=== PATIENT | female | born 1960 | race Caucasian/White ===

== ENCOUNTER 2016-08-22 18:41 | Inpatient (IN) | payer OTHER ==
[2016-08-22] MEDS ORDERED: METOCLOPRAMIDE 5 MG/ML 2 ML VIAL IVP STA (19:07)
[2016-08-22] MEDS ORDERED: SODIUM CHLORIDE 0.9% 1,000 ML IV STA ×2 (19:07)
--- NOTE | 2016-08-22 19:11 | ED ---
General Adult HPI - General Chief complaint: Dizziness Stated complaint: weakness Time Seen by Provider: 08/22/16 18:48 Source: patient, EMS, RN notes reviewed Mode of arrival: EMS Limitations: no limitations - History of Present Illness Initial comments: Patient is a pleasant 56-year-old female presenting to the emergency Department with complaints of dizziness and weakness. Patient is a poor historian . Patient has a history of dizziness. Patient states she is having several falls over the past few days. Patient admits to not drinking much and feeling dry. Patient requests fluids. No reported headaches. Patient believes she has been taking heparin shots for her dizziness however states she stopped doing it because it causes bruising. No isolated area of weakness however patient feels weak all over. Patient states she does not feel confused. Patient states she has discomfort of her tailbone from falling. - Related Data Home Medications Medication Instructions Recorded Confirmed Amitriptyline HCl [Elavil] 100 mg PO HS 08/22/16 08/22/16 Aspirin 81 mg PO DAILY 08/22/16 08/22/16 Butalb/APAP/Caff 50-325-40Mg 1 tab PO Q6H PRN 08/22/16 08/22/16 [Fioricet 50-325-40] Clopidogrel [Plavix] 75 mg PO DAILY 08/22/16 08/22/16 Glimepiride [Amaryl] 1 mg PO AC-BRKFST 08/22/16 08/22/16 Ipratropium-Albuterol Nebulize 3 ml INHALATION RT-QID PRN 08/22/16 08/22/16 [Duoneb 0.5 mg-3 mg/3 ml Soln] Megestrol [Megace] 800 mg PO DAILY 08/22/16 08/22/16 Metoprolol Tartrate [Lopressor] 25 mg PO BID 08/22/16 08/22/16 Polyethylene Glycol 3350 [Miralax] 17 gm PO DAILY 08/22/16 08/22/16 Sennosides-Docusate Sodium 1 tab PO DAILY 08/22/16 08/22/16 [Senokot-S] Sodium Bicarbonate Tab 650 mg PO BID 08/22/16 08/22/16 Allergies Allergy/AdvReac Type Severity Reaction Status Date / Time WARNER Inhibitors Allergy Unknown Verified 08/22/16 19:12 amoxicillin [From Amoxil] Allergy Unknown Verified 08/22/16 19:12 Childhood ciprofloxacin [From Cipro] Allergy Rash/Hives Verified 08/22/16 19:12 metformin Allergy Unknown Verified 08/22/16 19:12 Review of Systems ROS Statement: Those systems with pertinent positive or pertinent negative responses have been documented in the HPI. ROS Other: All systems not noted in ROS Statement are negative. Constitutional: Denies: fever Eyes: Denies: eye pain ENT: Denies: ear pain Respiratory: Denies: cough Cardiovascular: Denies: chest pain Endocrine: Reports: fatigue Gastrointestinal: Denies: vomiting Genitourinary: Denies: urgency Musculoskeletal: Reports: back pain (Tailbone from falling today) Skin: Denies: rash Neurological: Reports: weakness (Generalized). Denies: confusion Past Medical History Past Medical History: Asthma, Diabetes Mellitus, Fibromyalgia, GERD/Reflux, Hyperlipidemia, Myocardial Infarction ([place]), Rheumatoid Arthritis ([place]) Additional Past Medical History / Comment(s): Pt presented to [facility] ER with pain beneath bilateral breasts which was a squeezing type pain and also epigastric pain. Pt is admitted with chest pain, abdominal pain, UTI and hypotension. Other HX: NIDDM, current devika on bottom of R foot per pt not seen by physician yet, 04/2015 cholecystitis with sepsis (had cholecystectomy), morbid obesity, chronic migraines, SCOLIOSIS, CHRONIC BACK PAIN CARPAL TUNNEL bilaterally. Last Myocardial Infarction Date:: 05/24/15 History of Any Multi-Drug Resistant Organisms: None Reported Past Surgical History: Breast Surgery, Cholecystectomy, Heart Catheterization, Heart Catheterization With Stent, Tonsillectomy Additional Past Surgical History / Comment(s): 05/2015 PCI with stent at [facility]. Other surgeries: BIBI KNEE ARTHROSCOPIES, L BREAST- LUMPECTOMY(BENIGN) Past Anesthesia/Blood Transfusion Reactions: Motion Sickness Additional Past Anesthesia/Blood Transfusion Reaction / Comment(s): Pt states she has clausterphobia. Date of Last Stent Placement:: 05/24/15 per pt Past Psychological History: Anxiety, Depression Additional Psychological History / Comment(s): pt stated lives with 1 cat. She is independant. She uses no assistive device. She does not drive-she uses the bus. She helps care for her parents. Smoking Status: Former smoker Past Alcohol Use History: None Reported Additional Past Alcohol Use History / Comment(s): SMOKED X les than 1 YEAR,QUIT 1979 Past Drug Use History: None Reported - Past Family History Father Family Medical History: Dementia Mother History Unknown: Yes Family Medical History: Cancer, Chest Pain / Angina Additional Family Medical History / Comment(s): Breast cancer with recent surgery. General Exam Limitations: no limitations General appearance: alert, in no apparent distress Head exam: Present: atraumatic, normocephalic Eye exam: Present: normal appearance, PERRL, EOMI. Absent: nystagmus ENT exam: Present: mucous membranes dry Neck exam: Present: normal inspection Respiratory exam: Present: normal lung sounds bilaterally Cardiovascular Exam: Present: regular rate, normal rhythm GI/Abdominal exam: Present: soft. Absent: tenderness Extremities exam: Present: normal inspection, full ROM. Absent: tenderness Back exam: Present: other (Mild tenderness to the sacral region.) Neurological exam: Present: alert, altered, CN II-XII intact Expanded Patient oriented to: Present: person, place. Absent: time Motor strength exam: RUE: 5, LUE: 5, RLE: 4, LLE: 4 Eye Response: (4) open spontaneously Motor Response: (6) obeys commands Verbal Response: (4) confused conversation Psychiatric exam: Present: normal affect, normal mood Expanded Type of lesion: Present: rash (Bilateral arms and legs with multiple small lesions with central eschars and evidence of scratching consistent with scabies) Course Vital Signs 08/22/16 08/22/16 18:42 21:00 Temperature 99.1 F Pulse Rate 55 L 88 Respiratory 20 18 Rate Blood Pressure 221/116 112/58 O2 Sat by Pulse 98 97 Oximetry Medical Decision Making - Medical Decision Making Patient does not meet sepsis criteria. Cefepime started for urinary tract infection. Patient has failed outpatient antibiotics. also appears dehydrated. Dr. Montrell delgadillo for admission. Patient and family updated on results and plan. - Lab Data Result diagrams: 08/22/16 20:15 08/22/16 20:15 Lab Results 08/22/16 08/22/16 08/22/16 Range/Units 19:48 20:15 20:15 WBC 13.6 H (3.8-10.6) k/uL RBC 3.05 L (3.80-5.40) m/uL Hgb 8.9 L (11.4-16.0) gm/dL Hct 28.2 L (34.0-46.0) % MCV 92.5 (80.0-100.0) fL MCH 29.1 (25.0-35.0) pg MCHC 31.4 (31.0-37.0) g/dL RDW 15.5 (11.5-15.5) % Plt Count 423 (150-450) k/uL Neutrophils % 95 % Lymphocytes % 2 % Monocytes % 2 % Eosinophils % 0 % Basophils % 0 % Neutrophils # 12.9 H (1.3-7.7) k/uL Lymphocytes # 0.3 L (1.0-4.8) k/uL Monocytes # 0.3 (0-1.0) k/uL Eosinophils # 0.0 (0-0.7) k/uL Basophils # 0.0 (0-0.2) k/uL Hypochromasia Slight PT (9.0-12.0) sec INR (<1.1) APTT (22.0-30.0) sec Sodium (137-145) mmol/L Potassium (3.5-5.1) mmol/L Chloride (98-107) mmol/L Carbon Dioxide (22-30) mmol/L Anion Gap mmol/L BUN (7-17) mg/dL Creatinine (0.52-1.04) mg/dL Est GFR (MDRD) Af Amer (>60 ml/min/1.73 sqM) Est GFR (MDRD) Non-Af (>60 ml/min/1.73 sqM) Glucose (74-99) mg/dL Calcium (8.4-10.2) mg/dL Phosphorus (2.5-4.5) mg/dL Magnesium (1.6-2.3) mg/dL Total Bilirubin (0.2-1.3) mg/dL AST (14-36) U/L ALT (9-52) U/L Alkaline Phosphatase (38-126) U/L Total Creatine Kinase 226 H (30-135) U/L CK-MB (CK-2) 2.1 (0.0-2.4) ng/mL CK-MB (CK-2) Rel Index 0.9 Troponin I <0.012 <0.012 (0.000-0.034) ng/mL Total Protein (6.3-8.2) g/dL Albumin (3.5-5.0) g/dL TSH (0.465-4.680) mIU/L Urine Color Urine Appearance (Clear) Urine pH (5.0-8.0) Ur Specific Hagerman (1.001-1.035) Urine Protein (Negative) Urine Glucose (UA) (Negative) Urine Ketones (Negative) Urine Blood (Negative) Urine Nitrate (Negative) Urine Bilirubin (Negative) Urine Urobilinogen (<2.0) mg/dL Ur Leukocyte Esterase (Negative) Urine RBC (0-5) /hpf Urine WBC (0-5) /hpf Urine Bacteria (None) /hpf Hyaline Casts (0-2) /lpf Urine Mucus (None) /hpf 08/22/16 08/22/16 08/22/16 Range/Units 20:15 20:15 21:15 WBC (3.8-10.6) k/uL RBC (3.80-5.40) m/uL Hgb (11.4-16.0) gm/dL Hct (34.0-46.0) % MCV (80.0-100.0) fL MCH (25.0-35.0) pg MCHC (31.0-37.0) g/dL RDW (11.5-15.5) % Plt Count (150-450) k/uL Neutrophils % % Lymphocytes % % Monocytes % % Eosinophils % % Basophils % % Neutrophils # (1.3-7.7) k/uL Lymphocytes # (1.0-4.8) k/uL Monocytes # (0-1.0) k/uL Eosinophils # (0-0.7) k/uL Basophils # (0-0.2) k/uL Hypochromasia PT 11.0 (9.0-12.0) sec INR 1.1 (<1.1) APTT 29.1 (22.0-30.0) sec Sodium 138 (137-145) mmol/L Potassium 4.6 (3.5-5.1) mmol/L Chloride 99 (98-107) mmol/L Carbon Dioxide 18 L (22-30) mmol/L Anion Gap 21 mmol/L BUN 29 H (7-17) mg/dL Creatinine 1.56 H (0.52-1.04) mg/dL Est GFR (MDRD) Af Amer 41 (>60 ml/min/1.73 sqM) Est GFR (MDRD) Non-Af 34 (>60 ml/min/1.73 sqM) Glucose 258 H (74-99) mg/dL Calcium 8.5 (8.4-10.2) mg/dL Phosphorus 2.8 (2.5-4.5) mg/dL Magnesium 1.5 L (1.6-2.3) mg/dL Total Bilirubin 0.5 (0.2-1.3) mg/dL AST 29 (14-36) U/L ALT 42 (9-52) U/L Alkaline Phosphatase 102 (38-126) U/L Total Creatine Kinase (30-135) U/L CK-MB (CK-2) (0.0-2.4) ng/mL CK-MB (CK-2) Rel Index Troponin I (0.000-0.034) ng/mL Total Protein 5.9 L (6.3-8.2) g/dL Albumin 3.3 L (3.5-5.0) g/dL TSH 1.420 (0.465-4.680) mIU/L Urine Color Yellow Urine Appearance Cloudy H (Clear) Urine pH 8.5 H (5.0-8.0) Ur Specific Hagerman 1.010 (1.001-1.035) Urine Protein 1+ H (Negative) Urine Glucose (UA) 1+ H (Negative) Urine Ketones Negative (Negative) Urine Blood Negative (Negative) Urine Nitrate Positive H (Negative) Urine Bilirubin Negative (Negative) Urine Urobilinogen <2.0 (<2.0) mg/dL Ur Leukocyte Esterase Large H (Negative) Urine RBC 8 H (0-5) /hpf Urine WBC 102 H (0-5) /hpf Urine Bacteria Many H (None) /hpf Hyaline Casts 9 H (0-2) /lpf Urine Mucus Moderate H (None) /hpf Disposition Clinical Impression: Infestation by Sarcoptes scabiei, Dehydration, UTI (urinary tract infection) Disposition: ADMITTED IP TO THIS [facility] Referrals: Terrance Stock MD [Primary Care Provider] - 1-2 days
[2016-08-22 20:24] LABS: Basophils % (A) 0 %; CH 28.9; CHCM 31.3; Eosinophils % (A) 0 %; HCT 28.2 % (34.0-46.0); HDW 2.87; HGB 8.9 gm/dL (11.4-16.0); Hypochromasia Slight; Luc # (Auto) 0.05; Luc % (Auto) 0; Lymphocytes # (A) 0.3 k/uL (1.0-4.8); Lymphocytes % (A) 2 %; MCH 29.1 pg (25.0-35.0); MCHC 31.4 g/dL (31.0-37.0); MCV 92.5 fL (80.0-100.0); Mean Platelet Volume 6.9; Monocytes # (A) 0.3 k/uL (0-1.0); Monocytes % (A) 2 %; Neutrophils # (A) 12.9 k/uL (1.3-7.7); Neutrophils % (A) 95 %; RBC 3.05 m/uL (3.80-5.40); RDW 15.5 % (11.5-15.5); WBC 13.6 k/uL (3.8-10.6); WBC (Perox) 13.88
[2016-08-22 20:37] LABS: Calcium 8.5 mg/dL (8.4-10.2); Magnesium 1.5 mg/dL (1.6-2.3); Phosphorous 2.8 mg/dL (2.5-4.5); Potassium 4.6 mmol/L (3.5-5.1); Total Bilirubin 0.5 mg/dL (0.2-1.3); Total Protein 5.9 g/dL (6.3-8.2)
[2016-08-22 20:38] LABS: INR 1.1 (<1.1); Partial Thromboplastin Time 29.1 sec (22.0-30.0)
[2016-08-22 20:49] LABS: Creatine Kinase 226 U/L (30-135)
--- NOTE | 2016-08-22 20:56 | CT ---
EXAMINATION TYPE: CT brain wo con DATE OF EXAM: 08/22/2016 8:48 PM COMPARISON: 08/12/2016 HISTORY: Pt states of weakness and fall today. CT DLP: 1130. mGycm Automated exposure control for dose reduction was used. FINDINGS: There is mild cerebral cortical atrophy. There is no mass effect nor midline shift. There is no sign of intracranial hemorrhage. Calvarium is intact. IMPRESSION: Mild atrophy. No acute intracranial abnormality. No change.
[2016-08-22 21:03] LABS: Creatine Kinase MB 2.1 ng/mL (0.0-2.4); Troponin I <0.012 ng/mL (0.000-0.034)
--- NOTE | 2016-08-22 21:10 | XR ---
EXAMINATION TYPE: XR chest 2V DATE OF EXAM: 08/22/2016 9:01 PM COMPARISON: 07/19/2016 HISTORY: Weakness TECHNIQUE: Frontal and lateral views of the chest are obtained. FINDINGS: Heart and mediastinum are normal. Lungs are clear. Diaphragm is normal. Bony thorax is int act. IMPRESSION: Normal chest. No adverse change compared to old exam.
--- NOTE | 2016-08-22 21:11 | XR ---
EXAMINATION TYPE: XR sacrum coccyx DATE OF EXAM: 08/22/2016 9:01 PM COMPARISON: NONE HISTORY: Weakness and falls. Pain. TECHNIQUE: 3 views FINDINGS: Segments have normal alignment. Sacroiliac joints appear intact. I see no fracture. There i s soft tissue air posteriorly consistent with laceration. IMPRESSION: No fracture seen. Posterior soft tissue air consistent with lacerations.
[2016-08-22 21:42] LABS: Appearance,Urine Cloudy (Clear); Bacteria,Urine Many /hpf; Bilirubin,Urine Negative (Negative); Glucose,Urine (UA) 1+ (Negative); Ketones,Urine Negative (Negative); Leukocyte Esterase,Urine Large (Negative); Mucus,Urine Moderate /hpf; Nitrite,Urine Positive (Negative); PH, Urine 8.5 (5.0-8.0); Particle Count 69565; Protein,Urine 1+ (Negative); RBC,Urine 8 /hpf (0-5); UA Billing (MACRO vs. MICRO) MICRO; Urobilinogen,Urine <2.0 mg/dL (<2.0); WBC,Urine 102 /hpf (0-5)
[2016-08-22] MEDS ORDERED: PERMETHRIN 5% CREAM 60 GM TUBE TOPICAL ONE (22:22)
[2016-08-22] MEDS ORDERED: CEFEPIME 1 GM in SODIUM CHLORIDE 0.9% 50 ML IVPB STA (22:23)
[2016-08-22] MEDS ORDERED: NALOXONE 0.4 MG/ML 1 ML VIAL IV PRN (22:26)
[2016-08-23] MEDS: SODIUM CHLORIDE 0.9% 1,000 ML IV SCH ×5 (01:55→17:15)
[2016-08-23] MEDS: ACETAMINOPHEN TAB 325 MG TAB PO PRN (02:25)
[2016-08-23 07:19] LABS: Glucose,Whole Blood 135 mg/dL (75-99)
[2016-08-23] MEDS ORDERED: BUTALB/APAP/CAFF 50-325-40MG TAB PO PRN (08:34)
[2016-08-23] MEDS ORDERED: IPRATROPIUM-ALBUTEROL 3 ML NEB INHALATION PRN (08:34)
[2016-08-23 08:56] LABS: Basophils % (A) 0 %; CH 29.2; CHCM 31.7; Eosinophils % (A) 0 %; HCT 25.3 % (34.0-46.0); HDW 2.87; HGB 7.9 gm/dL (11.4-16.0); Hypochromasia Slight; Luc # (Auto) 0.05; Luc % (Auto) 1; Lymphocytes # (A) 0.6 k/uL (1.0-4.8); Lymphocytes % (A) 6 %; MCH 28.9 pg (25.0-35.0); MCHC 31.4 g/dL (31.0-37.0); MCV 92.3 fL (80.0-100.0); Mean Platelet Volume 7.3; Monocytes # (A) 0.3 k/uL (0-1.0); Monocytes % (A) 3 %; Neutrophils # (A) 9.6 k/uL (1.3-7.7); Neutrophils % (A) 91 %; RBC 2.74 m/uL (3.80-5.40); RDW 15.6 % (11.5-15.5); WBC 10.6 k/uL (3.8-10.6); WBC (Perox) 11.59
[2016-08-23] MEDS ORDERED: FAMOTIDINE 20 MG TAB PO SCH (09:00)
[2016-08-23 09:33] LABS: Potassium 3.8 mmol/L (3.5-5.1)
[2016-08-23] MEDS: MEGESTROL 400 MG/10 ML CUP PO SCH (09:59)
[2016-08-23] MEDS: SODIUM BICARBONATE TAB 650 MG TAB PO SCH ×2 (09:59→20:33)
[2016-08-23] MEDS: METOPROLOL TARTRATE 25 MG TAB PO SCH ×2 (09:59→20:32)
[2016-08-23] MEDS: POLYETHYLENE GLYCOL 3350 17 GM POWD.PACK PO SCH (09:59)
[2016-08-23] MEDS: ASPIRIN 81 MG CHEW PO SCH (10:00)
[2016-08-23] MEDS: HEPARIN SODIUM,PORCINE 5,000 UNIT/ML 1 ML VIAL SQ SCH ×2 (10:00→17:14)
[2016-08-23] MEDS: CLOPIDOGREL 75 MG TAB PO SCH (10:00)
[2016-08-23] MEDS: GLIMEPIRIDE 1 MG TAB PO SCH (10:00)
[2016-08-23] MEDS ORDERED: CEFEPIME 1 GM in SODIUM CHLORIDE 0.9% 50 ML IVPB SCH ×2 (11:30→12:00)
[2016-08-23 12:09] LABS: Glucose,Whole Blood 217 mg/dL (75-99)
[2016-08-23] MEDS: SENNOSIDES-DOCUSATE SODIUM 1 EACH TAB PO SCH (14:15)
[2016-08-23 17:01] LABS: Glucose,Whole Blood 139 mg/dL (75-99)
[2016-08-23] MEDS: AMITRIPTYLINE HCL 50 MG TAB PO SCH (20:33)
[2016-08-23 21:28] LABS: Glucose,Whole Blood 130 mg/dL (75-99)
[2016-08-24] MEDS: HEPARIN SODIUM,PORCINE 5,000 UNIT/ML 1 ML VIAL SQ SCH ×4 (00:23→23:10)
[2016-08-24] MEDS: SODIUM CHLORIDE 0.9% 1,000 ML IV SCH ×5 (03:37→23:11)
[2016-08-24 07:32] LABS: Glucose,Whole Blood 90 mg/dL (75-99)
[2016-08-24] MEDS: GLIMEPIRIDE 1 MG TAB PO SCH (08:33)
[2016-08-24] MEDS: ASPIRIN 81 MG CHEW PO SCH (08:33)
[2016-08-24] MEDS: CLOPIDOGREL 75 MG TAB PO SCH (08:34)
[2016-08-24] MEDS: MEGESTROL 400 MG/10 ML CUP PO SCH (08:34)
[2016-08-24] MEDS: METOPROLOL TARTRATE 25 MG TAB PO SCH ×2 (08:35→21:01)
[2016-08-24] MEDS: POLYETHYLENE GLYCOL 3350 17 GM POWD.PACK PO SCH (08:35)
[2016-08-24] MEDS: SENNOSIDES-DOCUSATE SODIUM 1 EACH TAB PO SCH (08:36)
[2016-08-24] MEDS: SODIUM BICARBONATE TAB 650 MG TAB PO SCH ×2 (08:36→21:01)
[2016-08-24] MEDS ORDERED: FAMOTIDINE 20 MG TAB PO SCH (09:00)
[2016-08-24 09:12] LABS: Basophils % (A) 0 %; CH 29.1; CHCM 30.7; Eosinophils % (A) 0 %; HGB 7.8 gm/dL (11.4-16.0); Hypochromasia Moderate; Luc # (Auto) 0.09; Luc % (Auto) 1; Lymphocytes % (A) 15 %; MCH 28.4 pg (25.0-35.0); MCHC 29.9 g/dL (31.0-37.0); MCV 94.9 fL (80.0-100.0); Mean Platelet Volume 7.3; Monocytes # (A) 0.3 k/uL (0-1.0); Monocytes % (A) 4 %; Neutrophils # (A) 5.2 k/uL (1.3-7.7); Neutrophils % (A) 80 %; RBC 2.73 m/uL (3.80-5.40); RDW 15.7 % (11.5-15.5); WBC 6.6 k/uL (3.8-10.6); WBC (Perox) 7.06
[2016-08-24 09:44] LABS: ALT 43 U/L (9-52); AST 20 U/L (14-36); Alkaline Phosphatase 78 U/L (38-126); Anion Gap 15 mmol/L; Blood Urea Nitrogen 24 mg/dL (7-17); Calcium 8.5 mg/dL (8.4-10.2); Carbon Dioxide 18 mmol/L (22-30); Chloride 112 mmol/L (98-107); Cholesterol 124 mg/dL (<200); Glucose 102 mg/dL (74-99); HDL Cholesterol 19 mg/dL (40-60); Non-African American GFR(MDRD) 50 (>60 ml/min/1.73 sqM); Potassium 3.5 mmol/L (3.5-5.1); Sodium 145 mmol/L (137-145); Total Bilirubin 0.3 mg/dL (0.2-1.3); Total Protein 5.3 g/dL (6.3-8.2); Triglycerides 243 mg/dL (<150)
--- NOTE | 2016-08-24 09:59 | CONS ---
DATE OF CONSULTATION: 08/23/2016 REASON FOR CONSULTATION: 1. Urinary tract infection. 2. Left gluteal wound. 3. Antibiotic recommendation. HISTORY OF PRESENT ILLNESS: The patient is a 56-year-old female who recently had a prolonged hospital stay at this facility where the patient presented with some mental status changes. The patient at that time did have an Escherichia coli bacteremia. The patient also went into renal failure requiring hemodialysis. Subsequently, the patient was stabilized and was [facility], however, apparently the patient had signed herself out from there and currently has at home. Patient was brought into the ER last night with chief complaints of generalized weakness and the patient has had multiple falls. The patient also spiked a fever of 102 degrees Fahrenheit. She did have an elevated white count of 13,000. UA has been positive. The patient started on cefepime. Because of her multiple antibiotic allergies, I was asked to see the patient for further recommendations regarding antibiotics. Patient also has a wound in her left gluteal area. However, the patient is not sure exactly when this started. She is complaining some dull pain in this area. Has some minimal drainage from it. She did have an x-ray of the coccygeal area, which did show some air. The patient denies having any headache. Denies having any chest pain or shortness of breath or cough. No abdominal pain or any diarrhea. REVIEW OF SYSTEMS: CONSTITUTIONAL: Positive for weakness along with a fever. EYES: No complaint. ENT: No complaint. RESPIRATORY: No complaint. CARDIOVASCULAR: No complaint. GENITOURINARY: As per HPI. GASTROINTESTINAL: No complaint. MUSCULOSKELETAL: No complaint. INTEGUMENTARY: As per HPI. PSYCHOLOGICAL: No complaint. ENDOCRINE: No complaint. NEUROLOGICAL: No complaint. PAST MEDICAL HISTORY: Diabetes mellitus, fibromyalgia, gastroesophageal reflux disease, hyperlipidemia, myocardial infarction, scoliosis, recurrent UTIs, Escherichia coli bacteremia, renal failure. PAST SURGICAL HISTORY: Cholecystectomy, heart catheterization and stent placement, tonsillectomy, left breast lumpectomy, bilateral knee arthroscopies, breast surgery, dialysis catheter placement and subsequent removal. SOCIAL HISTORY: The patient quit smoking back in . Denies drinking or drug use. FAMILY HISTORY: Father with history of dementia. ALLERGIES: WARNER INHIBITOR, AMOXICILLIN, CIPROFLOXACIN AND METFORMIN. Medications currently include the patient is on Tylenol, Fioricet, DuoNeb, Elavil, aspirin, cefepime 1 gram q.24, Plavix, Pepcid, Amaryl, Heparin, Megace, Lopressor, Narcan, MiraLAX, Senokot, sodium bicarbonate. On examination, blood pressure is 94/57, pulse of 90, temperature 97.4, T-max 102. She is 99% on room air. General description is a middle-age female lying in bed in no distress. HEENT examination shows slight pallor. There is no scleral icterus. Oral mucous membrane is dry. NECK: Trachea central. There is no thyromegaly. LUNGS: Unlabored breathing. Clear to auscultation anteriorly. HEART: S1, S2 with regular rate and rhythm. ABDOMEN: Soft, no tenderness. EXTREMITIES: No edema of the feet. Examination of the left gluteal area did show a stage III pressure ulcer which is significantly deep and did have some purulent drainage. No significant surrounding erythema. NEUROLOGICAL: The patient is awake, alert, oriented. Mood and affect normal. LABS: BUN of 27, creatinine 1.43. Electrolytes have been normal. Liver enzymes are normal. Urine has been significantly positive with large leukocyte esterases, WBC and many bacteria. Hemoglobin 7.9, white count 13.6. Cultures are currently pending. X-rays were negative for any pneumonia. DIAGNOSTIC IMPRESSION AND PLAN: 1. Patient admitted to hospital with sepsis and patient did have fever of 102 degrees Fahrenheit. Did have elevated white count meeting criteria for systemic inflammatory response syndrome. Source is more likely a urinary tract infection; however, an infected wound to the left gluteal area cannot be entirely excluded. 2. Patient has multiple antibiotic allergies limiting the number of antibiotics that can be safely used. PLAN: 1. Will switch over the cefepime to Rocephin 2 grams IV piggyback daily. 2. Santyl to the wound of the left gluteal area. I would recommend getting a surgical evaluation and surgical debridement of the same. Afterwards if it is clean, will see if we can apply a wound VAC to help with the healing process. 3. Will follow up on the clinical condition as well as culture to further adjust the medication if needed. Thank you for this consultation. Will follow this patient along with you. SAMRA
--- NOTE | 2016-08-24 11:05 | P.PN ---
Subjective 56-year-old female who was admitted on the august to the emergency room after patient reportedly had been having multiple falls at home. Patient reportedly had spiked a temp of 102 with an elevated white count. Patient was recently discharged from an ECF facility [facility] [place] on Saturday this week. Patient had been recuperating after a prolonged hospital stay at [facility]. Patient was discharged August 02 to the facility. At that time the patient was being treated for severe sepsis E. coli bacteremia. That admission the patient also had renal failure required hemodialysis. Patient renal function stabilized hemodialysis was able to be stopped. According to the patient after being discharged from the ECF facility this Saturday had been having episodes of falling. On admission the patient had a significant decubitus ulcer stage II involving the left buttocks. Vascular Dr. Stevens from infectious diseases participating in the plan of care. They are recommending a surgical eval for surgical debridement of the sacral decubitus bottom the left gluteal area may benefit from a wound VAC to help with the healing process. ic design manager is pursuing the discharge plan the patient does have a legal guardian patient may benefit from [facility] care versus rehab Objective - Vital Signs Vital signs: Vital Signs Temp 96.9 F L 08/24/16 07:00 Pulse 92 08/24/16 07:00 Resp 20 08/24/16 07:00 BP 113/54 08/24/16 07:00 Pulse Ox 98 08/24/16 07:00 Intake & Output 08/23/16 08/24/16 08/24/16 18:59 06:59 18:59 Intake Total 500 Output Total 600 Balance -600 500 Intake: Oral 500 Output: Urine 600 Other: Voiding Method Bedside Commode # Voids 2 2 - Exam Physical exam 56-year-old female looking older than stated age resting in bed appears in no acute distress Lungs essentially clear with adequate air movement on room air no cough noted Heart S1-S2 audible regular Abdomen soft nontender no reports of nausea vomiting no frequent stooling Extremities no edema noted to the lower extremities Skin a stage III pressure ulcer left gluteal area significantly a deep with. With follow older drainage noted with no significant surrounding erythema noted - Labs CBC & Chem 7: 08/24/16 08:50 08/24/16 08:50 Labs: Abnormal Lab Results - Last 24 Hours (Table) 08/23/16 08/23/16 08/23/16 Range/Units 12:07 16:59 21:07 RBC (3.80-5.40) m/uL Hgb (11.4-16.0) gm/dL Hct (34.0-46.0) % MCHC (31.0-37.0) g/dL RDW (11.5-15.5) % Chloride (98-107) mmol/L Carbon Dioxide (22-30) mmol/L BUN (7-17) mg/dL Creatinine (0.52-1.04) mg/dL Glucose (74-99) mg/dL POC Glucose (mg/dL) 217 H 139 H 130 H (75-99) mg/dL Total Protein (6.3-8.2) g/dL Albumin (3.5-5.0) g/dL Triglycerides (<150) mg/dL HDL Cholesterol (40-60) mg/dL 08/24/16 08/24/16 Range/Units 08:50 08:50 RBC 2.73 L (3.80-5.40) m/uL Hgb 7.8 L (11.4-16.0) gm/dL Hct 26.0 L (34.0-46.0) % MCHC 29.9 L (31.0-37.0) g/dL RDW 15.7 H (11.5-15.5) % Chloride 112 H (98-107) mmol/L Carbon Dioxide 18 L (22-30) mmol/L BUN 24 H (7-17) mg/dL Creatinine 1.12 H (0.52-1.04) mg/dL Glucose 102 H (74-99) mg/dL POC Glucose (mg/dL) (75-99) mg/dL Total Protein 5.3 L (6.3-8.2) g/dL Albumin 2.7 L (3.5-5.0) g/dL Triglycerides 243 H (<150) mg/dL HDL Cholesterol 19 L (40-60) mg/dL Microbiology - Last 24 Hours (Table) 08/23/16 16:27 Gram Stain - Preliminary Buttock Wound Culture - Preliminary 08/23/16 16:40 Anaerobic Culture - Preliminary Buttock Assessment and Plan Plan: Impression Present on admission sirs no evidence of sepsis fever elevated white count suspect due to UTI Present on admission stage III pressure ulcer left gluteal significant depth Chronic debility suspected chronic illness Present on admission bilateral rash arms and legs with multiple skin lesions suggestive of scabies Chronic constipation Mood disorder suspect bipolar Chronic back pain Recent admission August 02 for sepsis gram-negative bacilli with the UTI Present on admission acute kidney injury secondary to poor oral intake Type 2 diabetes non-insulin with hypoglycemic episodes Anemia of chronic illness Dyslipidemia Anemia of chronic illness with no evidence of occult blood loss Cognitive impairment chronic has a legal guardian Plan Consult surgical service patient may benefit from a debridement of the stage III left buttock pressure ulcer PT OT eval Follow-up on pending labs Fall precautions Continue with recommendations by infectious disease in regards to antibiotics Wound care as ordered DVT and GI prophylaxis Follow-up on wound culture and urine culture ic design manager to pursue the discharge plan The above dictated assessment and findings were discussed with dr favio Anne and the plan of care have been dictated as directed. Britt Crum nurse practitioner acting as a scribe for dr stahl
[2016-08-24 11:51] LABS: Glucose,Whole Blood 110 mg/dL (75-99)
[2016-08-24] MEDS: cefTRIAXone 2,000 MG in SODIUM CHLORIDE 0.9% 100 ML IVPB SCH (12:31)
[2016-08-24] MEDS: ACETAMINOPHEN TAB 325 MG TAB PO PRN (12:31)
--- NOTE | 2016-08-24 14:59 | P.GSCN ---
History of Present Illness Consult date: 08/24/16 History of present illness: Patient is a 56-year-old lady who presents with sepsis probably due to urosepsis. She's had a multiple medical problems and was recently admitted to [facility]. She did not have the Eliseo's ulcer on admission but on discharge had a foul-smelling draining stage III decubitus ulcer. She also has multiple rashes which is probably due to scabies infestation as well. Review of Systems - Constitutional Reports fever, Reports malaise, Reports weakness - Cardiovascular Denies chest pain, Denies shortness of breath - Respiratory Denies cough, Denies 7 - Gastrointestinal Reports as per HPI Past Medical History Past Medical History: Asthma, Diabetes Mellitus, Fibromyalgia, GERD/Reflux, Hyperlipidemia, Myocardial Infarction (DC), Rheumatoid Arthritis (RA) Additional Past Medical History / Comment(s): Pt presented to [facility] ER with pain beneath bilateral breasts which was a squeezing type pain and also epigastric pain. Pt is admitted with chest pain, abdominal pain, UTI and hypotension. Other HX: NIDDM, current devika on bottom of R foot per pt not seen by physician yet, 04/2015 cholecystitis with sepsis (had cholecystectomy), morbid obesity, chronic migraines, SCOLIOSIS, CHRONIC BACK PAIN CARPAL TUNNEL bilaterally. Last Myocardial Infarction Date:: 05/24/15 History of Any Multi-Drug Resistant Organisms: None Reported Past Surgical History: Breast Surgery, Cholecystectomy, Heart Catheterization, Heart Catheterization With Stent, Tonsillectomy Additional Past Surgical History / Comment(s): 05/2015 PCI with stent at [facility]. Other surgeries: BIBI KNEE ARTHROSCOPIES, L BREAST- LUMPECTOMY(BENIGN) Past Anesthesia/Blood Transfusion Reactions: Motion Sickness Additional Past Anesthesia/Blood Transfusion Reaction / Comm: Pt states she has clausterphobia. Date of Last Stent Placement:: 05/24/15 per pt Past Psychological History: Anxiety, Depression Additional Psychological History / Comment(s): pt stated lives with 1 cat. She is independant. She uses no assistive device. She does not drive-she uses the bus. She helps care for her parents. Smoking Status: Never smoker Past Alcohol Use History: None Reported Additional Past Alcohol Use History / Comment(s): SMOKED X les than 1 YEAR,QUIT 1979 Past Drug Use History: None Reported - Past Family History Father Family Medical History: Dementia Mother History Unknown: Yes Family Medical History: Cancer, Chest Pain / Angina Additional Family Medical History / Comment(s): Breast cancer with recent surgery. Medications and Allergies Home Medications Medication Instructions Recorded Confirmed Type Amitriptyline HCl [Elavil] 100 mg PO HS 08/22/16 08/22/16 History Aspirin 81 mg PO DAILY 08/22/16 08/22/16 History Butalb/APAP/Caff 50-325-40Mg 1 tab PO Q6H PRN 08/22/16 08/22/16 History [Fioricet 50-325-40] Clopidogrel [Plavix] 75 mg PO DAILY 08/22/16 08/22/16 History Glimepiride [Amaryl] 1 mg PO AC-BRKFST 08/22/16 08/22/16 History Ipratropium-Albuterol Nebulize 3 ml INHALATION RT-QID PRN 08/22/16 08/22/16 History [Duoneb 0.5 mg-3 mg/3 ml Soln] Megestrol [Megace] 800 mg PO DAILY 08/22/16 08/22/16 History Metoprolol Tartrate [Lopressor] 25 mg PO BID 08/22/16 08/22/16 History Polyethylene Glycol 3350 [Miralax] 17 gm PO DAILY 08/22/16 08/22/16 History Sennosides-Docusate Sodium 1 tab PO DAILY 08/22/16 08/22/16 History [Senokot-S] Sodium Bicarbonate Tab 650 mg PO BID 08/22/16 08/22/16 History Allergies Allergy/AdvReac Type Severity Reaction Status Date / Time WARNER Inhibitors Allergy Unknown Verified 08/22/16 19:12 amoxicillin [From Amoxil] Allergy Unknown Verified 08/22/16 19:12 Childhood ciprofloxacin [From Cipro] Allergy Rash/Hives Verified 08/22/16 19:12 metformin Allergy Unknown Verified 08/22/16 19:12 Surgical - Exam Vital Signs Temp Pulse Resp BP Pulse Ox 99.1 F 55 L 20 221/116 98 08/22/16 18:42 08/22/16 18:42 08/22/16 18:42 08/22/16 18:42 08/22/16 18:42 - General no distress, obese - Eyes PERRL, normal ocular movement - ENT normal pinna, normal nares - Neck no masses - Respiratory normal expansion, normal respiratory effort - Cardiovascular Rhythm: regular - Abdomen The patient's surgical revision was inspected there was a 4 x 4 cm stage III decubitus ulcer with significant amount of necrotic material in the base. Is good granulation tissue as well. This took amount of purulent discharge within it. Abdomen: soft Results - Labs 08/24/16 08:50 08/24/16 08:50 Abnormal Lab Results - Last 24 Hours (Table) 08/23/16 08/23/16 08/24/16 Range/Units 16:59 21:07 08:50 RBC (3.80-5.40) m/uL Hgb (11.4-16.0) gm/dL Hct (34.0-46.0) % MCHC (31.0-37.0) g/dL RDW (11.5-15.5) % Chloride 112 H (98-107) mmol/L Carbon Dioxide 18 L (22-30) mmol/L BUN 24 H (7-17) mg/dL Creatinine 1.12 H (0.52-1.04) mg/dL Glucose 102 H (74-99) mg/dL POC Glucose (mg/dL) 139 H 130 H (75-99) mg/dL Total Protein 5.3 L (6.3-8.2) g/dL Albumin 2.7 L (3.5-5.0) g/dL Triglycerides 243 H (<150) mg/dL HDL Cholesterol 19 L (40-60) mg/dL 08/24/16 08/24/16 Range/Units 08:50 11:49 RBC 2.73 L (3.80-5.40) m/uL Hgb 7.8 L (11.4-16.0) gm/dL Hct 26.0 L (34.0-46.0) % MCHC 29.9 L (31.0-37.0) g/dL RDW 15.7 H (11.5-15.5) % Chloride (98-107) mmol/L Carbon Dioxide (22-30) mmol/L BUN (7-17) mg/dL Creatinine (0.52-1.04) mg/dL Glucose (74-99) mg/dL POC Glucose (mg/dL) 110 H (75-99) mg/dL Total Protein (6.3-8.2) g/dL Albumin (3.5-5.0) g/dL Triglycerides (<150) mg/dL HDL Cholesterol (40-60) mg/dL Microbiology - Last 24 Hours (Table) 08/23/16 16:27 Gram Stain - Preliminary Buttock Wound Culture - Preliminary 08/23/16 16:40 Anaerobic Culture - Preliminary Buttock Diabetes panel 08/24/16 Range/Units 08:50 Sodium 145 (137-145) mmol/L Potassium 3.5 (3.5-5.1) mmol/L Chloride 112 H (98-107) mmol/L Carbon Dioxide 18 L (22-30) mmol/L BUN 24 H (7-17) mg/dL Creatinine 1.12 H (0.52-1.04) mg/dL Glucose 102 H (74-99) mg/dL Calcium 8.5 (8.4-10.2) mg/dL AST 20 (14-36) U/L ALT 43 (9-52) U/L Alkaline Phosphatase 78 (38-126) U/L Total Protein 5.3 L (6.3-8.2) g/dL Albumin 2.7 L (3.5-5.0) g/dL Triglycerides 243 H (<150) mg/dL HDL Cholesterol 19 L (40-60) mg/dL Calcium panel 08/24/16 Range/Units 08:50 Calcium 8.5 (8.4-10.2) mg/dL Albumin 2.7 L (3.5-5.0) g/dL Pituitary panel 08/24/16 Range/Units 08:50 Sodium 145 (137-145) mmol/L Potassium 3.5 (3.5-5.1) mmol/L Chloride 112 H (98-107) mmol/L Carbon Dioxide 18 L (22-30) mmol/L BUN 24 H (7-17) mg/dL Creatinine 1.12 H (0.52-1.04) mg/dL Glucose 102 H (74-99) mg/dL Calcium 8.5 (8.4-10.2) mg/dL Adrenal panel 08/24/16 Range/Units 08:50 Sodium 145 (137-145) mmol/L Potassium 3.5 (3.5-5.1) mmol/L Chloride 112 H (98-107) mmol/L Carbon Dioxide 18 L (22-30) mmol/L BUN 24 H (7-17) mg/dL Creatinine 1.12 H (0.52-1.04) mg/dL Glucose 102 H (74-99) mg/dL Calcium 8.5 (8.4-10.2) mg/dL Total Bilirubin 0.3 (0.2-1.3) mg/dL AST 20 (14-36) U/L ALT 43 (9-52) U/L Alkaline Phosphatase 78 (38-126) U/L Total Protein 5.3 L (6.3-8.2) g/dL Albumin 2.7 L (3.5-5.0) g/dL Assessment and Plan (1) Decubital ulcer Status: Acute (2) Dehydration Status: Acute (3) Infestation by Sarcoptes scabiei Status: Acute (4) UTI (urinary tract infection) Status: Acute (5) Fall Status: Acute (6) Gram-negative bacteremia Status: Acute (7) Sepsis Status: Acute Plan: Patient is a 76-year-old diabetic and morbidly obese patient who presents with draining stage III decubitus ulcer. She also has urosepsis. Centimeter with Rocephin. The wound itself was inspected and a sharp excisional debridement was performed at the bedside debriding some necrotic material. At this time and do believe that due to the excessive amount of drainage VAC dressing would not be an appropriate dressing. I recommended using a dilute Dakin solution and a kerlux dressing done twice a day. There is minimal periwound erythema at this time. There is good granulation tissue in the base as well. I will reevaluate the patient in 24-48 hours to see if she responds to this current dressing change. If not then we'll take the operating room for incision and debridement. Due to the extent of the drain is something he is not a good candidate at this time for VAC dressing will continue to follow the patient with you thank you for the consult.
[2016-08-24 17:26] LABS: Glucose,Whole Blood 76 mg/dL (75-99)
[2016-08-24] MEDS: AMITRIPTYLINE HCL 50 MG TAB PO SCH (21:00)
[2016-08-24] MEDS: FAMOTIDINE 20 MG TAB PO SCH (21:01)
[2016-08-24] MEDS: SODIUM HYPOCHLORITE 0.5% 480 ML BOT MISCELLANE SCH (21:10)
--- NOTE | 2016-08-24 21:11 | HP ---
DATE OF ADMISSION: 08/22/2016 CHIEF COMPLAINT: Dehydration, urinary tract infection, renal failure and decubitus. HISTORY OF PRESENT ILLNESS: This is another admission for this 56-year-old white female. 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 She then went into acute renal failure was on dialysis. Gradually her renal function improved to the point that she could be moved to a [facility]. There is difficulty in managing her discharge at that time and she was assigned a guardian. Somehow, she was taken out of the ch[facility]. She went home. Her care has apparently been suspect. She came back in dehydrated, with left ischial decubitus, and scabies and urinary tract infection. REVIEW OF SYSTEMS: Not reliably obtained. She is awake and alert, but probably not completely cognizant. Past medical history, family history, personal and social history are all otherwise essentially presumed unchanged. PHYSICAL EXAMINATION: VITAL SIGNS: Blood pressure is 88/50 with a pulse of 94, respirations of 35 and she is afebrile. In general she appeared to be extremely dehydrated and pale. She was lethargic. HEENT: Head, ears, eyes, nose, mouth, and throat were normal except for very dry mucous membranes. Neck veins not distended. CHEST: Clear. CARDIAC: Demonstrated tachycardia. ABDOMEN: Soft and nontender. EXTREMITIES: Normal. She did have scabies. She was admitted to the hospital with diagnoses: 1. Dehydration. 2. Urinary tract infection. 3. Encephalopathy secondary to hypoglycemic event. 4. Renal failure. 5. Sacral or left ischial decubitus. PLAN: 1. Bed rest. 2. IV fluids. 3. Treat scabies. 4. Rehydrate. 5. Manage the left sacral decubitus. 6. Work on appropriate discharge location.
--- NOTE | 2016-08-24 21:17 | PN ---
DATE OF SERVICE: 08/23/2016 CHIEF COMPLAINT: Dehydration, urinary tract infection, ischial sacral decubitus and scabies. HISTORY OF PRESENT ILLNESS: This lady is being rehydrated slowly and is being treated for scabies. She is complaining of discomfort in the right thigh but she has had no fever, chills, vomiting, etc. She also apparently cannot stand or walk due to weakness and poor balance. PHYSICAL EXAMINATION: She remains pale and very dehydrated. Head, ears, eyes, nose, mouth, and throat are normal. CHEST: Clear. CARDIAC: Normal except for tachycardia. ABDOMEN: Soft, nontender. IMPRESSION: 1. Dehydration. 2. Sacral decubitus. 3. Scabies. 4. Renal failure. 5. Encephalopathy. PLAN: Continue with rehydration and treat for scabies while working on a discharge plan once again with her guardian.
--- NOTE | 2016-08-24 21:40 | PN ---
DATE OF SERVICE: 08/24/2016 CHIEF COMPLAINT: Dehydration, renal failure, encephalopathy. HISTORY OF PRESENT ILLNESS: This is a little bit better, but her decubitus will require attention. This is quite deep. Hydration is improving. PHYSICAL EXAM: CHEST: Clear. CARDIAC: Normal. ABDOMEN: Soft, nontender. IMPRESSION: 1. Dehydration. 2. Encephalopathy. 3. Renal failure. 4. Scabies. 5. Sacral decubitus. PLAN: 1. Surgical consult for decubitus ulcer. 2. Continue with rehydration.
[2016-08-24 21:42] LABS: Glucose,Whole Blood 69 mg/dL (75-99)
[2016-08-24 21:48] LABS: Glucose,Whole Blood 69 mg/dL (75-99)
[2016-08-24 22:00] LABS: Glucose,Whole Blood 93 mg/dL (75-99)
[2016-08-25 07:13] LABS: Glucose,Whole Blood 82 mg/dL (75-99)
[2016-08-25] MEDS: GLIMEPIRIDE 1 MG TAB PO SCH (07:58)
[2016-08-25] MEDS: ASPIRIN 81 MG CHEW PO SCH (07:58)
[2016-08-25] MEDS: cefTRIAXone 2,000 MG in SODIUM CHLORIDE 0.9% 100 ML IVPB SCH (07:58)
[2016-08-25] MEDS: HEPARIN SODIUM,PORCINE 5,000 UNIT/ML 1 ML VIAL SQ SCH ×3 (07:58→23:04)
[2016-08-25] MEDS: CLOPIDOGREL 75 MG TAB PO SCH (07:58)
[2016-08-25] MEDS: FAMOTIDINE 20 MG TAB PO SCH ×2 (07:59→22:00)
[2016-08-25] MEDS: MEGESTROL 400 MG/10 ML CUP PO SCH (07:59)
[2016-08-25] MEDS: METOPROLOL TARTRATE 25 MG TAB PO SCH ×2 (07:59→22:00)
[2016-08-25] MEDS: SODIUM BICARBONATE TAB 650 MG TAB PO SCH ×2 (08:00→22:00)
[2016-08-25] MEDS: SODIUM HYPOCHLORITE 0.5% 480 ML BOT MISCELLANE SCH ×2 (08:00→23:03)
[2016-08-25] MEDS: POLYETHYLENE GLYCOL 3350 17 GM POWD.PACK PO SCH ×2 (08:00→10:30)
[2016-08-25] MEDS: SENNOSIDES-DOCUSATE SODIUM 1 EACH TAB PO SCH (08:02)
--- NOTE | 2016-08-25 08:18 | PN ---
DATE OF SERVICE: 08/24/2016 Reason for follow-up is: 1. Urinary tract infection. 2. Left gluteal wound. HISTORY OF PRESENT ILLNESS: The patient is afebrile. She is seems to be more awake and alert. The patient did have pain to the left gluteal wound, the patient denies having any chest pain or shortness of breath, cough. No abdominal pain. No diarrhea. On examination, blood pressure is 156/70 with a pulse of 55, temperature 98.3. She is 100% on room air. General description is a middle-age female lying in bed in no distress. RESPIRATORY SYSTEM: Unlabored breathing. Clear to auscultation anteriorly. HEART: S1, S2 regular rate and rhythm. Abdomen: Soft, no tenderness. Left gluteal wound some slough tissue, looks deep, but no surrounding erythema. LABS: Hemoglobin is 7.8, white count 6.6 with a BUN of 24, creatinine 1.12. Urine showing gram-negative bacilli. Wound cultures currently pending. DIAGNOSTIC IMPRESSION AND PLAN: Patient admitted to hospital with sepsis, source is likely combination of gram negative urinary tract infection, infected wound to the left gluteal area. The patient did have bedside debridement and recommending dakin's solution twice a day. We will continue the patient on Rocephin while awaiting for the cultures to finalize. Family present at beside. All their questions were answered. SAMRA
[2016-08-25 09:31] VITALS: BMI 33.9
[2016-08-25] MEDS: SODIUM CHLORIDE 0.9% 1,000 ML IV SCH ×3 (11:02→23:02)
[2016-08-25 11:03] LABS: ALT 40 U/L (9-52); AST 18 U/L (14-36); Alkaline Phosphatase 75 U/L (38-126); Anion Gap 12 mmol/L; Blood Urea Nitrogen 16 mg/dL (7-17); Calcium 8.8 mg/dL (8.4-10.2); Carbon Dioxide 20 mmol/L (22-30); Chloride 114 mmol/L (98-107); Glucose 134 mg/dL (74-99); Non-African American GFR(MDRD) >60 (>60 ml/min/1.73 sqM); Potassium 3.9 mmol/L (3.5-5.1); Sodium 146 mmol/L (137-145); Total Bilirubin 0.3 mg/dL (0.2-1.3); Total Protein 5.3 g/dL (6.3-8.2)
[2016-08-25 11:08] LABS: Basophils % (A) 0 %; CH 28.7; CHCM 30.8; Eosinophils % (A) 0 %; HCT 25.8 % (34.0-46.0); HDW 3.03; Hypochromasia Moderate; Luc # (Auto) 0.12; Luc % (Auto) 2; Lymphocytes # (A) 0.9 k/uL (1.0-4.8); Lymphocytes % (A) 15 %; MCH 28.8 pg (25.0-35.0); MCHC 30.8 g/dL (31.0-37.0); MCV 93.5 fL (80.0-100.0); Mean Platelet Volume 7.3; Monocytes # (A) 0.2 k/uL (0-1.0); Monocytes % (A) 4 %; Neutrophils # (A) 4.5 k/uL (1.3-7.7); Neutrophils % (A) 79 %; RBC 2.76 m/uL (3.80-5.40); RDW 15.6 % (11.5-15.5); WBC 5.7 k/uL (3.8-10.6); WBC (Perox) 5.63
[2016-08-25 12:30] LABS: Glucose,Whole Blood 111 mg/dL (75-99)
--- NOTE | 2016-08-25 14:33 | P.PN ---
Subjective Principal diagnosis: urosepis Stage 3 decubitus ulcer Patient 56-year-old female with urosepsis and stage 33 decubitus ulcer that is infected. She is improving with her her pain and drainage from the wound itself. Objective - Vital Signs Vital signs: Vital Signs Temp 97.2 F L 08/25/16 07:00 Pulse 90 08/25/16 07:00 Resp 16 08/25/16 07:00 BP 107/62 08/25/16 07:00 Pulse Ox 100 08/25/16 07:00 Intake & Output 08/24/16 08/25/16 08/25/16 18:59 06:59 18:59 Weight 95.254 kg Other: Voiding Method Bedside Commode Bedside Commode Bedside Commode # Voids 3 2 1 - Constitutional General appearance: Present: morbidly obese - Gastrointestinal Gastrointestinal Comment(s): The decubitus wound itself was inspected there were some Granulation tissue in the base there was necrotic tissue as well. A significant amount of drainage. The wound dressing was not properly placed as instructed. - Labs CBC & Chem 7: 08/25/16 10:18 08/25/16 10:18 Labs: Abnormal Lab Results - Last 24 Hours (Table) 08/24/16 08/24/16 08/25/16 Range/Units 21:30 21:47 10:18 RBC 2.76 L (3.80-5.40) m/uL Hgb 8.0 L (11.4-16.0) gm/dL Hct 25.8 L (34.0-46.0) % MCHC 30.8 L (31.0-37.0) g/dL RDW 15.6 H (11.5-15.5) % Lymphocytes # 0.9 L (1.0-4.8) k/uL Sodium (137-145) mmol/L Chloride (98-107) mmol/L Carbon Dioxide (22-30) mmol/L Glucose (74-99) mg/dL POC Glucose (mg/dL) 69 L 69 L (75-99) mg/dL Total Protein (6.3-8.2) g/dL Albumin (3.5-5.0) g/dL 08/25/16 08/25/16 Range/Units 10:18 12:29 RBC (3.80-5.40) m/uL Hgb (11.4-16.0) gm/dL Hct (34.0-46.0) % MCHC (31.0-37.0) g/dL RDW (11.5-15.5) % Lymphocytes # (1.0-4.8) k/uL Sodium 146 H (137-145) mmol/L Chloride 114 H (98-107) mmol/L Carbon Dioxide 20 L (22-30) mmol/L Glucose 134 H (74-99) mg/dL POC Glucose (mg/dL) 111 H (75-99) mg/dL Total Protein 5.3 L (6.3-8.2) g/dL Albumin 2.7 L (3.5-5.0) g/dL Microbiology - Last 24 Hours (Table) 08/23/16 16:27 Gram Stain - Preliminary Buttock Wound Culture - Preliminary Group D Enterococcus Gram Neg Bacilli Assessment and Plan (1) Decubital ulcer Narrative/Plan: At this time there is too much drainage for this to be converted to a VAC dressing. I recommended packing the wound with a Kerlix dressing so that the drainage is appropriately controlled. This has not been that of the lower ureter detailed discussion with the nurse as well so that it may be done properly. Status: Acute (2) Dehydration Status: Acute (3) Infestation by Sarcoptes scabiei Status: Acute (4) UTI (urinary tract infection) Status: Acute (5) Fall Status: Acute (6) Gram-negative bacteremia Status: Acute (7) Sepsis Status: Acute
--- NOTE | 2016-08-25 14:59 | PN ---
DATE OF SERVICE: 08/25/2016 CHIEF COMPLAINT: Dehydration, encephalopathy, scabies. HISTORY OF PRESENT ILLNESS: This lady is doing reasonably well. Hydration is improving. She is not having any chest pain, abdominal pain, etc. PHYSICAL EXAMINATION: She remains pale. Hydration is better. CHEST: Clear. CARDIAC: Normal. ABDOMEN: Soft, nontender. EXTREMITIES: Normal. IMPRESSION: 1. Dehydration. 2. Failure to thrive. 3. Encephalopathy. 4. Diabetes. 5. Left side sacral decubitus. PLAN: No change program. Continue on current management.
[2016-08-25 17:25] LABS: Glucose,Whole Blood 141 mg/dL (75-99)
[2016-08-25 18:36] LABS: Hemoglobin A1C 5.8 % (4.2-6.1)
[2016-08-25 21:02] LABS: Glucose,Whole Blood 99 mg/dL (75-99)
[2016-08-25] MEDS: AMITRIPTYLINE HCL 50 MG TAB PO SCH (22:00)
[2016-08-26] MEDS: SODIUM CHLORIDE 0.9% 1,000 ML IV SCH ×3 (04:53→15:39)
[2016-08-26] MEDS: ACETAMINOPHEN TAB 325 MG TAB PO PRN ×2 (05:25→15:38)
[2016-08-26 07:28] LABS: Glucose,Whole Blood 104 mg/dL (75-99)
[2016-08-26] MEDS: GLIMEPIRIDE 1 MG TAB PO SCH (08:30)
[2016-08-26] MEDS: FAMOTIDINE 20 MG TAB PO SCH ×2 (08:31→22:26)
[2016-08-26] MEDS: cefTRIAXone 2,000 MG in SODIUM CHLORIDE 0.9% 100 ML IVPB SCH (08:31)
[2016-08-26] MEDS: ASPIRIN 81 MG CHEW PO SCH (08:31)
[2016-08-26] MEDS: CLOPIDOGREL 75 MG TAB PO SCH (08:31)
[2016-08-26] MEDS: HEPARIN SODIUM,PORCINE 5,000 UNIT/ML 1 ML VIAL SQ SCH ×3 (08:31→22:56)
[2016-08-26] MEDS: POLYETHYLENE GLYCOL 3350 17 GM POWD.PACK PO SCH (08:32)
[2016-08-26] MEDS: METOPROLOL TARTRATE 25 MG TAB PO SCH ×2 (08:32→22:26)
[2016-08-26] MEDS: MEGESTROL 400 MG/10 ML CUP PO SCH (08:32)
[2016-08-26] MEDS: SENNOSIDES-DOCUSATE SODIUM 1 EACH TAB PO SCH (08:37)
[2016-08-26] MEDS: SODIUM BICARBONATE TAB 650 MG TAB PO SCH ×2 (08:37→22:26)
[2016-08-26] MEDS: SODIUM HYPOCHLORITE 0.5% 480 ML BOT MISCELLANE SCH ×2 (08:37→22:25)
[2016-08-26 09:25] LABS: Basophils % (A) 0 %; CH 29.2; CHCM 30.7; Eosinophils % (A) 0 %; HCT 25.8 % (34.0-46.0); HDW 2.91; HGB 7.7 gm/dL (11.4-16.0); Hypochromasia Moderate; Luc # (Auto) 0.06; Luc % (Auto) 1; Lymphocytes # (A) 0.9 k/uL (1.0-4.8); Lymphocytes % (A) 18 %; MCH 28.4 pg (25.0-35.0); MCHC 29.8 g/dL (31.0-37.0); MCV 95.4 fL (80.0-100.0); Mean Platelet Volume 7.3; Monocytes # (A) 0.2 k/uL (0-1.0); Monocytes % (A) 4 %; Neutrophils # (A) 3.8 k/uL (1.3-7.7); Neutrophils % (A) 76 %; RDW 15.9 % (11.5-15.5); WBC (Perox) 5.15
[2016-08-26 09:48] LABS: ALT 38 U/L (9-52); AST 14 U/L (14-36); Alkaline Phosphatase 75 U/L (38-126); Anion Gap 10 mmol/L; Blood Urea Nitrogen 13 mg/dL (7-17); Carbon Dioxide 19 mmol/L (22-30); Chloride 116 mmol/L (98-107); Glucose 102 mg/dL (74-99); Non-African American GFR(MDRD) >60 (>60 ml/min/1.73 sqM); Potassium 4.5 mmol/L (3.5-5.1); Sodium 145 mmol/L (137-145); Total Bilirubin 0.3 mg/dL (0.2-1.3); Total Protein 5.2 g/dL (6.3-8.2)
--- NOTE | 2016-08-26 10:49 | PN ---
DATE OF SERVICE: 08/25/2016 Reason for follow-up is gram-negative urinary tract infection and left gluteal wound infection. INTERVAL HISTORY: The patient is afebrile. She is more awake, alert, breathing comfortably. Denies any chest pain. No cough. No abdominal pain. No diarrhea. On examination, blood pressure 98/54 with a pulse of 92, temperature 96.6. She is 93% on room air. General description is middle aged female lying in bed in no distress. RESPIRATORY SYSTEM: Unlabored breathing. Clear to auscultation anteriorly. HEART: S1, S2. Regular rate and rhythm. ABDOMEN: Soft, no tenderness. The left gluteal wound appears to be deep with some sign of slough. LABS: Hemoglobin is 8 with white count of 5.7. BUN of 15, creatinine 0.83. Wound is now showing a group D enterococcus and Proteus. DIAGNOSTIC IMPRESSION AND PLAN: Patient admitted to hospital with sepsis, source is a combination of gram-negative urinary tract infection and is showing Proteus along with the wound infection with the wound now showing enterococcus and Proteus species. Vancomycin will be added to cover for the enterococcus and continue with Rocephin. The patient will likely need a PICC and IV antibiotic therapy as an outpatient for her infected gluteal pressure ulcer. RENNYD
--- NOTE | 2016-08-26 11:47 | P.PN ---
Subjective Principal diagnosis: urosepis Stage 3 decubitus ulcer Patient 56-year-old female with urosepsis and stage 3 decubitus ulcer that is infected. She continues to have pain. The drainage is still present. Objective - Vital Signs Vital signs: Vital Signs Temp 96.7 F L 08/26/16 07:00 Pulse 92 08/26/16 07:00 Resp 16 08/26/16 07:00 BP 111/67 08/26/16 08:30 Pulse Ox 100 08/26/16 08:41 Intake & Output 08/25/16 08/26/16 08/26/16 18:59 06:59 18:59 Intake Total 1000 Balance 1000 Weight 95.254 kg Intake: Oral 1000 Other: Voiding Method Bedside Commode Toilet Toilet Bedside Commode Bedside Commode # Voids 3 3 1 - Integumentary Integumentary Comment(s): Inspected the wound itself today still continues to have foul odor and there is significant amount of drainage. - Labs CBC & Chem 7: 08/26/16 08:53 08/26/16 08:53 Labs: Abnormal Lab Results - Last 24 Hours (Table) 08/25/16 08/25/16 08/26/16 Range/Units 12:29 17:16 07:15 RBC (3.80-5.40) m/uL Hgb (11.4-16.0) gm/dL Hct (34.0-46.0) % MCHC (31.0-37.0) g/dL RDW (11.5-15.5) % Lymphocytes # (1.0-4.8) k/uL Chloride (98-107) mmol/L Carbon Dioxide (22-30) mmol/L Glucose (74-99) mg/dL POC Glucose (mg/dL) 111 H 141 H 104 H (75-99) mg/dL Total Protein (6.3-8.2) g/dL Albumin (3.5-5.0) g/dL 08/26/16 08/26/16 Range/Units 08:53 08:53 RBC 2.70 L (3.80-5.40) m/uL Hgb 7.7 L (11.4-16.0) gm/dL Hct 25.8 L (34.0-46.0) % MCHC 29.8 L (31.0-37.0) g/dL RDW 15.9 H (11.5-15.5) % Lymphocytes # 0.9 L (1.0-4.8) k/uL Chloride 116 H (98-107) mmol/L Carbon Dioxide 19 L (22-30) mmol/L Glucose 102 H (74-99) mg/dL POC Glucose (mg/dL) (75-99) mg/dL Total Protein 5.2 L (6.3-8.2) g/dL Albumin 2.7 L (3.5-5.0) g/dL Microbiology - Last 24 Hours (Table) 08/23/16 16:27 Gram Stain - Preliminary Buttock Wound Culture - Preliminary Enterococcus faecalis Proteus spec Assessment and Plan (1) Decubital ulcer Status: Acute (2) Dehydration Status: Acute (3) Infestation by Sarcoptes scabiei Status: Acute (4) UTI (urinary tract infection) Status: Acute (5) Fall Status: Acute (6) Gram-negative bacteremia Status: Acute (7) Sepsis Status: Acute Plan: Patient given his have significant drainage from the wound. Although there is good granulation tissue there is some necrotic tissue. I recommended to the patient and patient debridement of the wound itself in the operating room. This is been recommended to be done on August 28. The patient understands and willing to proceed.
[2016-08-26 11:50] LABS: Glucose,Whole Blood 206 mg/dL (75-99)
[2016-08-26 16:58] LABS: Glucose,Whole Blood 165 mg/dL (75-99)
[2016-08-26] MEDS ORDERED: IV VANCOMYCIN PER PHARMACY 1 EACH MISC MISCELLANE PRN (17:03)
[2016-08-26] MEDS: VANCOMYCIN 1,500 MG in SODIUM CHLORIDE 0.9% 250 ML IVPB SCH (18:45)
[2016-08-26 21:14] LABS: Glucose,Whole Blood 155 mg/dL (75-99)
[2016-08-26] MEDS: AMITRIPTYLINE HCL 50 MG TAB PO SCH (22:26)
[2016-08-27] MEDS: SODIUM CHLORIDE 0.9% 1,000 ML IV SCH ×3 (05:06→05:07)
[2016-08-27] MEDS: VANCOMYCIN 1,500 MG in SODIUM CHLORIDE 0.9% 250 ML IVPB SCH ×2 (05:47→18:21)
[2016-08-27 07:36] LABS: Glucose,Whole Blood 118 mg/dL (75-99)
[2016-08-27] MEDS ORDERED: DEXAMETHASONE SOD PHOSPHATE 10 MG/ML 1 ML VIAL IV ONE (07:58)
[2016-08-27] MEDS ORDERED: ONDANSETRON 4 MG/2 ML VIAL IVP ONE (07:58)
[2016-08-27] MEDS ORDERED: MIDAZOLAM 2 MG/2 ML VIAL IV PRN (07:58)
[2016-08-27 09:07] LABS: Basophils % (A) 0 %; CH 28.8; CHCM 31.1; Eosinophils % (A) 0 %; HCT 27.5 % (34.0-46.0); HDW 3.01; HGB 8.5 gm/dL (11.4-16.0); Hypochromasia Moderate; Luc # (Auto) 0.12; Luc % (Auto) 2; Lymphocytes % (A) 19 %; MCH 28.6 pg (25.0-35.0); MCHC 30.8 g/dL (31.0-37.0); MCV 92.8 fL (80.0-100.0); Mean Platelet Volume 6.6; Monocytes # (A) 0.2 k/uL (0-1.0); Monocytes % (A) 4 %; Neutrophils # (A) 3.9 k/uL (1.3-7.7); Neutrophils % (A) 75 %; RBC 2.96 m/uL (3.80-5.40); RDW 15.9 % (11.5-15.5); WBC 5.2 k/uL (3.8-10.6); WBC (Perox) 5.37
[2016-08-27 09:27] LABS: ALT 39 U/L (9-52); AST 14 U/L (14-36); Alkaline Phosphatase 84 U/L (38-126); Anion Gap 13 mmol/L; Blood Urea Nitrogen 12 mg/dL (7-17); Calcium 9.1 mg/dL (8.4-10.2); Carbon Dioxide 20 mmol/L (22-30); Chloride 113 mmol/L (98-107); Glucose 128 mg/dL (74-99); Non-African American GFR(MDRD) >60 (>60 ml/min/1.73 sqM); Potassium 4.6 mmol/L (3.5-5.1); Sodium 146 mmol/L (137-145); Total Bilirubin 0.3 mg/dL (0.2-1.3); Total Protein 5.6 g/dL (6.3-8.2)
[2016-08-27] MEDS: MEGESTROL 400 MG/10 ML CUP PO SCH ×2 (09:58→10:09)
[2016-08-27] MEDS: cefTRIAXone 2,000 MG in SODIUM CHLORIDE 0.9% 100 ML IVPB SCH (09:58)
[2016-08-27] MEDS: HEPARIN SODIUM,PORCINE 5,000 UNIT/ML 1 ML VIAL SQ SCH ×2 (09:58→18:21)
[2016-08-27] MEDS: POLYETHYLENE GLYCOL 3350 17 GM POWD.PACK PO SCH ×2 (09:59→10:10)
[2016-08-27] MEDS: METOPROLOL TARTRATE 25 MG TAB PO SCH ×2 (09:59→21:31)
[2016-08-27] MEDS: GLIMEPIRIDE 1 MG TAB PO SCH (09:59)
[2016-08-27] MEDS: ASPIRIN 81 MG CHEW PO SCH (09:59)
[2016-08-27] MEDS: SODIUM BICARBONATE TAB 650 MG TAB PO SCH ×2 (09:59→21:31)
[2016-08-27] MEDS: FAMOTIDINE 20 MG TAB PO SCH ×2 (10:00→21:31)
[2016-08-27] MEDS: CLOPIDOGREL 75 MG TAB PO SCH (10:00)
[2016-08-27] MEDS: SODIUM HYPOCHLORITE 0.5% 480 ML BOT MISCELLANE SCH ×2 (10:00→21:33)
[2016-08-27] MEDS: SENNOSIDES-DOCUSATE SODIUM 1 EACH TAB PO SCH (10:06)
--- NOTE | 2016-08-27 10:12 | P.PN ---
Subjective 56-year-old female being seen on rounds this morning with the attending. Currently is sitting up in a chair. Patient is tentatively scheduled by surgical service for an incision and drainage in the OR tomorrow for stage III decubitus ulcer involving the left buttocks. Patient currently this morning is pleasant cooperative taking a diet this been no new events. The discharge plan is in progress. automotive services manager is pursuing. Patient does have a legal guardian patient would benefit from transferring to an ECF facility when medically stable. Will discuss with infectious disease Dr. Stevens in regards to IV antibiotic the PICC line will be needed Objective - Vital Signs Vital signs: Vital Signs Temp 97.2 F L 08/27/16 07:00 Pulse 104 H 08/27/16 07:00 Resp 19 08/27/16 07:00 BP 122/61 08/27/16 07:00 Pulse Ox 99 08/27/16 07:00 Intake & Output 08/26/16 08/27/16 08/27/16 18:59 06:59 18:59 Other: Voiding Method Toilet Bedside Commode # Voids 1 2 # Bowel Movements 1 - Exam Physical exam 56-year-old female sitting up in a chair this morning taking a diet appears in no acute distress talkative cooperative oriented 3 Lungs essentially clear on room air sats greater than 95% no cough noted heart S1-S2 audible regular Abdomen soft nontender reports no nausea vomiting reports no difficulty in urinating states had a bowel movement the day before Extremities a trace pedal edema bilaterally Skin dressing dry to the left gluteal - Labs CBC & Chem 7: 08/27/16 08:28 08/27/16 08:28 Labs: Abnormal Lab Results - Last 24 Hours (Table) 08/26/16 08/26/16 08/26/16 Range/Units 11:48 16:52 21:12 RBC (3.80-5.40) m/uL Hgb (11.4-16.0) gm/dL Hct (34.0-46.0) % MCHC (31.0-37.0) g/dL RDW (11.5-15.5) % Sodium (137-145) mmol/L Chloride (98-107) mmol/L Carbon Dioxide (22-30) mmol/L Glucose (74-99) mg/dL POC Glucose (mg/dL) 206 H 165 H 155 H (75-99) mg/dL Total Protein (6.3-8.2) g/dL Albumin (3.5-5.0) g/dL 08/27/16 08/27/16 08/27/16 Range/Units 07:07 08:28 08:28 RBC 2.96 L (3.80-5.40) m/uL Hgb 8.5 L (11.4-16.0) gm/dL Hct 27.5 L (34.0-46.0) % MCHC 30.8 L (31.0-37.0) g/dL RDW 15.9 H (11.5-15.5) % Sodium 146 H (137-145) mmol/L Chloride 113 H (98-107) mmol/L Carbon Dioxide 20 L (22-30) mmol/L Glucose 128 H (74-99) mg/dL POC Glucose (mg/dL) 118 H (75-99) mg/dL Total Protein 5.6 L (6.3-8.2) g/dL Albumin 3.0 L (3.5-5.0) g/dL Microbiology - Last 24 Hours (Table) 08/23/16 16:40 Anaerobic Culture - Final Buttock Anaerobic Gm Negative Bacilli 08/23/16 16:27 Gram Stain - Final Buttock Wound Culture - Final Enterococcus faecalis Proteus mirabilis Enterobacter aerogenes Assessment and Plan Plan: Impression Present on admission sepsis multifactorial fever elevated white count suspect due to UTI with an infected stage III wound left gluteal area with positive wound culture Present on admission stage III pressure ulcer left gluteal significant depth Chronic debility suspected chronic illness Present on admission bilateral rash arms and legs with multiple skin lesions suggestive of scabies Chronic constipation Mood disorder suspect bipolar Chronic back pain Recent admission August 02 for sepsis gram-negative bacilli with the UTI Present on admission acute kidney injury secondary to poor oral intake Type 2 diabetes non-insulin with hypoglycemic episodes with a hemoglobin A1c 5.8 Anemia of chronic illness Dyslipidemia Anemia of chronic illness with no evidence of occult blood loss Cognitive impairment chronic has a legal guardian Mild protein calorie malnutrition suspect due to chronic illness poor oral intake Plan debridement of the stage III left buttock pressure ulcer per surgical services scheduled for August 28 PT OT eval Will discuss with Dr. Stevens infectious disease the patient will need a PICC line pending discussion of antibiotic duration Fall precautions Continue with recommendations by infectious disease in regards to antibiotics Wound care as ordered DVT and GI prophylaxis Follow-up on wound culture and urine culture automotive services manager to pursue the discharge plan The above dictated assessment and findings were discussed with dr stahl Impression and the plan of care have been dictated as directed. Britt Crum nurse practitioner acting as a scribe for dr stahl
--- NOTE | 2016-08-27 10:59 | P.PN ---
Subjective 56-year-old female being seen with the surgical service this morning. Currently sitting up in a chair. Patient is aware of the plan of care. Patient is scheduled on August 28 to undergo an incision and drainage in the OR for a stage III infected pressure decubitus ulcer involving the left buttock. This been no new events. Patients being followed by infectious disease with IV antibiotic recommendations. Did discuss with the pillowcase sewer who will update a legal guardian will obtain consent to undergo the surgical procedure as ordered Objective - Vital Signs Vital signs: Vital Signs Temp 97.2 F L 08/27/16 07:00 Pulse 104 H 08/27/16 07:00 Resp 19 08/27/16 07:00 BP 122/61 08/27/16 07:00 Pulse Ox 99 08/27/16 07:00 Intake & Output 08/26/16 08/27/16 08/27/16 18:59 06:59 18:59 Other: Voiding Method Toilet Toilet Bedside Commode Bedside Commode # Voids 1 2 # Bowel Movements 1 - Exam Physical exam 56 year sitting up in a chair appears in no acute distress talkative cooperative oriented 3 Lungs essentially clear on room air Heart S1-S2 audible regular Abdomen soft nondistended no nausea vomiting no difficulty in urinating Extremities no edema noted Skin dressing to the left gluteal dry no drainage noted - Labs CBC & Chem 7: 08/27/16 08:28 08/27/16 08:28 Labs: Abnormal Lab Results - Last 24 Hours (Table) 08/26/16 08/26/16 08/26/16 Range/Units 11:48 16:52 21:12 RBC (3.80-5.40) m/uL Hgb (11.4-16.0) gm/dL Hct (34.0-46.0) % MCHC (31.0-37.0) g/dL RDW (11.5-15.5) % Sodium (137-145) mmol/L Chloride (98-107) mmol/L Carbon Dioxide (22-30) mmol/L Glucose (74-99) mg/dL POC Glucose (mg/dL) 206 H 165 H 155 H (75-99) mg/dL Total Protein (6.3-8.2) g/dL Albumin (3.5-5.0) g/dL 08/27/16 08/27/1617 Range/Units 07:07 08:28 08:28 RBC 2.96 L (3.80-5.40) m/uL Hgb 8.5 L (11.4-16.0) gm/dL Hct 27.5 L (34.0-46.0) % MCHC 30.8 L (31.0-37.0) g/dL RDW 15.9 H (11.5-15.5) % Sodium 146 H (137-145) mmol/L Chloride 113 H (98-107) mmol/L Carbon Dioxide 20 L (22-30) mmol/L Glucose 128 H (74-99) mg/dL POC Glucose (mg/dL) 118 H (75-99) mg/dL Total Protein 5.6 L (6.3-8.2) g/dL Albumin 3.0 L (3.5-5.0) g/dL Microbiology - Last 24 Hours (Table) 08/23/16 16:40 Anaerobic Culture - Final Buttock Anaerobic Gm Negative Bacilli 08/23/16 16:27 Gram Stain - Final Buttock Wound Culture - Final Enterococcus faecalis Proteus mirabilis Enterobacter aerogenes Assessment and Plan Plan: Impression Present on admission sepsis multifactorial fever elevated white count suspect due to UTI with an infected stage III wound left gluteal area with positive wound culture Present on admission stage III pressure ulcer left gluteal significant depth Chronic debility suspected chronic illness Present on admission bilateral rash arms and legs with multiple skin lesions suggestive of scabies Chronic constipation Mood disorder suspect bipolar Chronic back pain Recent admission August 02 for sepsis gram-negative bacilli with the UTI Present on admission acute kidney injury secondary to poor oral intake Type 2 diabetes non-insulin with hypoglycemic episodes with a hemoglobin A1c 5.8 Anemia of chronic illness Dyslipidemia Anemia of chronic illness with no evidence of occult blood loss Cognitive impairment chronic has a legal guardian Mild protein calorie malnutrition suspect due to chronic illness poor oral intake Plan debridement of the stage III left buttock pressure ulcer per surgical services scheduled for August 28 PT OT mindy Will discuss with Dr. Stevens infectious disease the patient will need a PICC line pending discussion of antibiotic duration Fall precautions Continue with recommendations by infectious disease in regards to antibiotics Wound care as ordered DVT and GI prophylaxis Follow-up on wound culture and urine culture junior account manager to pursue the discharge plan The above dictated assessment and findings were discussed with dr macho Impression and the plan of care have been dictated as directed. Britt Crum nurse practitioner acting as a scribe for dr pritchard
[2016-08-27 12:16] LABS: Glucose,Whole Blood 102 mg/dL (75-99)
--- NOTE | 2016-08-27 15:53 | PN ---
DATE OF SERVICE: 08/26/2016 REASON FOR FOLLOWUP: 1. Urinary tract infection. 2. Left gluteal infected wound. INTERVAL HISTORY: The patient is afebrile; has been breathing comfortably. Denies having any chest pain or shortness of breath or cough. No abdominal pain or diarrhea. On examination, blood pressure is 109/59 with a pulse of 74, temperature 97.2. She is 97% on room air. General description is a middle-aged female lying in bed in no distress. RESPIRATORY SYSTEM: Unlabored breathing. Clear to auscultation anteriorly. HEART: S1, S2. Regular rate and rhythm. ABDOMEN: Soft. No tenderness. Left gluteal wound still has some drainage and foul odor. LABS: Hemoglobin is 7.7, white count 5.0 with a BUN of 13, creatinine 0.86. Wound culture with enterococcus, enterobacter and proteus, though the enterobacter has intermediate sensitivity however, the patient is ALLERGIC TO CIPRO and ALLERGIC TO AMOXICILLIN; hence cannot use the piperacillin tazobactam. Patient will be maintained on Rocephin and vancomycin at this point. Await the surgical debridement. Continue supportive care. MTDD
[2016-08-27 17:39] LABS: Glucose,Whole Blood 60 mg/dL (75-99)
[2016-08-27 18:25] LABS: Glucose,Whole Blood 105 mg/dL (75-99)
[2016-08-27 21:05] LABS: Glucose,Whole Blood 116 mg/dL (75-99)
--- NOTE | 2016-08-27 21:21 | PN ---
DATE OF SERVICE: 08/27/2016 CHIEF COMPLAINT: Dehydration, renal failure, diabetes and sacral decubitus. HISTORY OF PRESENT ILLNESS: This lady is stable and doing fairly well. She is going tomorrow for debridement of the decubitus. PHYSICAL EXAMINATION: She remains somewhat pale. She is awake and alert. CHEST: Clear. CARDIAC: Normal. ABDOMEN: Protuberant and soft. IMPRESSION: 1. Dehydration. 2. Renal failure. 3. Diabetes. 4. Failure to thrive. 5. Sacral decubitus. PLAN: Debridement tomorrow and then we will start to try to locate her in a facility.
--- NOTE | 2016-08-27 21:27 | PN ---
DATE OF SERVICE: 08/26/2016 CHIEF COMPLAINT: Sacral decubitus, failure to thrive, obesity, diabetes, and renal failure, dehydration and encephalopathy. HISTORY OF PRESENT ILLNESS: This lady is stable and we are going to be working on discharging her to a shelter this week. She may be having the sacral decubitus debrided. PHYSICAL EXAMINATION: Chest is quite clear. CARDIAC: Unremarkable. ABDOMEN: Soft, nontender. IMPRESSION: 1. Sacral decubitus. 2. Obesity. 3. Dehydration. 4. Renal failure. 5. Diabetes. PLAN: Work on discharge planning.
[2016-08-27] MEDS: AMITRIPTYLINE HCL 50 MG TAB PO SCH (21:31)
[2016-08-28] MEDS: HEPARIN SODIUM,PORCINE 5,000 UNIT/ML 1 ML VIAL SQ SCH ×4 (00:56→23:43)
[2016-08-28] MEDS ORDERED: VANCOMYCIN TROUGH DUE 1 EACH MISC MISCELLANE ONE (05:00)
--- NOTE | 2016-08-28 05:30 | PN ---
DATE OF SERVICE: 08/27/2016 REASON FOR FOLLOWUP: 1. Proteus urinary tract infection. 2. Infected left gluteal wound. INTERVAL HISTORY: The patient is afebrile. She is scheduled for an I&D of the infected left gluteal wound tomorrow by Dr. Vance. The patient has worsening pain to the gluteal area. Denies having any chest pain or shortness of breath or cough. On examination, blood pressure is 100/68 with a pulse of 103, temperature 97.1. She is 98% on room air. General description is a middle-age female lying in bed in no distress. RESPIRATORY SYSTEM: Unlabored breathing. Clear to auscultation anteriorly. HEART: S1, S2. Regular rate and rhythm. ABDOMEN: Soft, no tenderness. Left gluteal wound is currently dressed up. LABS: Hemoglobin 8.5, white count 5.2 with a BUN of 12, creatinine 0.94. DIAGNOSTIC IMPRESSION AND PLAN: Patient with Proteus mirabilis urinary tract infection along with infected left gluteal wound awaiting the surgical I&D. Continue with the vancomycin and Rocephin. SAMRA
[2016-08-28 05:53] LABS: Basophils % (A) 0 %; CH 28.7; CHCM 30.9; Eosinophils % (A) 0 %; HCT 24.4 % (34.0-46.0); HDW 3.02; HGB 7.6 gm/dL (11.4-16.0); Hypochromasia Moderate; Luc # (Auto) 0.13; Luc % (Auto) 2; Lymphocytes % (A) 19 %; MCH 29.2 pg (25.0-35.0); MCHC 31.3 g/dL (31.0-37.0); MCV 93.3 fL (80.0-100.0); Mean Platelet Volume 6.3; Monocytes # (A) 0.3 k/uL (0-1.0); Monocytes % (A) 5 %; Neutrophils % (A) 73 %; RBC 2.62 m/uL (3.80-5.40); RDW 15.8 % (11.5-15.5); WBC 5.4 k/uL (3.8-10.6); WBC (Perox) 5.55
[2016-08-28 06:04] LABS: ALT 42 U/L (9-52); AST 15 U/L (14-36); Alkaline Phosphatase 77 U/L (38-126); Anion Gap 12 mmol/L; Blood Urea Nitrogen 12 mg/dL (7-17); Carbon Dioxide 19 mmol/L (22-30); Chloride 112 mmol/L (98-107); Glucose 97 mg/dL (74-99); Non-African American GFR(MDRD) 56 (>60 ml/min/1.73 sqM); Potassium 4.4 mmol/L (3.5-5.1); Sodium 143 mmol/L (137-145); Total Bilirubin 0.3 mg/dL (0.2-1.3); Total Protein 5.1 g/dL (6.3-8.2)
[2016-08-28 07:36] LABS: Glucose,Whole Blood 108 mg/dL (75-99)
[2016-08-28] MEDS: VANCOMYCIN 1,500 MG in SODIUM CHLORIDE 0.9% 250 ML IVPB SCH (08:47)
[2016-08-28] MEDS: METOPROLOL TARTRATE 25 MG TAB PO SCH ×2 (09:05→20:29)
[2016-08-28] MEDS: FAMOTIDINE 20 MG TAB PO SCH ×2 (09:05→20:29)
[2016-08-28] MEDS: SODIUM BICARBONATE TAB 650 MG TAB PO SCH ×2 (09:05→21:24)
[2016-08-28] MEDS: CLOPIDOGREL 75 MG TAB PO SCH ×2 (09:06→14:12)
[2016-08-28] MEDS ORDERED: IV FLUID CONTINUATION 1,000 ML IV ONE ×2 (10:30→11:44)
--- NOTE | 2016-08-28 10:56 | P.PN ---
<Britt Crum - Last Filed: 08/28/16 10:51> Subjective 56-year-old female scheduled this morning for a PICC line in anticipation of outpatient antibiotic therapy for infected pressure ulcer left gluteal per infectious diseases recommendations. Additionally is being scheduled this morning for OR incision and drainage of the infected pressure ulcer left gluteal area. Family at bedside updated on plan of care. There's been no new events. The discharge plan is in progress. manager speech pursuing placement ECF subacute Patients being followed by surgical service for surgical management of the infected stage III pressure ulcer left gluteal Objective - Vital Signs Vital signs: Vital Signs Temp 97.9 F 08/28/16 10:41 Pulse 84 08/28/16 10:41 Resp 16 08/28/16 10:41 BP 114/54 08/28/16 10:41 Pulse Ox 100 08/28/16 10:41 Intake & Output 08/27/16 08/28/16 08/28/16 18:59 06:59 18:59 Intake Total 400 100 Balance 400 100 Intake: IV 100 Oral 400 Other: Voiding Method Toilet Bedside Commode # Voids 2 1 - Exam Physical exam 56-year-old female being seen this morning on rounds sitting up in bed where the plan of care pleasant cooperative oriented 3 Lungs essentially clear on room air Heart S1-S2 audible regular Abdomen soft nontender no stool no reports of nausea vomiting using bedside commode to urinate Skin dressing to the left gluteal area dry no skin rash noted Extremities no edema to the upper or lower extremities - Labs CBC & Chem 7: 08/28/16 05:38 08/28/16 05:38 Labs: Abnormal Lab Results - Last 24 Hours (Table) 08/27/16 08/27/16 08/27/16 Range/Units 12:09 17:29 18:23 RBC (3.80-5.40) m/uL Hgb (11.4-16.0) gm/dL Hct (34.0-46.0) % RDW (11.5-15.5) % Chloride (98-107) mmol/L Carbon Dioxide (22-30) mmol/L POC Glucose (mg/dL) 102 H 60 L 105 H (75-99) mg/dL Total Protein (6.3-8.2) g/dL Albumin (3.5-5.0) g/dL 08/27/16 08/28/16 08/28/16 Range/Units 20:58 05:38 05:38 RBC 2.62 L (3.80-5.40) m/uL Hgb 7.6 L (11.4-16.0) gm/dL Hct 24.4 L (34.0-46.0) % RDW 15.8 H (11.5-15.5) % Chloride 112 H (98-107) mmol/L Carbon Dioxide 19 L (22-30) mmol/L POC Glucose (mg/dL) 116 H (75-99) mg/dL Total Protein 5.1 L (6.3-8.2) g/dL Albumin 2.7 L (3.5-5.0) g/dL 08/28/16 Range/Units 07:06 RBC (3.80-5.40) m/uL Hgb (11.4-16.0) gm/dL Hct (34.0-46.0) % RDW (11.5-15.5) % Chloride (98-107) mmol/L Carbon Dioxide (22-30) mmol/L POC Glucose (mg/dL) 108 H (75-99) mg/dL Total Protein (6.3-8.2) g/dL Albumin (3.5-5.0) g/dL Assessment and Plan Plan: Impression Present on admission sepsis multifactorial fever elevated white count suspect due to UTI with an infected stage III wound left gluteal area with positive wound culture Present on admission stage III pressure ulcer left gluteal significant depth Chronic debility suspected chronic illness Present on admission bilateral rash arms and legs with multiple skin lesions suggestive of scabies Chronic constipation Mood disorder suspect bipolar Chronic back pain Recent admission August 02 for sepsis gram-negative bacilli with the UTI Present on admission acute kidney injury secondary to poor oral intake Type 2 diabetes non-insulin with hypoglycemic episodes with a hemoglobin A1c 5.8 Anemia of chronic illness Dyslipidemia Anemia of chronic illness with no evidence of occult blood loss Cognitive impairment chronic has a legal guardian Mild protein calorie malnutrition suspect due to chronic illness poor oral intake Plan debridement of the stage III left buttock pressure ulcer per surgical services scheduled for August 28 PT OT mindy Stevens infectious disease recommends the patient will need a PICC line antibiotic duration Fall precautions Continue with recommendations by infectious disease in regards to antibiotics Wound care as ordered DVT and GI prophylaxis Follow-up on wound culture and urine culture manager speech to pursue the discharge plan The above dictated assessment and findings were discussed with dr pritchard Impression and the plan of care have been dictated as directed. Britt Crum nurse practitioner acting as a scribe for dr pritchard <Zohreh Pritchard W - Last Filed: 08/28/16 11:25> Objective - Vital Signs Vital signs: Vital Signs Temp 97.9 F 08/28/16 10:41 Pulse 84 08/28/16 10:41 Resp 16 08/28/16 10:41 BP 114/54 08/28/16 10:41 Pulse Ox 100 08/28/16 10:41 Intake & Output 08/27/16 08/28/16 08/28/16 18:59 06:59 18:59 Intake Total 400 100 Balance 400 100 Intake: IV 100 Oral 400 Other: Voiding Method Toilet Toilet Bedside Commode Bedside Commode # Voids 2 1 - Labs CBC & Chem 7: 08/28/16 05:38 08/28/16 05:38 Labs: Abnormal Lab Results - Last 24 Hours (Table) 08/27/16 08/27/16 08/27/16 Range/Units 12:09 17:29 18:23 RBC (3.80-5.40) m/uL Hgb (11.4-16.0) gm/dL Hct (34.0-46.0) % RDW (11.5-15.5) % Chloride (98-107) mmol/L Carbon Dioxide (22-30) mmol/L POC Glucose (mg/dL) 102 H 60 L 105 H (75-99) mg/dL Total Protein (6.3-8.2) g/dL Albumin (3.5-5.0) g/dL 08/27/16 08/28/16 08/28/16 Range/Units 20:58 05:38 05:38 RBC 2.62 L (3.80-5.40) m/uL Hgb 7.6 L (11.4-16.0) gm/dL Hct 24.4 L (34.0-46.0) % RDW 15.8 H (11.5-15.5) % Chloride 112 H (98-107) mmol/L Carbon Dioxide 19 L (22-30) mmol/L POC Glucose (mg/dL) 116 H (75-99) mg/dL Total Protein 5.1 L (6.3-8.2) g/dL Albumin 2.7 L (3.5-5.0) g/dL 08/28/16 Range/Units 07:06 RBC (3.80-5.40) m/uL Hgb (11.4-16.0) gm/dL Hct (34.0-46.0) % RDW (11.5-15.5) % Chloride (98-107) mmol/L Carbon Dioxide (22-30) mmol/L POC Glucose (mg/dL) 108 H (75-99) mg/dL Total Protein (6.3-8.2) g/dL Albumin (3.5-5.0) g/dL Assessment and Plan (1) Decubital ulcer Status: Acute (2) Dehydration Status: Acute (3) Infestation by Sarcoptes scabiei Status: Acute (4) UTI (urinary tract infection) Status: Acute (5) Fall Status: Acute (6) Gram-negative bacteremia Status: Acute (7) Sepsis Status: Acute Plan: The patients decubitus ulcer is not imprvoing with daily dressing changes. Due to lack of improvement and poor wound care, I have recommended a debridemet with placement of wound vac. Informed consent was obtained fro the Legal guardian. (TOBI)
[2016-08-28 10:57] LABS: Glucose,Whole Blood 96 mg/dL (75-99)
[2016-08-28] MEDS ORDERED: fentaNYL (PF) 50 MCG/ML 2 ML AMP ONE (11:45)
[2016-08-28] MEDS ORDERED: SUCCINYLCHOLINE CHLORIDE 100 MG/5 ML SYR IV ONE (11:45)
[2016-08-28] MEDS ORDERED: MIDAZOLAM 2 MG/2 ML VIAL ONE (11:45)
[2016-08-28] MEDS ORDERED: LIDOCAINE 1% INJ 10MG/ML (20 ML MDV) ONE (11:45)
[2016-08-28] MEDS ORDERED: PROPOFOL 10 MG/ML 20 ML VIAL IV ONE (11:45)
[2016-08-28] MEDS ORDERED: PHENYLEPHRINE-0.9% NACL SYG 1 MG/10 ML SYRINGE ONE (11:45)
[2016-08-28] MEDS ORDERED: ePHEDrine 50 MG/ML 1 ML AMP ONE (11:45)
[2016-08-28] MEDS ORDERED: BUPIVACAIN-EPI 0.25%-1:200,000 30 ML VIAL SQ ONE (12:03)
--- NOTE | 2016-08-28 12:26 | PN ---
CHIEF COMPLAINT: Decubitus, ( ) diabetes, dehydration, failure to thrive and encephalopathy. HISTORY OF PRESENT ILLNESS: This lady is going for a PICC line placement today and debridement of her decubitus. PHYSICAL EXAM: Chest is clear. Cardiac exam is normal. ABDOMEN: Soft, nontender. IMPRESSION: 1. Sacral decubitus. 2. Encephalopathy. 3. Renal failure. 4. Diabetes. PLAN: Follow postoperatively and then work on place for her to go after she leaves the hospital.
--- NOTE | 2016-08-28 12:52 | P.PN ---
Subjective 56-year-old female whose primary care providers Dr. Stock being seen on rounds. Patient is scheduled this morning for incision and drainage of the infected pressure ulcer left gluteal area. Additionally a PICC line is being placed in anticipation of outpatient antibiotic treatment for the infected pressure ulcer left gluteal. Objective - Vital Signs Vital signs: Vital Signs Temp 98.1 F 08/28/16 12:42 Pulse 98 08/28/16 12:42 Resp 16 08/28/16 12:42 BP 121/65 08/28/16 12:42 Pulse Ox 98 08/28/16 12:42 Intake & Output 08/27/16 08/28/16 08/28/16 18:59 06:59 18:59 Intake Total 400 400 Output Total 10 Balance 400 390 Intake: IV 400 Oral 400 Output: Estimated Blood Loss 10 Other: Voiding Method Toilet Toilet Bedside Commode Bedside Commode # Voids 2 1 - Exam Physical exam 56-year-old female being seen this morning on rounds sitting up in bed where the plan of care pleasant cooperative oriented 3 Lungs essentially clear on room air Heart S1-S2 audible regular Abdomen soft nontender no stool no reports of nausea vomiting using bedside commode to urinate Skin dressing to the left gluteal area dry no skin rash noted Extremities no edema to the upper or lower extremities - Labs CBC & Chem 7: 08/28/16 05:38 08/28/16 05:38 Labs: Abnormal Lab Results - Last 24 Hours (Table) 08/27/16 08/27/16 08/27/16 Range/Units 17:29 18:23 20:58 RBC (3.80-5.40) m/uL Hgb (11.4-16.0) gm/dL Hct (34.0-46.0) % RDW (11.5-15.5) % Chloride (98-107) mmol/L Carbon Dioxide (22-30) mmol/L POC Glucose (mg/dL) 60 L 105 H 116 H (75-99) mg/dL Total Protein (6.3-8.2) g/dL Albumin (3.5-5.0) g/dL 08/28/16 08/28/16 08/28/16 Range/Units 05:38 05:38 07:06 RBC 2.62 L (3.80-5.40) m/uL Hgb 7.6 L (11.4-16.0) gm/dL Hct 24.4 L (34.0-46.0) % RDW 15.8 H (11.5-15.5) % Chloride 112 H (98-107) mmol/L Carbon Dioxide 19 L (22-30) mmol/L POC Glucose (mg/dL) 108 H (75-99) mg/dL Total Protein 5.1 L (6.3-8.2) g/dL Albumin 2.7 L (3.5-5.0) g/dL Assessment and Plan Plan: Impression Present on admission sepsis multifactorial fever elevated white count suspect due to UTI with an infected stage III wound left gluteal area with positive wound culture Present on admission stage III pressure ulcer left gluteal significant depth Chronic debility suspected chronic illness Present on admission bilateral rash arms and legs with multiple skin lesions suggestive of scabies Chronic constipation Mood disorder suspect bipolar Chronic back pain Recent admission August 02 for sepsis gram-negative bacilli with the UTI Present on admission acute kidney injury secondary to poor oral intake Type 2 diabetes non-insulin with hypoglycemic episodes with a hemoglobin A1c 5.8 Anemia of chronic illness Dyslipidemia Anemia of chronic illness with no evidence of occult blood loss Cognitive impairment chronic has a legal guardian Mild protein calorie malnutrition suspect due to chronic illness poor oral intake Plan debridement of the stage III left buttock pressure ulcer per surgical services scheduled for August 28 PT OT mindy Stevens infectious disease recommends the patient will need a PICC line antibiotic duration Fall precautions Continue with recommendations by infectious disease in regards to antibiotics Wound care as ordered DVT and GI prophylaxis Follow-up on wound culture and urine culture culture manager to pursue the discharge plan The above dictated assessment and findings were discussed with dr Montrell Anne and the plan of care have been dictated as directed. Britt Crum nurse practitioner acting as a scribe for dr Stock
[2016-08-28] MEDS: HYDROmorphone 1 MG/ML 1 ML SYRINGE IVP PRN ×2 (13:01→13:07)
--- NOTE | 2016-08-28 13:25 | P.OP ---
Date of Procedure: 08/28/16 Preoperative Diagnosis: Stage 3 decubitus ulcer Postoperative Diagnosis: Stage 4 decubitus ulcer extending to the bone Procedure(s) Performed: Excisional debnridement of sacral decubitus with excisional biopsy of bone Anesthesia: JOSE M Surgeon: Zohreh Vance Pathology: other (Soft tissue cultures, bone biopsy and culture) Condition: stable Disposition: PACU Operative Findings: Consent necrosis of continues tissue extending to the bone Description of Procedure: Patient is a 56-year-old lady who presented with a stage III decubitus ulcer with sepsis. A significant amount of drainage. She is not competent for consent and consent was obtained from the legal guardian. Patient was identified in preoperative operating holding area to the operating room and after general anesthesia with endotracheal intubation placed in the appropriate position. Appropriate timeout was called. He was prepped and draped in the usual sterile surgical fashion. The wound was identified and examined and it extended superiorly and approximately [address] to the sacrum. ( STAGE 4) Incision was made in the 2:00 and 10:00 positions with the electrocautery . Incision was made to let us with the help of electrocautery opening up the whole wound. Significant amount of necrotic tissue were encountered which were debrided with the help of electrocautery . The the necrosis extended to the bone and due to the extensive necrosis and smell decision was made to also take an excisional biopsy sample of the bone with a Rongeur for culture purposes. The soft tissue that had already been excised were all sent for soft tissue culture. Once the bone had been biopsied the wound was thoroughly washed out. Hemostasis was secured with the electrocautery. After that a medium sized foam was placed within the cavity completely filling it. A bridge was formed from the posterior running on the left lateral side towards the hip anteriorly and the wound VAC was placed with a pressure of 125 mmHg mercury. Patient tolerated procedure well though no complications she was extubated and taken to recovery room in stable condition. At the end the wound measured 10 cm deep by 4.5 cm wide by 7 cm long.
[2016-08-28] MEDS: LACTATED RINGERS 1,000 ML IV SCH ×2 (14:01→14:10)
[2016-08-28] MEDS: GLIMEPIRIDE 1 MG TAB PO SCH (14:10)
[2016-08-28] MEDS: ASPIRIN 81 MG CHEW PO SCH (14:11)
[2016-08-28] MEDS: cefTRIAXone 2,000 MG in SODIUM CHLORIDE 0.9% 100 ML IVPB SCH (14:11)
[2016-08-28] MEDS: MEGESTROL 400 MG/10 ML CUP PO SCH (14:12)
[2016-08-28] MEDS: POLYETHYLENE GLYCOL 3350 17 GM POWD.PACK PO SCH (14:12)
[2016-08-28] MEDS: SENNOSIDES-DOCUSATE SODIUM 1 EACH TAB PO SCH (14:13)
[2016-08-28] MEDS: SODIUM HYPOCHLORITE 0.5% 480 ML BOT MISCELLANE SCH ×2 (14:13→20:30)
[2016-08-28] MEDS: metroNIDAZOLE 500 MG TAB PO SCH ×3 (14:14→21:24)
[2016-08-28 17:34] LABS: Glucose,Whole Blood 191 mg/dL (75-99)
[2016-08-28] MEDS: AMITRIPTYLINE HCL 50 MG TAB PO SCH (20:29)
[2016-08-28 21:18] LABS: Glucose,Whole Blood 163 mg/dL (75-99)
[2016-08-28] MEDS: VANCOMYCIN 1,250 MG in SODIUM CHLORIDE 0.9% 250 ML IVPB SCH (23:43)
[2016-08-29 07:16] LABS: Glucose,Whole Blood 82 mg/dL (75-99)
[2016-08-29 07:24] LABS: Glucose,Whole Blood 83 mg/dL (75-99)
[2016-08-29] MEDS: cefTRIAXone 2,000 MG in SODIUM CHLORIDE 0.9% 100 ML IVPB SCH (09:08)
[2016-08-29] MEDS: SENNOSIDES-DOCUSATE SODIUM 1 EACH TAB PO SCH (09:08)
[2016-08-29] MEDS: traMADol 50 MG TAB PO PRN (09:08)
[2016-08-29] MEDS: CLOPIDOGREL 75 MG TAB PO SCH (09:09)
[2016-08-29] MEDS: HEPARIN SODIUM,PORCINE 5,000 UNIT/ML 1 ML VIAL SQ SCH ×3 (09:09→23:45)
[2016-08-29] MEDS: FAMOTIDINE 20 MG TAB PO SCH ×2 (09:09→21:09)
[2016-08-29] MEDS: MEGESTROL 400 MG/10 ML CUP PO SCH (09:10)
[2016-08-29] MEDS: GLIMEPIRIDE 1 MG TAB PO SCH (09:10)
[2016-08-29] MEDS: metroNIDAZOLE 500 MG TAB PO SCH ×3 (09:10→21:09)
[2016-08-29] MEDS: ASPIRIN 81 MG CHEW PO SCH (09:10)
[2016-08-29] MEDS: METOPROLOL TARTRATE 25 MG TAB PO SCH ×2 (09:10→21:09)
[2016-08-29] MEDS: POLYETHYLENE GLYCOL 3350 17 GM POWD.PACK PO SCH (09:11)
[2016-08-29] MEDS: SODIUM HYPOCHLORITE 0.5% 480 ML BOT MISCELLANE SCH ×2 (09:11→21:09)
--- NOTE | 2016-08-29 10:07 | P.PN ---
Subjective 56-year-old female being seen on rounds with the attending. This is a follow- up visit from surgical service for management of a stage 4 pressure decubitus ulcer left gluteal. Patient is status post incision and drainage of the stage IV 10 cm deep pressure sacral decubitus ulcer with a wound VAC placed done on August 28. Currently wound VAC in place is been no postop events patient did undergo an extensive debridement of the sacral decubitus with excisional biopsy of the bone for a stage IV decubitus ulcer extending to the bone done on August 28 Objective - Vital Signs Vital signs: Vital Signs Temp 96.8 F L 08/29/16 07:00 Pulse 97 08/29/16 07:00 Resp 22 08/29/16 07:00 BP 114/59 08/29/16 07:00 Pulse Ox 100 08/29/16 07:00 Intake & Output 08/28/16 08/29/16 08/29/16 18:59 06:59 18:59 Intake Total 400 120 Output Total 10 Balance 390 120 Intake: IV 400 Oral 120 Output: Estimated Blood Loss 10 Other: Voiding Method Toilet Toilet Bedside Commode Bedside Commode # Voids 4 2 - Exam Physical exam 56-year-old female resting in bed there's been no new events pleasant oriented times 2 Lungs essentially clear adequate air movement on room air Heart S1-S2 audible regular Abdomen soft nontender patient is able to use the bedside commode no stool Extremities no edema - Labs CBC & Chem 7: 08/28/16 05:38 08/28/16 05:38 Labs: Abnormal Lab Results - Last 24 Hours (Table) 08/28/16 08/28/16 Range/Units 17:23 21:16 POC Glucose (mg/dL) 191 H 163 H (75-99) mg/dL Microbiology - Last 24 Hours (Table) 08/28/16 12:35 Gram Stain - Preliminary Buttock Tissue Culture - Preliminary 08/28/16 12:40 Gram Stain - Preliminary Bone - Coccyx Tissue Culture - Preliminary 08/28/16 12:35 Anaerobic Culture - Preliminary Buttock 08/28/16 12:40 Anaerobic Culture - Preliminary Bone - Coccyx Assessment and Plan Plan: Impression Present on admission sepsis multifactorial fever elevated white count suspect due to UTI with an infected stage 4 wound left gluteal area with positive wound culture Present on admission stage 4 pressure ulcer left gluteal significant depth Chronic debility suspected chronic illness Present on admission bilateral rash arms and legs with multiple skin lesions suggestive of scabies Chronic constipation Mood disorder suspect bipolar Chronic back pain Recent admission August 02 for sepsis gram-negative bacilli with the UTI Present on admission acute kidney injury secondary to poor oral intake Type 2 diabetes non-insulin with hypoglycemic episodes with a hemoglobin A1c 5.8 Anemia of chronic illness Dyslipidemia Anemia of chronic illness with no evidence of occult blood loss Cognitive impairment chronic has a legal guardian Mild protein calorie malnutrition suspect due to chronic illness poor oral intake Status post excisional debridement of the sacral decubitus with excisional biopsy of the bone for a stage IV decubitus ulcer extending to the bone done on August 28 Plan Patient will need outpatient wound care at the wound center at the [facility] weekly once patient is medically stable to be discharged PT OT eval Dr. Stevens infectious disease recommends the patient will need a PICC line antibiotic duration Fall precautions Continue with recommendations by infectious disease in regards to antibiotics Wound care as ordered DVT and GI prophylaxis material requirements planning manager to pursue the discharge plan The above dictated assessment and findings were discussed with dr Stock Impression and the plan of care have been dictated as directed. Britt Crum nurse practitioner acting as a scribe for dr Stock
[2016-08-29] MEDS: LACTATED RINGERS 1,000 ML IV SCH (11:37)
[2016-08-29] MEDS: ACETAMINOPHEN TAB 325 MG TAB PO PRN (11:39)
[2016-08-29] MEDS: SODIUM BICARBONATE TAB 650 MG TAB PO SCH ×2 (11:39→21:09)
[2016-08-29 11:45] LABS: Glucose,Whole Blood 89 mg/dL (75-99)
[2016-08-29] MEDS ORDERED: LIDOCAINE 2% INJ 20 MG/ML (20 ML MDV) ONE (13:13)
[2016-08-29] MEDS ORDERED: LIDOCAINE 2% INJ 20 MG/ML SQ ONE (13:18)
--- NOTE | 2016-08-29 14:29 | PN ---
CHIEF COMPLAINT: Failure to thrive, dehydration, diabetes, sacral decubitus, renal failure and encephalopathy. HISTORY OF PRESENT ILLNESS: This lady underwent her procedure yesterday and is doing fine. She may be able to go home soon. PHYSICAL EXAM: Her chest is clear and cardiac exam is normal. IMPRESSION: 1. Dehydration. 2. Large left sacral decubitus. 3. Encephalopathy. 4. Diabetes. 5. Renal failure. PLAN: Possibly home in the next day or 2.
--- NOTE | 2016-08-29 15:22 | IR ---
PICC LINE PLACEMENT: HISTORY: Infection requiring long-term antibiotic therapy PROCEDURE: Ultrasound and fluoroscopic guidance of PICC line placement. COMPLICATIONS: None ANESTHESIA: 1. 1% Lidocaine locally. FINDINGS/TECHNIQUE: The procedure was explained to the patient. The risks, complications, benefits and alternatives were discussed and any questions were answered. Informed consent was obtained. The patient was placed supine on the fluoroscopic table and prepped and draped in the usual sterile fash ion. Utilizing a 21 gauge needle and sonographic and fluoroscopic guidance, access in the basilic w as achieved and there is placement of a 0.018 guidewire. The vein is patent. A 4-F. sheath was plac ed over the guidewire. The guidewire and dilator were removed and a 4-F. PICC line was placed throug h the sheath with the tip at the level of the SVC. The sheath was removed, the catheter was flushed and sutured into position. The patient was stable throughout the procedure and remained stable upon discharge from the Department of Radiology. The vein puncture was patent under ultrasound. A deluna scale image was obtained to document patency of the vein punctured. All elements of the maximal barrier technique were utilized. FLUOROSCOPY TIME: 0.1 minute IMPRESSION: Successful PICC line placement under ultrasound and fluoroscopic guidance.
[2016-08-29] MEDS: VANCOMYCIN 1,250 MG in SODIUM CHLORIDE 0.9% 250 ML IVPB SCH (16:48)
[2016-08-29 17:14] LABS: Glucose,Whole Blood 102 mg/dL (75-99)
[2016-08-29] MEDS: AMITRIPTYLINE HCL 50 MG TAB PO SCH (21:09)
[2016-08-29 21:25] LABS: Glucose,Whole Blood 171 mg/dL (75-99)
--- NOTE | 2016-08-30 06:16 | PN ---
DATE OF SERVICE: 08/29/2016 REASON FOR FOLLOWUP: 1. Gram negative urinary tract infection. 2. Patient with left gluteal osteomyelitis with polymicrobial bacteria. INTERVAL HISTORY: The patient is afebrile. She has been complaining of pain in her left gluteal area after surgery. She was noticed to have a deep wound extending all the way down to the bone. Deep culture has been obtained. The patient denies having any chest pain, shortness of breath or cough. No abdominal pain or any diarrhea. On examination, blood pressure is 106/61 with a pulse of 87, temperature 96.3. She is 99% on room air. General description is a middle-age female lying in bed in no distress. RESPIRATORY SYSTEM: Unlabored breathing. Clear to auscultation anteriorly. HEART: S1, S2. Regular rate and rhythm. ABDOMEN: Soft, no tenderness. LABS: Hemoglobin is 7.6, white count 5.4. BUN of 12, creatinine 1.02. Wound culture has been positive for Enterococcus, Proteus and Enterobacter. DIAGNOSTIC IMPRESSION AND PLAN: Patient with polymicrobial left gluteal wound with underlying osteomyelitis. Culture has been positive for Enterococcus faecalis, Proteus and Enterobacter. Unfortunately, the patient is allergic to AMOXICILLIN and CIPROFLOXACIN, limiting the choice of antibiotic. She is currently on vancomycin pharmacy to dose and also has been on Flagyl that will be continued for total of 6 weeks with frequent monitoring of CBC, BMP and Sed rate. Continue supportive care. MTDD
[2016-08-30] MEDS ORDERED: VANCOMYCIN TROUGH DUE 1 EACH MISC MISCELLANE ONE (07:00)
[2016-08-30 07:45] LABS: Glucose,Whole Blood 85 mg/dL (75-99)
[2016-08-30] MEDS: VANCOMYCIN 1,250 MG in SODIUM CHLORIDE 0.9% 250 ML IVPB SCH ×2 (07:59→23:43)
[2016-08-30] MEDS: HEPARIN SODIUM,PORCINE 5,000 UNIT/ML 1 ML VIAL SQ SCH ×3 (07:59→23:44)
[2016-08-30] MEDS: METOPROLOL TARTRATE 25 MG TAB PO SCH ×2 (07:59→20:04)
[2016-08-30] MEDS: GLIMEPIRIDE 1 MG TAB PO SCH (07:59)
[2016-08-30] MEDS: FAMOTIDINE 20 MG TAB PO SCH ×2 (08:00→20:05)
[2016-08-30] MEDS: ASPIRIN 81 MG CHEW PO SCH (08:00)
[2016-08-30] MEDS: metroNIDAZOLE 500 MG TAB PO SCH ×3 (08:00→21:03)
[2016-08-30] MEDS: SODIUM BICARBONATE TAB 650 MG TAB PO SCH ×2 (08:00→20:05)
[2016-08-30] MEDS: SODIUM HYPOCHLORITE 0.5% 480 ML BOT MISCELLANE SCH ×2 (08:01→20:03)
[2016-08-30] MEDS: POLYETHYLENE GLYCOL 3350 17 GM POWD.PACK PO SCH (08:01)
[2016-08-30] MEDS: SENNOSIDES-DOCUSATE SODIUM 1 EACH TAB PO SCH (08:01)
[2016-08-30] MEDS: LACTATED RINGERS 1,000 ML IV SCH (08:02)
[2016-08-30] MEDS: MEGESTROL 400 MG/10 ML CUP PO SCH (08:07)
[2016-08-30] MEDS: CLOPIDOGREL 75 MG TAB PO SCH (08:07)
[2016-08-30 08:50] LABS: Anion Gap 12 mmol/L; Blood Urea Nitrogen 13 mg/dL (7-17); Calcium 9.2 mg/dL (8.4-10.2); Carbon Dioxide 20 mmol/L (22-30); Chloride 112 mmol/L (98-107); Glucose 103 mg/dL (74-99); Non-African American GFR(MDRD) >60 (>60 ml/min/1.73 sqM); Sodium 144 mmol/L (137-145)
[2016-08-30 08:54] LABS: Potassium 5.1 mmol/L (3.5-5.1)
[2016-08-30] MEDS: cefTRIAXone 2,000 MG in SODIUM CHLORIDE 0.9% 100 ML IVPB SCH (11:22)
--- NOTE | 2016-08-30 11:29 | P.DS ---
Providers Date of admission: 08/22/16 22:26 Expected date of discharge: 08/30/16 Attending physician: Terrance Stock Consults: 08/23/16 10:16 Consult Physician Urgent Consulting Provider: Nancy Stevens Consult Reason/Comments: abx recs wound buttock Do you want consulting provider notified?: Yes 08/24/16 11:07 Consult Physician Urgent Consulting Provider: Zohreh Vance Consult Reason/Comments: Possible wound debridement stage III pressure ulcer left buttock Do you want consulting provider notified?: Yes Primary care physician: Terrance Stock [facility] Course: 56-year-old female who was admitted on the august to the emergency room after patient reportedly had been having multiple falls at home. Patient reportedly had spiked a temp of 102 with an elevated white count. Patient was recently discharged from an ECF facility [facility] in [place] on Saturday this week. Patient had been recuperating after a prolonged hospital stay at [facility]. Patient was discharged August 02 to the facility. At that time the patient was being treated for severe sepsis E. coli bacteremia. That admission the patient also had renal failure required hemodialysis. Patient renal function stabilized hemodialysis was able to be stopped. According to the patient after being discharged from the ECF facility this Saturday had been having episodes of falling. On admission the patient had a significant decubitus ulcer stage II involving the left buttocks. Vascular Dr. Stevens from infectious diseases participating in the plan of care. They are recommending a surgical eval for surgical debridement of the large stage IV pressure sacral decubitus involving the left gluteal area may benefit from a wound VAC to help with the healing process. contracting manager is pursuing the discharge plan the patient does have a legal guardian patient may benefit from [facility] care versus rehab Patient was taken to the operating room on August 28 at that time the patient did undergo an excisional debridement of a stage IV decubitus ulcer which was extending into the bone with excisional biopsies of the bone obtained. A wound VAC was placed. Infectious disease was participating in the plan of care. Patient did have a PICC line in anticipation of the need for antibiotic therapy. Patient would be followed by the wound care center at the [facility] patient was treated for a polymicrobial left gluteal stage IV wound with underlying osteoarthritis. The wound culture was positive for and coccus under vacuum and Proteus. Patient does have an ALLERGY to amoxicillin and Cipro. The antibiotic choices were vancomycin pharmacy to dose with Flagyl to continue for a total of 6 weeks additionally the wound VAC would continue as ordered Impression discharge diagnosis Present on admission stage IV pressure decubitus ulcer left gluteal with underlying osteomyelitisPresent on admission sepsis multifactorial fever elevated white count suspect due to UTI with an infected stage 4 wound left gluteal area with positive wound culture Present on admission stage 4 pressure ulcer left gluteal significant depth Chronic debility suspected chronic illness Present on admission bilateral rash arms and legs with multiple skin lesions suggestive of scabies Chronic constipation Mood disorder suspect bipolar Chronic back pain Recent admission August 02 for sepsis gram-negative bacilli with the UTI Present on admission acute kidney injury secondary to poor oral intake Type 2 diabetes non-insulin with hypoglycemic episodes with a hemoglobin A1c 5.8 Anemia of chronic illness Dyslipidemia Anemia of chronic illness with no evidence of occult blood loss Cognitive impairment chronic has a legal guardian Mild protein calorie malnutrition suspect due to chronic illness poor oral intake Status post excisional debridement of the sacral decubitus with excisional biopsy of the bone for a stage IV decubitus ulcer extending to the bone done on August 28 The above dictated assessment and findings were discussed with dr favio Anne and the plan of care have been dictated as directed. Britt Crum nurse practitioner acting as a scribe for dr stock Plan - Discharge Summary New Discharge Prescriptions: Butalb/APAP/Caff 50-325-40Mg [Fioricet 50-325-40] 1 tab PO Q6H PRN #30 tab PRN Reason: Migraine Headache Vancomycin 1,250 mg IVPB Q24HR #42 bag cefTRIAXone [Rocephin] 2,000 mg IVPB Q24HR #42 vial metroNIDAZOLE [Flagyl] 500 mg PO TID #126 tab Discharge Medication List Amitriptyline HCl [Elavil] 100 mg PO HS 08/22/16 [History] Aspirin 81 mg PO DAILY 08/22/16 [History] Clopidogrel [Plavix] 75 mg PO DAILY 08/22/16 [History] Glimepiride [Amaryl] 1 mg PO AC-BRKFST 08/22/16 [History] Ipratropium-Albuterol Nebulize [Duoneb 0.5 mg-3 mg/3 ml Soln] 3 ml INHALATION RT -QID PRN 08/22/16 [History] Megestrol [Megace] 800 mg PO DAILY 08/22/16 [History] Metoprolol Tartrate [Lopressor] 25 mg PO BID 08/22/16 [History] Polyethylene Glycol 3350 [Miralax] 17 gm PO DAILY 08/22/16 [History] Sennosides-Docusate Sodium [Senokot-S] 1 tab PO DAILY 08/22/16 [History] Sodium Bicarbonate Tab 650 mg PO BID 08/22/16 [History] Vancomycin 1,250 mg IVPB Q24HR #42 bag 08/29/16 [Rx] cefTRIAXone [Rocephin] 2,000 mg IVPB Q24HR #42 vial 08/29/16 [Rx] metroNIDAZOLE [Flagyl] 500 mg PO TID #126 tab 08/29/16 [Rx] Acetaminophen Tab [Tylenol] 650 mg PO Q6HR PRN #0 tab 08/30/16 [Rx] Butalb/APAP/Caff 50-325-40Mg [Fioricet 50-325-40] 1 tab PO Q6H PRN #30 tab 08/30 [Rx] Follow up Appointment(s)/Referral(s): Terrance Stock MD [Primary Care Provider] - 1-2 days [facility] [NON-STAFF] - 1 Week Nancy Stevens MD [STAFF PHYSICIAN] - 1 Week Patient Instructions/Handouts: Type 2 Diabetes in Adults (DC)
[2016-08-30 11:47] LABS: Glucose,Whole Blood 124 mg/dL (75-99)
--- NOTE | 2016-08-30 12:21 | PN ---
DATE OF SERVICE: 08/30/2016 REASON FOR FOLLOWUP: 1. Proteus mirabilis urinary tract infection. 2. Left gluteal pressure ulcer, stage IV, with evidence of osteomyelitis. INTERVAL HISTORY: The patient is afebrile. She is currently breathing comfortably. Denies having any chest pain, shortness of breath or cough. No abdominal pain.still pain in left gluteal area. On examination, blood pressure 128/72 with a pulse 105, temperature is 96.6 She is 99% on room air. General description is a middle-age female lying in bed in no distress. RESPIRATORY SYSTEM: Unlabored breathing. Clear to auscultation anteriorly. HEART: S1, S2. Regular rate and rhythm. ABDOMEN: Soft, no tenderness. Left gluteal wound is currently dressed up. LABS: BUN 13, creatinine 0.87. Vanco of 17.4. DIAGNOSTIC IMPRESSION AND PLAN: 1. Patient with polymicrobial left buttock wound infection with evidence of osteomyelitis involving coccyx. Culture has been positive for enterococcus faecalis sensitive to penicillin. However, the patient is allergic to AMOXICILLIN as she is currently on vancomycin that needs to be monitored closely along with Rocephin to cover for the gram-negative and the Flagyl for the anaerobes. Follow up in the office in 1 to 2 weeks' time. Continue supportive care. 2. Patient has Proteus mirabilis urinary tract infection covered with antibiotics the patient is already on. MTDD
[2016-08-30] MEDS: traMADol 50 MG TAB PO PRN (14:36)
[2016-08-30 15:24] VITALS: TEMP 97.3
[2016-08-30 17:14] LABS: Glucose,Whole Blood 65 mg/dL (75-99)
[2016-08-30 17:44] LABS: Glucose,Whole Blood 77 mg/dL (75-99)
[2016-08-30 17:44] LABS: Glucose,Whole Blood 54 mg/dL (75-99)
--- NOTE | 2016-08-30 19:11 | PN ---
DATE OF SERVICE: 08/30/2016 CHIEF COMPLAINT: Dehydration, failure to thrive, encephalopathy due to hypoglycemia, diabetes and decubitus. HISTORY OF PRESENT ILLNESS: This lady is doing well and is in good spirits. She may be able to be released to the intermediate today. PHYSICAL EXAMINATION: She is awake and alert. Chest is clear. Cardiac exam is normal. The abdomen is soft and non-tender. IMPRESSION: 1. Sacral decubitus. 2. Failure to thrive. 3. Dehydration. 4. Encephalopathy. 5. Renal failure. 6. Diabetes. PLAN: Probably move to [facility] today; this will be arranged by the nurse practitioner.
[2016-08-30] MEDS: AMITRIPTYLINE HCL 50 MG TAB PO SCH (20:04)
[2016-08-30 20:53] LABS: Glucose,Whole Blood 110 mg/dL (75-99)
[2016-08-31 00:04] VITALS: PULSE 100
[2016-08-31 02:30] LABS: Glucose,Whole Blood 112 mg/dL (75-99)
[2016-08-31 06:40] LABS: Anion Gap 8 mmol/L; Blood Urea Nitrogen 12 mg/dL (7-17); Calcium 8.7 mg/dL (8.4-10.2); Carbon Dioxide 24 mmol/L (22-30); Chloride 110 mmol/L (98-107); Glucose 120 mg/dL (74-99); Non-African American GFR(MDRD) 58 (>60 ml/min/1.73 sqM); Potassium 4.1 mmol/L (3.5-5.1); Sodium 142 mmol/L (137-145)
[2016-08-31 07:21] LABS: Glucose,Whole Blood 123 mg/dL (75-99)
[2016-08-31 07:40] VITALS: BP 120/65; RESP 16
[2016-08-31] MEDS: FAMOTIDINE 20 MG TAB PO SCH (08:14)
[2016-08-31] MEDS: HEPARIN SODIUM,PORCINE 5,000 UNIT/ML 1 ML VIAL SQ SCH (08:14)
[2016-08-31] MEDS: cefTRIAXone 2,000 MG in SODIUM CHLORIDE 0.9% 100 ML IVPB SCH (08:14)
[2016-08-31] MEDS: MEGESTROL 400 MG/10 ML CUP PO SCH (08:14)
[2016-08-31] MEDS: GLIMEPIRIDE 1 MG TAB PO SCH (08:14)
[2016-08-31] MEDS: METOPROLOL TARTRATE 25 MG TAB PO SCH (08:14)
[2016-08-31] MEDS: POLYETHYLENE GLYCOL 3350 17 GM POWD.PACK PO SCH (08:14)
[2016-08-31] MEDS: metroNIDAZOLE 500 MG TAB PO SCH (08:14)
[2016-08-31] MEDS: LACTATED RINGERS 1,000 ML IV SCH (08:14)
[2016-08-31] MEDS: CLOPIDOGREL 75 MG TAB PO SCH (08:14)
[2016-08-31] MEDS: SODIUM BICARBONATE TAB 650 MG TAB PO SCH (08:14)
[2016-08-31] MEDS: ASPIRIN 81 MG CHEW PO SCH (08:14)
[2016-08-31] MEDS: SENNOSIDES-DOCUSATE SODIUM 1 EACH TAB PO SCH (08:15)
[2016-08-31] MEDS: SODIUM HYPOCHLORITE 0.5% 480 ML BOT MISCELLANE SCH (08:15)
--- NOTE | 2016-08-31 17:05 | PN ---
DATE OF SERVICE: 08/31/2016 CHIEF COMPLAINT: Failure to thrive, sacral decubitus, diabetes and encephalopathy. HISTORY OF PRESENT ILLNESS: This lady was supposed to go [facility] [place] last night, but she is still here. Apparently Member Services Coordinator is working on getting insurance approval. PHYSICAL EXAMINATION: CHEST: Clear. CARDIAC: Normal. ABDOMEN: Soft, nontender. IMPRESSION: 1. Encephalopathy. 2. Failure to thrive. 3. Diabetes. PLAN: Continue to work on discharge planning.
== END 2016-08-31 13:15 | DRG 853 ==
LOC: EC 18:41 → 4MS4W 22:26
PROVIDERS: ADMIT Family Medicine; ATTEND Family Medicine
PROC: 0QB10ZX Excision of Sacrum, Open Approach, Diagnostic (ICD-10-PCS; 2016-08-28)
PROC: 2W17X6Z Compression of Left Inguinal Region using Pressure Dressing (ICD-10-PCS; 2016-08-28)
PROC: 0JB70ZZ Excision of Back Subcutaneous Tissue and Fascia, Open Approach (ICD-10-PCS; principal; 2016-08-28 10:10)
PROC: 02HV33Z Insertion of Infusion Device into Superior Vena Cava, Percutaneous Approach (ICD-10-PCS; 2016-08-29 13:00)
DX: A41.50 Gram-negative sepsis, unspecified (principal); G93.40 Encephalopathy, unspecified; N17.9 Acute kidney failure, unspecified; L89.324 Pressure ulcer of left buttock, stage 4; E11.649 Type 2 diabetes mellitus with hypoglycemia without coma; E44.1 Mild protein-calorie malnutrition; M41.9 Scoliosis, unspecified; E11.69 Type 2 diabetes mellitus with other specified complication; N39.0 Urinary tract infection, site not specified; M86.8X8 Other osteomyelitis, other site; E66.01 Morbid (severe) obesity due to excess calories; D63.8 Anemia in other chronic diseases classified elsewhere; R65.20 Severe sepsis without septic shock; E78.5 Hyperlipidemia, unspecified; B86 Scabies; E86.0 Dehydration; B96.4 Proteus (mirabilis) (morganii) as the cause of diseases classified elsewhere; T45.516A Underdosing of anticoagulants, initial encounter; B95.2 Enterococcus as the cause of diseases classified elsewhere; B96.89 Other specified bacterial agents as the cause of diseases classified elsewhere; G31.84 Mild cognitive impairment of uncertain or unknown etiology; L08.9 Local infection of the skin and subcutaneous tissue, unspecified; K21.9 Gastro-esophageal reflux disease without esophagitis; I25.2 Old myocardial infarction; J45.909 Unspecified asthma, uncomplicated; R00.0 Tachycardia, unspecified; G43.709 Chronic migraine without aura, not intractable, without status migrainosus; M19.90 Unspecified osteoarthritis, unspecified site; K59.09 Other constipation; I25.10 Atherosclerotic heart disease of native coronary artery without angina pectoris; G56.03 Carpal tunnel syndrome, bilateral upper limbs; M06.9 Rheumatoid arthritis, unspecified; M79.7 Fibromyalgia; M54.9 Dorsalgia, unspecified; G89.29 Other chronic pain; R29.6 Repeated falls; F41.9 Anxiety disorder, unspecified; F31.9 Bipolar disorder, unspecified; F39 Unspecified mood [affective] disorder; R53.1 Weakness; R62.7 Adult failure to thrive; Z79.02 Long term (current) use of antithrombotics/antiplatelets; Z79.891 Long term (current) use of opiate analgesic; Z79.899 Other long term (current) drug therapy; Z88.0 Allergy status to penicillin; Z88.1 Allergy status to other antibiotic agents; Z82.49 Family history of ischemic heart disease and other diseases of the circulatory system; Z68.33 Body mass index [BMI] 33.0-33.9, adult; Z87.891 Personal history of nicotine dependence; Z87.440 Personal history of urinary (tract) infections; Z90.49 Acquired absence of other specified parts of digestive tract; Z95.5 Presence of coronary angioplasty implant and graft; Z90.12 Acquired absence of left breast and nipple; Z63.6 Dependent relative needing care at home; Z79.82 Long term (current) use of aspirin; Z80.3 Family history of malignant neoplasm of breast; Z88.8 Allergy status to other drugs, medicaments and biological substances; Z91.81 History of falling; Z81.8 Family history of other mental and behavioral disorders
CPT/HCPCS: 36415; 36569; 70450; 71020; 72220; 76937; 77001; 80048; 80053; 80061; 80202; 81001; 81025; 82550; 82553; 83036; 83735; 84100; 84443; 84484; 85025; 85610; 85730; 87070; 87075; 87077; 87086; 87186; 87205; 94760; 96361; 96365; 96375; 99285

== ENCOUNTER → 2017-01-25 | Outpatient (CLI) | payer OTHER ==
[2017-01-25 11:11] LABS: Blood Urea Nitrogen 26 mg/dL (7-17); Non-African American GFR(MDRD) 54 (>60 ml/min/1.73 sqM)
== END | disposition home or self-care (01) ==
LOC: LABWHC1 10:10
PROVIDERS: ATTEND Family Medicine
DX: Z01.812 Encounter for preprocedural laboratory examination (principal)
CPT/HCPCS: 36415; 82565; 84520

== ENCOUNTER → 2017-02-09 | Outpatient (CLI) | payer OTHER ==
--- NOTE | 2017-02-10 06:52 | MR ---
EXAMINATION TYPE: MR pelvis wo/w con DATE OF EXAM: 02/09/2017 COMPARISON: NONE HISTORY: [place]. CONTRAST: Standard multiplanar, multisequence MRI departmental protocol utilizing 20 mL intravenous MultiHance gadolinium contrast. FINDINGS: There is a marked amount of artifact due to the patient's size and the fact that the patien t is touching the edges of the magnet. The uterus is unremarkable. The right ovary is normal. The left ovary is not visualized with certaint y. The bladder is not distended. Visualized bowel loops appear unremarkable. There is atrophy of the gluteus muscles, specifically the gluteus jose de jesus. There is a soft tissue defect in the left gluteal region extending to the fascia of the gluteus muscl es. There is no associated osseous abnormality. The sacrum and coccyx appear normal. There is no yesica ical erasure sign. IMPRESSION: 1. No evidence of osteomyelitis at this time. 2. Soft tissue inflammation overlying the left buttock.
== END | disposition home or self-care (01) ==
LOC: RADMRIMAIN 13:36
PROVIDERS: ATTEND Family Medicine
DX: L08.9 Local infection of the skin and subcutaneous tissue, unspecified (principal)
CPT/HCPCS: 72197; A9577

== ENCOUNTER 2017-03-17 11:49 | Observation (INO) | payer OTHER ==
[2017-03-17] MEDS ORDERED: MORPHINE SULFATE 4 MG/ML SYRINGE IVP STA (12:11)
[2017-03-17] MEDS ORDERED: ASPIRIN 81 MG CHEW PO STA (12:11)
--- NOTE | 2017-03-17 12:14 | ED ---
Chest Pain HPI - General Chief Complaint: Chest Pain Stated Complaint: chest pain Time Seen by Provider: 03/17/17 11:57 Source: patient Mode of arrival: wheelchair Limitations: no limitations - History of Present Illness Initial Comments: This is a 57-year-old female to history of CAD with stent placement 2 years ago who presents emergency department for chest pain. She states that she woke up around 8 AM and did not have chest pain however shortly afterwards developed dull achy substernal chest pain. She states that nothing seems to make it worse or better. She did try taking 2 nitroglycerin tabs however this did not improve her symptoms. She denies any pleuritic nature to the pain. No shortness of breath. No lightheadedness. No diaphoresis. No nausea or vomiting. She does state that this feels similar to her previous AR. She denies any other complaints. - Related Data Home Medications Medication Instructions Recorded Confirmed Amitriptyline HCl [Elavil] 100 mg PO HS 08/22/16 02/14/17 Aspirin 81 mg PO DAILY 08/22/16 02/14/17 Clopidogrel [Plavix] 75 mg PO DAILY 08/22/16 02/14/17 Ipratropium-Albuterol Nebulize 3 ml INHALATION RT-QID PRN 08/22/16 02/14/17 [Duoneb 0.5 mg-3 mg/3 ml Soln] Metoprolol Tartrate [Lopressor] 25 mg PO BID 08/22/16 02/14/17 Sennosides-Docusate Sodium 1 tab PO DAILY 08/22/16 02/14/17 [Senokot-S] Sodium Bicarbonate Tab 650 mg PO BID 08/22/16 02/14/17 Butalb/APAP/Caff 50-325-40Mg 1 tab PO Q6HR PRN 09/13/16 02/14/17 [Fioricet 50-325-40] Hydrocodone/Acetaminophen [Vicodin 1 tab PO Q4HR PRN 09/13/16 02/14/17 5-300 mg Tablet] traMADol HCL [Ultram] 100 mg PO Q6HR PRN 09/13/16 02/14/17 glipiZIDE [Glucotrol] 2.5 mg PO AC-BID 11/15/16 02/14/17 DULoxetine HCL [Cymbalta] 75 mg PO BID 02/07/17 02/14/17 Gabapentin [Neurontin] 100 mg PO TID 02/07/17 02/14/17 traZODone HCL 50 mg PO HS PRN 02/07/17 02/14/17 Previous Rx's Medication Instructions Recorded Acetaminophen Tab [Tylenol] 650 mg PO Q6HR PRN #0 tab 08/30/16 Allergies Allergy/AdvReac Type Severity Reaction Status Date / Time WARNER Inhibitors Allergy Unknown Verified 03/17/17 11:53 amoxicillin [From Amoxil] Allergy Unknown Verified 03/17/17 11:53 Childhood ciprofloxacin [From Cipro] Allergy Rash/Hives Verified 03/17/17 11:53 metformin Allergy Diarrhea Verified 03/17/17 11:53 Penicillins Allergy Rash/Hives Verified 03/17/17 11:53 Review of Systems ROS Statement: Those systems with pertinent positive or pertinent negative responses have been documented in the HPI. ROS Other: All systems not noted in ROS Statement are negative. EKG Findings - EKG Comments: EKG Findings:: EKG showing normal sinus rhythm with a rate of 99. No abnormal ST segment changes or T-wave inversions. QTC is 441. Other intervals are normal. No ectopy. Past Medical History Past Medical History: Asthma, Diabetes Mellitus, Fibromyalgia, GERD/Reflux, Hyperlipidemia, Myocardial Infarction (AR), Rheumatoid Arthritis (RA) Additional Past Medical History / Comment(s): morbid obesity, chronic migraines , SCOLIOSIS, CHRONIC BACK PAIN CARPAL TUNNEL bilaterally. Last Myocardial Infarction Date:: 05/24/15 History of Any Multi-Drug Resistant Organisms: None Reported Past Surgical History: Breast Surgery, Cholecystectomy, Heart Catheterization, Heart Catheterization With Stent, Tonsillectomy Additional Past Surgical History / Comment(s): 05/2015 PCI with stent at [facility]. Other surgeries: BIBI KNEE ARTHROSCOPIES, L BREAST- LUMPECTOMY(BENIGN) Past Anesthesia/Blood Transfusion Reactions: Motion Sickness Additional Past Anesthesia/Blood Transfusion Reaction / Comment(s): Pt states she has clausterphobia. Date of Last Stent Placement:: 05/24/15 per pt Past Psychological History: Anxiety, Depression Smoking Status: Former smoker Past Alcohol Use History: None Reported Past Drug Use History: None Reported - Past Family History Father Family Medical History: Dementia Mother History Unknown: Yes Family Medical History: Cancer, Chest Pain / Angina Additional Family Medical History / Comment(s): Breast cancer with recent surgery. General Exam - General Exam Comments Initial Comments: Constitutional: Awake alert Appears comfortable Head: Normocephalic atraumatic Eyes: no conjunctival injection No scleral icterus EOMI Neck: No JVD Supple Heart: Regular rate rhythm normal S1-S2 no murmurs Lungs: Clear to auscultation bilaterally No wheezing No rales] Abdomen: [Soft] [nondistended] [nontender] Extremities: [Non edematous] [DP pulses intact] [Radial pulses intact] Neuro: [A&Ox3] [No focal neurologic deficits] Psych: [Appropriate mood and affect] Limitations: no limitations Course Vital Signs 03/17/17 03/17/17 11:50 12:29 Temperature 98.1 F Pulse Rate 107 H 93 Respiratory 20 16 Rate Blood Pressure 111/69 140/59 O2 Sat by Pulse 98 97 Oximetry Chest Pain MDM - MDM This is a 49-year-old female with a history of CAD who presents emergency department for chest pain. EKG was unremarkable except for old inferior AR. Troponin was negative. Patient was given morphine and had improvement in her chest pain. Due to her risk factors I do not feel that she is safe to go home. She does follow with Dr. Howell as an outpatient however is high risk and needs to have this evaluated sooner rather than later. I spoke with Dr. Stock who accepts the admission. Heart ALLERGY will be placed on consultation. Patient was updated on this plan and agrees. All questions were answered. Disposition Clinical Impression: Unstable angina Disposition: ADMITTED IP TO THIS HOSP Condition: Stable Referrals: Terrance Stock MD [Primary Care Provider] - 1-2 days
[2017-03-17 12:24] LABS: Anisocytosis Slight; Basophils % (A) 1 %; Eosinophils # (A) 0.2 k/uL (0-0.7); Eosinophils % (A) 4 %; HDW 2.87; HGB 13.4 gm/dL (11.4-16.0); Luc # (Auto) 0.12; Luc % (Auto) 2; Lymphocytes # (A) 1.1 k/uL (1.0-4.8); Lymphocytes % (A) 17 %; MCH 27.6 pg (25.0-35.0); MCHC 33.4 g/dL (31.0-37.0); MCV 82.7 fL (80.0-100.0); Mean Platelet Volume 7.2; Monocytes # (A) 0.4 k/uL (0-1.0); Monocytes % (A) 6 %; Neutrophils # (A) 4.6 k/uL (1.3-7.7); Neutrophils % (A) 71 %; RBC 4.83 m/uL (3.80-5.40); RDW 16.5 % (11.5-15.5); WBC 6.4 k/uL (3.8-10.6); WBC (Perox) 6.33
--- NOTE | 2017-03-17 12:29 | XR ---
EXAMINATION TYPE: XR chest 2V DATE OF EXAM: 03/17/2017 COMPARISON: 08/22/2016 HISTORY: 57-year-old female chest pain and shortness of breath TECHNIQUE: AP and lateral views FINDINGS: Heart is upper limits of normal in size. Aorta and pulmonary vasculature within normal limits. No con solidation or pleural effusion. Mild interstitial prominence has a chronic appearance, unchanged from prior. IMPRESSION: Borderline heart size. There are chronic appearing changes without acute process seen.
[2017-03-17 12:33] LABS: ALT 48 U/L (9-52); AST 32 U/L (14-36); Alkaline Phosphatase 139 U/L (38-126); Anion Gap 14 mmol/L; Blood Urea Nitrogen 18 mg/dL (7-17); Calcium 9.5 mg/dL (8.4-10.2); Carbon Dioxide 23 mmol/L (22-30); Chloride 104 mmol/L (98-107); Glucose 160 mg/dL (74-99); Magnesium 1.7 mg/dL (1.6-2.3); Non-African American GFR(MDRD) 54 (>60 ml/min/1.73 sqM); Potassium 3.7 mmol/L (3.5-5.1); Sodium 141 mmol/L (137-145); Total Bilirubin 0.4 mg/dL (0.2-1.3); Total Protein 6.5 g/dL (6.3-8.2)
[2017-03-17 12:50] LABS: Prothrombin Time 9.9 sec (9.0-12.0)
[2017-03-17 13:00] LABS: Creatine Kinase MB 0.9 ng/mL (0.0-2.4); Troponin I <0.012 ng/mL (0.000-0.034)
[2017-03-17] MEDS ORDERED: MORPHINE SULFATE 4 MG/ML SYRINGE IV PRN (13:25)
[2017-03-17] MEDS ORDERED: HEPARIN SODIUM,PORCINE 5,000 UNIT/ML 1 ML VIAL IV ONE (13:25)
[2017-03-17] MEDS ORDERED: NITROGLYCERIN SL TABS 0.4 MG TAB SUBLINGUAL PRN ×2 (13:25→15:35)
[2017-03-17] MEDS ORDERED: HEPARIN SODIUM,PORCINE/D5W PMX 25,000 UNIT in DEXTROSE/WATER 1 500ML.BAG IV SCH (13:30)
[2017-03-17] MEDS ORDERED: HEPARIN SODIUM,PORCINE 5,000 UNIT/ML 1 ML VIAL IV PRN (14:08)
[2017-03-17 14:50] VITALS: BMI 35.0
[2017-03-17] MEDS ORDERED: METHOCARBAMOL 750 MG TAB PO PRN (15:35)
[2017-03-17] MEDS ORDERED: BUTALB/APAP/CAFF 50-325-40MG TAB PO PRN (15:35)
[2017-03-17] MEDS ORDERED: traZODone HCL 50 MG TAB PO PRN (15:35)
[2017-03-17 17:04] LABS: Glucose,Whole Blood 131 mg/dL (75-99)
[2017-03-17 19:27] LABS: Creatine Kinase 42 U/L (30-135)
[2017-03-17 19:41] LABS: Creatine Kinase MB 0.8 ng/mL (0.0-2.4); Troponin I <0.012 ng/mL (0.000-0.034)
[2017-03-17] MEDS ORDERED: AMITRIPTYLINE HCL 50 MG TAB PO SCH (21:00)
[2017-03-17] MEDS ORDERED: LORazepam 0.5 MG TAB PO SCH (21:00)
[2017-03-17] MEDS ORDERED: GABAPENTIN 300 MG CAP PO SCH (21:00)
[2017-03-17 21:20] LABS: Glucose,Whole Blood 113 mg/dL (75-99)
[2017-03-17] MEDS: GABAPENTIN 300 MG CAP PO SCH (21:22)
[2017-03-17] MEDS: FAMOTIDINE 20 MG TAB PO SCH (21:23)
[2017-03-18 01:31] LABS: Creatine Kinase 43 U/L (30-135)
[2017-03-18 01:44] LABS: Creatine Kinase MB 0.7 ng/mL (0.0-2.4); Troponin I <0.012 ng/mL (0.000-0.034)
[2017-03-18 06:53] LABS: Glucose,Whole Blood 84 mg/dL (75-99)
[2017-03-18 07:25] LABS: Cholesterol 151 mg/dL (<200); HDL Cholesterol 44 mg/dL (40-60)
[2017-03-18] MEDS ORDERED: GLIMEPIRIDE 4 MG TAB PO SCH (07:30)
[2017-03-18] MEDS ORDERED: CHLORTHALIDONE 25 MG TAB PO SCH (09:00)
[2017-03-18] MEDS ORDERED: buPROPion SR 150 MG TABLET.ER PO SCH (09:00)
[2017-03-18] MEDS ORDERED: ASPIRIN 81 MG CHEW PO SCH (09:00)
[2017-03-18] MEDS ORDERED: ASPIRIN 325 MG TAB PO SCH (09:00)
[2017-03-18] MEDS ORDERED: CLOPIDOGREL 75 MG TAB PO SCH (09:00)
[2017-03-18] MEDS ORDERED: LORATADINE 10 MG TAB PO SCH (09:00)
[2017-03-18] MEDS ORDERED: DULoxetine HCL 60 MG CAPSULE.DR PO SCH (09:00)
[2017-03-18] MEDS ORDERED: METOPROLOL SUCCINATE (ER) 25 MG TAB.ER.24H PO SCH (09:00)
[2017-03-18] MEDS ORDERED: ATORVASTATIN 80 MG TAB PO SCH (09:15)
--- NOTE | 2017-03-18 11:42 | ECHOF ---
Referral Reason:chest pain MEASUREMENTS -------- HEIGHT: 167.6 cm WEIGHT: 101.6 kg BP: 116/71 RVIDd: 3.0 cm (< 3.3) IVSd: 1.4 cm (0.6 - 1.1) LVIDd: 4.6 cm (3.9 - 5.3) LVPWd: 1.2 cm (0.6 - 1.1) IVSs: 1.6 cm LVIDs: 3.9 cm LVPWs: 1.7 cm LA Diam: 3.1 cm (2.7 - 3.8) LAESV Index (A-L): 16.42 ml/m Ao Diam: 3.5 cm (2.0 - 3.7) AV Cusp: 2.0 cm (1.5 - 2.6) MV EXCURSION: 12.842 mm (> 18.000) MV EF SLOPE: 60 mm/s (70 - 150) EPSS: 1.1 cm MV E Easton: 0.69 m/s MV DecT: 197 ms MV A [place]: 0.87 m/s MV E/A Ratio: 0.80 FINDINGS -------- This was a technically difficult study with suboptimal views. The left ventricular size is normal. There is moderate concentric left ventricular hypertrophy. Overall left ventricular systolic function is moderately impaired with, an EF between 35 - 40 %. Basal inferior LV wall motion is akinetic. Basal inferoseptal LV wall motion is hypokinetic. Mid inferior LV wall motion is hypokinetic. Apical inferior LV wall motion is hypokinetic. The right ventricle is normal in size. Normal LA size by volume 22+/-6 ml/m2. The right atrium is normal in size. 1.5mg of Definity was utilized for enhancement of images The aortic valve is trileaflet and appears structurally normal. Mild mitral annular calcification present. There is trace to mild mitral regurgitation. The tricuspid valve appears structurally normal. The pulmonic valve was not well visualized. The aortic root size is normal. IVC Not well visulized. There is no pericardial effusion. CONCLUSIONS -------- 1. This was a technically difficult study with suboptimal views. 2. Normal LA size by volume 22+/-6 ml/m2. 3. The right atrium is normal in size. 4. 1.5mg of Definity was utilized for enhancement of images 5. The aortic valve is trileaflet and appears structurally normal. 6. Mild mitral annular calcification present. 7. There is trace to mild mitral regurgitation. 8. The tricuspid valve appears structurally normal. 9. The pulmonic valve was not well visualized. 10. The aortic root size is normal. 11. IVC Not well visulized. 12. The left ventricular size is normal. 13. There is no pericardial effusion. 14. There is moderate concentric left ventricular hypertrophy. 15. Overall left ventricular systolic function is moderately impaired with, an EF between 35 - 40 %. 16. Basal inferior LV wall motion is akinetic. 17. Basal inferoseptal LV wall motion is hypokinetic. 18. Mid inferior LV wall motion is hypokinetic. 19. Apical inferior LV wall motion is hypokinetic. 20. The right ventricle is normal in size. RODENT EXTERMINATOR: Jesenia Hernández RDCS
[2017-03-18 12:00] LABS: Glucose,Whole Blood 84 mg/dL (75-99)
[2017-03-18 12:22] VITALS: BP 115/68; PULSE 88; RESP 18; TEMP 97.4
--- NOTE | 2017-03-18 13:01 | P.CRDCN ---
History of Present Illness Consult date: 03/18/17 Consult reason: chest pain History of present illness: This is a 49 year year-old female who presented to the ED with complaints of chest pain. She states she woke up with the pain around 8 AM yesterday morning, the pain was described as dull, achy, substernal, reproducible and worse with deep inspiration. She took 2 sublingual nitroglycerin with no relief. She denies any alleviating factors. The pain went away when she was given IV morphine. Significant history includes CAD with stent placement at [facility] 2 years ago, diabetes mellitus, hyperlipidemia , systolic heart failure with decreased ejection fraction. She follows with Dr. FAITH Howell as an outpatient, was last seen December 2015. She states she has not followed up change in insurance. Review of Systems REVIEW OF SYSTEMS: Patient denies any shortness of breath. No diaphoresis. She denies headache, dizziness, blurred vision, double vision. No dyspnea on exertion. Patient denies any stomach discomfort. No nausea, vomiting. No hematochezia. No hematemesis. Denies any black stools or blood in his stools. No syncope. No palpitations. No cough. No recent fever or chills. Denies dysuria or hematuria. No muscle weakness or numbness. Past Medical History Past Medical History: Asthma, Coronary Artery Disease (CAD), Chest Pain / Angina , Heart Failure, Diabetes Mellitus, Fibromyalgia, GERD/Reflux, Hyperlipidemia, Myocardial Infarction ([place]), Rheumatoid Arthritis ([place]) Additional Past Medical History / Comment(s): morbid obesity, chronic migraines , SCOLIOSIS, CHRONIC BACK PAIN CARPAL TUNNEL bilaterally. Last Myocardial Infarction Date:: 05/24/15 History of Any Multi-Drug Resistant Organisms: None Reported Past Surgical History: Breast Surgery, Cholecystectomy, Heart Catheterization, Heart Catheterization With Stent, Tonsillectomy Additional Past Surgical History / Comment(s): 05/2015 PCI with stent at [facility]. Other surgeries: BIBI KNEE ARTHROSCOPIES, L BREAST- LUMPECTOMY(BENIGN) Past Anesthesia/Blood Transfusion Reactions: Motion Sickness Additional Past Anesthesia/Blood Transfusion Reaction / Comment(s): Pt states she has clausterphobia. Date of Last Stent Placement:: 05/24/15 per pt Past Psychological History: Anxiety, Depression Additional Psychological History / Comment(s): Pt reports hx of bedsore to coccyx, states shes had surgeries and pt states it is healed now. Smoking Status: Former smoker Past Alcohol Use History: None Reported Additional Past Alcohol Use History / Comment(s): SMOKED X les than 1 YEAR,QUIT 1979 Past Drug Use History: None Reported - Past Family History Father Family Medical History: Dementia Mother History Unknown: Yes Family Medical History: Cancer, Chest Pain / Angina Additional Family Medical History / Comment(s): Breast cancer with recent surgery. Medications and Allergies Home Medications and Allergies Comment(s): Relevant cardiac medications include sublingual nitroglycerin, Toprol-XL 25 mg by mouth daily, Plavix 75 mg by mouth daily, aspirin 81 mg daily & chlorthalidone 25 mg daily. Home Medications Medication Instructions Recorded Confirmed Type Amitriptyline HCl [Elavil] 100 mg PO HS 03/17/17 03/17/17 History Aspirin EC [Ecotrin Low Dose] 81 mg PO DAILY 03/17/17 03/17/17 History Butalb/APAP/Caff 50-325-40Mg 1 tab PO Q6H PRN 03/17/17 03/17/17 History [Fioricet 50-325-40] Chlorthalidone 25 mg PO DAILY 03/17/17 03/17/17 History Clopidogrel Bisulfate [Plavix] 75 mg PO DAILY 03/17/17 03/17/17 History DULoxetine HCL [Cymbalta] 120 mg PO DAILY 03/17/17 03/17/17 History Ergocalciferol [Vitamin D2] 50,000 unit PO WE 03/17/17 03/17/17 History Gabapentin 600 mg PO HS 03/17/17 03/17/17 History Gabapentin [Neurontin] 300 mg PO QAM 03/17/17 03/17/17 History Glimepiride [Amaryl] 4 mg PO AC-BRKFST 03/17/17 03/17/17 History LORazepam [Ativan] 0.5 mg PO HS 03/17/17 03/17/17 History Loratadine [Claritin] 10 mg PO DAILY 03/17/17 03/17/17 History Methocarbamol [Robaxin-750] 750 mg PO TID PRN 03/17/17 03/17/17 History Metoprolol Succinate (ER) [Toprol 25 mg PO DAILY 03/17/17 03/17/17 History Xl] Nitroglycerin Sl Tabs [Nitrostat] 0.4 mg SUBLINGUAL Q5M PRN 03/17/17 03/17/17 History Ranitidine HCl [Zantac] 150 mg PO BID 03/17/17 03/17/17 History buPROPion SR [Wellbutrin Sr] 150 mg PO DAILY 03/17/17 03/17/17 History traZODone HCL 50 mg PO HS PRN 03/17/17 03/17/17 History Allergies Allergy/AdvReac Type Severity Reaction Status Date / Time WARNER Inhibitors Allergy Unknown Verified 03/17/17 11:53 amoxicillin [From Amoxil] Allergy Unknown Verified 03/17/17 11:53 Childhood ciprofloxacin [From Cipro] Allergy Rash/Hives Verified 03/17/17 11:53 metformin Allergy Diarrhea Verified 03/17/17 11:53 Penicillins Allergy Rash/Hives Verified 03/17/17 11:53 Physical Exam Vitals: Vital Signs Temp Pulse Pulse Resp BP BP Pulse Ox 03/18/17 12:00 97.4 F L 88 18 115/68 98 03/18/17 08:00 97.5 F L 84 16 117/58 94 L 03/18/17 07:34 93 L 03/18/17 04:12 97.8 F 91 16 116/67 94 L 03/18/17 04:00 95 15 03/18/17 00:00 95 15 03/17/17 23:53 97.8 F 89 15 108/70 93 L 03/17/17 20:00 98.3 F 91 16 94/52 97 03/17/17 16:00 101 H 18 03/17/17 15:22 97 03/17/17 14:30 97.8 F 104 H 18 132/78 97 03/17/17 13:54 98.2 F 90 16 126/77 94 L 03/17/17 13:15 90 16 126/73 92 L 03/17/17 12:29 93 16 140/59 97 Intake and Output 03/17/17 03/18/17 03/18/17 22:59 06:59 14:59 Other: # Voids 1 0 GENERAL: This is a 57-year-old female in no apparent distress at the time of my examination. Obese with a BMI 36.2. HEENT: Head is atraumatic, normocephalic. Pupils are equal, round. Sclerae anicteric. Conjunctivae are clear. Mucous membranes of the mouth are moist. Neck is supple. There is no jugular venous distention. No carotid bruit is heard. LUNGS: Clear to auscultation and precussion. Mild chest wall tenderness is noted on palpation or with deep breathing. HEART: Regular rate and rhythm without murmurs, rubs or gallops. S1 and S2 heard. ABDOMEN: Soft, nontender. Bowel sounds are heard. No organomegaly noted. EXTREMITIES: 2+ peripheral pulses with no evidence of peripheral edema and no calf tenderness noted. NEUROLOGIC: Patient is awake, alert and oriented x3. Results 03/17/17 12:05 03/17/17 12:05 Cardiac Enzymes 03/17/17 03/17/17 03/17/17 Range/Units 12:05 12:05 18:20 AST 32 (14-36) U/L CK-MB (CK-2) 0.9 0.8 (0.0-2.4) ng/mL Troponin I <0.012 <0.012 (0.000-0.034) ng/mL 03/18/17 Range/Units 00:37 AST (14-36) U/L CK-MB (CK-2) 0.7 (0.0-2.4) ng/mL Troponin I <0.012 (0.000-0.034) ng/mL Coagulation 03/17/17 03/17/17 03/17/17 Range/Units 12:05 12:05 18:20 PT 9.9 (9.0-12.0) sec APTT 23.8 46.2 H (22.0-30.0) sec 03/18/17 Range/Units 06:44 PT (9.0-12.0) sec APTT 37.6 H (22.0-30.0) sec Lipids 03/18/17 Range/Units 06:44 Triglycerides 154 H (<150) mg/dL Cholesterol 151 (<200) mg/dL HDL Cholesterol 44 (40-60) mg/dL CBC 03/17/17 Range/Units 12:05 WBC 6.4 (3.8-10.6) k/uL RBC 4.83 (3.80-5.40) m/uL Hgb 13.4 (11.4-16.0) gm/dL Hct 40.0 (34.0-46.0) % Plt Count 224 (150-450) k/uL Comprehensive Metabolic Panel 03/17/17 Range/Units 12:05 Sodium 141 (137-145) mmol/L Potassium 3.7 (3.5-5.1) mmol/L Chloride 104 (98-107) mmol/L Carbon Dioxide 23 (22-30) mmol/L BUN 18 H (7-17) mg/dL Creatinine 1.05 H (0.52-1.04) mg/dL Glucose 160 H (74-99) mg/dL Calcium 9.5 (8.4-10.2) mg/dL AST 32 (14-36) U/L ALT 48 (9-52) U/L Alkaline Phosphatase 139 H (38-126) U/L Total Protein 6.5 (6.3-8.2) g/dL Albumin 4.0 (3.5-5.0) g/dL Current Medications Generic Name Dose Route Start Last Admin Trade Name Freq PRN Reason Stop Dose Admin Acetaminophen/Butalbital/Caffeine 1 each 03/17/17 15:35 Fioricet 50-325-40 PO Q6H PRN Headache Amitriptyline HCl 100 mg 03/17/17 21:00 03/17/17 21:22 Elavil PO 100 mg HS SUNNY Administration Aspirin 81 mg 03/18/17 09:00 Aspirin PO DAILY [facility] Atorvastatin Calcium 80 mg 03/18/17 09:15 Lipitor PO DAILY [facility] Bupropion HCl 150 mg 03/18/17 09:00 Wellbutrin Sr PO DAILY [facility] Chlorthalidone 25 mg 03/18/17 09:00 [place] PO DAILY [facility] Clopidogrel Bisulfate 75 mg 03/18/17 09:00 Plavix PO DAILY [facility] Duloxetine HCl 120 mg 03/18/17 09:00 Cymbalta PO DAILY [facility] Ergocalciferol 50,000 unit 03/20/17 12:00 Vitamin D2 PO We@1200 [facility] Famotidine 20 mg 03/17/17 21:00 03/17/17 21:23 Pepcid PO 20 mg BID SUNNY Administration Gabapentin 300 mg 03/18/17 09:00 Neurontin PO QAM [facility] Gabapentin 600 mg 03/17/17 21:00 03/17/17 21:24 Neurontin PO 600 mg HS SUNNY Administration Glimepiride 4 mg 03/18/17 07:30 Amaryl PO AC-BRKFST SUNNY Heparin Sodium (Porcine) 0 unit 03/17/17 14:08 Heparin IV PER PROTOCOL PRN Low PTT Protocol Heparin Sodium/Dextrose 25,000 500 mls @ 20 mls/hr 03/17/17 13:30 03/17/17 13 :48 unit/ IV Solution IV 9.976 units/kg/hr .Q24H SUNNY 20 mls/hr Protocol Administration 9.976 UNITS/KG/HR Loratadine 10 mg 03/18/17 09:00 Claritin PO DAILY SUNNY Lorazepam 0.5 mg 03/17/17 21:00 03/17/17 21:22 Ativan PO 0.5 mg HS SUNNY Administration Methocarbamol 750 mg 03/17/17 15:35 Robaxin PO TID PRN Pain MUSCLE Metoprolol Succinate 25 mg 03/18/17 09:00 Toprol Xl PO DAILY SUNNY Morphine Sulfate 4 mg 03/17/17 13:25 Morphine Sulfate (Inj) IV Q5M PRN Chest Pain Nitroglycerin 0.4 mg 03/17/17 15:35 Nitrostat SUBLINGUAL Q5M PRN Chest Pain Trazodone HCl 50 mg 03/17/17 15:35 Desyrel PO HS PRN Insomnia Intake and Output 03/17/17 03/18/17 03/18/17 22:59 06:59 14:59 Other: # Voids 1 0 03/17/17 12:05 03/17/17 12:05 - Imaging and Cardiology Stress echo: report reviewed Echo: report reviewed (Left ventricular function moderately impaired ejection fraction 35-40%, moderate left ventricular hypertrophy with inferior left ventricular hypokinetic wall motion basal, mid and apical.) - EKG Interpretation EKG: sinus rhythm, no acute changes (Old inferior infarct) Assessment and Plan Plan: ASSESSMENT 1. Atypical chest pain, history of CAD with stenting. 2. Systolic heart failure, chronic. 3. Diabetes mellitus. 4. Hyperlipidemia. 5. Obesity. PLAN Exercise stress echo was completed. Patient exercised for 2 minutes and achieved 83% of the predicted maximal heart rate. There was no ST to T-wave changes. Echocardiogram obtained at peak stress which demonstrated no new regional wall motion abnormalities. Baseline abnormalities persist Evaluation of the patient's daily medication regimen indicates she is not on a statin. We will add Lipitor 80 mg by mouth daily. From a cardiac standpoint the patient is stable for discharge home. She is highly recommended to follow-up on an outpatient basis with Dr. FAITH Howell in 1-2 weeks.
[2017-03-18] MEDS: FAMOTIDINE 20 MG TAB PO SCH (13:03)
[2017-03-18] MEDS: GABAPENTIN 300 MG CAP PO SCH (13:03)
--- NOTE | 2017-03-18 14:55 | EST ---
Referral Reason:chest pain MEASUREMENTS -------- HEIGHT: 167.6 cm WEIGHT: 101.6 kg BP: 108/67 FINDINGS -------- Utilizing the standard Sen protocol the patient was exercised for 2 minutes, 0 seconds, achieving a maximum heart rate of 134 , which is 83 % of predicted maximal heart rate. There was physiologic heart rate and blood pressure response to exercise. Max Heart Rate: 134 % of Max Predicted Heart Rate: 83 Rest Heart Rate: 115 Rest BP: 100/67 Max BP: 119/66 Mets Achieved: 3.4 The test was stopped because of shortness of breath. Sinus rhythm. In response to stress, the ECG showed no diagnostic ST-T wave changes (see exercise report for details). Basal inferior LV wall motion is hypokinetic. Mid inferior LV wall motion is hypokinetic. Mid inferoseptal LV wall motion is hypokinetic. Echo images were acquired at peak stress which demonstrated no new regional wall motion abnormalities. Baseline abnormalities persist. CONCLUSIONS -------- 1. Sinus rhythm. 2. In response to stress, the ECG showed no diagnostic ST-T wave changes (see exercise report for details). 3. Basal inferior LV wall motion is hypokinetic. 4. Mid inferior LV wall motion is hypokinetic. 5. Mid inferoseptal LV wall motion is hypokinetic. 6. Echo images were acquired at peak stress which demonstrated no new regional wall motion abnormalities. Baseline abnormalities persist. 7. 2D echocardiographic evidence of prior myocardial infarction without inducible ischemia to achieved workload. CONFERENCE CENTER MANAGER: Murali Sparks RDCS MTDJoy
--- NOTE | 2017-03-19 10:21 | HP ---
CHIEF COMPLAINT: Chest pain. HISTORY OF PRESENT ILLNESS: This is another admission for this 56-year-old obese white female. She started to have some substernal chest discomfort, which she describes as being dull. She had no shortness of breath or diaphoresis. She came to the emergency room and her cardiac studies were negative and she was admitted for observation. REVIEW OF SYSTEMS: She has had no syncope, change in vision or hearing, palpitations, orthopnea, PND, abdominal pain, nausea, vomiting, melena, hematochezia, jaundice, hematuria, frequency, urgency, renal failure, diaphoresis, radiation of the pain, etc. Past medical history revealed she that she cannot take METFORMIN, PENICILLIN, CIPRO or WARNER INHIBITORS. She is on: 1. Gabapentin 300 mg 3 times a day. 2. Atorvastatin 80 once a night. 3. Fiorinal p.r.n. 4. Amitriptyline 100 mg once a day. 5. Chlorthalidone 25 mg once a day. 6. Metoprolol 25 mg once a day. 7. Methocarbamol 750 mg t.i.d. p.r.n. 8. Ranitidine 150 mg twice a day. 9. Trazodone 50 mg one at bedtime p.r.n. 10. Lorazepam 1 mg at bedtime p.r.n. 11. Vitamin D 50,000 units a month. 12. Duloxetine 60 mg 2 a day. 13. Clopidogrel 75 once a day. 14. Aspirin 81 mg once a day. 15. Nitrostat. The remainder of her history is unremarkable. She use to smoke, but does not any longer. She has had a cholecystectomy and a T&A. She has coronary artery disease and has had stent placement in the past. She also was in a correction for an extended period of time due to encephalopathy caused by hypoglycemia. PHYSICAL EXAM: Blood pressure is 126/60 with a pulse of 50, respirations 16. She is afebrile. GENERAL: She appeared to be obese in no acute distress. Skin color is normal and skin is warm and dry. Lymph nodes are not enlargement. Head, ears, eyes, nose, mouth and throat were normal. Neck veins cannot be assessed. Chest is clear. Cardiac exam demonstrated sinus rhythm with no murmurs or extra sounds. Abdomen is protuberant and soft and nontender without visceromegaly. EXTREMITIES: Normal. Neurologically, she is intact. IMPRESSION: 1. Chest pain. 2. Rule out myocardial infarction. 3. Coronary artery disease. 4. Diabetes mellitus. PLAN: 1. Bed rest. 2. IV fluids. 3. Serial EKGs and enzymes. MTDD
--- NOTE | 2017-03-19 10:25 | DS ---
CHIEF COMPLAINT: Chest pain. HISTORY OF PRESENT ILLNESS AND PHYSICAL EXAM: Details of this lady's history and physical can be found in the initial workup. COURSE IN THE HOSPITAL: After admission she was placed in bed rest and started on intravenous fluids and had serial EKGs and enzymes and they were all normal. She is doing well and it was felt that she could be discharged and she will follow up in a day or two in the office. FINAL DIAGNOSES: 1. Chest pain. 2. Coronary artery disease. 3. Obesity. 4. Diabetes. OPERATIONS: None. CONSULTATIONS: Cardiology. She is improved. SAMRA
[2017-03-20] MEDS ORDERED: ERGOCALCIFEROL 50,000 UNIT CAP PO SCH (12:00)
== END 2017-03-18 13:39 | disposition home or self-care (01) ==
LOC: EC 11:49 → 3OBS 13:36
PROVIDERS: ADMIT Family Medicine; ATTEND Family Medicine
DX: R07.89 Other chest pain (principal); R07.2 Precordial pain; I25.10 Atherosclerotic heart disease of native coronary artery without angina pectoris; E66.01 Morbid (severe) obesity due to excess calories; E11.9 Type 2 diabetes mellitus without complications; Z95.5 Presence of coronary angioplasty implant and graft; M06.9 Rheumatoid arthritis, unspecified; M79.7 Fibromyalgia; F41.9 Anxiety disorder, unspecified; F32.9 Major depressive disorder, single episode, unspecified; Z68.36 Body mass index [BMI] 36.0-36.9, adult; I50.22 Chronic systolic (congestive) heart failure; E78.5 Hyperlipidemia, unspecified; G43.909 Migraine, unspecified, not intractable, without status migrainosus; J45.909 Unspecified asthma, uncomplicated; K21.9 Gastro-esophageal reflux disease without esophagitis; M54.9 Dorsalgia, unspecified; G89.29 Other chronic pain; M41.9 Scoliosis, unspecified; I25.2 Old myocardial infarction; Z79.82 Long term (current) use of aspirin; Z79.899 Other long term (current) drug therapy; Z79.02 Long term (current) use of antithrombotics/antiplatelets; Z79.84 Long term (current) use of oral hypoglycemic drugs; Z88.0 Allergy status to penicillin; Z88.8 Allergy status to other drugs, medicaments and biological substances; Z87.891 Personal history of nicotine dependence; Z80.3 Family history of malignant neoplasm of breast; Z82.49 Family history of ischemic heart disease and other diseases of the circulatory system
CPT/HCPCS: 99285 ×2; 96375 ×2; 96376 ×2; 96365; 96366 ×2; 36415; 94760; 93005; 93017; 80061; 80053; 82550 ×2; 82553 ×2; 83735; 84484 ×2; 85025; 85610; 85730 ×2; 71020; G0378 ×2; C8928; C8929; J2270; J1644 ×2; S0106; Q9957; 93306; 93350

== ENCOUNTER → 2017-04-02 | Outpatient (CLI) | payer OTHER ==
--- NOTE | 2017-04-04 08:57 | MM ---
Reason for exam: screening (asymptomatic). Last mammogram was performed 1 year and 3 months ago. History: Patient is postmenopausal and is nulliparous. Family history of breast cancer in uncle, breast cancer in mother at age 81, breast cancer in 2 maternal aunts, and breast cancer in 2 paternal aunts. Benign stereotactic core biopsy of the left breast. Physical Findings: A clinical breast exam by your physician is recommended on an annual basis and results should be correlated with mammographic findings. MG Screening Mammo w CAD Bilateral CC and MLO view(s) were taken. Prior study comparison: January 12, 2016, bilateral MG 3d diag mammo w/cad BIBI. December 30, 2014, left breast MG work up mamm w CAD LT. December 24, 2014, bilateral MG screening mammo w CAD. There are scattered fibroglandular densities. Previous mammotome biopsy in the right and left breast. No significant changes when compared with prior studies. ASSESSMENT: Negative, BI-RAD 1 RECOMMENDATION: Routine screening mammogram of both breasts in 1 year.
== END | disposition home or self-care (01) ==
LOC: RADMAMWWP 12:46
PROVIDERS: ATTEND Family Medicine
DX: Z12.31 Encounter for screening mammogram for malignant neoplasm of breast (principal)

== ENCOUNTER 2017-06-07 15:57 | Emergency (ER) | payer OTHER ==
[2017-06-07 16:09] VITALS: BP 122/57; PULSE 61; RESP 16; TEMP 97.1
--- NOTE | 2017-06-07 16:15 | ED ---
Lower Extremity Injury HPI - General Chief Complaint: Extremity Injury, Lower Stated Complaint: Knee Pain Time Seen by Provider: 06/07/17 16:05 Source: patient, RN notes reviewed Mode of arrival: wheelchair Limitations: no limitations - History of Present Illness Initial Comments: This is a pleasant 57-year-old female presents emergency department after falling while getting off the bus earlier today. She struck her left knee. Patient denies any other injuries. She is complaining of sharp pain to the anterior aspect of left knee which is exacerbated by movement and palpation. Patient states she went home and take a shower and noticed she had quite a bit of swelling to the anterior aspect of the knee just below the knee. She denies any head or neck injury. She denies any distal paresthesias. No ankle or hip pain. - Related Data Home Medications Medication Instructions Recorded Confirmed Amitriptyline HCl [Elavil] 100 mg PO HS 03/17/17 03/17/17 Aspirin EC [Ecotrin Low Dose] 81 mg PO DAILY 03/17/17 03/17/17 Butalb/APAP/Caff 50-325-40Mg 1 tab PO Q6H PRN 03/17/17 03/17/17 [Fioricet 50-325-40] Chlorthalidone 25 mg PO DAILY 03/17/17 03/17/17 Clopidogrel Bisulfate [Plavix] 75 mg PO DAILY 03/17/17 03/17/17 DULoxetine HCL [Cymbalta] 120 mg PO DAILY 03/17/17 03/17/17 Ergocalciferol [Vitamin D2] 50,000 unit PO WE 03/17/17 03/17/17 Gabapentin 600 mg PO HS 03/17/17 03/17/17 Gabapentin [Neurontin] 300 mg PO QAM 03/17/17 03/17/17 Glimepiride [Amaryl] 4 mg PO AC-BRKFST 03/17/17 03/17/17 LORazepam [Ativan] 0.5 mg PO HS 03/17/17 03/17/17 Loratadine [Claritin] 10 mg PO DAILY 03/17/17 03/17/17 Methocarbamol [Robaxin-750] 750 mg PO TID PRN 03/17/17 03/17/17 Metoprolol Succinate (ER) [Toprol 25 mg PO DAILY 03/17/17 03/17/17 Xl] Nitroglycerin Sl Tabs [Nitrostat] 0.4 mg SUBLINGUAL Q5M PRN 03/17/17 03/17/17 Ranitidine HCl [Zantac] 150 mg PO BID 03/17/17 03/17/17 buPROPion SR [Wellbutrin Sr] 150 mg PO DAILY 03/17/17 03/17/17 traZODone HCL 50 mg PO HS PRN 03/17/17 03/17/17 Atorvastatin Calcium [Lipitor] 80 mg PO DAILY 03/18/17 03/18/17 Previous Rx's Medication Instructions Recorded Atorvastatin [Lipitor] 80 mg PO DAILY #30 tab 03/18/17 Allergies Allergy/AdvReac Type Severity Reaction Status Date / Time WARNER Inhibitors Allergy Unknown Verified 06/07/17 16:08 amoxicillin [From Amoxil] Allergy Unknown Verified 06/07/17 16:08 Childhood ciprofloxacin [From Cipro] Allergy Rash/Hives Verified 06/07/17 16:08 metformin Allergy Diarrhea Verified 06/07/17 16:08 Penicillins Allergy Rash/Hives Verified 06/07/17 16:08 Review of Systems ROS Statement: Those systems with pertinent positive or pertinent negative responses have been documented in the HPI. ROS Other: All systems not noted in ROS Statement are negative. Past Medical History Past Medical History: Asthma, Coronary Artery Disease (CAD), Chest Pain / Angina , Heart Failure, Diabetes Mellitus, Fibromyalgia, GERD/Reflux, Hyperlipidemia, Myocardial Infarction ([place]), Rheumatoid Arthritis ([place]) Additional Past Medical History / Comment(s): morbid obesity, chronic migraines , SCOLIOSIS, CHRONIC BACK PAIN CARPAL TUNNEL bilaterally. Last Myocardial Infarction Date:: 05/24/15 History of Any Multi-Drug Resistant Organisms: None Reported Past Surgical History: Breast Surgery, Cholecystectomy, Heart Catheterization, Heart Catheterization With Stent, Tonsillectomy Additional Past Surgical History / Comment(s): 05/2015 PCI with stent at [facility]. Other surgeries: BIBI KNEE ARTHROSCOPIES, L BREAST- LUMPECTOMY(BENIGN) Past Anesthesia/Blood Transfusion Reactions: Motion Sickness Additional Past Anesthesia/Blood Transfusion Reaction / Comment(s): Pt states she has clausterphobia. Date of Last Stent Placement:: 05/24/15 per pt Past Psychological History: Anxiety, Depression Smoking Status: Former smoker Past Alcohol Use History: None Reported Past Drug Use History: None Reported - Past Family History Father Family Medical History: Dementia Mother History Unknown: Yes Family Medical History: Cancer, Chest Pain / Angina Additional Family Medical History / Comment(s): Breast cancer with recent surgery. General Exam - General Exam Comments Initial Comments: Well-developed, well-nourished 57-year-old female in minimal distress secondary to pain Limitations: no limitations General appearance: alert, in distress Head exam: Present: atraumatic, normocephalic, normal inspection Eye exam: Present: normal appearance, EOMI. Absent: scleral icterus, conjunctival injection ENT exam: Present: normal exam, mucous membranes moist Neck exam: Present: normal inspection, full ROM. Absent: tenderness, meningismus, lymphadenopathy Respiratory exam: Present: normal lung sounds bilaterally. Absent: respiratory distress, wheezes, rales, rhonchi, stridor Cardiovascular Exam: Present: regular rate, normal rhythm, normal heart sounds. Absent: systolic murmur, diastolic murmur, rubs, gallop, clicks GI/Abdominal exam: Present: soft. Absent: distended, tenderness Left Upper Leg exam: Present: normal inspection. Absent: tenderness, swelling Knee exam: Present: full ROM, tenderness, swelling, full knee extension. Absent : normal inspection, abrasion, laceration, ecchymosis, deformity, crepitus, dislocation, erythema, effusion, posterior draw sign, pain/laxity with valgus, pain/laxity with varus Lower Leg exam: Present: tenderness, swelling. Absent: abrasion, laceration Ankle exam: Present: normal inspection, full ROM. Absent: tenderness, swelling Foot/Toe exam: Present: normal inspection, full ROM. Absent: tenderness, swelling Neurovascular tendon exam: Present: no vascular compromise. Absent: pulse deficit, abnormal cap refill, pallor Gait: observed and limited by pain, antalgic Back exam: Present: normal inspection Neurological exam: Present: alert, oriented X3, CN II-XII intact, normal gait. Absent: motor sensory deficit Psychiatric exam: Present: normal affect, normal mood Skin exam: Present: warm, dry, intact, normal color. Absent: rash Course Vital Signs 06/07/17 16:05 Temperature 97.1 F L Pulse Rate 61 Respiratory 16 Rate Blood Pressure 122/57 O2 Sat by Pulse 95 Oximetry Medical Decision Making - Medical Decision Making Return to the ER at once if the symptoms worsen or problems or difficulties arise. Advised to follow-up with her primary care physician within the next 4- 5 days. Return and follow-up parameters discussed. - Radiology Data Radiology results: pending, image reviewed X-ray pending. I see no evidence of acute x-ray dislocation. Patient does have soft tissue swelling. Disposition Clinical Impression: Contusion of left knee, initial encounter Disposition: HOME SELF-CARE Condition: Good Instructions: Knee Pain (ED), Contusion in Adults (ED) Additional Instructions: Return to the ER at once if the symptoms worsen or problems or difficulties arise. You can use [id number] Advil for pain and inflammation. You can also add [id number] Tylenol with the Advil if needed. Referrals: Terrance Stock MD [Primary Care Provider] - 06/12/17 Time of Disposition: 16:41
--- NOTE | 2017-06-07 16:51 | XR ---
EXAMINATION TYPE: XR knee complete LT DATE OF EXAM: 06/07/2017 COMPARISON: NONE HISTORY: Left knee pain following fall TECHNIQUE: Three-view left knee FINDINGS: There appears to be a small medial tibial plateau fracture at the medial aspect. Significan t joint effusion is not identified at this time. This could be confirmed with CT. IMPRESSION: 1. Medial tibial plateau corner fracture. This could be confirmed with CT.
== END 2017-06-07 16:50 | disposition home or self-care (01) ==
LOC: EC 15:57 → EEVIPCON 15:57 → EC 16:50
DX: S80.02XA Contusion of left knee, initial encounter (principal); E78.5 Hyperlipidemia, unspecified; I25.10 Atherosclerotic heart disease of native coronary artery without angina pectoris; I50.9 Heart failure, unspecified; E11.9 Type 2 diabetes mellitus without complications; K21.9 Gastro-esophageal reflux disease without esophagitis; G89.29 Other chronic pain; M06.9 Rheumatoid arthritis, unspecified; F32.9 Major depressive disorder, single episode, unspecified; F41.9 Anxiety disorder, unspecified; E66.01 Morbid (severe) obesity due to excess calories; I25.2 Old myocardial infarction; Z87.891 Personal history of nicotine dependence; Z79.02 Long term (current) use of antithrombotics/antiplatelets; Z79.82 Long term (current) use of aspirin; Z79.84 Long term (current) use of oral hypoglycemic drugs; Z79.899 Other long term (current) drug therapy; Z88.0 Allergy status to penicillin; Z88.1 Allergy status to other antibiotic agents; Z88.8 Allergy status to other drugs, medicaments and biological substances; Z86.79 Personal history of other diseases of the circulatory system; Z68.38 Body mass index [BMI] 38.0-38.9, adult; W18.09XA Striking against other object with subsequent fall, initial encounter; Y93.89 Activity, other specified
CPT/HCPCS: 99283

== ENCOUNTER → 2017-12-19 | Outpatient (CLI) | payer OTHER ==
--- NOTE | 2017-12-19 15:54 | MR ---
EXAMINATION TYPE: MR shoulder LT wo con DATE OF EXAM: 12/19/2017 COMPARISON: NONE HISTORY: Left shoulder pain TECHNIQUE: Multiplanar, multisequence imaging of the left shoulder is performed without contrast. FINDINGS: Rotator Cuff: There is a partial thickness tear on the bursal surface of the supraspinatus measuring approximately 1.0 x 0.8 cm. There is also bursal surface fraying and a small amount of subacromial/spaulding bdeltoid bursal fluid. Intrinsic high PD signal is seen of the insertional fibers of the supraspinatu s representing moderate tendinopathy. There is also mild bursal surface and articular surface fraying of the infraspinatus with mild intrin sic increased signal in the insertional fibers without discrete tear. Teres minor and subscapularis t endons are unremarkable. Muscular volume is also within normal limits in these muscles. Acromioclavicular Joint: There is moderate acromioclavicular arthropathy with capsular hypertrophy, s mall subchondral cyst and small marginal osteophytes. There is no impingement on the supraspinatus or rotator cuff. There is no downsloping of the acromion. However there is a small marginal osteophyte of the distal acromion does place mass effect on the supraspinatus on PD fat-sat coronal image 10. No os acromiale. Glenohumeral Joint: Mild arthropathy with joint space narrowing and is small subchondral cysts of the humeral head. Labrum: The labrum appears grossly intact given limitation of non-arthrogram study. There is global l abral degeneration. Biceps Tendon: The long head of biceps is in normal location within bicipital groove. There is a susp ected split tear of the intra-articular portion of the biceps tendon with associated tendinopathy dem onstrated as increased signal in attenuation of the intra-articular portion near the insertion on the biceps anchor. Bone marrow signal: No focal abnormal marrow signal is appreciated. Other: Small amount of subacromial joint fluid is identified. IMPRESSION: 1. Small partial-thickness tear of the bursal surface supraspinatus with bursal surface fiber fraying and moderate supraspinatus tendinosis. 2. Moderate acromioclavicular arthropathy with a small marginal osteophyte projecting inferiorly from the distal acromion placing mass effect upon the infraspinatus. 3. Suspected short segment split tear of the intra-articular portion of the biceps tendon with associ ated moderate biceps tendinopathy. 4. Mild infraspinatus tendinopathy and bursal surface fraying. 5. Small amount of fluid within the subdeltoid/subacromial bursa and subcoracoid bursa that could cli nically correlate with bursitis. 6. Mild glenohumeral arthropathy. 7. Global labral degeneration.
== END | disposition home or self-care (01) ==
LOC: RADMRIMAIN 11:40
PROVIDERS: ATTEND Orthopaedic Surgery
DX: S46.212A Strain of muscle, fascia and tendon of other parts of biceps, left arm, initial encounter (principal); S43.402A Unspecified sprain of left shoulder joint, initial encounter; M75.112 Incomplete rotator cuff tear or rupture of left shoulder, not specified as traumatic; M19.012 Primary osteoarthritis, left shoulder; M75.82 Other shoulder lesions, left shoulder

== ENCOUNTER 2018-02-21 09:28 | Emergency (ER) | payer OTHER ==
[2018-02-21 09:39] VITALS: RESP 18; TEMP 97.5
[2018-02-21] MEDS ORDERED: SODIUM CHLORIDE 0.9% 500 ML IV STA (09:56)
[2018-02-21] MEDS ORDERED: SODIUM CHLORIDE 0.9% 1,000 ML IV ONE (10:08)
--- NOTE | 2018-02-21 10:09 | ED ---
General Adult HPI - General Chief complaint: Fall Stated complaint: RT KNEE INJURY Time Seen by Provider: 02/21/18 09:30 Source: patient, RN notes reviewed Mode of arrival: wheelchair Limitations: no limitations - History of Present Illness Initial comments: This is a 57-year-old female presents emergency Department complaining of right knee pain. Patient states she got lightheaded yesterday and felt the ground and hurt her right knee. Patient states she never passed out she just got lightheaded and fell. Patient states this happened multiple times in the past. Patient denies any chest pain difficulty breathing shortness breath. Patient denies any headache patient denies any numbness weakness. Patient denies any other injury besides the knee pain. Patient states that she did not eat breakfast that day and think she was a little lightheaded from being hypoglycemic but she did not check her sugar. - Related Data Home Medications Medication Instructions Recorded Confirmed Amitriptyline HCl [Elavil] 100 mg PO HS PRN 03/17/17 02/21/18 Aspirin EC [Ecotrin Low Dose] 81 mg PO DAILY 03/17/17 02/21/18 Butalb/APAP/Caff 50-325-40Mg 1 tab PO Q6H PRN 03/17/17 02/21/18 [Fioricet 50-325-40] Chlorthalidone 25 mg PO HS 03/17/17 02/21/18 Clopidogrel Bisulfate [Plavix] 75 mg PO DAILY 03/17/17 02/21/18 DULoxetine HCL [Cymbalta] 60 mg PO BID 03/17/17 02/21/18 Gabapentin [Neurontin] 300 mg PO TID 03/17/17 02/21/18 Glimepiride [Amaryl] 4 mg PO AC-BRKFST 03/17/17 02/21/18 LORazepam [Ativan] 0.5 mg PO HS PRN 03/17/17 02/21/18 Loratadine [Claritin] 10 mg PO DAILY 03/17/17 02/21/18 Metoprolol Succinate (ER) [Toprol 25 mg PO DAILY 03/17/17 02/21/18 Xl] Ranitidine HCl [Zantac] 150 mg PO BID 03/17/17 02/21/18 traZODone HCL 50 mg PO HS PRN 03/17/17 02/21/18 Atorvastatin [Lipitor] 80 mg PO HS 06/21/17 02/21/18 Cholecalciferol [Vitamin D3] 1,000 unit PO DAILY 02/21/18 02/21/18 Losartan Potassium 100 mg PO HS 02/21/18 02/21/18 rOPINIRole HCL [Requip] 0.25 mg PO HS 02/21/18 02/21/18 Allergies Allergy/AdvReac Type Severity Reaction Status Date / Time WARNER Inhibitors Allergy Unknown Verified 02/21/18 10:09 amoxicillin [From Amoxil] Allergy Unknown Verified 02/21/18 10:09 Childhood ciprofloxacin [From Cipro] Allergy Rash/Hives Verified 02/21/18 10:09 metformin Allergy Diarrhea Verified 02/21/18 10:09 Penicillins Allergy Rash/Hives Verified 02/21/18 10:09 Review of Systems ROS Statement: Those systems with pertinent positive or pertinent negative responses have been documented in the HPI. ROS Other: All systems not noted in ROS Statement are negative. Past Medical History Past Medical History: Asthma, Coronary Artery Disease (CAD), Chest Pain / Angina , Heart Failure, Diabetes Mellitus, Fibromyalgia, GERD/Reflux, Hyperlipidemia, Hypertension, Myocardial Infarction ([place]), Rheumatoid Arthritis ([place]) Additional Past Medical History / Comment(s): morbid obesity, chronic migraines , SCOLIOSIS, CHRONIC BACK PAIN CARPAL TUNNEL bilaterally. Last Myocardial Infarction Date:: 05/24/15 History of Any Multi-Drug Resistant Organisms: None Reported Past Surgical History: Breast Surgery, Cholecystectomy, Heart Catheterization, Heart Catheterization With Stent, Tonsillectomy Additional Past Surgical History / Comment(s): 05/2015 PCI with stent at [facility]. Other surgeries: BIBI KNEE ARTHROSCOPIES, L BREAST- LUMPECTOMY(BENIGN) Past Anesthesia/Blood Transfusion Reactions: Motion Sickness Additional Past Anesthesia/Blood Transfusion Reaction / Comment(s): Pt states she has clausterphobia. Date of Last Stent Placement:: 05/24/15 per pt Past Psychological History: Anxiety, Depression Smoking Status: Former smoker Past Alcohol Use History: None Reported Past Drug Use History: None Reported - Past Family History Father Family Medical History: Dementia Mother History Unknown: Yes Family Medical History: Cancer, Chest Pain / Angina Additional Family Medical History / Comment(s): Breast cancer with recent surgery. General Exam - General Exam Comments Initial Comments: GENERAL: Patient is well-developed and well-nourished. Patient is nontoxic and well- hydrated and is in no acute distress. ENT: Neck is soft and supple. No significant lymphadenopathy is noted. Oropharynx is clear. Moist mucous membranes. Neck has full range of motion without eliciting any pain. EYES: The sclera were anicteric and conjunctiva were pink and moist. Extraocular movements were intact and pupils were equal round and reactive to light. Eyelids were unremarkable. PULMONARY: Unlabored respirations. Good breath sounds bilaterally. No audible rales rhonchi or wheezing was noted. CARDIOVASCULAR: There is a regular rate and rhythm without any murmurs gallops or rubs. Femoral pulses are equal bilaterally ABDOMEN: Soft and nontender with normal bowel sounds. No palpable organomegaly was noted. There is no palpable pulsatile mass. SKIN: Skin is clear with no lesions or rashes and otherwise unremarkable. NEUROLOGIC: Patient is alert and oriented x3. Cranial nerves II through XII are grossly intact. Motor and sensory are also intact. Normal speech, volume and content. Symmetrical smile. Cerebellar exam grossly intact. MUSCULOSKELETAL: Patient has some slight swelling inferior to the knee and some tenderness inferior medial aspect of the knee LYMPHATICS: No significant lymphadenopathy is noted PSYCHIATRIC Normal psychiatric evaluation. Limitations: no limitations Course Vital Signs 02/21/18 02/21/18 02/21/18 09:34 09:38 09:50 Temperature 97.5 F L Pulse Rate 96 94 Pulse Rate [ Sitting] Pulse Rate [ Standing] Pulse Rate [ Supine] Respiratory 18 18 Rate Blood Pressure 85/59 81/57 99/58 Blood Pressure [Sitting] Blood Pressure [Standing] Blood Pressure [Supine] O2 Sat by Pulse 99 98 Oximetry 02/21/18 02/21/18 10:05 11:17 Temperature Pulse Rate 81 Pulse Rate [ 95 Sitting] Pulse Rate [ 107 H Standing] Pulse Rate [ 91 Supine] Respiratory 18 Rate Blood Pressure 112/58 Blood Pressure 92/54 [Sitting] Blood Pressure 90/48 [Standing] Blood Pressure 104/58 [Supine] O2 Sat by Pulse 97 Oximetry Medical Decision Making - Medical Decision Making EKG shows normal sinus rhythm at 90 bpm DE interval is 144 QRS is 12 QT interval 364 QTC is 445. Patient's EKG shows no ST segment elevation or depression or T wave abnormalities are noted. Knee shows no dislocation no fracture. Knee x-ray shows no effusion. - Lab Data Result diagrams: 02/21/18 09:58 02/21/18 09:58 Lab Results 02/21/18 02/21/18 02/21/18 Range/Units 09:58 09:58 09:58 WBC 7.4 (3.8-10.6) k/uL RBC 4.57 (3.80-5.40) m/uL Hgb 13.1 (11.4-16.0) gm/dL Hct 39.7 (34.0-46.0) % MCV 87.0 (80.0-100.0) fL MCH 28.8 (25.0-35.0) pg MCHC 33.1 (31.0-37.0) g/dL RDW 14.3 (11.5-15.5) % Plt Count 256 (150-450) k/uL Neutrophils % 79 % Lymphocytes % 12 % Monocytes % 5 % Eosinophils % 3 % Basophils % 1 % Neutrophils # 5.8 (1.3-7.7) k/uL Lymphocytes # 0.9 L (1.0-4.8) k/uL Monocytes # 0.4 (0-1.0) k/uL Eosinophils # 0.2 (0-0.7) k/uL Basophils # 0.0 (0-0.2) k/uL Sodium 141 (137-145) mmol/L Potassium 3.7 (3.5-5.1) mmol/L Chloride 101 (98-107) mmol/L Carbon Dioxide 25 (22-30) mmol/L Anion Gap 15 mmol/L BUN 35 H (7-17) mg/dL Creatinine 1.54 H (0.52-1.04) mg/dL Est GFR (CKD-EPI)AfAm 43 (>60 ml/min/1.73 sqM) Est GFR (CKD-EPI)NonAf 37 (>60 ml/min/1.73 sqM) Glucose 167 H (74-99) mg/dL Calcium 9.2 (8.4-10.2) mg/dL Magnesium 2.0 (1.6-2.3) mg/dL Total Bilirubin 0.4 (0.2-1.3) mg/dL AST 21 (14-36) U/L ALT 34 (9-52) U/L Alkaline Phosphatase 130 H (38-126) U/L Total Creatine Kinase 74 (30-135) U/L CK-MB (CK-2) 0.5 (0.0-2.4) ng/mL CK-MB (CK-2) Rel Index 0.7 Troponin I <0.012 (0.000-0.034) ng/mL Total Protein 6.4 (6.3-8.2) g/dL Albumin 4.2 (3.5-5.0) g/dL Disposition Clinical Impression: Lightheaded, Knee sprain Disposition: HOME SELF-CARE Instructions: Fall Prevention for Older Adults (ED), Knee Immobilizer (ED), Knee Sprain (ED) Is patient prescribed a controlled substance at d/c from ED?: No Referrals: Terrance Stock MD [Primary Care Provider] - 1-2 days Time of Disposition: 12:11
[2018-02-21 10:19] LABS: Basophils % (A) 1 %; Eosinophils # (A) 0.2 k/uL (0-0.7); Eosinophils % (A) 3 %; HCT 39.7 % (34.0-46.0); HGB 13.1 gm/dL (11.4-16.0); Lymphocytes # (A) 0.9 k/uL (1.0-4.8); Lymphocytes % (A) 12 %; MCH 28.8 pg (25.0-35.0); MCHC 33.1 g/dL (31.0-37.0); Mean Platelet Volume 6.8; Monocytes # (A) 0.4 k/uL (0-1.0); Monocytes % (A) 5 %; Neutrophils # (A) 5.8 k/uL (1.3-7.7); Neutrophils % (A) 79 %; Platelet Count 256 k/uL (150-450); RBC 4.57 m/uL (3.80-5.40); RDW 14.3 % (11.5-15.5); WBC 7.4 k/uL (3.8-10.6)
[2018-02-21 10:28] LABS: Albumin 4.2 g/dL (3.5-5.0); Calcium 9.2 mg/dL (8.4-10.2); Potassium 3.7 mmol/L (3.5-5.1); Total Bilirubin 0.4 mg/dL (0.2-1.3); Total Protein 6.4 g/dL (6.3-8.2)
--- NOTE | 2018-02-21 10:46 | XR ---
Right knee HISTORY: Trauma and pain 3 views of the right knee, correlation to prior exam 06/11/2016 Marginal spurring is present in the medial compartment with loss of joint space. Alignment and bone m ineralization are maintained. There is soft tissue swelling present. Small suprapatellar joint effusi on is noted. IMPRESSION: Osteoarthritis. No fracture or dislocation.
[2018-02-21 10:57] LABS: Creatine Kinase 74 U/L (30-135)
[2018-02-21 11:10] LABS: Creatine Kinase MB 0.5 ng/mL (0.0-2.4); Troponin I <0.012 ng/mL (0.000-0.034)
[2018-02-21 12:10] VITALS: BP 106/60; PULSE 80
== END 2018-02-21 12:27 | disposition home or self-care (01) ==
LOC: EC 09:28
DX: S83.91XA Sprain of unspecified site of right knee, initial encounter (principal); R42 Dizziness and giddiness; E11.9 Type 2 diabetes mellitus without complications; I25.10 Atherosclerotic heart disease of native coronary artery without angina pectoris; I11.0 Hypertensive heart disease with heart failure; I50.9 Heart failure, unspecified; M79.7 Fibromyalgia; K21.9 Gastro-esophageal reflux disease without esophagitis; E78.5 Hyperlipidemia, unspecified; I25.2 Old myocardial infarction; M06.9 Rheumatoid arthritis, unspecified; F41.9 Anxiety disorder, unspecified; F32.9 Major depressive disorder, single episode, unspecified; E66.01 Morbid (severe) obesity due to excess calories; Z68.36 Body mass index [BMI] 36.0-36.9, adult; Z95.5 Presence of coronary angioplasty implant and graft; Z95.818 Presence of other cardiac implants and grafts; Z87.891 Personal history of nicotine dependence; Z79.82 Long term (current) use of aspirin; Z79.02 Long term (current) use of antithrombotics/antiplatelets; Z79.84 Long term (current) use of oral hypoglycemic drugs; Z88.8 Allergy status to other drugs, medicaments and biological substances; Z88.0 Allergy status to penicillin; Z88.1 Allergy status to other antibiotic agents; W19.XXXA Unspecified fall, initial encounter; Y92.009 Unspecified place in unspecified non-institutional (private) residence as the place of occurrence of the external cause
CPT/HCPCS: 99284; 96360; 36415; 93005; 80053; 82550; 82553; 83735; 84484; 85025; 73562; L1830 ×2

== ENCOUNTER 2018-06-03 10:54 | Emergency (ER) | payer OTHER ==
[2018-06-03 11:08] VITALS: RESP 18
[2018-06-03] MEDS ORDERED: ACET/COD 300 MG/30 MG STARTER PACK 6 TAB BTL PO STA (12:22)
[2018-06-03] MEDS ORDERED: HYDROcodone/APAP 5-325MG 1 EACH TAB PO STA (12:22)
[2018-06-03] MEDS ORDERED: IBUPROFEN 800 MG TAB PO STA (12:22)
--- NOTE | 2018-06-03 12:49 | XR ---
EXAMINATION TYPE: XR Hip LT and AP Pelvis DATE OF EXAM: 06/03/2018 COMPARISON: MR pelvis dated 02/09/2017. HISTORY: Pelvic and left hip pain after a fall TECHNIQUE: A single AP view of the pelvis is obtained. Two views of the left hip are obtained. FINDINGS: There is no acute fracture/dislocation evident in the pelvis. The hip and sacroiliac join ts appear symmetric and unremarkable. The overlying soft tissue appears unremarkable. Two views of left hip show no acute fracture or dislocation. Lucent regions within the proximal femur s medially likely artifact given symmetry and no bone abnormal bone marrow signal on the prior recent MR pelvis dated 02/09/2017. The overlying soft tissue is unremarkable. IMPRESSION: There is no acute fracture or dislocation in the pelvis or left hip.
--- NOTE | 2018-06-03 12:54 | ED ---
Fall HPI - General Chief Complaint: Fall Stated Complaint: Fall Time Seen by Provider: 06/03/18 11:47 Source: patient Mode of arrival: ambulatory Limitations: no limitations - History of Present Illness Initial Comments: This is a 58-year-old female to the ER status post fall. Patient AND last night prior to bed. Fell and her left hip on her chair back and she went down the ground. Patient does take tramadol at home for pain. She states she is currently out of pain medication. Patient denies any other injuries or falls trauma. No headache. No chest pain or shortness of breath. No abdominal pain. Patient is amateur unable to walk without difficulty. - Related Data Home Medications Medication Instructions Recorded Confirmed Amitriptyline HCl [Elavil] 100 mg PO HS PRN 03/17/17 06/03/18 Butalb/APAP/Caff 50-325-40Mg 1 tab PO Q6H PRN 03/17/17 06/03/18 [Fioricet 50-325-40] Chlorthalidone 25 mg PO DAILY 03/17/17 06/03/18 Clopidogrel Bisulfate [Plavix] 75 mg PO DAILY 03/17/17 06/03/18 DULoxetine HCL [Cymbalta] 120 mg PO DAILY 03/17/17 06/03/18 Gabapentin [Neurontin] 300 mg PO TID 03/17/17 06/03/18 Glimepiride [Amaryl] 4 mg PO AC-BRKFST 03/17/17 06/03/18 Loratadine [Claritin] 10 mg PO DAILY 03/17/17 06/03/18 Metoprolol Succinate (ER) [Toprol 25 mg PO DAILY 03/17/17 06/03/18 Xl] Ranitidine HCl [Zantac] 150 mg PO BID 03/17/17 06/03/18 Atorvastatin [Lipitor] 80 mg PO HS 06/21/17 06/03/18 rOPINIRole HCL [Requip] 0.25 mg PO HS 02/21/18 06/03/18 traMADol HCL [Ultram] 50 mg PO Q6HR PRN 06/03/18 06/03/18 Allergies Allergy/AdvReac Type Severity Reaction Status Date / Time WARNER Inhibitors Allergy Unknown Verified 06/03/18 12:23 amoxicillin [From Amoxil] Allergy Unknown Verified 06/03/18 12:23 Childhood ciprofloxacin [From Cipro] Allergy Rash/Hives Verified 06/03/18 12:23 metformin Allergy Diarrhea Verified 06/03/18 12:23 Penicillins Allergy Rash/Hives Verified 06/03/18 12:23 Review of Systems ROS Statement: Those systems with pertinent positive or pertinent negative responses have been documented in the HPI. ROS Other: All systems not noted in ROS Statement are negative. Past Medical History Past Medical History: Asthma, Coronary Artery Disease (CAD), Chest Pain / Angina , Heart Failure, Diabetes Mellitus, Fibromyalgia, GERD/Reflux, Hyperlipidemia, Hypertension, Myocardial Infarction ([place]), Rheumatoid Arthritis ([place]) Additional Past Medical History / Comment(s): morbid obesity, chronic migraines , SCOLIOSIS, CHRONIC BACK PAIN CARPAL TUNNEL bilaterally. Last Myocardial Infarction Date:: 05/24/15 History of Any Multi-Drug Resistant Organisms: None Reported Past Surgical History: Breast Surgery, Cholecystectomy, Heart Catheterization, Heart Catheterization With Stent, Tonsillectomy Additional Past Surgical History / Comment(s): 05/2015 PCI with stent at [facility]. Other surgeries: BIBI KNEE ARTHROSCOPIES, L BREAST- LUMPECTOMY(BENIGN) Past Anesthesia/Blood Transfusion Reactions: Motion Sickness Additional Past Anesthesia/Blood Transfusion Reaction / Comment(s): Pt states she has clausterphobia. Date of Last Stent Placement:: 05/24/15 per pt Past Psychological History: Anxiety, Depression Smoking Status: Former smoker Past Alcohol Use History: None Reported Past Drug Use History: None Reported - Past Family History Father Family Medical History: Dementia Mother History Unknown: Yes Family Medical History: Cancer, Chest Pain / Angina Additional Family Medical History / Comment(s): Breast cancer with recent surgery. General Exam Limitations: no limitations General appearance: alert, in no apparent distress Head exam: Present: atraumatic, normocephalic, normal inspection Eye exam: Present: normal appearance, PERRL, EOMI. Absent: scleral icterus, conjunctival injection, periorbital swelling ENT exam: Present: normal exam, mucous membranes moist Neck exam: Present: normal inspection. Absent: tenderness, meningismus, lymphadenopathy Respiratory exam: Present: normal lung sounds bilaterally. Absent: respiratory distress, wheezes, rales, rhonchi, stridor Cardiovascular Exam: Present: regular rate, normal rhythm, normal heart sounds. Absent: systolic murmur, diastolic murmur, rubs, gallop, clicks GI/Abdominal exam: Present: soft, normal bowel sounds. Absent: distended, tenderness, guarding, rebound, rigid Extremities exam: Present: normal inspection, full ROM, normal capillary refill. Absent: tenderness, pedal edema, joint swelling, calf tenderness Back exam: Present: normal inspection, other (Abrasion left back, no bleeding, no laceration) Neurological exam: Present: alert, oriented X3, CN II-XII intact Psychiatric exam: Present: normal affect, normal mood Skin exam: Present: warm, dry, intact, normal color. Absent: rash Course Vital Signs 06/03/18 11:03 Temperature 98 F Pulse Rate 95 Respiratory 18 Rate Blood Pressure 107/70 O2 Sat by Pulse 95 Oximetry - Reevaluation(s) Reevaluation #1: 06/03/18 12:53 Medical records thoroughly reviewed Reevaluation #2: 06/03/18 12:53 Patient is able to ambulate without difficulty, pain is controlled Medical Decision Making - Medical Decision Making 58 female the ER status post fall from standing. Mild mild abrasion to left lower back area. No fracture noted. Patient given one day of pain control can be discharged home - Radiology Data Radiology results: report reviewed (X-ray pelvis left hip negative for traumatic injury), image reviewed Disposition Clinical Impression: Fall, Abrasion of hip or leg, left Disposition: HOME SELF-CARE Condition: Good Instructions: Fall Prevention for Older Adults (ED), Abrasion (ED) Is patient prescribed a controlled substance at d/c from ED?: No Referrals: Terrance Stock MD [Primary Care Provider] - 1-2 days
[2018-06-03 13:23] VITALS: BP 124/73; PULSE 65; TEMP 97.9
== END 2018-06-03 13:22 | disposition home or self-care (01) ==
LOC: EC 10:54
DX: S70.212A Abrasion, left hip, initial encounter (principal); S80.812A Abrasion, left lower leg, initial encounter; I25.119 Atherosclerotic heart disease of native coronary artery with unspecified angina pectoris; I11.0 Hypertensive heart disease with heart failure; I50.9 Heart failure, unspecified; I25.2 Old myocardial infarction; E11.9 Type 2 diabetes mellitus without complications; E78.5 Hyperlipidemia, unspecified; F41.9 Anxiety disorder, unspecified; F32.9 Major depressive disorder, single episode, unspecified; Z79.84 Long term (current) use of oral hypoglycemic drugs; Z79.899 Other long term (current) drug therapy; Z79.02 Long term (current) use of antithrombotics/antiplatelets; Z88.0 Allergy status to penicillin; Z88.1 Allergy status to other antibiotic agents; Z88.8 Allergy status to other drugs, medicaments and biological substances; Z87.891 Personal history of nicotine dependence; Z95.5 Presence of coronary angioplasty implant and graft; W01.198A Fall on same level from slipping, tripping and stumbling with subsequent striking against other object, initial encounter
CPT/HCPCS: 73502; 99283

== ENCOUNTER 2018-08-24 10:02 | Observation (INO) | payer OTHER ==
[2018-08-24] MEDS ORDERED: MORPHINE SULFATE 4 MG/ML SYRINGE IV STA (10:34)
[2018-08-24] MEDS ORDERED: ASPIRIN 81 MG PO STA (10:34)
[2018-08-24] MEDS ORDERED: NITROGLYCERIN OINT 1 INCH/GM PACKET TOPICAL STA (10:34)
--- NOTE | 2018-08-24 10:37 | ED ---
General Adult HPI - General Chief complaint: Chest Pain Stated complaint: chest pain Time Seen by Provider: 08/24/18 10:08 Source: patient, RN notes reviewed Mode of arrival: ambulatory Limitations: no limitations - History of Present Illness Initial comments: Patient is a pleasant 58-year-old female presenting to the emergency department with chest discomfort. Onset was yesterday. Discomfort is currently 4/10. Discomfort feels a pressure. Patient does have a history of similar symptoms previously associated with heart attack. Patient has no associated dyspnea, nausea, or diaphoresis. Patient does have headache however this is chronic and similar to her previous migraines. - Related Data Home Medications Medication Instructions Recorded Confirmed Chlorthalidone 25 mg PO DAILY 03/17/17 08/24/18 Clopidogrel Bisulfate [Plavix] 75 mg PO DAILY 03/17/17 08/24/18 DULoxetine HCL [Cymbalta] 60 mg PO BID 03/17/17 08/24/18 Gabapentin [Neurontin] 300 mg PO TID 03/17/17 08/24/18 Glimepiride [Amaryl] 4 mg PO BID 03/17/17 08/24/18 Loratadine [Claritin] 10 mg PO DAILY 03/17/17 08/24/18 Metoprolol Succinate (ER) [Toprol 25 mg PO DAILY 03/17/17 08/24/18 Xl] Ranitidine HCl [Zantac] 150 mg PO BID 03/17/17 08/24/18 Atorvastatin [Lipitor] 80 mg PO HS 06/21/17 08/24/18 Aspirin [[place] Aspirin EC] 81 mg PO DAILY 08/24/18 08/24/18 Ibuprofen [Advil] 400 mg PO Q8HR PRN 08/24/18 08/24/18 LORazepam [Ativan] 1 mg PO HS 08/24/18 08/24/18 Losartan [Cozaar] 25 mg PO DAILY 08/24/18 08/24/18 Mirtazapine [Remeron] 15 mg PO HS 08/24/18 08/24/18 Allergies Allergy/AdvReac Type Severity Reaction Status Date / Time WARNER Inhibitors Allergy Unknown Verified 08/24/18 10:36 amoxicillin [From Amoxil] Allergy Unknown Verified 08/24/18 10:36 Childhood ciprofloxacin [From Cipro] Allergy Rash/Hives Verified 08/24/18 10:36 metformin Allergy Diarrhea Verified 08/24/18 10:36 Penicillins Allergy Rash/Hives Verified 08/24/18 10:36 Review of Systems ROS Statement: Those systems with pertinent positive or pertinent negative responses have been documented in the HPI. ROS Other: All systems not noted in ROS Statement are negative. Constitutional: Denies: fever Eyes: Denies: eye pain ENT: Denies: ear pain Respiratory: Denies: cough, dyspnea Cardiovascular: Reports: chest pain Endocrine: Denies: fatigue Gastrointestinal: Denies: abdominal pain Genitourinary: Denies: dysuria Musculoskeletal: Denies: back pain Skin: Denies: rash Neurological: Denies: weakness Past Medical History Past Medical History: Asthma, Coronary Artery Disease (CAD), Chest Pain / Angina , Heart Failure, Diabetes Mellitus, Fibromyalgia, GERD/Reflux, Hyperlipidemia, Hypertension, Myocardial Infarction (MO), Rheumatoid Arthritis (RA) Additional Past Medical History / Comment(s): morbid obesity, chronic migraines , SCOLIOSIS, CHRONIC BACK PAIN CARPAL TUNNEL bilaterally. Last Myocardial Infarction Date:: 05/24/15 History of Any Multi-Drug Resistant Organisms: None Reported Past Surgical History: Breast Surgery, Cholecystectomy, Heart Catheterization, Heart Catheterization With Stent, Tonsillectomy Additional Past Surgical History / Comment(s): 05/2015 PCI with stent at [facility]. Other surgeries: BIBI KNEE ARTHROSCOPIES, L BREAST- LUMPECTOMY(BENIGN) Past Anesthesia/Blood Transfusion Reactions: Motion Sickness Additional Past Anesthesia/Blood Transfusion Reaction / Comment(s): Pt states she has clausterphobia. Date of Last Stent Placement:: 05/24/15 per pt Past Psychological History: Anxiety, Depression Smoking Status: Former smoker Past Alcohol Use History: None Reported Past Drug Use History: None Reported - Past Family History Father Family Medical History: Dementia Mother History Unknown: Yes Family Medical History: Cancer, Chest Pain / Angina Additional Family Medical History / Comment(s): Breast cancer with recent surgery. General Exam Limitations: no limitations General appearance: alert, in no apparent distress Head exam: Present: atraumatic Eye exam: Present: normal appearance, PERRL ENT exam: Present: normal oropharynx Neck exam: Present: normal inspection Respiratory exam: Present: normal lung sounds bilaterally Cardiovascular Exam: Present: regular rate, normal rhythm Expanded Peripheral pulses: 2+: Radial (R), Radial (L), Posterior Tibialis (R), Posterior Tibialis (L) GI/Abdominal exam: Present: soft. Absent: tenderness Extremities exam: Present: normal inspection. Absent: pedal edema, calf tenderness Neurological exam: Present: alert Psychiatric exam: Present: normal affect, normal mood Skin exam: Present: normal color Course Vital Signs 08/24/18 08/24/18 08/24/18 10:07 10:10 10:30 Temperature 98 F Pulse Rate 90 83 Respiratory 18 13 Rate Blood Pressure 109/65 109/65 O2 Sat by Pulse 91 L 94 L 95 Oximetry 08/24/18 08/24/18 08/24/18 11:00 12:20 12:30 Temperature Pulse Rate 72 77 68 Respiratory 13 16 17 Rate Blood Pressure 92/64 110/72 110/72 O2 Sat by Pulse 95 98 Oximetry EKG Findings - EKG Comments: EKG Findings:: Normal sinus rhythm 87. PA 134. QRS 92. QT 372. QTC 447. Normal axis. Inferior Q waves. No acute ST change. Medical Decision Making - Medical Decision Making Patient reevaluated and improved. Chest discomfort resolved at this point. Patient updated on results and plan. Case was discussed in detail with Dr. Love, who will admit for Dr. Schmidt/Ivan. - Lab Data Result diagrams: 08/24/18 11:49 08/24/18 11:49 Lab Results 08/24/18 08/24/18 08/24/18 Range/Units 11:49 11:49 11:49 WBC 6.8 (3.8-10.6) k/uL RBC 4.68 (3.80-5.40) m/uL Hgb 12.7 (11.4-16.0) gm/dL Hct 40.5 (34.0-46.0) % MCV 86.7 (80.0-100.0) fL MCH 27.2 (25.0-35.0) pg MCHC 31.4 (31.0-37.0) g/dL RDW 15.1 (11.5-15.5) % Plt Count 240 (150-450) k/uL Neutrophils % 78 % Lymphocytes % 14 % Monocytes % 3 % Eosinophils % 3 % Basophils % 1 % Neutrophils # 5.3 (1.3-7.7) k/uL Lymphocytes # 0.9 L (1.0-4.8) k/uL Monocytes # 0.2 (0-1.0) k/uL Eosinophils # 0.2 (0-0.7) k/uL Basophils # 0.0 (0-0.2) k/uL PT (9.0-12.0) sec INR (<1.2) APTT (22.0-30.0) sec Sodium 140 (137-145) mmol/L Potassium 4.1 (3.5-5.1) mmol/L Chloride 106 (98-107) mmol/L Carbon Dioxide 27 (22-30) mmol/L Anion Gap 7 mmol/L BUN 22 H (7-17) mg/dL Creatinine 0.95 (0.52-1.04) mg/dL Est GFR (CKD-EPI)AfAm 76 (>60 ml/min/1.73 sqM) Est GFR (CKD-EPI)NonAf 66 (>60 ml/min/1.73 sqM) Glucose 154 H (74-99) mg/dL Calcium 9.5 (8.4-10.2) mg/dL Magnesium 2.0 (1.6-2.3) mg/dL Total Bilirubin 0.6 (0.2-1.3) mg/dL AST 20 (14-36) U/L ALT 26 (9-52) U/L Alkaline Phosphatase 113 (38-126) U/L Total Creatine Kinase 44 (30-135) U/L CK-MB (CK-2) 0.4 (0.0-2.4) ng/mL CK-MB (CK-2) Rel Index 0.9 Troponin I <0.012 (0.000-0.034) ng/mL Total Protein 6.3 (6.3-8.2) g/dL Albumin 3.9 (3.5-5.0) g/dL 08/24/18 Range/Units 11:49 WBC (3.8-10.6) k/uL RBC (3.80-5.40) m/uL Hgb (11.4-16.0) gm/dL Hct (34.0-46.0) % MCV (80.0-100.0) fL MCH (25.0-35.0) pg MCHC (31.0-37.0) g/dL RDW (11.5-15.5) % Plt Count (150-450) k/uL Neutrophils % % Lymphocytes % % Monocytes % % Eosinophils % % Basophils % % Neutrophils # (1.3-7.7) k/uL Lymphocytes # (1.0-4.8) k/uL Monocytes # (0-1.0) k/uL Eosinophils # (0-0.7) k/uL Basophils # (0-0.2) k/uL PT 9.5 (9.0-12.0) sec INR 0.9 (<1.2) APTT 23.2 (22.0-30.0) sec Sodium (137-145) mmol/L Potassium (3.5-5.1) mmol/L Chloride (98-107) mmol/L Carbon Dioxide (22-30) mmol/L Anion Gap mmol/L BUN (7-17) mg/dL Creatinine (0.52-1.04) mg/dL Est GFR (CKD-EPI)AfAm (>60 ml/min/1.73 sqM) Est GFR (CKD-EPI)NonAf (>60 ml/min/1.73 sqM) Glucose (74-99) mg/dL Calcium (8.4-10.2) mg/dL Magnesium (1.6-2.3) mg/dL Total Bilirubin (0.2-1.3) mg/dL AST (14-36) U/L ALT (9-52) U/L Alkaline Phosphatase (38-126) U/L Total Creatine Kinase (30-135) U/L CK-MB (CK-2) (0.0-2.4) ng/mL CK-MB (CK-2) Rel Index Troponin I (0.000-0.034) ng/mL Total Protein (6.3-8.2) g/dL Albumin (3.5-5.0) g/dL - Radiology Data Radiology results: image reviewed (Chest x-ray shows no acute process) Disposition Clinical Impression: Chest pain Disposition: ADMITTED IP TO THIS [facility] Is patient prescribed a controlled substance at d/c from ED?: No Referrals: Sofya Lott MD [Primary Care Provider] - 1-2 days Decision Time: 12:57
[2018-08-24 12:03] LABS: Basophils % (A) 1 %; Eosinophils # (A) 0.2 k/uL (0-0.7); Eosinophils % (A) 3 %; HCT 40.5 % (34.0-46.0); HGB 12.7 gm/dL (11.4-16.0); Lymphocytes # (A) 0.9 k/uL (1.0-4.8); Lymphocytes % (A) 14 %; MCH 27.2 pg (25.0-35.0); MCHC 31.4 g/dL (31.0-37.0); MCV 86.7 fL (80.0-100.0); Mean Platelet Volume 6.8; Monocytes # (A) 0.2 k/uL (0-1.0); Monocytes % (A) 3 %; Neutrophils # (A) 5.3 k/uL (1.3-7.7); Neutrophils % (A) 78 %; Platelet Count 240 k/uL (150-450); RBC 4.68 m/uL (3.80-5.40); RDW 15.1 % (11.5-15.5); WBC 6.8 k/uL (3.8-10.6)
[2018-08-24 12:12] LABS: INR 0.9 (<1.2); Partial Thromboplastin Time 23.2 sec (22.0-30.0); Prothrombin Time 9.5 sec (9.0-12.0)
[2018-08-24 12:16] LABS: Albumin 3.9 g/dL (3.5-5.0); Calcium 9.5 mg/dL (8.4-10.2); Potassium 4.1 mmol/L (3.5-5.1); Total Bilirubin 0.6 mg/dL (0.2-1.3); Total Protein 6.3 g/dL (6.3-8.2)
[2018-08-24 12:23] LABS: Creatine Kinase 44 U/L (30-135)
[2018-08-24 12:35] LABS: Creatine Kinase MB 0.4 ng/mL (0.0-2.4); Troponin I <0.012 ng/mL (0.000-0.034)
--- NOTE | 2018-08-24 12:42 | XR ---
EXAMINATION TYPE: XR chest 2V DATE OF EXAM: 08/24/2018 HISTORY: Chest Pain. REFERENCE: Previous study dated 03/17/2017. FINDINGS: The lungs are clear. Pleural space are clear. The heart is not enlarged. IMPRESSION: NORMAL CHEST.
[2018-08-24] MEDS ORDERED: METOCLOPRAMIDE 5 MG/ML 2 ML VIAL IVP STA (12:56)
[2018-08-24] MEDS ORDERED: ACETAMINOPHEN TAB 500 MG TAB PO STA (12:56)
[2018-08-24] MEDS ORDERED: NITROGLYCERIN SL TABS 0.4 MG TAB SUBLINGUAL PRN (12:57)
[2018-08-24 16:35] LABS: Glucose,Whole Blood 105 mg/dL (75-99)
[2018-08-24] MEDS ORDERED: IBUPROFEN 400 MG TAB PO PRN (17:16)
[2018-08-24] MEDS ORDERED: HYDROcodone/APAP 5-325MG 1 EACH TAB PO PRN (17:17)
[2018-08-24] MEDS ORDERED: ALPRAZolam 0.25 MG TAB PO PRN (17:17)
[2018-08-24] MEDS ORDERED: TEMAZEPAM 15 MG CAP PO PRN (17:17)
[2018-08-24] MEDS ORDERED: ACETAMINOPHEN TAB 500 MG TAB PO PRN (17:17)
[2018-08-24 18:20] LABS: Creatine Kinase 41 U/L (30-135)
[2018-08-24 18:33] LABS: Creatine Kinase MB 0.4 ng/mL (0.0-2.4); Troponin I <0.012 ng/mL (0.000-0.034)
[2018-08-24] MEDS: NITROGLYCERIN OINT 1 INCH/GM PACKET TOPICAL SCH ×2 (18:57→23:22)
[2018-08-24 20:11] LABS: Glucose,Whole Blood 141 mg/dL (75-99)
[2018-08-24] MEDS ORDERED: LORazepam 1 MG TAB PO SCH (21:00)
[2018-08-24] MEDS ORDERED: MIRTAZAPINE 15 MG TAB PO SCH (21:00)
[2018-08-24] MEDS: DULoxetine HCL 60 MG CAPSULE.DR PO SCH (21:42)
[2018-08-24] MEDS: GABAPENTIN 300 MG CAP PO SCH (21:42)
[2018-08-24] MEDS: FAMOTIDINE 20 MG TAB PO SCH (21:42)
[2018-08-24] MEDS: ATORVASTATIN 80 MG TAB PO SCH (21:42)
--- NOTE | 2018-08-24 23:19 | HP ---
HISTORY AND PHYSICAL DATE OF SERVICE: 08/24/2018. CHIEF COMPLAINT: Chest pain. HISTORY OF PRESENT ILLNESS: This is a 58-year-old woman with a past medical history of multiple medical problems including history of asthma, CAD, history of diabetes, fibromyalgia, GERD, hypertension, history of rheumatoid arthritis and morbid obesity, being followed by Dr. Sofya Lott in the outpatient setting, was complaining of chest pain. The patient had some numbness for the past several days, numbness involving both upper and lower limbs. Patient's blood pressure also elevated. Now the patient is complaining of chest pain which is mostly including the left side of the chest, which is more sharp, and sometimes the patient also has some discomfort without radiation or associated symptoms relieving. With the symptoms the patient came to [facility] and was admitted for further evaluation and treatment. There is no history of fevers or rigors. No history of headache, loss of consciousness or seizures. Blood pressure was found to be 119/60 on admission. There is no history of fevers or rigors at this time. PAST MEDICAL HISTORY: History of asthma, CAD, chest pain, diabetes mellitus, fibromyalgia, GERD, hypertension, rheumatoid arthritis. MEDICATIONS: Prior to admission include home medications of: 1. Remeron 50 mg p.o. at bedtime. 2. Ativan 1 mg at bedtime. 3. Lipitor 80 mg at bedtime. 4. Zantac 150 mg p.o. b.i.d. 5. Toprol-XL 25 mg daily. 6. Cozaar 25 mg. 7. Advil 400 mg every 8 hours p.r.n. 8. Claritin 10 mg. 9. Remeron 4 mg p.o. b.i.d. 10.Neurontin 300 mg p.o. t.i.d. 11.Cymbalta 60 mg b.i.d. 12.Plavix 10 mg p.o. daily. 13.Chlorthalidone 25 mg p.o. daily. 14.Aspirin 81 mg p.o. daily. ALLERGIES: WARNER INHIBITORS, AMOXICILLIN, CIPRO, METFORMIN, PENICILLIN. FAMILY HISTORY: History of dementia, history of breast cancer. SOCIAL HISTORY: No history of smoking. No history of alcohol intake. REVIEW OF SYSTEMS: ENT: No diminished vision. CARDIOVASCULAR: As mentioned. GI: No nausea. : No dysuria or hematuria. NERVOUS SYSTEM: No numbness or weakness. ALLERGY/IMMUNOLOGY: Negative. MUSCULOSKELETAL: As mentioned. HEMATOLOGY/ONCOLOGY: No history of anemia. ENDOCRINE: Diabetes. CONSTITUTIONAL: As mentioned. PSYCHIATRY: As mentioned. PHYSICAL EXAMINATION: Pulse 68, blood pressure 100/60, respirations 16, temp 97.8, pulse ox 98% on room air. HEENT: Conjunctivae normal. NECK: No JVD. CARDIOVASCULAR: S1 and S2. . LUNGS: Breath sounds diminished at the bases. Scattered rhonchi and crackles. ABDOMEN: Soft, nontender. No mass palpable. LEGS: No edema. No swelling. NERVOUS SYSTEM: Higher functions as mentioned. Cranial nerves grossly intact. Moves all 4 limbs. No signs of cerebellar signs. No sensory motor dysfunction. SKIN: No rashes or joint deformity. LAB STUDIES: CBC within normal. Glucose 150 and 105. ASSESSMENT: 1. Chest pain for evaluation, rule out coronary artery disease. 2. Numbness, for evaluation. 3. Asthma. 4. History of coronary artery disease. 5. Chest pain. 6. Diabetes type 2. 7. Fibromyalgia. 8. Gastroesophageal reflux disease. 9. Hypertension. 10.History of myocardial infarction. 11.History of rheumatoid arthritis. 12.History of scoliosis. 13.History of breast surgery. 14.History of coronary artery disease with stent. 15.Dementia. 16.Anxiety/depression. RECOMMENDATION: Recommend to continue current medications, continue symptomatic treatment. Rule out myocardial infarction. Cardiology consultation. Possible stress test. Otherwise, prognosis guarded because of multiple complex medical issues. Repeat labs have been ordered. Home medication will be continued. Further recommendations to follow. MMODL / IJN: [id number] /
[2018-08-25 00:03] LABS: Creatine Kinase 40 U/L (30-135)
[2018-08-25 00:17] LABS: Creatine Kinase MB 0.4 ng/mL (0.0-2.4); Troponin I <0.012 ng/mL (0.000-0.034)
[2018-08-25 07:12] LABS: Glucose,Whole Blood 119 mg/dL (75-99)
[2018-08-25] MEDS ORDERED: SODIUM CHLORIDE 0.9% 1,000 ML in EMPTY BAG 1 BAG IV ONE (07:26)
[2018-08-25] MEDS ORDERED: ATORVASTATIN 80 MG TAB PO STA (07:26)
[2018-08-25] MEDS ORDERED: ALPRAZolam 0.25 MG TAB PO PRN (07:26)
[2018-08-25] MEDS ORDERED: NITROGLYCERIN SL TABS 0.4 MG TAB SUBLINGUAL PRN (07:26)
[2018-08-25] MEDS ORDERED: ALPRAZolam 0.5 MG TAB PO PRN (07:26)
[2018-08-25] MEDS: ATORVASTATIN 80 MG TAB PO SCH (07:36)
[2018-08-25 07:42] LABS: Basophils % (A) 0 %; Eosinophils # (A) 0.2 k/uL (0-0.7); Eosinophils % (A) 3 %; HCT 40.6 % (34.0-46.0); HGB 12.6 gm/dL (11.4-16.0); Lymphocytes % (A) 14 %; MCH 26.8 pg (25.0-35.0); MCHC 30.9 g/dL (31.0-37.0); MCV 86.6 fL (80.0-100.0); Mean Platelet Volume 6.9; Monocytes # (A) 0.2 k/uL (0-1.0); Monocytes % (A) 4 %; Neutrophils # (A) 5.2 k/uL (1.3-7.7); Neutrophils % (A) 77 %; Platelet Count 235 k/uL (150-450); RBC 4.69 m/uL (3.80-5.40); RDW 14.9 % (11.5-15.5); WBC 6.8 k/uL (3.8-10.6)
[2018-08-25 07:55] LABS: Calcium 9.3 mg/dL (8.4-10.2)
[2018-08-25] MEDS ORDERED: HEPARIN SODIUM,PORCINE 5,000 UNIT/ML 1 ML VIAL SQ SCH (08:00)
[2018-08-25 08:09] VITALS: RESP 18
[2018-08-25] MEDS ORDERED: ASPIRIN 325 MG TAB PO SCH (09:00)
[2018-08-25] MEDS ORDERED: CLOPIDOGREL 75 MG TAB PO SCH (09:00)
[2018-08-25] MEDS ORDERED: ASPIRIN 81 MG PO SCH (09:00)
[2018-08-25] MEDS ORDERED: METOPROLOL SUCCINATE (ER) 25 MG TAB.ER.24H PO SCH (09:00)
[2018-08-25] MEDS ORDERED: LORATADINE 10 MG TAB PO SCH (09:00)
[2018-08-25] MEDS ORDERED: CHLORTHALIDONE 25 MG TAB PO SCH (09:00)
[2018-08-25] MEDS: DULoxetine HCL 60 MG CAPSULE.DR PO SCH (09:18)
[2018-08-25] MEDS: GABAPENTIN 300 MG CAP PO SCH ×2 (09:18→17:36)
[2018-08-25] MEDS: LOSARTAN 25 MG TAB PO SCH ×2 (09:19→11:30)
[2018-08-25] MEDS: FAMOTIDINE 20 MG TAB PO SCH (09:19)
[2018-08-25] MEDS: NITROGLYCERIN OINT 1 INCH/GM PACKET TOPICAL SCH ×2 (11:43→17:33)
[2018-08-25] MEDS ORDERED: IV FLUID CONTINUATION 750 ML IV ONE (12:16)
[2018-08-25] MEDS ORDERED: MIDAZOLAM 2 MG/2 ML VIAL IV ONE ×2 (12:17)
[2018-08-25] MEDS ORDERED: NITROGLYCERIN 1000MCG/10ML SYRINGE INTRACORON ONE (12:24)
[2018-08-25] MEDS ORDERED: IOPAMIDOL-370 100ML BTL INJ ONE (12:32)
[2018-08-25 13:03] LABS: Glucose,Whole Blood 79 mg/dL (75-99)
[2018-08-25] MEDS: GLIMEPIRIDE 4 MG TAB PO SCH ×2 (13:03→17:36)
[2018-08-25] MEDS ORDERED: SODIUM CHLORIDE 0.9% 1,000 ML IV SCH (13:15)
[2018-08-25 13:16] VITALS: TEMP 98.3
--- NOTE | 2018-08-25 14:16 | CONS ---
CONSULTATION This is a 58-year-old lady who is obese, has hypertension, hyperlipidemia, type 2 diabetes, and family history of CAD. She also has history of gastroesophageal reflux disease. In May of 2015, she presented with an acute inferior NV and underwent stenting of the RCA that was performed at [facility]. After that I had seen her in the office until 2016 and because of some insurance issues. She is now seeing a physician in the [place] area. She presented to the hospital with heaviness and pressure in the chest. This occurred at rest yesterday. She felt it was a feeling of pressure and heaviness without any clear-cut radiation. She had also prior to that 2 episodes that occurred when she was walking with a pressure-like feeling in the chest. Because of increasing symptoms of this nature she called 911 after talking to her mother who also has CAD and came into the hospital. After arrival she has been comfortable, but had a feeling of heaviness in the chest on and off for the last few days and the worst appeared to be the one about 36 hours ago. Her troponins are normal. She is resting comfortably. She is at this time in no distress. PAST MEDICAL HISTORY: 1. History of a acute inferior NV and PTCA of RCA performed in 2014. 2. Hypertension. 3. Obesity. 4. Type 2 diabetes mellitus. 5. History of fibromyalgia. MEDICATIONS: At home include Lipitor 80 mg daily, Toprol-XL 25 mg daily, Cozaar 25 mg daily, Plavix 75 mg daily, aspirin 81 mg daily. She also takes some Remeron an Ativan. She has a history of some anxiety as well. On examination her blood pressure is 130/70, pulse rate is 70 per minute, regular. HEENT unremarkable. Fundus was not examined by me. Neck is supple. There is no JVD. I do not hear a carotid bruit. Heart exam reveals S1, S2 heard normally. No significant murmurs are audible. Lungs are clear. Abdomen is soft, nontender. Lower extremities reveal diminished pulses. Central nervous system is normal. EKG revealed sinus mechanism with evidence of old inferior NV, no acute changes. LAB DATA: Revealed that the troponins are normal. IMPRESSION: 1. Symptoms suggestive of unstable angina in a patient with significant risk factors and previous inferior myocardial infarction. She had at least 2 episodes of discomfort in the chest a week or so prior and then had a prolonged episode of chest discomfort, but she is pain free at this time. Her troponins are normal. Given her presentation, I am recommending coronary angiography. I will also review the previous catheterization report from [facility] in 2015. 2. Hypertension. 3. Hyperlipidemia. 4. History of anxiety and depression. RECOMMENDATIONS: I am advising coronary angiography. Rationale, risks, benefits and options explained. Patient understands all details and wishes to proceed with the procedure which will be performed today. I will switch her to subcu heparin. MMODL / IJN: [id number] /
[2018-08-25 16:21] VITALS: BP 118/70; PULSE 72
--- NOTE | 2018-08-25 16:22 | CC ---
CARDIAC CATHETERIZATION REPORT DATE OF SERVICE: 08/25/2018. PROCEDURE PERFORMED: Left heart catheterization and coronary angiography. PERFORMED BY: Dr. Noam Howell. SEDATION: Moderate conscious sedation time was 22 minutes. Patient was administered Versed. Oxygen saturation, hemodynamics and EKG were monitored closely. CLINICAL INFORMATION: Mrs. Luciana Morrison is an obese 58-year-old lady with type 2 diabetes, hypertension, hyperlipidemia, who underwent stenting of RCA in the setting of acute inferior SD that was performed at [facility] in May 2015. She had a negative stress echo about a year and a half ago, came into the hospital with chest pain strongly suggestive of angina with a negative troponins. She was advised coronary angiography after due discussion. Risks, benefits, options were explained to the patient. There was no other family member available. PROCEDURE NOTE: Under local anesthesia and strict aseptic precautions, a 6-Bengali introducer was placed in the right femoral artery. Using standard Talha catheters I performed coronary angiography. I used intracoronary nitroglycerin injection into the RCA to better delineate the area of the RCA beyond the stented segment. Subsequently, after coronary angiography, I checked LV pressures with a pigtail catheter but did not perform LV gram. The sheath was taken out and Angio-Seal device used to secure hemostasis. The patient was sent to the room in stable condition. CARDIAC CATHETERIZATION FINDINGS: The left ventricular end-diastolic pressure was about 10 mmHg with no gradient across aortic valve. CORONARY ANGIOGRAPHY FINDINGS: This patient had stenting of RCA performed. CORONARY ANGIOGRAPHY FINDINGS: RIGHT CORONARY ARTERY: This is a technically dominant vessel which was stented in May 2015. The vessel after nitroglycerin is widely patent. At the stented segment, it is patent with no significant narrowing. Beyond the stented segment, there is about a 40% narrowing after which caliber improves, but the vessel has diffuse disease before and after the stented segment and beyond the proximal 1/3 the caliber improves and distally bifurcates into PDA and PLV, both of which supply a fair amount of myocardium. The RCA therefore has a 40% to 45% lesion located just after the stented segment with brisk flow but the vessel improved a lot after I gave a intracoronary nitroglycerin. LEFT MAIN CORONARY ARTERY: Short patent vessel free of significant disease that bifurcates into LAD and circumflex. Left main no has no significant disease. LEFT ANTERIOR DESCENDING CORONARY ARTERY: Good caliber vessel extends along the anterior wall. Gives off a large diagonal branch proximally, free of significant disease. The mid LAD has about a 30% to 35% narrowing, but no critical stenosis is noted in the entire LAD, which runs all the way to the apex supplying a sizable amount of myocardium. LAD therefore has minor diffuse irregularities in the mid segment. No significant disease, gives off several septal branches and diagonal branches and the large diagonal branch is noted, free of significant disease. LEFT POSTERIOR CIRCUMFLEX CORONARY ARTERY: Technically a nondominant vessel that runs in the AV groove, comes out and gives off 3 branches, has obtuse marginal branches, has minor irregularities. No significant disease. Circumflex is a nondominant, disease- free vessel. LEFT VENTRICULOGRAM: Was not performed. FINAL IMPRESSION: This patient has normal filling pressures. No gradient across aortic valve. The right dominant system and previously stented RCA is widely patent. Beyond the stent there is about a 40% to 45% narrowing. Other than that, no other significant lesion is noted. LAD has a mid lesion of 30-35 percent, smooth area of narrowing with a large diagonal branch that is free of significant disease and circumflex is nondominant, disease-free vessel. MMODL / IJN: [id number] /
[2018-08-25 17:06] LABS: Glucose,Whole Blood 86 mg/dL (75-99)
[2018-08-25] MEDS ORDERED: LOSARTAN 25 MG TAB PO SCH (21:00)
--- NOTE | 2018-08-26 04:50 | DS ---
DISCHARGE SUMMARY DATE OF SERVICE: 08/25/2018 FINAL DIAGNOSES: 1. Chest pain, status post cardiac catheterization showing [id number] coronary artery disease, possible unstable angina. 2. Numbness improved. 3. Asthma. 4. History of coronary artery disease. 5. Chest pain. 6. Diabetes mellitus type 2. 7. Fibromyalgia. 8. Gastroesophageal reflux disease. 9. Hypertension. 10.History of myocardial infarction. 11.History of rheumatoid arthritis. 12.History of scoliosis. 13.History of breast surgery. 14.History of coronary artery disease stent. 15.Dementia. 16.Anxiety/depression. DISCHARGE DISPOSITION: The patient is being discharged in stable condition with guarded prognosis. HISTORY OF PRESENT ILLNESS: This 58-year-old woman with a past medical history of multiple medical problems admitted to the hospital with chest pain. Patient cardiology performed a cardiac cath showed [id number] coronary artery disease. The patient improved significantly. On exam, vital signs stable. Cardiovascular: S1, S2. Abdomen soft. Nervous system: No focal deficits. DISCHARGE ADVICE AND MEDICATIONS: 1. Diet is cardiac diet. 2. Activity limited until followup. 3. Follow up with Dr. Vani Howell. 4. Follow up with Dr. Sofya Lott in 2-3 days. MEDICATIONS: 1. Ecotrin 81 mg daily. 2. Lipitor 80 mg q.h.s. 3. Chlorthalidone 25 mg. 4. Plavix 75 mg. 5. Cymbalta 60 mg p.o. b.i.d. 6. Neurontin 300 mg p.o. t.i.d. 7. Amaryl 4 mg p.o. b.i.d. 8. Advil 400 mg q.8h p.r.n. 9. Claritin 10 mg p.o. daily. 10.Ativan 1 mg q.h.s. 11.Cozaar 25 mg p.o. daily. 12.Toprol-XL 25 mg p.o. 13.Remeron 50 mg q.h.s. 14.Zantac 150 mg p.o. b.i.d. Once again, the patient is being discharged in stable condition with guarded prognosis. MMODL / IJN: [id number] / MTDD
--- NOTE | 2018-08-26 07:37 | ECHOF ---
Referral Reason:chest pain MEASUREMENTS -------- HEIGHT: 170.2 cm WEIGHT: 103.9 kg BP: IVSd: 1.4 cm (0.6 - 1.1) LVIDd: 4.4 cm (3.9 - 5.3) LVPWd: 1.0 cm (0.6 - 1.1) IVSs: 1.4 cm LVIDs: 4.0 cm LVPWs: 1.0 cm Ao Diam: 3.2 cm (2.0 - 3.7) AV Cusp: 1.3 cm (1.5 - 2.6) LA Diam: 3.1 cm (2.7 - 3.8) MV EXCURSION: 22.560 mm (> 18.000) MV EF SLOPE: 117 mm/s (70 - 150) EPSS: 0.8 cm MV E Easton: 0.64 m/s MV DecT: 262 ms MV A [place]on: 0.85 m/s MV E/A Ratio: 0.75 RAP: 5.00 mmHg RVSP: 11.06 mmHg FINDINGS -------- Sinus rhythm. This was a techncally difficult study with suboptimal views, , Lumason utilized for enhancement of im ages. The left ventricular size is normal. There is mild concentric left ventricular hypertrophy. Overa ll left ventricular systolic function is mildly impaired with, an EF between 45 - 50 %. Inferior Hy pokinesis The right ventricle is normal in size. The left atrial size is normal. The right atrial size is normal. 5.0mg OF Lumason UTLIZED: 2 OR MORE WALL SEGMENTS NOT VISUALIZED. The aortic valve is trileaflet, and appears structurally normal. No aortic stenosis or regurgitation. Mild mitral annular calcification present. Mild mitral regurgitation is present. Mild tricuspid regurgitation present. There is no evidence of pulmonary hypertension. The right v entricular systolic pressure, as measured by Doppler, is 11.06mmHg. The pulmonic valve was not well visualized. The aortic root size is normal. There is no pericardial effusion. CONCLUSIONS -------- 1. This was a techncally difficult study with suboptimal views, , Lumason utilized for enhancement of images. 2. The left ventricular size is normal. 3. There is mild concentric left ventricular hypertrophy. 4. Overall left ventricular systolic function is mildly impaired with, an EF between 45 - 50 %. 5. Inferior Hypokinesis 6. The right ventricle is normal in size. 7. The left atrial size is normal. 8. The right atrial size is normal. 9. 5.0mg OF Lumason UTLIZED: 2 OR MORE WALL SEGMENTS NOT VISUALIZED. 10. The aortic valve is trileaflet, and appears structurally normal. No aortic stenosis or regurgitat ion. 11. Mild mitral annular calcification present. 12. Mild mitral regurgitation is present. 13. Mild tricuspid regurgitation present. 14. There is no evidence of pulmonary hypertension. 15. The right ventricular systolic pressure, as measured by Doppler, is 11.06mmHg. 16. The pulmonic valve was not well visualized. 17. The aortic root size is normal. 18. There is no pericardial effusion. TRAVELING BUYER: Megan Linares RDCS
== END 2018-08-25 20:10 | disposition home or self-care (01) ==
LOC: EC 10:02 → 1SOBS 12:58
PROVIDERS: ADMIT Hospitalist; ATTEND Hospitalist
DX: R07.89 Other chest pain (principal); R20.0 Anesthesia of skin; I25.10 Atherosclerotic heart disease of native coronary artery without angina pectoris; I11.0 Hypertensive heart disease with heart failure; I50.9 Heart failure, unspecified; M79.7 Fibromyalgia; M06.9 Rheumatoid arthritis, unspecified; K21.9 Gastro-esophageal reflux disease without esophagitis; J45.909 Unspecified asthma, uncomplicated; E78.5 Hyperlipidemia, unspecified; E11.9 Type 2 diabetes mellitus without complications; G43.909 Migraine, unspecified, not intractable, without status migrainosus; M41.9 Scoliosis, unspecified; M54.9 Dorsalgia, unspecified; G89.29 Other chronic pain; F40.240 Claustrophobia; F41.9 Anxiety disorder, unspecified; F32.9 Major depressive disorder, single episode, unspecified; E66.01 Morbid (severe) obesity due to excess calories; Z68.35 Body mass index [BMI] 35.0-35.9, adult; F03.90 Unspecified dementia, unspecified severity, without behavioral disturbance, psychotic disturbance, mood disturbance, and anxiety; Z79.02 Long term (current) use of antithrombotics/antiplatelets; Z79.82 Long term (current) use of aspirin; Z79.84 Long term (current) use of oral hypoglycemic drugs; Z79.899 Other long term (current) drug therapy; Z88.0 Allergy status to penicillin; Z88.1 Allergy status to other antibiotic agents; Z88.8 Allergy status to other drugs, medicaments and biological substances; I25.2 Old myocardial infarction; Z90.49 Acquired absence of other specified parts of digestive tract; Z95.5 Presence of coronary angioplasty implant and graft; Z87.891 Personal history of nicotine dependence; Z80.3 Family history of malignant neoplasm of breast; Z81.8 Family history of other mental and behavioral disorders
CPT/HCPCS: 96372; 96374; 96375; 99285; 36415; 93005; 93458; 85379; 80061; 80053; 80048; 82550; 82553; 83735; 84484; 85025 ×2; 85610; 85730; 71046; G0378 ×2; C8929; C1760; C1894; C1769 ×2; J2250; J2270; J1644; J2765; Q9950; Q9967; 93306

== ENCOUNTER 2018-09-19 10:53 | Emergency (ER) | payer OTHER ==
[2018-09-19 11:01] VITALS: RESP 18; TEMP 98.6
--- NOTE | 2018-09-19 11:17 | ED ---
General Adult HPI - General Chief complaint: Fall Stated complaint: rt knee injury Time Seen by Provider: 09/19/18 11:02 Source: patient Mode of arrival: wheelchair Limitations: no limitations - Related Data Home Medications Medication Instructions Recorded Confirmed Chlorthalidone 25 mg PO DAILY 03/17/17 09/19/18 Clopidogrel Bisulfate [Plavix] 75 mg PO DAILY 03/17/17 09/19/18 DULoxetine HCL [Cymbalta] 60 mg PO BID 03/17/17 09/19/18 Gabapentin [Neurontin] 300 mg PO TID 03/17/17 09/19/18 Glimepiride [Amaryl] 4 mg PO BID 03/17/17 09/19/18 Loratadine [Claritin] 10 mg PO DAILY 03/17/17 09/19/18 Metoprolol Succinate (ER) [Toprol 25 mg PO DAILY 03/17/17 09/19/18 Xl] Ranitidine HCl [Zantac] 150 mg PO BID 03/17/17 09/19/18 Atorvastatin [Lipitor] 80 mg PO HS 06/21/17 09/19/18 Aspirin [[place] Aspirin EC] 81 mg PO DAILY 08/24/18 09/19/18 Ibuprofen [Advil] 400 mg PO Q8HR PRN 08/24/18 09/19/18 LORazepam [Ativan] 1 mg PO HS 08/24/18 09/19/18 Losartan [Cozaar] 25 mg PO DAILY 08/24/18 09/19/18 Mirtazapine [Remeron] 15 mg PO HS 08/24/18 09/19/18 Allergies Allergy/AdvReac Type Severity Reaction Status Date / Time WARNER Inhibitors Allergy Unknown Verified 09/19/18 11:20 amoxicillin [From Amoxil] Allergy Unknown Verified 09/19/18 11:20 Childhood ciprofloxacin [From Cipro] Allergy Rash/Hives Verified 09/19/18 11:20 metformin Allergy Diarrhea Verified 09/19/18 11:20 Penicillins Allergy Rash/Hives Verified 09/19/18 11:20 Review of Systems ROS Statement: Those systems with pertinent positive or pertinent negative responses have been documented in the HPI. ROS Other: All systems not noted in ROS Statement are negative. Past Medical History Past Medical History: Asthma, Coronary Artery Disease (CAD), Chest Pain / Angina , Diabetes Mellitus, Fibromyalgia, GERD/Reflux, Hyperlipidemia, Hypertension, Myocardial Infarction ([place]), Rheumatoid Arthritis ([place]) Additional Past Medical History / Comment(s): morbid obesity, chronic migraines , SCOLIOSIS, CHRONIC BACK PAIN, CARPAL TUNNEL bilaterally. bed sore to coccyx. Last Myocardial Infarction Date:: 05/24/15 History of Any Multi-Drug Resistant Organisms: None Reported Past Surgical History: Breast Surgery, Cholecystectomy, Heart Catheterization, Heart Catheterization With Stent, Tonsillectomy Additional Past Surgical History / Comment(s): 05/2015 PCI with stent at [facility]. Other surgeries: BIBI KNEE ARTHROSCOPIES, L BREAST- LUMPECTOMY(BENIGN) Past Anesthesia/Blood Transfusion Reactions: Motion Sickness Additional Past Anesthesia/Blood Transfusion Reaction / Comment(s): Pt states she has clausterphobia. Date of Last Stent Placement:: 05/24/15 per pt Past Psychological History: Anxiety, Depression Smoking Status: Former smoker Past Alcohol Use History: None Reported Past Drug Use History: None Reported - Past Family History Father Family Medical History: Dementia Mother History Unknown: Yes Family Medical History: Cancer, Chest Pain / Angina Additional Family Medical History / Comment(s): Breast cancer with recent surgery. General Exam Limitations: no limitations Course Vital Signs 09/19/18 10:57 Temperature 98.6 F Pulse Rate 92 Respiratory 18 Rate Blood Pressure 126/83 O2 Sat by Pulse 987 H Oximetry Medical Decision Making - Medical Decision Making Dictation was produced using [employer] dictation software. please excuse any grammatical, word or spelling errors. Chief Complaint: 58-year-old female multiple comorbidities presents with right knee pain after trip and fall. History of Present Illness: Patient 58-year-old female complains of right knee pain. She was at the gas station when she tripped over the curb because she did step high enough. States she landed on her right knee causing an abrasion. Since it is swollen. Patient denies any weakness. Patient was able to after the incident. She denies any complications walking. The ROS documented in this emergency department record has been reviewed and confirmed by me. Those systems with pertinent positive or negative responses have been documented in the HPI. All other systems are other negative and/or noncontributory. PHYSICAL EXAM: General Impression: Alert and oriented x3, not in acute distress HEENT: Normocephalic atraumatic, extra-ocular movements intact, pupils equal and reactive to light bilaterally, mucous membranes moist. Cardiovascular: Heart regular rate and rhythm, S1&S2 audible, no murmurs, rubs or gallops Chest: Lungs clear to auscultation bilaterally, no rhonchi, no wheeze, no rales Abdomen: Bowel sounds present, abdomen soft, non-tender, non-distended, no organomegaly Musculoskeletal: Pulses present and equal in all extremities, no peripheral edema Motor: Power 5/5 bilaterally, no focal deficits noted Neurological: CN II-XII grossly intact, no focal motor or sensory deficits noted Skin: Superficial abrasion to the right knee Psych: Normal affect and mood ED course: 8-year-old female reports right knee pain after trip and fall. She will schedule exam is within normal limits. Patient has full function of the right lower extremity. Patient has superficial abrasion to the right anterior knee over the tibial tubercle vital signs upon arrival are within acceptable limits. Patient reports her tetanus is up-to-date. Knee x-ray Unremarkable. Patient and motor without complications. Patient clear for discharge. Disposition Clinical Impression: Knee contusion Disposition: HOME SELF-CARE Condition: Good Instructions (If sedation given, give patient instructions): Fall Prevention for Older Adults (ED) Is patient prescribed a controlled substance at d/c from ED?: No Referrals: Sofya Lott MD [Primary Care Provider] - 1-2 days Time of Disposition: 12:42
--- NOTE | 2018-09-19 12:40 | XR ---
EXAMINATION TYPE: XR knee complete RT DATE OF EXAM: 09/19/2018 COMPARISON: 02/21/2018 HISTORY: 58-year-old female pain after fall TECHNIQUE: 3 views FINDINGS: Moderate degenerative spurring involving the medial compartment and mild within the patellofemoral co mpartment. No significant knee joint effusion. Extensor mechanism is intact. No acute fracture, sublu xation, or dislocation seen. IMPRESSION: Degenerative spurring in the medial greater than the patellofemoral compartments. No acute osseous ab normality seen.
[2018-09-19 13:32] VITALS: BP 130/74; PULSE 80
== END 2018-09-19 13:30 | disposition home or self-care (01) ==
LOC: EC 10:53
DX: S80.01XA Contusion of right knee, initial encounter (principal); I25.119 Atherosclerotic heart disease of native coronary artery with unspecified angina pectoris; E11.9 Type 2 diabetes mellitus without complications; K21.9 Gastro-esophageal reflux disease without esophagitis; E78.5 Hyperlipidemia, unspecified; I10 Essential (primary) hypertension; I25.2 Old myocardial infarction; F41.9 Anxiety disorder, unspecified; F32.9 Major depressive disorder, single episode, unspecified; M79.7 Fibromyalgia; E66.01 Morbid (severe) obesity due to excess calories; Z68.36 Body mass index [BMI] 36.0-36.9, adult; Z79.02 Long term (current) use of antithrombotics/antiplatelets; Z79.84 Long term (current) use of oral hypoglycemic drugs; Z79.82 Long term (current) use of aspirin; Z79.899 Other long term (current) drug therapy; Z88.0 Allergy status to penicillin; Z88.1 Allergy status to other antibiotic agents; Z88.8 Allergy status to other drugs, medicaments and biological substances; Z87.891 Personal history of nicotine dependence; Z95.5 Presence of coronary angioplasty implant and graft; W01.0XXA Fall on same level from slipping, tripping and stumbling without subsequent striking against object, initial encounter
CPT/HCPCS: 99283

== ENCOUNTER → 2018-10-23 | Outpatient (CLI) | payer OTHER ==
--- NOTE | 2018-10-24 09:53 | MM ---
Reason for exam: screening (asymptomatic). Last mammogram was performed 1 year and 7 months ago. History: Patient is postmenopausal and is nulliparous. Family history of breast cancer in uncle, breast cancer in mother at age 81, breast cancer in 2 maternal aunts, and breast cancer in 2 paternal aunts. Benign stereotactic core biopsy of the left breast. Physical Findings: A clinical breast exam by your physician is recommended on an annual basis and results should be correlated with mammographic findings. MG 3D Screening Mammo W/Cad Bilateral CC and MLO view(s) were taken. Prior study comparison: April 02, 2017, bilateral MG screening mammo w CAD. January 12, 2016, bilateral MG 3d diag mammo w/cad BIBI. There are scattered fibroglandular densities. Benign appearing bilateral calcifications. Bilateral biopsy marker noted. ASSESSMENT: Benign, BI-RAD 2 RECOMMENDATION: Routine screening mammogram of both breasts in 1 year.
== END | disposition home or self-care (01) ==
LOC: RADMAMWWP 10:12
PROVIDERS: ATTEND Family Medicine
DX: Z12.31 Encounter for screening mammogram for malignant neoplasm of breast (principal)
CPT/HCPCS: 77063; 77067

== ENCOUNTER → 2018-11-03 | Outpatient (CLI) | payer OTHER ==
--- NOTE | 2018-11-03 12:57 | CT ---
EXAMINATION TYPE: CT brain wo/w con DATE OF EXAM: 11/03/2018 COMPARISON: 08/22/2016 HISTORY: Dizziness, frequent falls CT DLP: 2600 mGycm Automated Exposure Control for Dose Reduction was Utilized. TECHNIQUE: CT scan of the head is performed with IV contrast.,CT scan of the head is performed withou t and with without and with IV Contrast, patient injected with 100 mL of Isovue 300. FINDINGS: Noncontrast images show no acute intracranial hemorrhage or midline shift. The ventricles and sulci are within minimally prominent but symmetric compatible with mild age-related atrophy. Gra y-white matter interface is maintained. No suspicious extra-axial fluid collection. Postcontrast imag es show no suspicious enhancing intraparenchymal mass. The globes are intact and the visualized sinus es are clear. IMPRESSION: No evidence of acute intracranial hemorrhage or abnormal intracranial enhancement. There is mild cerebral atrophy, concordant with the patient's age.
== END | disposition home or self-care (01) ==
LOC: RADCTMAIN 11:10
PROVIDERS: ATTEND Nurse Practitioner Family
DX: G31.9 Degenerative disease of nervous system, unspecified (principal); R42 Dizziness and giddiness; Z91.81 History of falling
CPT/HCPCS: 82565; 84520; 70470; 36415; Q9967

== ENCOUNTER 2018-11-19 12:32 | Emergency (ER) | payer OTHER ==
[2018-11-19 13:02] LABS: Glucose,Whole Blood 68 mg/dL (75-99)
[2018-11-19] MEDS ORDERED: SODIUM CHLORIDE 0.9% 1,000 ML IV STA ×2 (13:09)
--- NOTE | 2018-11-19 13:25 | ED ---
Dizziness HPI - General Chief Complaint: Syncope Stated Complaint: Dizziness Time Seen by Provider: 11/19/18 12:47 Source: patient, EMS, RN notes reviewed, old records reviewed Mode of arrival: EMS Limitations: no limitations - History of Present Illness Initial Comments: Patient is a 58-year-old female who presents emergency department today after dizziness and subsequent syncopal episode. Patient reports that she was walking through her kitchen when she started to have a dizzy spell. She reports that she woke up and realized she was on the ground. She states that she hit her chin. She complains of swelling and bruising to the chin and lower lip. Patient reports that she's been having these intermittent dizzy spells for the past few months. She is being worked up for TIAs by Dr. Sterling. She also reports that she's been having worsening shortness of breath on exertion stating that she has to stop frequently to walk to and from places in her house and to the store down the street. Patient denies any associated chest pain at this ti me. She denies any extremity injuries related to the fall. - Related Data Home Medications Medication Instructions Recorded Confirmed Chlorthalidone 25 mg PO DAILY 03/17/17 11/19/18 Clopidogrel Bisulfate [Plavix] 75 mg PO DAILY 03/17/17 11/19/18 DULoxetine HCL [Cymbalta] 60 mg PO BID 03/17/17 11/19/18 Gabapentin [Neurontin] 300 mg PO TID 03/17/17 11/19/18 Glimepiride [Amaryl] 4 mg PO BID 03/17/17 11/19/18 Loratadine [Claritin] 10 mg PO DAILY 03/17/17 11/19/18 Metoprolol Succinate (ER) [Toprol 25 mg PO DAILY 03/17/17 11/19/18 Xl] Ranitidine HCl [Zantac] 150 mg PO BID 03/17/17 11/19/18 Atorvastatin [Lipitor] 80 mg PO HS 06/21/17 11/19/18 Aspirin [[place] Aspirin EC] 81 mg PO DAILY 08/24/18 11/19/18 Ibuprofen [Advil] 400 mg PO Q8HR PRN 08/24/18 11/19/18 LORazepam [Ativan] 1 mg PO HS 08/24/18 11/19/18 Mirtazapine [Remeron] 15 mg PO HS 08/24/18 11/19/18 Allergies Allergy/AdvReac Type Severity Reaction Status Date / Time WARNER Inhibitors Allergy Unknown Verified 11/19/18 12:55 amoxicillin [From Amoxil] Allergy Unknown Verified 11/19/18 12:55 Childhood ciprofloxacin [From Cipro] Allergy Rash/Hives Verified 11/19/18 12:55 metformin Allergy Diarrhea Verified 11/19/18 12:55 Penicillins Allergy Rash/Hives Verified 11/19/18 12:55 Review of Systems ROS Statement: Those systems with pertinent positive or pertinent negative responses have been documented in the HPI. ROS Other: All systems not noted in ROS Statement are negative. Past Medical History Past Medical History: Asthma, Coronary Artery Disease (CAD), Chest Pain / Angina, Diabetes Mellitus, Fibromyalgia, GERD/Reflux, Hyperlipidemia, Hypertension, Myocardial Infarction ([place]), Rheumatoid Arthritis (RA) Additional Past Medical History / Comment(s): morbid obesity, chronic migraines, SCOLIOSIS, CHRONIC BACK PAIN, CARPAL TUNNEL bilaterally. bed sore to coccyx. Last Myocardial Infarction Date:: 05/24/15 History of Any Multi-Drug Resistant Organisms: None Reported Past Surgical History: Breast Surgery, Cholecystectomy, Heart Catheterization, Heart Catheterization With Stent, Tonsillectomy Additional Past Surgical History / Comment(s): 05/2015 PCI with stent at [facility]. Other surgeries: BIBI KNEE ARTHROSCOPIES, L BREAST- LUMPECTOMY(BENIGN) Past Anesthesia/Blood Transfusion Reactions: Motion Sickness Additional Past Anesthesia/Blood Transfusion Reaction / Comment(s): Pt states she has clausterphobia. Date of Last Stent Placement:: 05/24/15 per pt Past Psychological History: Anxiety, Depression Smoking Status: Former smoker Past Alcohol Use History: None Reported Past Drug Use History: None Reported - Past Family History Father Family Medical History: Dementia Mother History Unknown: Yes Family Medical History: Cancer, Chest Pain / Angina Additional Family Medical History / Comment(s): Breast cancer with recent surgery. General Exam - General Exam Comments Initial Comments: 58-year-old female. Alert and oriented 3. No distress. Limitations: no limitations General appearance: alert, in no apparent distress Head exam: Present: atraumatic, normocephalic, normal inspection Eye exam: Present: normal appearance, PERRL, EOMI. Absent: scleral icterus, conjunctival injection, periorbital swelling ENT exam: Present: normal exam, mucous membranes moist, other (Patient has a contusion over her chin and lower lip. Small abrasion within the lower lip. No sutures needed at this time.) Neck exam: Present: normal inspection. Absent: tenderness, meningismus, lymphadenopathy Respiratory exam: Present: normal lung sounds bilaterally. Absent: respiratory distress, wheezes, rales, rhonchi, stridor Cardiovascular Exam: Present: regular rate, normal rhythm, normal heart sounds. Absent: systolic murmur, diastolic murmur, rubs, gallop, clicks GI/Abdominal exam: Present: soft, normal bowel sounds. Absent: distended, tenderness, guarding, rebound, rigid Extremities exam: Present: normal inspection, full ROM, normal capillary refill. Absent: tenderness, pedal edema, joint swelling, calf tenderness Back exam: Present: normal inspection Neurological exam: Present: alert Psychiatric exam: Present: normal affect, normal mood Skin exam: Present: warm, dry, intact, normal color. Absent: rash Course Vital Signs 11/19/18 11/19/18 11/19/18 12:42 12:46 12:50 Temperature 98.1 F Pulse Rate 89 91 Respiratory 20 24 Rate Blood Pressure 136/82 136/82 136/82 O2 Sat by Pulse 99 Oximetry 11/19/18 11/19/18 11/19/18 13:00 13:10 13:20 Temperature Pulse Rate 83 82 82 Respiratory 29 H 14 11 L Rate Blood Pressure 136/82 102/56 102/56 O2 Sat by Pulse Oximetry 11/19/18 11/19/18 11/19/18 13:30 13:40 13:50 Temperature Pulse Rate 103 H 80 82 Respiratory 14 17 17 Rate Blood Pressure 102/56 102/80 102/80 O2 Sat by Pulse 97 98 Oximetry 11/19/18 11/19/18 11/19/18 14:00 14:10 14:20 Temperature Pulse Rate 85 87 85 Respiratory 22 12 12 Rate Blood Pressure 102/80 118/81 118/81 O2 Sat by Pulse 100 98 95 Oximetry 11/19/18 11/19/18 11/19/18 14:30 14:40 14:50 Temperature Pulse Rate Respiratory Rate Blood Pressure 118/81 118/81 118/81 O2 Sat by Pulse Oximetry 11/19/18 11/19/18 11/19/18 15:00 15:10 15:20 Temperature Pulse Rate Respiratory Rate Blood Pressure 118/81 118/81 118/81 O2 Sat by Pulse Oximetry 11/19/18 11/19/18 11/19/18 15:30 15:40 15:50 Temperature Pulse Rate Respiratory Rate Blood Pressure 118/81 118/81 118/81 O2 Sat by Pulse Oximetry 11/19/18 16:00 Temperature Pulse Rate Respiratory Rate Blood Pressure 118/81 O2 Sat by Pulse Oximetry Medical Decision Making - Medical Decision Making 58-year-old female presents emergency department today with syncopal episode. EMS arrived edge Patient woke up onto the ground. She states she had her head and jaw. She has small contusion there. Blood sugar was low on EMS arrival. The intraoral glucose. Patient blood sugar here was 68. Patient is given food to continue to be low at 49. Eventually stabilizes 143. She has a small contusion of her chin. She complained of no chest pain shortness of breath. No palpitations. Patient's labwork was reviewed and otherwise unremarkable besides low blood sugar. Patient will be discharged at this time with follow-up with primary care doctor. Discussed discontinuing her sulfonylurea. She states it reveals anyways increase to twice a day instead of once a day. Discussed a CT until she follows up with her PCP. All questions answered and return parameters were discussed. - Lab Data Result diagrams: 11/19/18 13:50 11/19/18 13:50 Lab Results 11/19/18 11/19/18 11/19/18 Range/Units 13:00 13:50 13:50 WBC 8.8 (3.8-10.6) k/uL RBC 4.44 (3.80-5.40) m/uL Hgb 12.5 (11.4-16.0) gm/dL Hct 37.5 (34.0-46.0) % MCV 84.4 (80.0-100.0) fL MCH 28.1 (25.0-35.0) pg MCHC 33.3 (31.0-37.0) g/dL RDW 15.6 H (11.5-15.5) % Plt Count 273 (150-450) k/uL Neutrophils % 77 % Lymphocytes % 15 % Monocytes % 5 % Eosinophils % 2 % Basophils % 0 % Neutrophils # 6.8 (1.3-7.7) k/uL Lymphocytes # 1.3 (1.0-4.8) k/uL Monocytes # 0.4 (0-1.0) k/uL Eosinophils # 0.2 (0-0.7) k/uL Basophils # 0.0 (0-0.2) k/uL PT (9.0-12.0) sec INR (<1.2) APTT (22.0-30.0) sec Sodium 139 (137-145) mmol/L Potassium 4.4 (3.5-5.1) mmol/L Chloride 106 (98-107) mmol/L Carbon Dioxide 28 (22-30) mmol/L Anion Gap 5 mmol/L BUN 25 H (7-17) mg/dL Creatinine 1.14 H (0.52-1.04) mg/dL Est GFR (CKD-EPI)AfAm 61 (>60 ml/min/1.73 sqM) Est GFR (CKD-EPI)NonAf 53 (>60 ml/min/1.73 sqM) Glucose 59 L (74-99) mg/dL POC Glucose (mg/dL) 68 L (75-99) mg/dL POC Glu Product Safety Test Engineer ID Calcium 9.4 (8.4-10.2) mg/dL Magnesium 1.9 (1.6-2.3) mg/dL Total Bilirubin 0.5 (0.2-1.3) mg/dL AST 22 (14-36) U/L ALT 35 (9-52) U/L Alkaline Phosphatase 111 (38-126) U/L Troponin I (0.000-0.034) ng/mL Total Protein 6.3 (6.3-8.2) g/dL Albumin 3.9 (3.5-5.0) g/dL 11/19/18 11/19/18 11/19/18 Range/Units 13:50 13:50 15:12 WBC (3.8-10.6) k/uL RBC (3.80-5.40) m/uL Hgb (11.4-16.0) gm/dL Hct (34.0-46.0) % MCV (80.0-100.0) fL MCH (25.0-35.0) pg MCHC (31.0-37.0) g/dL RDW (11.5-15.5) % Plt Count (150-450) k/uL Neutrophils % % Lymphocytes % % Monocytes % % Eosinophils % % Basophils % % Neutrophils # (1.3-7.7) k/uL Lymphocytes # (1.0-4.8) k/uL Monocytes # (0-1.0) k/uL Eosinophils # (0-0.7) k/uL Basophils # (0-0.2) k/uL PT 9.6 (9.0-12.0) sec INR 0.9 (<1.2) APTT 23.0 (22.0-30.0) sec Sodium (137-145) mmol/L Potassium (3.5-5.1) mmol/L Chloride (98-107) mmol/L Carbon Dioxide (22-30) mmol/L Anion Gap mmol/L BUN (7-17) mg/dL Creatinine (0.52-1.04) mg/dL Est GFR (CKD-EPI)AfAm (>60 ml/min/1.73 sqM) Est GFR (CKD-EPI)NonAf (>60 ml/min/1.73 sqM) Glucose (74-99) mg/dL POC Glucose (mg/dL) 49 L (75-99) mg/dL POC Glu Product Safety Test Engineer ID Shreya Storm A Calcium (8.4-10.2) mg/dL Magnesium (1.6-2.3) mg/dL Total Bilirubin (0.2-1.3) mg/dL AST (14-36) U/L ALT (9-52) U/L Alkaline Phosphatase (38-126) U/L Troponin I <0.012 (0.000-0.034) ng/mL Total Protein (6.3-8.2) g/dL Albumin (3.5-5.0) g/dL 11/19/18 Range/Units 15:55 WBC (3.8-10.6) k/uL RBC (3.80-5.40) m/uL Hgb (11.4-16.0) gm/dL Hct (34.0-46.0) % MCV (80.0-100.0) fL MCH (25.0-35.0) pg MCHC (31.0-37.0) g/dL RDW (11.5-15.5) % Plt Count (150-450) k/uL Neutrophils % % Lymphocytes % % Monocytes % % Eosinophils % % Basophils % % Neutrophils # (1.3-7.7) k/uL Lymphocytes # (1.0-4.8) k/uL Monocytes # (0-1.0) k/uL Eosinophils # (0-0.7) k/uL Basophils # (0-0.2) k/uL PT (9.0-12.0) sec INR (<1.2) APTT (22.0-30.0) sec Sodium (137-145) mmol/L Potassium (3.5-5.1) mmol/L Chloride (98-107) mmol/L Carbon Dioxide (22-30) mmol/L Anion Gap mmol/L BUN (7-17) mg/dL Creatinine (0.52-1.04) mg/dL Est GFR (CKD-EPI)AfAm (>60 ml/min/1.73 sqM) Est GFR (CKD-EPI)NonAf (>60 ml/min/1.73 sqM) Glucose (74-99) mg/dL POC Glucose (mg/dL) 143 H (75-99) mg/dL POC Glu Product Safety Test Engineer ID Shreya Storm A Calcium (8.4-10.2) mg/dL Magnesium (1.6-2.3) mg/dL Total Bilirubin (0.2-1.3) mg/dL AST (14-36) U/L ALT (9-52) U/L Alkaline Phosphatase (38-126) U/L Troponin I (0.000-0.034) ng/mL Total Protein (6.3-8.2) g/dL Albumin (3.5-5.0) g/dL 11/19/18 13:24 EKG performed at 1307 shows normal sinus rhythm with low-voltage QRS. Inferior infarct age undetermined. Ventricular rate of 81 bpm.. KS interval is 144 ms. QRS duration 106 ms. QT QTc is 392/455 ms. 11/19/18 13:24 - Radiology Data Radiology results: report reviewed Left leg is negative for DVT. CT of the C-spine is negative for any osseous abnormality in the cervical spine. Mild right foraminal narrowing at C3-C4. CT of facial bones is no acute osseous abnormality. Minimal soft tissue swelling at the apex of the chin.Chest x-rays negative for any acute process. Normal CT brain. Disposition Clinical Impression: Hypoglycemia associated with diabetes, Syncope, Chin contusion Disposition: HOME SELF-CARE Condition: Good Instructions (If sedation given, give patient instructions): Hypoglycemia in a Person with Diabetes (ED) Additional Instructions: Patient advised to discontinue sulfonylurea medication. Follow-up with her primary care doctor. Rest, remain hydrated. Return to the emergency department if any alarming signs or symptoms occur. Is patient prescribed a controlled substance at d/c from ED?: No Referrals: Kristina Hunt FNPBC [Primary Care Provider] - 1-2 days Time of Disposition: 16:27
[2018-11-19 14:07] LABS: Basophils % (A) 0 %; Eosinophils # (A) 0.2 k/uL (0-0.7); Eosinophils % (A) 2 %; HCT 37.5 % (34.0-46.0); HGB 12.5 gm/dL (11.4-16.0); Lymphocytes # (A) 1.3 k/uL (1.0-4.8); Lymphocytes % (A) 15 %; MCH 28.1 pg (25.0-35.0); MCHC 33.3 g/dL (31.0-37.0); MCV 84.4 fL (80.0-100.0); Mean Platelet Volume 7.4; Monocytes # (A) 0.4 k/uL (0-1.0); Monocytes % (A) 5 %; Neutrophils # (A) 6.8 k/uL (1.3-7.7); Neutrophils % (A) 77 %; Platelet Count 273 k/uL (150-450); RBC 4.44 m/uL (3.80-5.40); RDW 15.6 % (11.5-15.5); WBC 8.8 k/uL (3.8-10.6)
[2018-11-19 14:17] LABS: Albumin 3.9 g/dL (3.5-5.0); Calcium 9.4 mg/dL (8.4-10.2); Magnesium 1.9 mg/dL (1.6-2.3); Potassium 4.4 mmol/L (3.5-5.1); Total Bilirubin 0.5 mg/dL (0.2-1.3); Total Protein 6.3 g/dL (6.3-8.2)
[2018-11-19 14:33] LABS: INR 0.9 (<1.2); Prothrombin Time 9.6 sec (9.0-12.0)
--- NOTE | 2018-11-19 14:55 | CT ---
EXAMINATION TYPE: CT facial bones wo con DATE OF EXAM: 11/19/2018 COMPARISON: None HISTORY: syncopal episode with chin injury. CT DLP: 849.8 mGycm CONTRAST: 0 mL of Isovue 300 The paranasal sinuses are examined in the axial plane at 2 mm thick sections. Reconstructed images i n the coronal plane were obtained. The maxillary sinuses are clear. The ethmoid air cells are clear. The sphenoid sinuses are clear. The frontal sinuses are clear. The septum is evaluated. There is septal deviation to the . The ostiomeatal units are patent. Small amount soft tissue injury may be at the apex of the chin. Significant swelling is not otherwise identified. No radiopaque foreign bodies are evident. No acute fractures are evident. IMPRESSIONS: 1. No acute osseous abnormality. Minimal soft tissue swelling is at the apex of the chin.
--- NOTE | 2018-11-19 14:58 | CT ---
EXAMINATION TYPE: CT cervical spine wo con DATE OF EXAM: 11/19/2018 COMPARISON: None HISTORY: syncopal episode with chin injury. CT DLP: 587.4 mGycm CONTRAST: None CT of the cervical spine is performed in the axial plane at 2 mm thick sections. Reconstructed image s in the coronal, and sagittal plane are reviewed on the computer. No acute fractures are evident. Vertebral body alignment is straightened. Disc heights are preserved. Vertebral body heights are preserved. No spinal canal stenosis is evident The right C3-4 foramen is narrowed from uncovertebral joint hypertrophy. IMPRESSIONS: 1. No acute osseous abnormality cervical spine. 2. Mild right foraminal narrowing C3-4 from uncovertebral joint hypertrophy.
--- NOTE | 2018-11-19 15:07 | XR ---
EXAMINATION TYPE: XR chest 2V DATE OF EXAM: 11/19/2018 COMPARISON: 08/24/2018 TECHNIQUE: PA and lateral views submitted. HISTORY: Syncope FINDINGS: The lungs are clear and there is no pneumothorax, pleural effusion, or focal pneumonia. Hypertrophi c change of the spine. Mild prominence in the upper mediastinum may be positional. No overt failure. IMPRESSION: 1. No acute process.
[2018-11-19 15:14] LABS: Glucose,Whole Blood 49 mg/dL (75-99)
--- NOTE | 2018-11-19 15:52 | CT ---
EXAMINATION TYPE: CT brain wo con DATE OF EXAM: 11/19/2018 COMPARISON: 11/03/2018 INDICATION: Dizziness DLP: 1147.4 mGycm, Automated exposure control for dose reduction was used. CONTRAST: None CT of the brain is performed utilizing 3 mm thick sections through the posterior fossa and 3 mm thick sections through the remaining calvarium. Study is performed within 24 hours of arrival to the hosp ital. No abnormal hyperdensity is present to suggest an acute intracranial hemorrhage. No mass lesion is evident. No acute infarcts are evident. Ventricles and sulci are appropriate for the patient age. Paranasal sinuses and mastoid air cells within the [id number] are clear. IMPRESSIONS: 1. Normal CT Brain
[2018-11-19 15:57] LABS: Glucose,Whole Blood 143 mg/dL (75-99)
[2018-11-19 16:33] LABS: Appearance,Urine Cloudy (Clear); Bacteria,Urine Many /hpf; Bilirubin,Urine Negative (Negative); Blood,Urine Negative (Negative); Color,Urine Yellow; Glucose,Urine (UA) Negative (Negative); Ketones,Urine Negative (Negative); Leukocyte Esterase,Urine Moderate (Negative); Mucus,Urine Rare /hpf; Nitrite,Urine Positive (Negative); Protein,Urine Negative (Negative); RBC,Urine 2 /hpf (0-5); Squamous Epithelial Cell,Urine 3 /hpf (0-4); Urobilinogen,Urine <2.0 mg/dL (<2.0); WBC,Urine 34 /hpf (0-5)
[2018-11-19 16:37] VITALS: BP 134/67; PULSE 90; RESP 18; TEMP 98
== END 2018-11-19 16:35 | disposition home or self-care (01) ==
LOC: EC 12:32
DX: S00.83XA Contusion of other part of head, initial encounter (principal); S00.511A Abrasion of lip, initial encounter; R55 Syncope and collapse; R42 Dizziness and giddiness; E11.649 Type 2 diabetes mellitus with hypoglycemia without coma; I25.119 Atherosclerotic heart disease of native coronary artery with unspecified angina pectoris; K21.9 Gastro-esophageal reflux disease without esophagitis; E78.5 Hyperlipidemia, unspecified; I10 Essential (primary) hypertension; I25.2 Old myocardial infarction; M06.9 Rheumatoid arthritis, unspecified; E66.01 Morbid (severe) obesity due to excess calories; Z68.34 Body mass index [BMI] 34.0-34.9, adult; F32.9 Major depressive disorder, single episode, unspecified; F41.9 Anxiety disorder, unspecified; Z87.891 Personal history of nicotine dependence; Z79.82 Long term (current) use of aspirin; Z79.01 Long term (current) use of anticoagulants; Z79.899 Other long term (current) drug therapy; Z79.84 Long term (current) use of oral hypoglycemic drugs; Z88.0 Allergy status to penicillin; Z88.1 Allergy status to other antibiotic agents; Z88.8 Allergy status to other drugs, medicaments and biological substances; Z95.5 Presence of coronary angioplasty implant and graft; W19.XXXA Unspecified fall, initial encounter; Y93.01 Activity, walking, marching and hiking; Y92.000 Kitchen of unspecified non-institutional (private) residence as the place of occurrence of the external cause
CPT/HCPCS: 36415; 70450; 70486; 71046; 72125; 80053; 81001; 83735; 84484; 85025; 85610; 85730; 93005; 96360; 96361; 99285

== ENCOUNTER 2019-01-02 21:38 | Emergency (ER) | payer OTHER ==
[2019-01-02 21:54] VITALS: TEMP 96.9
[2019-01-02] MEDS ORDERED: ONDANSETRON 4 MG/2 ML VIAL IVP STA (22:05)
[2019-01-02] MEDS ORDERED: SODIUM CHLORIDE 0.9% 1,000 ML IV STA (22:05)
[2019-01-02 22:32] LABS: Basophils % (A) 0 %; Eosinophils # (A) 0.1 k/uL (0-0.7); Eosinophils % (A) 1 %; HCT 39.6 % (34.0-46.0); HGB 12.2 gm/dL (11.4-16.0); Lymphocytes % (A) 10 %; MCH 26.6 pg (25.0-35.0); MCHC 30.8 g/dL (31.0-37.0); MCV 86.3 fL (80.0-100.0); Mean Platelet Volume 6.9; Monocytes # (A) 0.5 k/uL (0-1.0); Monocytes % (A) 5 %; Neutrophils # (A) 8.4 k/uL (1.3-7.7); Neutrophils % (A) 83 %; Platelet Count 264 k/uL (150-450); RBC 4.59 m/uL (3.80-5.40); RDW 15.8 % (11.5-15.5); WBC 10.2 k/uL (3.8-10.6)
[2019-01-02 22:41] LABS: Albumin 3.9 g/dL (3.5-5.0); Calcium 9.3 mg/dL (8.4-10.2); Potassium 4.3 mmol/L (3.5-5.1); Total Bilirubin 0.5 mg/dL (0.2-1.3); Total Protein 6.1 g/dL (6.3-8.2)
[2019-01-02 22:48] LABS: Appearance,Urine Cloudy (Clear); Bacteria,Urine Moderate /hpf; Bilirubin,Urine Negative (Negative); Blood,Urine Negative (Negative); Color,Urine Yellow; Glucose,Urine (UA) Negative (Negative); Ketones,Urine 2+ (Negative); Leukocyte Esterase,Urine Moderate (Negative); Mucus,Urine Few /hpf; Nitrite,Urine Positive (Negative); PH, Urine 5.5 (5.0-8.0); Protein,Urine Trace (Negative); RBC,Urine 2 /hpf (0-5); Specific Gravity,Urine 1.023 (1.001-1.035); Squamous Epithelial Cell,Urine 7 /hpf (0-4); Urobilinogen,Urine <2.0 mg/dL (<2.0); WBC,Urine 53 /hpf (0-5)
[2019-01-02 22:57] LABS: Glucose,Whole Blood 82 mg/dL (75-99)
[2019-01-02] MEDS ORDERED: SULFAMETHOX-TMP 800-160MG 1 EACH TAB PO STA (23:02)
--- NOTE | 2019-01-02 23:03 | ED ---
Recheck HPI - General Chief Complaint: Recheck/Abnormal Lab/Rx Stated Complaint: Low Blood Sugar Time Seen by Provider: 01/02/19 21:40 Source: patient, EMS Mode of arrival: EMS Limitations: no limitations - History of Present Illness Initial Comments: Patient is a 58-year-old woman brought by ambulance to be evaluated after she had developed hypoglycemia. The patient states that she hasn't been eating well for the past couple of days in the aftermath of having had some which she believes was poorly cooked chicken. She did continue to take her hypoglycemic medications. The patient then reportedly had a ground-level fall today and was disoriented. EMS was called, found her sugar low. She was given oral sugar and brought to the emergency department. The patient states here that she is feeling somewhat better. She states that in the fall she had landed on her left shoulder, but denies significant pain there. Patient denies any other trauma. No head or neck pain. No chest, back, or abdominal pain. MD Complaint: other (I will do seem he) -: minutes(s) Symptoms Since Prior Visit: no new symptoms Associated Symptoms: none - Related Data Home Medications Medication Instructions Recorded Confirmed Clopidogrel Bisulfate [Plavix] 75 mg PO DAILY 03/17/17 01/02/19 DULoxetine HCL [Cymbalta] 60 mg PO BID 03/17/17 01/02/19 Gabapentin [Neurontin] 300 mg PO TID 03/17/17 01/02/19 Glimepiride [Amaryl] 4 mg PO BID 03/17/17 01/02/19 Metoprolol Succinate (ER) [Toprol 25 mg PO DAILY 03/17/17 01/02/19 Xl] Ranitidine HCl [Zantac] 150 mg PO BID 03/17/17 01/02/19 Atorvastatin [Lipitor] 80 mg PO HS 06/21/17 01/02/19 Aspirin [[place] Aspirin EC] 81 mg PO DAILY 08/24/18 01/02/19 Ibuprofen [Advil] 400 mg PO Q8HR PRN 08/24/18 01/02/19 LORazepam [Ativan] 1 mg PO HS 08/24/18 01/02/19 Mirtazapine [Remeron] 15 mg PO HS 08/24/18 01/02/19 Amitriptyline HCl [Elavil] 100 - 200 mg PO HS 01/02/19 01/02/19 Previous Rx's Medication Instructions Recorded Sulfamethox-Tmp 800-160Mg [Bactrim 1 each PO Q12HR #6 tab 01/02/19 Ds] Allergies Allergy/AdvReac Type Severity Reaction Status Date / Time WARNER Inhibitors Allergy Unknown Verified 01/02/19 22:14 amoxicillin [From Amoxil] Allergy Unknown Verified 01/02/19 22:14 Childhood ciprofloxacin [From Cipro] Allergy Rash/Hives Verified 01/02/19 22:14 metformin Allergy Diarrhea Verified 01/02/19 22:14 Penicillins Allergy Rash/Hives Verified 01/02/19 22:14 Review of Systems ROS Statement: Those systems with pertinent positive or pertinent negative responses have been documented in the HPI. ROS Other: All systems not noted in ROS Statement are negative. Constitutional: Denies: fever, chills, weakness Respiratory: Denies: cough, dyspnea Cardiovascular: Denies: chest pain, palpitations Gastrointestinal: Denies: abdominal pain, vomiting, diarrhea Genitourinary: Reports: dysuria. Denies: frequency, hematuria Musculoskeletal: Denies: back pain Skin: Denies: rash Neurological: Reports: confusion. Denies: headache, weakness, numbness Past Medical History Past Medical History: Asthma, Coronary Artery Disease (CAD), Chest Pain / Angina, Diabetes Mellitus, Fibromyalgia, GERD/Reflux, Hyperlipidemia, Hypertension, Myocardial Infarction ([place]), Rheumatoid Arthritis (RA) Additional Past Medical History / Comment(s): morbid obesity, chronic migraines, SCOLIOSIS, CHRONIC BACK PAIN, CARPAL TUNNEL bilaterally. bed sore to coccyx. Last Myocardial Infarction Date:: 05/24/15 History of Any Multi-Drug Resistant Organisms: None Reported Past Surgical History: Breast Surgery, Cholecystectomy, Heart Catheterization, Heart Catheterization With Stent, Tonsillectomy Additional Past Surgical History / Comment(s): 05/2015 PCI with stent at [facility]. Other surgeries: BIBI KNEE ARTHROSCOPIES, L BREAST-LUMPECTOMY (BENIGN) Past Anesthesia/Blood Transfusion Reactions: Motion Sickness Additional Past Anesthesia/Blood Transfusion Reaction / Comment(s): Pt states sh e has clausterphobia. Date of Last Stent Placement:: 05/24/15 per pt Past Psychological History: Anxiety, Depression Smoking Status: Former smoker Past Alcohol Use History: None Reported Past Drug Use History: None Reported - Past Family History Father Family Medical History: Dementia Mother History Unknown: Yes Family Medical History: Cancer, Chest Pain / Angina Additional Family Medical History / Comment(s): Breast cancer with recent surgery. General Exam Limitations: no limitations General appearance: alert, in no apparent distress Head exam: Present: atraumatic, normocephalic Eye exam: Present: normal appearance. Absent: scleral icterus, conjunctival injection Neck exam: Present: normal inspection, full ROM. Absent: tenderness, meningismus Respiratory exam: Present: normal lung sounds bilaterally. Absent: respiratory distress, wheezes, rales, rhonchi, stridor Cardiovascular Exam: Present: regular rate, normal rhythm, normal heart sounds. Absent: systolic murmur, diastolic murmur, rubs, gallop GI/Abdominal exam: Present: soft. Absent: distended, tenderness, guarding, rebound, rigid, mass Extremities exam: Present: normal inspection, normal capillary refill. Absent: pedal edema, calf tenderness Back exam: Present: normal inspection. Absent: CVA tenderness (R), CVA tenderness (L), vertebral tenderness Neurological exam: Present: alert, oriented X3, CN II-XII intact, normal gait. Absent: motor sensory deficit Skin exam: Present: warm, dry, intact, normal color. Absent: rash Course Vital Signs 01/02/19 21:49 Temperature 96.9 F L Pulse Rate 96 Respiratory 16 Rate Blood Pressure 130/75 O2 Sat by Pulse 96 Oximetry Medical Decision Making - Medical Decision Making Patient's 58-year-old woman brought for evaluation after she had developed hypoglycemia and had a low energy fall. The patient states that she feels back at her baseline. She is observed to ensure that her Accu-Cheks are stable. She did have adequate oral intake here, and would like to go home. Routine lab testing does reveal patient has mild urinary tract infection and will be treated for this as well. Discussed appropriate further care and follow-up. - Lab Data Result diagrams: 01/02/19 22:00 01/02/19 22:00 Lab Results 01/02/19 01/02/19 01/02/19 Range/Units 22:00 22:00 22:31 WBC 10.2 (3.8-10.6) k/uL RBC 4.59 (3.80-5.40) m/uL Hgb 12.2 (11.4-16.0) gm/dL Hct 39.6 (34.0-46.0) % MCV 86.3 (80.0-100.0) fL MCH 26.6 (25.0-35.0) pg MCHC 30.8 L (31.0-37.0) g/dL RDW 15.8 H (11.5-15.5) % Plt Count 264 (150-450) k/uL Neutrophils % 83 % Lymphocytes % 10 % Monocytes % 5 % Eosinophils % 1 % Basophils % 0 % Neutrophils # 8.4 H (1.3-7.7) k/uL Lymphocytes # 1.0 (1.0-4.8) k/uL Monocytes # 0.5 (0-1.0) k/uL Eosinophils # 0.1 (0-0.7) k/uL Basophils # 0.0 (0-0.2) k/uL Sodium 142 (137-145) mmol/L Potassium 4.3 (3.5-5.1) mmol/L Chloride 110 H (98-107) mmol/L Carbon Dioxide 23 (22-30) mmol/L Anion Gap 9 mmol/L BUN 16 (7-17) mg/dL Creatinine 0.87 (0.52-1.04) mg/dL Est GFR (CKD-EPI)AfAm 85 (>60 ml/min/1.73 sqM) Est GFR (CKD-EPI)NonAf 73 (>60 ml/min/1.73 sqM) Glucose 49 L* (74-99) mg/dL POC Glucose (mg/dL) (75-99) mg/dL POC Glu Process Consultant ID Plasma Lactic Acid Ramiro (0.7-2.0) mmol/L Calcium 9.3 (8.4-10.2) mg/dL Total Bilirubin 0.5 (0.2-1.3) mg/dL AST 40 H (14-36) U/L ALT 57 H (9-52) U/L Alkaline Phosphatase 87 (38-126) U/L Total Protein 6.1 L (6.3-8.2) g/dL Albumin 3.9 (3.5-5.0) g/dL Amylase 44 (30-110) U/L Lipase 56 (23-300) U/L Urine Color Yellow Urine Appearance Cloudy H (Clear) Urine pH 5.5 (5.0-8.0) Ur Specific [place] 1.023 (1.001-1.035) Urine Protein Trace H (Negative) Urine Glucose (UA) Negative (Negative) Urine Ketones 2+ H (Negative) Urine Blood Negative (Negative) Urine Nitrite Positive H (Negative) Urine Bilirubin Negative (Negative) Urine Urobilinogen <2.0 (<2.0) mg/dL Ur Leukocyte Esterase Moderate H (Negative) Urine RBC 2 (0-5) /hpf Urine WBC 53 H (0-5) /hpf Ur Squamous Epith Cells 7 H (0-4) /hpf Urine Bacteria Moderate H (None) /hpf Urine Mucus Few H (None) /hpf 01/02/19 01/02/19 Range/Units 22:37 22:55 WBC (3.8-10.6) k/uL RBC (3.80-5.40) m/uL Hgb (11.4-16.0) gm/dL Hct (34.0-46.0) % MCV (80.0-100.0) fL MCH (25.0-35.0) pg MCHC (31.0-37.0) g/dL RDW (11.5-15.5) % Plt Count (150-450) k/uL Neutrophils % % Lymphocytes % % Monocytes % % Eosinophils % % Basophils % % Neutrophils # (1.3-7.7) k/uL Lymphocytes # (1.0-4.8) k/uL Monocytes # (0-1.0) k/uL Eosinophils # (0-0.7) k/uL Basophils # (0-0.2) k/uL Sodium (137-145) mmol/L Potassium (3.5-5.1) mmol/L Chloride (98-107) mmol/L Carbon Dioxide (22-30) mmol/L Anion Gap mmol/L BUN (7-17) mg/dL Creatinine (0.52-1.04) mg/dL Est GFR (CKD-EPI)AfAm (>60 ml/min/1.73 sqM) Est GFR (CKD-EPI)NonAf (>60 ml/min/1.73 sqM) Glucose (74-99) mg/dL POC Glucose (mg/dL) 82 (75-99) mg/dL POC Glu Process Consultant ID Alex Cameron A Plasma Lactic Acid Ramiro 1.8 (0.7-2.0) mmol/L Calcium (8.4-10.2) mg/dL Total Bilirubin (0.2-1.3) mg/dL AST (14-36) U/L ALT (9-52) U/L Alkaline Phosphatase (38-126) U/L Total Protein (6.3-8.2) g/dL Albumin (3.5-5.0) g/dL Amylase (30-110) U/L Lipase (23-300) U/L Urine Color Urine Appearance (Clear) Urine pH (5.0-8.0) Ur Specific [place] (1.001-1.035) Urine Protein (Negative) Urine Glucose (UA) (Negative) Urine Ketones (Negative) Urine Blood (Negative) Urine Nitrite (Negative) Urine Bilirubin (Negative) Urine Urobilinogen (<2.0) mg/dL Ur Leukocyte Esterase (Negative) Urine RBC (0-5) /hpf Urine WBC (0-5) /hpf Ur Squamous Epith Cells (0-4) /hpf Urine Bacteria (None) /hpf Urine Mucus (None) /hpf Disposition Clinical Impression: UTI (urinary tract infection), Hypoglycemia Disposition: HOME SELF-CARE Condition: Good Prescriptions: Sulfamethox-Tmp 800-160Mg [Bactrim Ds] 1 each PO Q12HR #6 tab Is patient prescribed a controlled substance at d/c from ED?: No Referrals: Sofya Lott MD [Primary Care Provider] - 1-2 days
[2019-01-02 23:59] LABS: Glucose,Whole Blood 62 mg/dL (75-99)
[2019-01-03 01:21] LABS: Glucose,Whole Blood 119 mg/dL (75-99)
[2019-01-03 01:57] VITALS: RESP 18
[2019-01-03 01:58] VITALS: BP 112/81; PULSE 88
== END 2019-01-03 01:57 | disposition home or self-care (01) ==
LOC: EC 21:38
DX: E11.649 Type 2 diabetes mellitus with hypoglycemia without coma (principal); N39.0 Urinary tract infection, site not specified; I25.119 Atherosclerotic heart disease of native coronary artery with unspecified angina pectoris; M79.7 Fibromyalgia; K21.9 Gastro-esophageal reflux disease without esophagitis; E78.5 Hyperlipidemia, unspecified; I10 Essential (primary) hypertension; I25.2 Old myocardial infarction; M06.9 Rheumatoid arthritis, unspecified; E66.01 Morbid (severe) obesity due to excess calories; Z68.35 Body mass index [BMI] 35.0-35.9, adult; F32.9 Major depressive disorder, single episode, unspecified; F41.9 Anxiety disorder, unspecified; Z87.891 Personal history of nicotine dependence; Z79.01 Long term (current) use of anticoagulants; Z79.82 Long term (current) use of aspirin; Z79.84 Long term (current) use of oral hypoglycemic drugs; Z79.899 Other long term (current) drug therapy; Z88.0 Allergy status to penicillin; Z88.1 Allergy status to other antibiotic agents; Z88.8 Allergy status to other drugs, medicaments and biological substances; Z95.5 Presence of coronary angioplasty implant and graft
CPT/HCPCS: 36415 ×2; 80053; 82150; 83605; 83690; 85025; 81001; 87086; 87077; 87186; 99285; 96374; 96361; J2405

== ENCOUNTER 2019-03-31 18:44 | Observation (INO) | payer OTHER ==
[2019-03-31] MEDS ORDERED: SODIUM CHLORIDE 0.9% 500 ML 500 ML IV STA (19:03)
[2019-03-31] MEDS ORDERED: NITROGLYCERIN OINT 1 INCH/GM PACKET TOPICAL STA (19:03)
--- NOTE | 2019-03-31 19:12 | ED ---
General Adult HPI - General Chief complaint: Chest Pain Stated complaint: Chest Pain Time Seen by Provider: 03/31/19 19:00 Source: patient, RN notes reviewed Mode of arrival: EMS Limitations: no limitations - History of Present Illness Initial comments: This is a 59-year-old female who presents emergency Department complaining of chest pain. Patient states she has a past medical history significant for a heart attack with one stent placement. Patient states she is also diabetic and has high cholesterol. Patient states pain started 2:00 took a nitroglycerin and it took the pain away. Patient states he returned she took aspirin and 4 nitroglycerin as well as eating some [place] sausage. Patient states she continues to have chest pain now. Patient denies any fever chills or cough. Patient denies any swelling like patient denies calf tenderness. - Related Data Home Medications Medication Instructions Recorded Confirmed Clopidogrel Bisulfate [Plavix] 75 mg PO DAILY 03/17/17 03/31/19 Glimepiride [Amaryl] 4 mg PO BID 03/17/17 03/31/19 Ranitidine HCl [Zantac] 150 mg PO BID 03/17/17 03/31/19 Atorvastatin [Lipitor] 80 mg PO HS 06/21/17 03/31/19 Celecoxib [CeleBREX] 200 mg PO DAILY 03/31/19 03/31/19 Loratadine [Claritin] 10 mg PO DAILY 03/31/19 03/31/19 Losartan Potassium [Cozaar] 25 mg PO DAILY 03/31/19 03/31/19 Nitroglycerin Sl Tabs [Nitrostat] 0.4 mg SUBLINGUAL Q5M PRN 03/31/19 03/31/19 rOPINIRole HCL [Requip] 0.5 mg PO HS 03/31/19 03/31/19 Allergies Allergy/AdvReac Type Severity Reaction Status Date / Time WARNER Inhibitors Allergy Unknown Verified 03/31/19 19:36 amoxicillin [From Amoxil] Allergy Unknown Verified 03/31/19 19:36 Childhood ciprofloxacin [From Cipro] Allergy Rash/Hives Verified 03/31/19 19:36 metformin Allergy Diarrhea Verified 03/31/19 19:36 Penicillins Allergy Rash/Hives Verified 03/31/19 19:36 Review of Systems ROS Statement: Those systems with pertinent positive or pertinent negative responses have been documented in the HPI. ROS Other: All systems not noted in ROS Statement are negative. Past Medical History Past Medical History: Asthma, Coronary Artery Disease (CAD), Chest Pain / Angina, Diabetes Mellitus, Fibromyalgia, GERD/Reflux, Hyperlipidemia, Hypertension, Myocardial Infarction ([place]), Rheumatoid Arthritis (RA) Additional Past Medical History / Comment(s): morbid obesity, chronic migraines, SCOLIOSIS, CHRONIC BACK PAIN, CARPAL TUNNEL bilaterally. bed sore to coccyx. Last Myocardial Infarction Date:: 05/24/15 History of Any Multi-Drug Resistant Organisms: None Reported Past Surgical History: Breast Surgery, Cholecystectomy, Heart Catheterization, Heart Catheterization With Stent, Tonsillectomy Additional Past Surgical History / Comment(s): 05/2015 PCI with stent at [facility]. Other surgeries: BIBI KNEE ARTHROSCOPIES, L BREAST-LUMPE CTOMY(BENIGN) Past Anesthesia/Blood Transfusion Reactions: Motion Sickness Additional Past Anesthesia/Blood Transfusion Reaction / Comment(s): Pt states she has clausterphobia. Date of Last Stent Placement:: 05/24/15 per pt Past Psychological History: Anxiety, Depression Smoking Status: Former smoker Past Alcohol Use History: None Reported Past Drug Use History: None Reported - Past Family History Father Family Medical History: Dementia Mother History Unknown: Yes Family Medical History: Cancer, Chest Pain / Angina Additional Family Medical History / Comment(s): Breast cancer with recent surgery. General Exam - General Exam Comments Initial Comments: GENERAL: Patient is well-developed and well-nourished. Patient is nontoxic and well- hydrated and is in no acute distress. ENT: Neck is soft and supple. No significant lymphadenopathy is noted. Oropharynx is clear. Moist mucous membranes. Neck has full range of motion without eliciting any pain. EYES: The sclera were anicteric and conjunctiva were pink and moist. Extraocular movements were intact and pupils PULMONARY: Unlabored respirations. Good breath sounds bilaterally. No audible rales rhonchi or wheezing was noted. CARDIOVASCULAR: There is a regular rate and rhythm without any murmurs gallops or rubs. ABDOMEN: Soft and nontender with normal bowel sounds. No palpable organomegaly was noted. There is no palpable pulsatile mass. SKIN: Skin is clear with no lesions or rashes and otherwise unremarkable. NEUROLOGIC: Patient is alert and oriented x3. Cranial nerves II through XII are grossly intact. Motor and sensory are also intact. Normal speech, volume and content. Symmetrical smile. MUSCULOSKELETAL: Normal extremities with adequate strength and full range of motion. No lower extremity swelling or edema. No calf tenderness. LYMPHATICS: No significant lymphadenopathy is noted PSYCHIATRIC: Normal psychiatric evaluation. Limitations: no limitations Course Vital Signs 03/31/19 03/31/19 18:53 19:34 Temperature 98.3 F 98.2 F Pulse Rate 91 87 Respiratory 13 18 Rate Blood Pressure 103/60 114/63 O2 Sat by Pulse 95 94 L Oximetry Medical Decision Making - Medical Decision Making EKG shows normal sinus rhythm at 83 bpm VA interval 144 QRS is 90 QT interval 380 QTC is 446 per patient's EKG shows no ST segment elevation or depression or T wave abnormalities are noted Chest x-ray shows no acute abnormality. Patient had an unstable angina pectoris I did heparinize the patient. I spoke with Dr. Hart he agreed to admit the patient admitted the patient I consult ca rdiology continued aspirin and Nitropaste and heparin on the floor. - Lab Data Result diagrams: 03/31/19 19:02 03/31/19 19:02 Lab Results 03/31/19 03/31/19 03/31/19 Range/Units 19:02 19:02 19:02 WBC 6.8 (3.8-10.6) k/uL RBC 4.70 (3.80-5.40) m/uL Hgb 13.1 (11.4-16.0) gm/dL Hct 39.3 (34.0-46.0) % MCV 83.7 (80.0-100.0) fL MCH 27.8 (25.0-35.0) pg MCHC 33.2 (31.0-37.0) g/dL RDW 15.6 H (11.5-15.5) % Plt Count 233 (150-450) k/uL Neutrophils % 71 % Lymphocytes % 19 % Monocytes % 5 % Eosinophils % 3 % Basophils % 1 % Neutrophils # 4.8 (1.3-7.7) k/uL Lymphocytes # 1.3 (1.0-4.8) k/uL Monocytes # 0.4 (0-1.0) k/uL Eosinophils # 0.2 (0-0.7) k/uL Basophils # 0.0 (0-0.2) k/uL PT 10.0 (9.0-12.0) sec INR 0.9 (<1.2) APTT 24.3 (22.0-30.0) sec Sodium 140 (137-145) mmol/L Potassium 4.3 (3.5-5.1) mmol/L Chloride 107 (98-107) mmol/L Carbon Dioxide 22 (22-30) mmol/L Anion Gap 11 mmol/L BUN 26 H (7-17) mg/dL Creatinine 1.01 (0.52-1.04) mg/dL Est GFR (CKD-EPI)AfAm 70 (>60 ml/min/1.73 sqM) Est GFR (CKD-EPI)NonAf 61 (>60 ml/min/1.73 sqM) Glucose 132 H (74-99) mg/dL Calcium 9.6 (8.4-10.2) mg/dL Magnesium 1.9 (1.6-2.3) mg/dL Total Bilirubin 0.6 (0.2-1.3) mg/dL AST 35 (14-36) U/L ALT 33 (9-52) U/L Alkaline Phosphatase 115 (38-126) U/L Troponin I (0.000-0.034) ng/mL Total Protein 6.6 (6.3-8.2) g/dL Albumin 4.1 (3.5-5.0) g/dL 03/31/19 Range/Units 19:02 WBC (3.8-10.6) k/uL RBC (3.80-5.40) m/uL Hgb (11.4-16.0) gm/dL Hct (34.0-46.0) % MCV (80.0-100.0) fL MCH (25.0-35.0) pg MCHC (31.0-37.0) g/dL RDW (11.5-15.5) % Plt Count (150-450) k/uL Neutrophils % % Lymphocytes % % Monocytes % % Eosinophils % % Basophils % % Neutrophils # (1.3-7.7) k/uL Lymphocytes # (1.0-4.8) k/uL Monocytes # (0-1.0) k/uL Eosinophils # (0-0.7) k/uL Basophils # (0-0.2) k/uL PT (9.0-12.0) sec INR (<1.2) APTT (22.0-30.0) sec Sodium (137-145) mmol/L Potassium (3.5-5.1) mmol/L Chloride (98-107) mmol/L Carbon Dioxide (22-30) mmol/L Anion Gap mmol/L BUN (7-17) mg/dL Creatinine (0.52-1.04) mg/dL Est GFR (CKD-EPI)AfAm (>60 ml/min/1.73 sqM) Est GFR (CKD-EPI)NonAf (>60 ml/min/1.73 sqM) Glucose (74-99) mg/dL Calcium (8.4-10.2) mg/dL Magnesium (1.6-2.3) mg/dL Total Bilirubin (0.2-1.3) mg/dL AST (14-36) U/L ALT (9-52) U/L Alkaline Phosphatase (38-126) U/L Troponin I <0.012 (0.000-0.034) ng/mL Total Protein (6.3-8.2) g/dL Albumin (3.5-5.0) g/dL Critical Care Time Critical Care Time: Yes Total Critical Care Time: 35 Disposition Clinical Impression: Unstable angina Disposition: ADMITTED IP TO THIS HOSP Referrals: Sofya Lott MD [Primary Care Provider] - 1-2 days Time of Disposition: 20:41
[2019-03-31 19:23] LABS: Basophils % (A) 1 %; Eosinophils # (A) 0.2 k/uL (0-0.7); Eosinophils % (A) 3 %; HCT 39.3 % (34.0-46.0); HGB 13.1 gm/dL (11.4-16.0); Lymphocytes # (A) 1.3 k/uL (1.0-4.8); Lymphocytes % (A) 19 %; MCH 27.8 pg (25.0-35.0); MCHC 33.2 g/dL (31.0-37.0); MCV 83.7 fL (80.0-100.0); Mean Platelet Volume 7.4; Monocytes # (A) 0.4 k/uL (0-1.0); Monocytes % (A) 5 %; Neutrophils # (A) 4.8 k/uL (1.3-7.7); Neutrophils % (A) 71 %; Platelet Count 233 k/uL (150-450); RDW 15.6 % (11.5-15.5); WBC 6.8 k/uL (3.8-10.6)
[2019-03-31 19:32] LABS: Albumin 4.1 g/dL (3.5-5.0); Calcium 9.6 mg/dL (8.4-10.2); INR 0.9 (<1.2); Magnesium 1.9 mg/dL (1.6-2.3); Partial Thromboplastin Time 24.3 sec (22.0-30.0); Potassium 4.3 mmol/L (3.5-5.1); Total Bilirubin 0.6 mg/dL (0.2-1.3); Total Protein 6.6 g/dL (6.3-8.2)
[2019-03-31 19:35] VITALS: RESP 18
[2019-03-31] MEDS ORDERED: HEPARIN SODIUM,PORCINE 5,000 UNIT/ML 1 ML VIAL IV ONE (20:36)
[2019-03-31] MEDS ORDERED: NITROGLYCERIN SL TABS 0.4 MG TAB SUBLINGUAL PRN (20:37)
[2019-03-31] MEDS ORDERED: HEPARIN SOD,PORK IN 0.45% NACL 25,000 UNIT in 0.45% NACL 1 250ML.BAG IV SCH (20:45)
--- NOTE | 2019-03-31 21:21 | XR ---
EXAMINATION: XR chest 2V DATE AND TIME: 03/31/2019 8:04 PM CLINICAL INDICATION: PHH; Chest Pain TECHNIQUE: Departmental protocol COMPARISON: 11/19/2018 FINDINGS: The overlying soft tissues are prominent. Lungs appear to be clear. The pleural spaces are negative. The cardiac silhouette is not enlarged. The remainder of the mediastinal silhouette is unremarkable. The skeletal structures and soft tissues are negative for acute findings. IMPRESSION: NO ACUTE PROCESS.
[2019-03-31] MEDS: NITROGLYCERIN OINT 1 INCH/GM PACKET TOPICAL SCH (23:41)
[2019-04-01] MEDS: NITROGLYCERIN OINT 1 INCH/GM PACKET TOPICAL SCH (05:59)
[2019-04-01] MEDS ORDERED: PANTOPRAZOLE 40 MG TABLET PO SCH (08:15)
[2019-04-01 08:16] LABS: Cholesterol 131 mg/dL (<200); HDL Cholesterol 33 mg/dL (40-60); LDL Cholesterol,Calculated 76 mg/dL (0-99); Triglycerides 109 mg/dL (<150)
[2019-04-01] MEDS ORDERED: DOBUTamine DRIP for NUC MED 500 MG in DEXTROSE/WATER 1 250ML.BAG IV ONE (08:46)
[2019-04-01] MEDS ORDERED: LOSARTAN 25 MG TAB PO SCH (09:00)
[2019-04-01] MEDS ORDERED: ASPIRIN 325 MG TAB PO SCH (09:00)
[2019-04-01] MEDS ORDERED: DIPYRIDAMOLE IV ONE (09:13)
[2019-04-01] MEDS ORDERED: SODIUM CHLORIDE 0.9% IV ONE (09:13)
[2019-04-01] MEDS ORDERED: AMINOPHYLLINE 500 MG/20 ML VIAL IV PRN (09:13)
[2019-04-01] MEDS ORDERED: CAFFEINE CITRATE 60 MG/3 ML VIAL IV PRN (09:13)
--- NOTE | 2019-04-01 10:52 | P.CRDCN ---
History of Present Illness History of present illness: This is a pleasant 59-year-old female past medical history significant for coronary artery disease in the setting of an acute myocardial infarction 2014, hypertension, dyslipidemia, gastroesophageal reflux disease, diabetes mellitus, fibromyalgia and former nicotine dependence. Recent cardiac catheterization performed August 2018 reveals RCA patent and this stented segment with no significant narrowing, beyond the stented segment there is a 40% narrowing, left main free of significant disease, LAD with a narrowing in the midportion 30-35%, circumflex with no significant disease. We have been asked to see her in consultation secondary to chest discomfort. She states yesterday while she was at [facility] taking a class she felt a sharp pain in the midsternal region like some he was kicking her in the chest. This was very brief but intense, she took one sublingual nitroglycerin and the pain subsided. She went home ate 2 hot dogs and within 15 minutes the pain returned in the chest. She again took a sublingual nitroglycerin and aspirin and called EMS. Upon arrival to the emergency room and she was continuing to have intermittent episodes of sharp midsternal chest discomfort. She was initiated on a heparin infusion, Nitropaste and her symptoms subsided. She seen and examined resting comfortably in bed in no acute distress. She has not had further symptoms of chest discomfort however on palpation in the midsternal region she does feel achy. She denies associated shortness of breath, dizziness, nausea, vomiting, palpitations or diaphoresis. She states she has not followed up with cardiology since her heart catheterization secondary to cost. EKG reveals sinus mechanism heart rate of 83, inferior Q waves and poor R-wave progression. No changes from previous EKG. Chest x-ray is negative for an acute cardiopulmonary process. Laboratory data reviewed, WBC 6.8, hemoglobin 13.1, platelets 233, sodium 140, potassium 4.3, creatinine 1.01, magnesium 1.9, cardiac enzymes negative 3, LDL 76. Current cardiac medications include atorvastatin 80 mg daily, Plavix 75 mg daily, losartan 25 mg daily. Most recent echocardiogram obtained in August 2018 reveals mildly impaired LV systolic function with ejection fraction 45-50%, inferior hypokinesia, mild mitral regurgitation and mild tricuspid regurgitation. At the time of my exam: CONSTITUTIONAL: Denies fever. Denies chills. EYES: Denies blurred vision. Denies vision changes. Denies eye pain. EARS, NOSE, MOUTH & THROAT: Denies headache. Denies sore throat. Denies ear pain. CARDIOVASCULAR: Denies chest pain. Denies shortness of breath. Denies orthopnea. Denies PND. Denies palpitations. RESPIRATORY: Denies cough. GASTROINTESTINAL: Denies abdominal pain. Denies diarrhea. Denies constipation. Denies nausea. Denies vomiting. MUSCULOSKELETAL: Denies myalgias. INTEGUMENTARY: Denies pruitis. Denies rash. NEUROLOGIC: Denies numbness. Denies tingling. Denies weakness. PSYCHIATRIC: Denies anxiety. Denies depression. ENDOCRINE: Denies fatigue. Denies weight change. Denies polydipsia. Denies polyurina. GENITOURINARY: Denies burning, hematuria or urgency with micturation. HEMATOLOGIC: Denies history of anemia. Denies bleeding. Blood pressure 106/69 heart rate 76 afebrile maintaining oxygen saturation on room air GENERAL: This is a 59-year-old female in no apparent distress at the time of my examination. HEENT: Head is atraumatic, normocephalic. Pupils are equal, round. Sclerae anicteric. Conjunctivae are clear. Mucous membranes of the mouth are moist. Neck is supple. There is no jugular venous distention. No carotid bruit is heard. LUNGS: Clear to auscultation no wheezes, rales or rhonchi. No chest wall tenderness is noted on palpation or with deep breathing. HEART: Regular rate and rhythm without murmurs, rubs or gallops. S1 and S2 heard. ABDOMEN: Soft, nontender. Bowel sounds are heard. No organomegaly noted. EXTREMITIES: No evidence of peripheral edema and no calf tenderness noted. VASCULAR: Radial and dorsalis pedis pulses palpated, no evidence of clubbing. NEUROLOGIC: Patient is awake, alert and oriented x3. ASSESSMENT Chest pain, atypical for angina. Some pleuritic features. An acute coronary event has been ruled out. History of coronary artery disease s/p stent placement with residual disease noted on recent cath Myocardial infarction 2014 Hypertension Dyslipidemia Diabetes mellitus PLAN An acute coronary event has been ruled out. Obtain 2D echocardiogram and doppler study to assess cardiac structure and function. Perform persantine stress test to assess for reversible cardiac ischemia. Initiate on protonix 40 mg BID. If stress test is normal she is stable from a cardiac perspective. Thank you kindly for this consultation. Nurse Practitioner note has been reviewed, I agree with a documented findings and plan of care. Patient was seen and examined. Past Medical History Past Medical History: Asthma, Coronary Artery Disease (CAD), Chest Pain / Angina, Diabetes Mellitus, Fibromyalgia, GERD/Reflux, Hyperlipidemia, Hypertension, Myocardial Infarction (VT), Rheumatoid Arthritis (RA) Additional Past Medical History / Comment(s): morbid obesity, chronic migraines, SCOLIOSIS, CHRONIC BACK PAIN, CARPAL TUNNEL bilaterally. bed sore to coccyx. Last Myocardial Infarction Date:: 05/24/15 History of Any Multi-Drug Resistant Organisms: None Reported Past Surgical History: Breast Surgery, Cholecystectomy, Heart Catheterization, Heart Catheterization With Stent, Tonsillectomy Additional Past Surgical History / Comment(s): 05/2015 PCI with stent at [facility]. Other surgeries: BIBI KNEE ARTHROSCOPIES, L BREAST- LUMPECTOMY(BENIGN) Past Anesthesia/Blood Transfusion Reactions: Motion Sickness Additional Past Anesthesia/Blood Transfusion Reaction / Comment(s): Pt states she has clausterphobia. Date of Last Stent Placement:: 05/24/15 per pt Past Psychological History: Anxiety, Depression Additional Psychological History / Comment(s): Pt reports hx of bedsore to coccyx, states shes had surgeries and pt states it is healed now. Smoking Status: Former smoker Past Alcohol Use History: None Reported Additional Past Alcohol Use History / Comment(s): SMOKED X les than 1 YEAR,QUIT 1979 Past Drug Use History: None Reported - Past Family History Father Family Medical History: Dementia Mother History Unknown: Yes Family Medical History: Cancer, Chest Pain / Angina Additional Family Medical History / Comment(s): Breast cancer with recent surgery. Medications and Allergies Home Medications Medication Instructions Recorded Confirmed Type Clopidogrel Bisulfate [Plavix] 75 mg PO DAILY 03/17/17 03/31/19 History Glimepiride [Amaryl] 4 mg PO BID 03/17/17 03/31/19 History Ranitidine HCl [Zantac] 150 mg PO BID 03/17/17 03/31/19 History Atorvastatin [Lipitor] 80 mg PO HS 06/21/17 03/31/19 History Celecoxib [CeleBREX] 200 mg PO DAILY 03/31/19 03/31/19 History Loratadine [Claritin] 10 mg PO DAILY 03/31/19 03/31/19 History Losartan Potassium [Cozaar] 25 mg PO DAILY 03/31/19 03/31/19 History Nitroglycerin Sl Tabs [Nitrostat] 0.4 mg SUBLINGUAL Q5M PRN 03/31/19 03/31/19 History rOPINIRole HCL [Requip] 0.5 mg PO HS 03/31/19 03/31/19 History Allergies Allergy/AdvReac Type Severity Reaction Status Date / Time WARNER Inhibitors Allergy Unknown Verified 03/31/19 19:36 amoxicillin [From Amoxil] Allergy Unknown Verified 03/31/19 19:36 Childhood ciprofloxacin [From Cipro] Allergy Rash/Hives Verified 03/31/19 19:36 metformin Allergy Diarrhea Verified 03/31/19 19:36 Penicillins Allergy Rash/Hives Verified 03/31/19 19:36 Physical Exam Vitals: Vital Signs Temp Pulse Pulse Resp BP BP BP 04/01/19 04:00 84 18 04/01/19 03:35 97.5 F L 75 18 111/67 04/01/19 00:00 97.7 F 84 18 107/66 03/31/19 21:45 84 18 03/31/19 21:40 98.3 F 81 18 114/77 03/31/19 21:26 98 F 84 18 123/67 03/31/19 19:34 98.2 F 87 18 114/63 03/31/19 18:53 98.3 F 91 13 103/60 Pulse Ox 04/01/19 04:00 04/01/19 03:35 92 L 04/01/19 00:00 94 L 03/31/19 21:45 03/31/19 21:40 96 03/31/19 21:26 96 03/31/19 19:34 94 L 03/31/19 18:53 95 Intake and Output 03/31/19 04/01/19 04/01/19 22:59 06:59 14:59 Intake Total 222 Balance 222 Intake: Oral 222 Other: # Voids 1 Weight 103.873 kg Results 03/31/19 19:02 03/31/19 19:02 Cardiac Enzymes 03/31/19 03/31/19 04/01/19 Range/Units 19:02 19:02 00:50 AST 35 (14-36) U/L Troponin I <0.012 <0.012 (0.000-0.034) ng/mL Coagulation 03/31/19 04/01/19 Range/Units 19:02 03:15 PT 10.0 (9.0-12.0) sec APTT 24.3 50.0 H (22.0-30.0) sec CBC 03/31/19 Range/Units 19:02 WBC 6.8 (3.8-10.6) k/uL RBC 4.70 (3.80-5.40) m/uL Hgb 13.1 (11.4-16.0) gm/dL Hct 39.3 (34.0-46.0) % Plt Count 233 (150-450) k/uL Comprehensive Metabolic Panel 03/31/19 Range/Units 19:02 Sodium 140 (137-145) mmol/L Potassium 4.3 (3.5-5.1) mmol/L Chloride 107 (98-107) mmol/L Carbon Dioxide 22 (22-30) mmol/L BUN 26 H (7-17) mg/dL Creatinine 1.01 (0.52-1.04) mg/dL Glucose 132 H (74-99) mg/dL Calcium 9.6 (8.4-10.2) mg/dL AST 35 (14-36) U/L ALT 33 (9-52) U/L Alkaline Phosphatase 115 (38-126) U/L Total Protein 6.6 (6.3-8.2) g/dL Albumin 4.1 (3.5-5.0) g/dL Current Medications Generic Name Dose Route Start Last Admin Trade Name Donq PRN Reason Stop Dose Admin Aspirin 325 mg 04/01/19 09:00 Aspirin PO DAILY [facility] Heparin Sodium/Sodium Chloride 250 mls @ 9.349 mls/hr 03/31/19 20:45 03/31/19 20:44 25,000 unit/ Sodium Chloride IV 9 units/kg/hr .Q24H SUNNY 9.349 mls/hr Administration Protocol 9 UNITS/KG/HR Nitroglycerin 1 inch 04/01/19 00:00 04/01/19 05:59 Nitro-Bid Oint TOPICAL 1 inch Q6HR SUNNY Administration Nitroglycerin 0.4 mg 03/31/19 20:37 Nitrostat SUBLINGUAL Q5M PRN Chest Pain Intake and Output 03/31/19 04/01/19 04/01/19 22:59 06:59 14:59 Intake Total 222 Balance 222 Intake: Oral 222 Other: # Voids 1 Weight 103.873 kg 03/31/19 19:02 03/31/19 19:02
--- NOTE | 2019-04-01 11:27 | ECHOF ---
Referral Reason:cp MEASUREMENTS -------- HEIGHT: 170.2 cm WEIGHT: 103.9 kg BP: RVIDd: 2.5 cm (< 3.3) IVSd: 1.5 cm (0.6 - 1.1) LVIDd: 4.3 cm (3.9 - 5.3) LVPWd: 1.4 cm (0.6 - 1.1) IVSs: 1.6 cm LVIDs: 3.0 cm LVPWs: 1.9 cm LAESV Index (A-L): 27.80 ml/m Ao Diam: 3.2 cm (2.0 - 3.7) AV Cusp: 1.5 cm (1.5 - 2.6) LA Diam: 3.8 cm (2.7 - 3.8) EPSS: 1.3 cm MV E Easton: 0.65 m/s MV DecT: 202 ms MV A Easton: 1.01 m/s MV E/A Ratio: 0.64 RAP: 5.00 mmHg RVSP: 19.79 mmHg MV EF SLOPE: 63.24 mm/s (70 - 150) MV EXCURSION: 1.23 cm (> 18.000) FINDINGS -------- Sinus rhythm. This was a technically difficult study with suboptimal apical views. The left ventricular size is normal. There is moderate concentric left ventricular hypertrophy. O verall left ventricular systolic function is low-normal with, an EF between 50 - 55 %. The diastoli c filling pattern is normal for the age of the patient. The right ventricle is normal in size. Left atrium is normal size by volume. The right atrium was not well visualized. Lumason used Interatrial and interventricular septum intact. The aortic valve is trileaflet and appears structurally normal. Trace amount of aortic regurgitatio n. There is no evidence of aortic stenosis. Mild mitral regurgitation is present. Mild tricuspid regurgitation present. There is no evidence of pulmonary hypertension. The right v entricular systolic pressure, as measured by Doppler, is 19.79mmHg. There is no pulmonic regurgitation present. The aortic root size is normal. IVC not well visualized There is no pericardial effusion. CONCLUSIONS -------- 1. Sinus rhythm. 2. This was a technically difficult study with suboptimal apical views. 3. The left ventricular size is normal. 4. There is moderate concentric left ventricular hypertrophy. 5. Overall left ventricular systolic function is low-normal with, an EF between 50 - 55 %. 6. The diastolic filling pattern is normal for the age of the patient. 7. The right ventricle is normal in size. 8. Left atrium is normal size by volume. 9. The right atrium was not well visualized. 10. Lumason used 11. Interatrial and interventricular septum intact. 12. The aortic valve is trileaflet and appears structurally normal. 13. Trace amount of aortic regurgitation. 14. There is no evidence of aortic stenosis. 15. Mild mitral regurgitation is present. 16. Mild tricuspid regurgitation present. 17. There is no evidence of pulmonary hypertension. 18. The right ventricular systolic pressure, as measured by Doppler, is 19.79mmHg. 19. There is no pulmonic regurgitation present. 20. The aortic root size is normal. 21. IVC not well visualized 22. There is no pericardial effusion. PATTERN KEEPER: Kimberly Roldan RDCS
[2019-04-01 12:17] VITALS: BP 141/75; PULSE 94; TEMP 97.6
--- NOTE | 2019-04-01 12:48 | NM ---
EXAMINATION TYPE: NM stress persantine cardiolit DATE OF EXAM: 04/01/2019 COMPARISON: NONE HISTORY: Chest pain TECHNIQUE: After the intravenous administration of 10.4 mCi Tc 99m Sestamibi - Cardiolite resting SP ECT images acquired 45 minutes post injection. The patient received 38.2 mg Persantine, 27.9 mCi Tc 99m Sestamibi - Stress images obtained 30 minute s post injection FINDINGS: Review of stress and rest SPECT images demonstrates fixed defects in the cardiac apex and inferior la teral wall. No reversible defect is seen. Gated analysis shows abnormal wall motion with dyskinesis a nd an estimated left ventricular ejection fraction of 47 %. TID is upper limits of normal measured at 1.22. IMPRESSION: 1. No scintigraphic evidence for reversible ischemia. 2. Old infarct in the inferior septal wall on both portions of this large defect may relate to adjace nt diaphragmatic/GI attenuation. Abnormal wall motion confirms the presence of prior infarct. 3. Apical defect may relate to physiologic apical thinning as it is greater on rest than stress imagi ng. 4. TID is upper limits of normal measuring 1.22. This can be seen in balanced 3 vessel ischemia or ca rdiomyopathy. 5. Estimated left ventricular ejection fraction of 47%, abnormal.
--- NOTE | 2019-04-01 12:57 | EST ---
EXERCISE STRESS DATE OF SERVICE: 04/01/2019 AGE: 59 SEX: Female HT: 5'7" WT: 229 PROTOCOL: Persantine Cardiolite STAGE: DURATION OF EXERCISE: HEART RATE REST: 88 BLOOD PRESSURE REST: 133/74 MAXIMUM HEART RATE ACHIEVED: 103 MAXIMUM BLOOD PRESSURE: 146/66 85% MPHR: 136 100% MPHR: 160 METS: INDICATIONS: Chest pain. CLINICAL INFORMATION: He is a 59-year-old female who presents with chest discomfort and has a history of coronary artery disease. Baseline heart rate 88 beats per minute. Baseline blood pressure 133/74 mmHg. Baseline 12-lead ECG shows sinus rhythm with nonspecific ST-T abnormalities. Patient underwent Persantine infusion per protocol. There was no significant change in heart rate or blood pressure. She did complain of chest pain during the procedure. PVCs were noted on a regular basis. No nonsustained ventricular tachycardia. Nuclear portion of the stress test will be reported separately. There was no definite ECG evidence for ischemia. MMODL / IJN: [id number] /
--- NOTE | 2019-04-01 13:55 | P.HPIM ---
History of Present Illness 59-year-old the pleasant female with known history of coronary disease with a cardiac catheterization and stenting to RCA in August 2018 came in with complaints of a chest pressure without any diaphoresis patient had some chronic component although all the symptoms resolved because of which I'm not regarding a d-dimer. Patient liver the symptoms lasted for few minutes.agents symptoms are not associated with food. Patient denied any diaphoresis or shortness of breath associated with that she believes anxiety may be contributing to this. Acute coronary syndromes with ruled out with troponins and EKGs and patient underwent stress test which did not show any new inducible ischemia. Patient will be discharged today. Review of Systems REVIEW OF SYSTEMS: CONSTITUTIONAL: No fever, no malaise, no fatigue. HEENT: No recent visual problems or hearing problems. Denied any sore throat. CARDIOVASCULAR: No orthopnea, PND, no palpitations, no syncope. PULMONARY: No shortness of breath, no cough, no hemoptysis. GASTROINTESTINAL: No diarrhea, no nausea, no vomiting, no abdominal pain. NEUROLOGICAL: No headaches, no weakness, no numbness. HEMATOLOGICAL: Denies any bleeding or petechiae. GENITOURINARY: Denies any burning micturition, frequency, or urgency. MUSCULOSKELETAL/RHEUMATOLOGICAL: Denies any joint pain, swelling, or any muscle pain. ENDOCRINE: Denies any polyuria or polydipsia. The rest of the 14-point review of systems is negative. Past Medical History Past Medical History: Asthma, Coronary Artery Disease (CAD), Chest Pain / Angin a, Diabetes Mellitus, Fibromyalgia, GERD/Reflux, Hyperlipidemia, Hypertension, Myocardial Infarction (MD), Rheumatoid Arthritis (RA) Additional Past Medical History / Comment(s): morbid obesity, chronic migraines, SCOLIOSIS, CHRONIC BACK PAIN, CARPAL TUNNEL bilaterally. bed sore to coccyx. Last Myocardial Infarction Date:: 05/24/15 History of Any Multi-Drug Resistant Organisms: None Reported Past Surgical History: Breast Surgery, Cholecystectomy, Heart Catheterization, Heart Catheterization With Stent, Tonsillectomy Additional Past Surgical History / Comment(s): 05/2015 PCI with stent at [facility]. Other surgeries: BIBI KNEE ARTHROSCOPIES, L BREAST-LUM PECTOMY(BENIGN) Past Anesthesia/Blood Transfusion Reactions: Motion Sickness Additional Past Anesthesia/Blood Transfusion Reaction / Comment(s): Pt states she has clausterphobia. Date of Last Stent Placement:: 05/24/15 per pt Past Psychological History: Anxiety, Depression Additional Psychological History / Comment(s): Pt reports hx of bedsore to coccyx, states shes had surgeries and pt states it is healed now. Smoking Status: Former smoker Past Alcohol Use History: None Reported Additional Past Alcohol Use History / Comment(s): SMOKED X les than 1 YEAR,QUIT 1979 Past Drug Use History: None Reported - Past Family History Father Family Medical History: Dementia Mother History Unknown: Yes Family Medical History: Cancer, Chest Pain / Angina Additional Family Medical History / Comment(s): Breast cancer with recent surgery. Medications and Allergies Home Medications Medication Instructions Recorded Confirmed Type Clopidogrel Bisulfate [Plavix] 75 mg PO DAILY 03/17/17 03/31/19 History Glimepiride [Amaryl] 4 mg PO BID 03/17/17 03/31/19 History Ranitidine HCl [Zantac] 150 mg PO BID 03/17/17 03/31/19 History Atorvastatin [Lipitor] 80 mg PO HS 06/21/17 03/31/19 History Celecoxib [CeleBREX] 200 mg PO DAILY 03/31/19 03/31/19 History Loratadine [Claritin] 10 mg PO DAILY 03/31/19 03/31/19 History Losartan Potassium [Cozaar] 25 mg PO DAILY 03/31/19 03/31/19 History Nitroglycerin Sl Tabs [Nitrostat] 0.4 mg SUBLINGUAL Q5M PRN 03/31/19 03/31/19 History rOPINIRole HCL [Requip] 0.5 mg PO HS 03/31/19 03/31/19 History Allergies Allergy/AdvReac Type Severity Reaction Status Date / Time WARNER Inhibitors Allergy Unknown Verified 03/31/19 19:36 amoxicillin [From Amoxil] Allergy Unknown Verified 03/31/19 19:36 Childhood ciprofloxacin [From Cipro] Allergy Rash/Hives Verified 03/31/19 19:36 metformin Allergy Diarrhea Verified 03/31/19 19:36 Penicillins Allergy Rash/Hives Verified 03/31/19 19:36 Physical Exam Vitals: Vital Signs Temp Pulse Pulse Resp BP BP BP 04/01/19 12:00 97.6 F 94 18 141/75 04/01/19 08:00 99.1 F 76 18 106/69 04/01/19 04:00 84 18 04/01/19 03:35 97.5 F L 75 18 111/67 04/01/19 00:00 97.7 F 84 18 107/66 03/31/19 21:45 84 18 03/31/19 21:40 98.3 F 81 18 114/77 03/31/19 21:26 98 F 84 18 123/67 03/31/19 19:34 98.2 F 87 18 114/63 03/31/19 18:53 98.3 F 91 13 103/60 Pulse Ox 04/01/19 12:00 95 04/01/19 08:00 93 L 04/01/19 04:00 04/01/19 03:35 92 L 04/01/19 00:00 94 L 03/31/19 21:45 03/31/19 21:40 96 03/31/19 21:26 96 03/31/19 19:34 94 L 03/31/19 18:53 95 Intake and Output 03/31/19 04/01/19 04/01/19 22:59 06:59 14:59 Intake Total 222 Balance 222 Intake: Oral 222 Other: Voiding Method Toilet # Voids 1 Weight 103.873 kg PHYSICAL EXAMINATION: GENERAL: The patient is alert and oriented x3, not in any acute distress. Well developed, well nourished. HEENT: Pupils are round and equally reacting to light. EOMI. No scleral icterus. No conjunctival pallor. Normocephalic, atraumatic. No pharyngeal erythema. No thyromegaly. CARDIOVASCULAR: S1 and S2 present. No murmurs, rubs, or gallops. PULMONARY: Chest is clear to auscultation, no wheezing or crackles. ABDOMEN: Soft, nontender, nondistended, normoactive bowel sounds. No palpable organomegaly. MUSCULOSKELETAL: No joint swelling or deformity. EXTREMITIES: No cyanosis, clubbing, or pedal edema. NEUROLOGICAL: Gross neurological examination did not reveal any focal deficits. SKIN: No rashes. Results CBC & Chem 7: 03/31/19 19:02 03/31/19 19:02 Labs: Abnormal Lab Results - Last 24 Hours (Table) 03/31/19 03/31/19 04/01/19 Range/Units 19:02 19:02 03:15 RDW 15.6 H (11.5-15.5) % APTT 50.0 H (22.0-30.0) sec BUN 26 H (7-17) mg/dL Glucose 132 H (74-99) mg/dL HDL Cholesterol (40-60) mg/dL 04/01/19 Range/Units 07:24 RDW (11.5-15.5) % APTT (22.0-30.0) sec BUN (7-17) mg/dL Glucose (74-99) mg/dL HDL Cholesterol 33 L (40-60) mg/dL Thrombosis Risk Factor Assmnt - Choose All That Apply Any of the Below Risk Factors Present?: Yes Each Factor Represents 1 point: Acute MD, Age 41-60 years, Obesity (BMI >25) Other Risk Factors: No Other congenital or acquired thrombophilia - If yes, enter type in comment: No Thrombosis Risk Factor Assessment Total Risk Factor Score: 3 Thrombosis Risk Factor Assessment Level: Moderate Risk Assessment and Plan Plan: chest pain: Management as mentioned above and the patient has atypical chest pain probably related to anxiety patient will be discharged today. -coronary artery disease with recent microinfarction and the stenting in month of August this year -Asthma without any acute exacerbation -gastroesophageal reflux disease -Hyperlipidemia -Hypertension -Type 2 diabetes mellitus patient will be resumed on her home medications for above mentioned medical problems patient will be discharged later today
--- NOTE | 2019-04-01 13:55 | P.DS ---
Providers Date of admission: 03/31/19 20:37 Attending physician: German Hart MD Consults: 03/31/19 20:37 Consult Physician Urgent Consulting Provider: [facility] Consult Reason/Comments: Unstable angina Do you want consulting provider notified?: Yes Primary care physician: Sofya Lott [facility] Course: as mentioned in HPI Plan - Discharge Summary Discharge Rx Participant: No New Discharge Prescriptions: Continue Clopidogrel Bisulfate [Plavix] 75 mg PO DAILY Glimepiride [Amaryl] 4 mg PO BID Ranitidine HCl [Zantac] 150 mg PO BID Atorvastatin [Lipitor] 80 mg PO HS Nitroglycerin Sl Tabs [Nitrostat] 0.4 mg SUBLINGUAL Q5M PRN PRN Reason: Chest Pain Losartan Potassium [Cozaar] 25 mg PO DAILY Loratadine [Claritin] 10 mg PO DAILY Celecoxib [CeleBREX] 200 mg PO DAILY rOPINIRole HCL [Requip] 0.5 mg PO HS Discharge Medication List Clopidogrel Bisulfate [Plavix] 75 mg PO DAILY 03/17/17 [History] Glimepiride [Amaryl] 4 mg PO BID 03/17/17 [History] Ranitidine HCl [Zantac] 150 mg PO BID 03/17/17 [History] Atorvastatin [Lipitor] 80 mg PO HS 06/21/17 [History] Celecoxib [CeleBREX] 200 mg PO DAILY 03/31/19 [History] Loratadine [Claritin] 10 mg PO DAILY 03/31/19 [History] Losartan Potassium [Cozaar] 25 mg PO DAILY 03/31/19 [History] Nitroglycerin Sl Tabs [Nitrostat] 0.4 mg SUBLINGUAL Q5M PRN 03/31/19 [History] rOPINIRole HCL [Requip] 0.5 mg PO HS 03/31/19 [History] Follow up Appointment(s)/Referral(s): Sofya Lott MD [Primary Care Provider] - 3 Days Discharge Disposition: HOME SELF-CARE
[2019-04-01] MEDS ORDERED: ATORVASTATIN 80 MG TAB PO SCH (21:00)
== END 2019-04-01 14:21 | disposition home or self-care (01) ==
LOC: EC 18:44 → 1SOBS 20:37
PROVIDERS: ADMIT Internal Medicine; ATTEND Internal Medicine
DX: R07.89 Other chest pain (principal); E11.9 Type 2 diabetes mellitus without complications; K21.9 Gastro-esophageal reflux disease without esophagitis; E78.5 Hyperlipidemia, unspecified; E78.00 Pure hypercholesterolemia, unspecified; I10 Essential (primary) hypertension; M06.9 Rheumatoid arthritis, unspecified; E66.01 Morbid (severe) obesity due to excess calories; Z68.35 Body mass index [BMI] 35.0-35.9, adult; J45.909 Unspecified asthma, uncomplicated; M79.7 Fibromyalgia; I25.10 Atherosclerotic heart disease of native coronary artery without angina pectoris; G89.29 Other chronic pain; M54.9 Dorsalgia, unspecified; I25.2 Old myocardial infarction; Z95.5 Presence of coronary angioplasty implant and graft; Z90.49 Acquired absence of other specified parts of digestive tract; Z87.891 Personal history of nicotine dependence; Z79.02 Long term (current) use of antithrombotics/antiplatelets; Z79.84 Long term (current) use of oral hypoglycemic drugs; Z79.899 Other long term (current) drug therapy; Z79.1 Long term (current) use of non-steroidal anti-inflammatories (NSAID); Z88.0 Allergy status to penicillin; Z88.8 Allergy status to other drugs, medicaments and biological substances; Z88.1 Allergy status to other antibiotic agents; Z91.19 Patient's noncompliance with other medical treatment and regimen; Z81.8 Family history of other mental and behavioral disorders; Z80.3 Family history of malignant neoplasm of breast; Z82.49 Family history of ischemic heart disease and other diseases of the circulatory system
CPT/HCPCS: 96366 ×2; 96376; 96361; 96365; 99291; 36415; 93005; 93017; 80061; 80053; 83735; 84484 ×2; 85025; 85610; 85730 ×2; 71046; 78452; G0378 ×2; C8929; A9500; J1644 ×2; J1245; Q9950; 93306

== ENCOUNTER 2020-08-15 13:43 | Emergency (ER) | payer OTHER ==
[2020-08-15 13:55] VITALS: BP 123/80; PULSE 90; RESP 20; TEMP 98.8
[2020-08-15] MEDS ORDERED: ACET/COD 300 MG/30 MG STARTER PACK 6 TAB BTL PO STA (14:10)
--- NOTE | 2020-08-15 14:36 | ED ---
Lower Extremity Injury HPI - General Chief Complaint: Extremity Injury, Lower Stated Complaint: knee pain Time Seen by Provider: 08/15/20 14:02 Source: patient, EMS Mode of arrival: EMS Limitations: no limitations - History of Present Illness Initial Comments: 60-year-old female patient presents to the emergency department today for evaluation of right knee pain. Patient states she had a follow-up week ago. States she started to have discomfort to the right knee yesterday and today is unable to walk due to increased pain. Denies any numbness or tingling to the lower leg. Denies history of DVT. States she did take Tylenol for pain without relief. Denies previous injury to the knee. Patient denies any recent rash, fever, chills, cough, shortness of breath, chest pain, abdominal pain, nausea, vomiting, diarrhea, constipation, back pain, numbness, tingling, dizziness, weakness, hematuria, dysuria, urinary urgency, urinary frequency, headache, visual changes, or any other complaints. - Related Data Home Medications Medication Instructions Recorded Confirmed RX: Clopidogrel Bisulfate [Plavix] 75 mg PO DAILY 03/17/17 03/31/19 RX: Glimepiride [Amaryl] 4 mg PO BID 03/17/17 03/31/19 RX: Ranitidine HCl [Zantac] 150 mg PO BID 03/17/17 03/31/19 RX: Atorvastatin [Lipitor] 80 mg PO HS 06/21/17 03/31/19 RX: Celecoxib [CeleBREX] 200 mg PO DAILY 03/31/19 03/31/19 RX: Loratadine [Claritin] 10 mg PO DAILY 03/31/19 03/31/19 RX: Losartan Potassium [Cozaar] 25 mg PO DAILY 03/31/19 03/31/19 RX: Nitroglycerin Sl Tabs 0.4 mg SUBLINGUAL Q5M PRN 03/31/19 03/31/19 [Nitrostat] RX: rOPINIRole HCL [Requip] 0.5 mg PO HS 03/31/19 03/31/19 Allergies Allergy/AdvReac Type Severity Reaction Status Date / Time COLLIN Inhibitors Allergy Unknown Verified 08/15/20 13:50 amoxicillin [From Amoxil] Allergy Unknown Verified 08/15/20 13:50 Childhood ciprofloxacin [From Cipro] Allergy Rash/Hives Verified 08/15/20 13:50 metformin Allergy Diarrhea Verified 08/15/20 13:50 Penicillins Allergy Rash/Hives Verified 08/15/20 13:50 Review of Systems ROS Statement: Those systems with pertinent positive or pertinent negative responses have been documented in the HPI. ROS Other: All systems not noted in ROS Statement are negative. Past Medical History Past Medical History: Asthma, Coronary Artery Disease (CAD), Chest Pain / Angina, Diabetes Mellitus, Fibromyalgia, GERD/Reflux, Hyperlipidemia, Hypertension, Myocardial Infarction (DC), Rheumatoid Arthritis (RA) Additional Past Medical History / Comment(s): morbid obesity, chronic migraines, SCOLIOSIS, CHRONIC BACK PAIN, CARPAL TUNNEL bilaterally. bed sore to coccyx. Last Myocardial Infarction Date:: 05/24/15 History of Any Multi-Drug Resistant Organisms: None Reported Past Surgical History: Breast Surgery, Cholecystectomy, Heart Catheterization, Heart Catheterization With Stent, Tonsillectomy Additional Past Surgical History / Comment(s): 05/2015 PCI with stent at [facility]. Other surgeries: BIBI KNEE ARTHROSCOPIES, L BREAST- LUMPECTOMY(BENIGN) Past Anesthesia/Blood Transfusion Reactions: Motion Sickness Additional Past Anesthesia/Blood Transfusion Reaction / Comment(s): Pt states she has clausterphobia. Date of Last Stent Placement:: 05/24/15 per pt Past Psychological History: Anxiety, Depression Smoking Status: Former smoker Past Alcohol Use History: None Reported Past Drug Use History: None Reported - Past Family History Father Family Medical History: Dementia Mother History Unknown: Yes Family Medical History: Cancer, Chest Pain / Angina Additional Family Medical History / Comment(s): Breast cancer with recent surgery. General Exam Limitations: no limitations General appearance: alert, in no apparent distress, other (Physical well- developed, well-nourished adult female patient in no acute distress. Vital signs upon presentation are temperature 98.8F, pulse 90, respirations 20, blood pressure 123/80, pulse ox 95% on room air.) Respiratory exam: Present: normal lung sounds bilaterally. Absent: respiratory distress, wheezes, rales, rhonchi, stridor Cardiovascular Exam: Present: regular rate, normal rhythm, normal heart sounds. Absent: systolic murmur, diastolic murmur, rubs, gallop, clicks GI/Abdominal exam: Present: soft, normal bowel sounds. Absent: distended, tenderness, guarding, rebound, rigid Extremities exam: Present: normal inspection, full ROM, tenderness (Over the anterior right knee), other (Skin to the right leg is pink, warm, dry. Cap refills less than 3 seconds. Pedal and posttibial pulses 2+. Mild swelling noted over the right knee joint.) Neurological exam: Present: alert, oriented X3, CN II-XII intact Psychiatric exam: Present: normal affect, normal mood Skin exam: Present: warm, dry, intact, normal color. Absent: rash Course Vital Signs 08/15/20 13:51 Temperature 98.8 F Pulse Rate 90 Respiratory 20 Rate Blood Pressure 123/80 O2 Sat by Pulse 95 Oximetry Medical Decision Making - Medical Decision Making 60-year-old female patient presents to the emergency department today for evaluation of right knee pain. States she had a fall about a week ago started having pain yesterday. Physical examination did reveal some soft tissue swelling. She did have full range of motion. Neurovascular status is intact. X-ray was obtained and did show a moderate size suprapatellar joint effusion. No evidence for fracture or dislocation. We will place an Collin wrap for compression. She is instructed to take Tylenol for codeine for pain, Motrin as needed. Follow-up with primary care physician for recheck in 1-2 days per she is given orthopedic follow-up if necessary. Return parameters were discussed in detail. She verbalizes understanding and agrees with this plan. - Radiology Data Radiology results: report reviewed, image reviewed 3 views of the right knee are obtained. Report was reviewed in its entirety. Impression by Dr. Cooper shows no acute fracture dislocation the right knee. Disposition Clinical Impression: Right knee pain, Effusion, right knee Disposition: HOME SELF-CARE Condition: Good Instructions (If sedation given, give patient instructions): Knee Pain (ED) Additional Instructions: Use Collin wrap for comfort and support. Follow-up through primary care physician for recheck in 1-2 days. Follow up with orthopedics for further evaluation of ear pain if it does not improve over the next 7-10 days. Return to the emergency department for any new, worsening, or concerning symptoms. Is patient prescribed a controlled substance at d/c from ED?: No Referrals: Sofya Lott MD [Primary Care Provider] - 1-2 days Freedom Quinonez DO [Doctor of Osteopathic Medicine] - 1-2 days Time of Disposition: 15:10
--- NOTE | 2020-08-15 14:42 | XR ---
EXAMINATION TYPE: XR knee complete RT DATE OF EXAM: 08/15/2020 CLINICAL HISTORY: Pain after falling injury. TECHNIQUE: Three views of the right knee are obtained. COMPARISON: Right knee x-ray September 19, 2018. FINDINGS: There is no acute fracture/dislocation evident in right knee. Moderate medial tibiofemoral compartment narrowing and spurring redemonstrated. Mild to moderate narrowing patellofemoral compart ment with mild spurring redemonstrated. Increased soft tissue density consistent with small to modera te-sized suprapatellar joint effusion on current study. IMPRESSION: There is no acute fracture or dislocation in the right knee.
== END 2020-08-15 15:21 | disposition home or self-care (01) ==
LOC: EC 13:43
DX: M25.461 Effusion, right knee (principal); I25.2 Old myocardial infarction; Z88.8 Allergy status to other drugs, medicaments and biological substances; Z88.0 Allergy status to penicillin; Z88.1 Allergy status to other antibiotic agents; Z87.891 Personal history of nicotine dependence
CPT/HCPCS: 99283

== ENCOUNTER → 2021-12-29 | Outpatient (CLI) | payer OTHER | END | disposition home or self-care (01) | LOC: LABPAT 13:43 | PROVIDERS: ATTEND Orthopaedic Surgery | DX: Z01.812 Encounter for preprocedural laboratory examination (principal); Z22.322 Carrier or suspected carrier of Methicillin resistant Staphylococcus aureus; M17.12 Unilateral primary osteoarthritis, left knee | CPT/HCPCS: 87070 ==

== ENCOUNTER 2022-01-09 08:36 | Day surgery (SDC) | payer OTHER ==
[2022-01-08 07:57] VITALS: BMI 41.0
--- NOTE | 2022-01-08 11:40 | HP ---
HISTORY AND PHYSICAL CHIEF COMPLAINT: Right knee pain. HISTORY OF PRESENT ILLNESS: The patient is a 61-year-old female who presents with progressive right knee pain for the past several years, worsening recently. She is having a difficult time with prolonged walking, sitting or standing. She notes early knee locks and giving way. She is having night symptoms. She has tried medications in addition to an injection and bracing, without much relief. She does use a walker. PAST MEDICAL HISTORY: Significant for coronary artery disease, previous myocardial infarction, type 2 diabetes, depression, hypertension and hyperlipidemia. PAST SURGICAL HISTORY: Significant for cardiac stent placement x3. CURRENT MEDICATIONS: Amitriptyline, atorvastatin, Plavix, gabapentin, glimepiride, loratadine, lorazepam, losartan, metoprolol and trazodone. ALLERGIES: QUINOLONES. FAMILY HISTORY: Significant for heart disease. SOCIAL HISTORY: Significant for previous tobacco use. REVIEW OF SYSTEMS: Sixteen-point review of systems otherwise reviewed and is noncontributory. PHYSICAL EXAMINATION: On examination, the patient is approximately 5 feet 4 inches, 221 pounds of endomorphic habitus. HEENT exam is nonfocal. Neck is supple. She has painless passive motion of the right hip. Straight-leg raise is negative. Active motion of right knee: Minus 11 to 95 degrees of flexion. She has a moderate effusion. She is tender about the medial joint line. Collaterals are stable. Mita is negative. Marisol's is equivocal. She has an antalgic gait pattern. She has a genu varum alignment. Her distal neurovascular exam appears intact in the right lower extremity. X-rays to include weight-bearing notch and lateral views of the right knee obtained in the office show severe medial compartment osteoarthrosis with [id number] changes and subchondral sclerosis. IMPRESSION: 1. Right knee severe medial compartment osteoarthrosis. 2. History of heart disease, on anticoagulation. RECOMMENDATIONS: I talked to the patient at length regarding her condition along with treatment options. At this point she is quite limited because of pain related to her osteoarthrosis despite previous conservative measures. After thorough discussion, she opts to proceed with surgery. We will plan to proceed with right total knee arthroplasty. We will likely reinstitute her Plavix postoperatively. Risks and benefits were discussed at length in layman's terms. She underwent preoperative medical and cardiac clearance. MMODL / IJN: [id number] /
[~2022-01-09 08:36] MED LIST: ACETAMINOPHEN TAB 500 MG TAB PO PRN; DEXAMETHASONE SOD PHOSPHATE 4 MG/ML 1 ML VIAL IV ONE; LIDOCAINE 1% (10MG/ML) FOR IV START INTRADERMA PRN; MELOXICAM 7.5 MG TAB PO PRN; MIDAZOLAM 2 MG/2 ML VIAL IV PRN; ONDANSETRON 4 MG/2 ML VIAL IVP ONE; TRANEXAMIC ACID IN NACL,ISO-OS 1,000 MG in SALINE 1 100ML.BAG IVPB PRN
[2022-01-09] MEDS: LACTATED RINGERS 1,000 ML IV SCH (09:30)
[2022-01-09 09:40] LABS: Glucose,Whole Blood 141 mg/dL (75-99)
[2022-01-09] MEDS ORDERED: fentaNYL (PF) 50 MCG/ML 2 ML AMP IVP ONE (09:46)
[2022-01-09] MEDS ORDERED: HYDROmorphone (PF) 1 MG/ML ONE (09:51)
[2022-01-09] MEDS ORDERED: ROPIVACAINE 5 MG/ML 30 ML VIAL ONE (09:51)
[2022-01-09] MEDS ORDERED: fentaNYL (PF) 50 MCG/ML 2 ML AMP ONE (09:51)
[2022-01-09] MEDS ORDERED: GLYCOPYRROLATE 0.2 MG/ML 2 ML VIAL ONE (09:51)
[2022-01-09] MEDS ORDERED: TRANEXAMIC ACID IN NACL,ISO-OS 1,000 MG/100 ML BAG ONE (09:51)
[2022-01-09] MEDS ORDERED: SUCCINYLCHOLINE CHLORIDE VIAL 200 MG/10 ML VIAL IV ONE (09:51)
[2022-01-09] MEDS ORDERED: PHENYLEPHRINE-0.9% NACL SYG 1,000 MCG/10 ML SYRINGE ONE (09:51)
[2022-01-09] MEDS ORDERED: MIDAZOLAM 2 MG/2 ML VIAL ONE (09:51)
[2022-01-09] MEDS ORDERED: PROPOFOL 10 MG/ML 20 ML VIAL IV ONE (09:51)
[2022-01-09] MEDS ORDERED: NEOSTIGMINE 1 MG/ML 10 ML VIAL ONE (09:51)
[2022-01-09] MEDS ORDERED: LIDOCAINE 2% INJ 20 MG/ML (2 ML VIAL) ONE (09:51)
[2022-01-09] MEDS ORDERED: ceFAZolin 1,000 MG in SODIUM CHLORIDE 0.9% 1,000 ML IRRIGATION ONE (10:17)
[2022-01-09] MEDS ORDERED: HYDROmorphone 0.5 MG/0.5 ML SYRINGE IVP PRN (11:18)
[2022-01-09] MEDS ORDERED: HYDROcodone/APAP 5-325MG 1 EACH TAB PO PRN (11:18)
[2022-01-09] MEDS ORDERED: NALOXONE 0.4 MG/ML 1 ML VIAL IV PRN (11:18)
[2022-01-09] MEDS ORDERED: HYDROmorphone 1 MG/ML 1 ML SYRINGE IVP PRN (11:18)
[2022-01-09] MEDS ORDERED: traMADol 50 MG TAB PO PRN (11:18)
[2022-01-09] MEDS ORDERED: MAGNESIUM HYDROXIDE 2,400 MG/10 ML CUP PO PRN (11:18)
[2022-01-09] MEDS ORDERED: ONDANSETRON 4 MG/2 ML VIAL IVP PRN (11:18)
--- NOTE | 2022-01-09 11:49 | P.OP ---
Date of Procedure: 01/09/22 Preoperative Diagnosis: Right knee severe tricompartmental osteoarthrosis Postoperative Diagnosis: Same Procedure(s) Performed: Right total knee arthroplastycementedposterior stabilized Implants: Depuy Attune size 5 cemented femoral component, size 5 cemented tibial component, 9 mm articular surface, 35 mm cemented patellar component. This is a posterior stabilized implant. Anesthesia: GETA Surgeon: Gerard Cox Glassware Defect Repairer #1: Santosh Rausch Assistant #2: Triston Foote Estimated Blood Loss (ml): 50 Pathology: other (Bone fragments) Condition: stable Disposition: PACU Indications for Procedure: The patient's a 61-year-old female who presents with progressive right knee pain secondary to osteoporosis despite conservative measures. A discussion of the risks and benefits of operative intervention versus continued conservative measures was made with patient. She opted to proceed with surgery. Operative risks to include infection, neurovascular injury, development of blood clots, possible fracture, possible component loosening/failure need for subsequent procedures was discussed. Informed consent was obtained. Operative Findings: As below Description of Procedure: The patient was brought to the operating room, and after induction of spinal anesthesia the right lower extremity was prepped and draped in a normal fashion. The tourniquet was inflated to 270 mm marker. A longitudinal incision extending 3 finger breaths above the superior pole of patella extending to the medial aspect the tibial tubercle was then made. The skin and subcutaneous tissues were divided sharply. Electrocautery was used for hemostasis. A medial parapatellar arthrotomy was performed. The medial soft tissues to include the superficial and deep portions of the medial collateral ligament were elevated subperiosteally. The patella was everted. A portion of the retropatellar fat pad was excised sharply. The anterior cruciate ligament was sacrificed. Blunt retractors were placed. A starting hole was made in the distal femur 1 cm anterior to the posterior cruciate ligament origin. An intramedullary femoral guide was then inserted planning on 5 valgus distal cut with 9 mm distal resection. The cutting block was pinned in place. The distal cut was then made. The posterior referencing sizing guide was utilized. I felt size 5 was most appropriate. 3 of external rotation was built into the system and verified off the trans-epicondylar axis and the posterior condyles. The cutting block was pinned in place. The anterior, posterior, and chamfer cuts then made. Bone fragments were removed. The intercondylar guide was placed and the notch cut was made with a sagittal saw. The bone block was removed in one fragment. The trial component was then placed. There is good anterior to posterior and medial to lateral fit. The distal peg holes were drilled. The trial component was removed. Attention was then paid towards preparing the proximal femur. An extra medullary guide was utilized in line with the tibial shaft and second metatarsal distally. I planned on 2 mm resection from the medial compartment. The cutting block was pinned in place. The proximal tibial cut was then made. The bone was removed in one fragment. The remnants of the medial and lateral menisci were excised at the capsular junction with electrocautery. The tibia sized most appropriately at size 5. The trial femoral and tibial components were placed along with a 9 mm articular surface. I was able to obtain full flexion and extension with internal and external rotation. After several flexion and extension cycles, the tibial rotation was marked with electrocautery line with the medial one third of the tibial tubercle. Attention was then paid towards preparing the patella. A patella reamer was utilized taking stem to 14 mm of bone stock. A good flush cut was made. The patella sized most appropriately 35 mm. The peg holes were drilled. The trial components placed. I had good patellofemoral tracking with no hands technique. The trial components were then removed. The tibia was prepared in the appropriate rotatio n with appropriate drill and keel punch. The posterior osteophytes were removed with a curved osteotome. The flexion and extension gaps were checked and felt to be symmetric at 9 mm. A trial components were then removed. The bony surfaces were prepared with pulsatile lavage and dried. The tibial component was then cemented place was fully seated. Excess cement was removed. The femoral component cemented place and was fully seated. Excess cement was removed. The trial 9 mm articular surface was placed and the knee was put in full extension. The patella component was cemented place. After the cement had sufficiently hardened, the knee was again taken through a range of motion. Again I was able to obtain full flexion and extension with varus and valgus stress. The trial 9 mm articular surface was removed and the final one inserted. This was fully seated. Care was taken to avoid any soft tissue interposition. Pulsatile lavage was again utilized. The medial parapatellar a rthrotomy was closed with #2 Ethibond suture. The tourniquet was deflated with approximately 60 minutes total tourniquet time. Final hemostasis was obtained with the cautery. There was minimal bleeding therefore a deep drain was not placed. The subcutaneous tissues were reapproximated with interrupted 2-0 Vicryl sutures. The skin was reapproximated with 3-0 subcuticular strata fix suture. Skin tape and adhesive was applied. A sterile dressing was applied. The patient was awoken from sedation and transferred to recovery room in good condition. Blood loss was estimated at 50 mL. No complications were incurred. Sponge and needle counts were correct at the end of the case. Triston Foote and Alejandro LIZ assisted during the major components of this case to include exposure, bone resection, implantation, and closure.
[2022-01-09] MEDS: HYDROmorphone 0.5 MG/0.5 ML SYRINGE IVP PRN ×2 (12:11→12:25)
--- NOTE | 2022-01-09 12:28 | XR ---
EXAMINATION TYPE: XR knee limited RT DATE OF EXAM: 01/09/2022 COMPARISON: NONE HISTORY: 61-year-old female evaluation for postoperative abnormality in alignment TECHNIQUE: 2 views FINDINGS: Images show placement of right total knee arthroplasty. Both distal femoral and proximal tibial compo nents of the prosthesis are well seated without periprosthetic fracture. Alignment grossly anatomic. Anterior soft tissue swelling with scattered soft tissue air as well as intra-articular air related t o recent operation. IMPRESSION: Uncomplicated postoperative appearance right total knee arthroplasty.
[2022-01-09] MEDS ORDERED: ROPIVACAINE 0.2%-NS ON-Q PUMP 1,090 MG, EMPTY PAIN BALL 1 EACH MISCELLANE PRN (12:43)
--- NOTE | 2022-01-09 12:43 | P.ANPRN ---
Procedure Note - Anesthesia - Nerve Block Performed Right Adductor Canal Infusion Time Out Performed: Yes Date of Procedure: 01/09/22 Procedure Start Time: 12:23 Procedure Stop Time: 12:32 Location of Patient: Phase I Indication: Acute Post-Operative Pain, Requested by Surgeon Specifically requested for management of pain by : Gerard Cox Sedation Type: Sedate with meaningful contact maintained Preparation: Sterile Prep, Sterile Dressing Position: Supine Catheter: Indwelling Needle Types: Pajunk Needle Gauge: 18 Ultrasound used to visualize needle placement: Yes Ultrasound used to observe medication spread: Yes Injectate: 0.5% Ropivacaine (see comment for volume) (30 ml) Blood Aspirated: No Pain Paresthesia on Injection Noted: No Resistance on Injection: Normal Image Stored and Saved: Yes Events: Uneventful and Well Tolerated
[2022-01-09] MEDS ORDERED: ROPIVACAINE 0.2%-NS ON-Q PUMP 2 MG/ML EACH MISCELLANE ONE (12:46)
[2022-01-09 14:04] LABS: Glucose,Whole Blood 220 mg/dL (75-99)
[2022-01-09] MEDS ORDERED: NITROGLYCERIN SL TABS 0.4 MG TAB SUBLINGUAL PRN (14:16)
[2022-01-09 16:22] LABS: Glucose,Whole Blood 200 mg/dL (75-99)
--- NOTE | 2022-01-09 16:34 | P.CONS ---
History of Present Illness - Reason for Consult Consult date: 01/09/22 Medical Management Requesting physician: Gerard Cox - History of Present Illness History of Presenting Illness: Patient is a pleasant 61-year-old female with a past medical history of CAD with previous inferior [place] resulting in stent placement of RCA, hypertension, hyperlipidemia, type II vch-jozwwxd-uesfeluye diabetes mellitus, neuropathy, fibromyalgia, rheumatoid arthritis, depression, anxiety and osteoarthrosis. She is currently admitted under orthopedic surgery team status post right total knee arthroplasty completed by Dr. Cox secondary to severe tricompartmental osteoarthrosis. We have been consulted for continued medical management throughout hospitalization. Patient was seen and fully evaluated at bedside upon arrival to room 456 status post completion of right knee replacement. Patient currently reports postoperative pain is controlled. She states she remains sleepy and generally just tired. Patient has been tolerating clear liquid oral intake and denies having any postoperative nausea or vomiting. Patient denies urinating in postoperative period as of yet. Patient denies history of DVTs or PEs. She denies having any recent infections, exposure to ill contacts, or fevers. Patient currently denies having any headache, lightheadedness, dizziness, chest pain, palpitations, shortness of breath, abdominal pain, nausea, vomiting, or experiencing any numbness/tingling/focal weakness in her extremities. Review of systems: Pertinent positives and negatives as discussed in HPI, a complete review of systems was performed and all other systems are negative. Physical exam: Vital signs reviewed and stable. General: Nontoxic, no distress and appears stated age. Obese. Derm: Skin warm and dry, normal coloration for ethnicity. Head: Atraumatic, normocephalic and symmetric. Eyes: EOMs intact, no lid lag, and anicteric sclera Mouth: no lip lesions, mucus membranes moist Cardiovascular: regular rate and rhythm with normal S1S2, no murmur, positive posterior tibial pulses bilaterally, and cap refill < 2 seconds. Lungs: Respirations even, regular, and unlabored on room air. Lungs CTA bilaterally, no rhonchi, no rales, no wheezing, and no accessory muscle usage. Abdominal: soft, nontender to palpation, no guarding, no appreciable organomegaly Ext: ROM intact. No gross muscle atrophy, no edema, no contractures. Postoperative Dressing and ice pack in place to right lower extremity. Neuro: Speech clear, face symmetrical and CN II-XII grossly intact with no noted focal neuro deficits Psych: Alert and oriented to person, place, time, and situation. Appropriate and pleasant affect. Assessment and Plan of Care: Severe tricompartmental osteoarthrosis Status post right total knee arthroplasty -Surgical procedure completed by Dr. Cox 01/09/22. -DVT prophylaxis, pain management, weightbearing, and PT/OT per primary admitting orthopedic surgery team. -Currently DVT prophylaxis with DEYSI hernandez and SCDs in orthopedic surgery team has resumed patient's aspirin and Plavix. -Encourage use of incentive spirometry 10-15 times hourly while awake. Type II upq-ktlhwiy-lnufdietm diabetes mellitus with hyperglycemia -Hold oral hypoglycemic agent, glimeperide and place patient on glycemic protocol with NovoLog sliding scale to maintain tight glycemic control throughout hospitalization. Hypertension -Monitor vital signs and continue daily medication regimen with carvedilol 25 mg twice daily. Hyperlipidemia -Continue daily medication regimen with atorvastatin 80 mg nightly. History of CAD with previous [place] and stent placement -Continue cardiac medication regimen, patient has been cleared to resume Plavix and aspirin by general surgery team. Neuropathy Fibromyalgia Rheumatoid arthritis -Symptomatic care and pain management. -Continue Neurontin 300 mg each morning and 600 mg nightly. Depression and anxiety -Continue daily medication regimen with Cymbalta. Thank you for allowing us to participate in the care of this pleasant patient. Do not hesitate to contact us with questions. Someone can be reached from the [facility] hospitalist group all hours of the day at [phone] or via [employer]. Presley Kelly NP rendered care for this patient independently, reviewed the findings and plan as documented in the note above. I did not physically speak with or examine the patient on this date. Past Medical History Past Medical History: Asthma, Coronary Artery Disease (CAD), Chest Pain / Angina, Diabetes Mellitus, Fibromyalgia, Hyperlipidemia, Hypertension, Myocardial Infarction (KS), Osteoarthritis (OA) Additional Past Medical History / Comment(s): morbid obesity, chronic migraines, SCOLIOSIS, CHRONIC BACK PAIN, CARPAL TUNNEL bilaterally. RLS Last Myocardial Infarction Date:: 05/24/15 History of Any Multi-Drug Resistant Organisms: None Reported Past Surgical History: Breast Surgery, Cholecystectomy, Heart Catheterization, Heart Catheterization With Stent, Tonsillectomy Additional Past Surgical History / Comment(s): 05/2015 PCI with stent at [facility]. Other surgeries: BIBI KNEE ARTHROSCOPIES, L BREAST- LUMPECTOMY(BENIGN) Past Anesthesia/Blood Transfusion Reactions: Motion Sickness Additional Past Anesthesia/Blood Transfusion Reaction / Comm: Pt states she has claustrophobia. Date of Last Stent Placement:: 2020 Smoking Status: Former smoker - Past Family History Father Family Medical History: Dementia Mother History Unknown: Yes Family Medical History: Cancer, Chest Pain / Angina Additional Family Medical History / Comment(s): Breast cancer with recent surgery. Medications and Allergies Home Medications Medication Instructions Recorded Confirmed Type Clopidogrel Bisulfate [Plavix] 75 mg PO DAILY 03/17/17 01/05/22 History Glimepiride [Amaryl] 4 mg PO BID 03/17/17 01/05/22 History Atorvastatin [Lipitor] 80 mg PO HS 06/21/17 01/05/22 History Nitroglycerin Sl Tabs [Nitrostat] 0.4 mg SUBLINGUAL Q5M PRN 03/31/19 01/05/22 History rOPINIRole HCL [Requip] 0.5 mg PO HS 03/31/19 01/05/22 History Aspirin 81 mg PO DAILY 01/05/22 01/05/22 History Cetirizine HCl [Zyrtec] 10 mg PO DAILY 01/08/22 01/09/22 History DULoxetine HCL [Cymbalta] 60 mg PO BID 01/08/22 01/08/22 History Famotidine [Pepcid] 20 mg PO BID 01/08/22 01/08/22 History Gabapentin [Neurontin] 300 mg PO QAM 01/08/22 01/09/22 History Gabapentin [Neurontin] 600 mg PO HS 01/08/22 01/08/22 History Multivitamin [Multivitamins Adult 1 each PO DAILY 01/08/22 01/09/22 History Gummies] Sacubitril/Valsartan [Entresto 49 1 each PO BID 01/08/22 01/08/22 History mg-51 mg Tablet] carvediloL [Coreg] 25 mg PO BID 01/08/22 01/08/22 History tiZANidine [Zanaflex] 4 mg PO Q12H PRN 01/08/22 01/09/22 History traZODone HCL 150 mg PO HS 01/08/22 01/08/22 History Allergies Allergy/AdvReac Type Severity Reaction Status Date / Time WARNER Inhibitors Allergy Unknown Verified 01/05/22 15:36 ciprofloxacin [From Cipro] Allergy Rash/Hives Verified 01/05/22 15:36 Quinolones Allergy rash over Verified 01/05/22 15:36 entire body metformin AdvReac Diarrhea Verified 01/05/22 15:36 Physical Exam Osteopathic Statement: *. No significant issues noted on an osteopathic structural exam other than those noted in the History and Physical/Consult. Vitals: Vital Signs Temp Pulse Pulse Resp BP BP Pulse Ox 01/09/22 14:00 77 16 148/77 94 L 01/09/22 13:45 78 16 152/78 95 01/09/22 13:31 90 16 147/70 95 01/09/22 13:15 88 16 152/78 92 L 01/09/22 13:00 91 16 145/79 91 L 01/09/22 12:46 92 16 148/73 93 L 01/09/22 12:31 90 16 144/68 96 01/09/22 12:16 86 16 161/78 94 L 01/09/22 12:01 91 16 156/80 97 01/09/22 11:46 97.2 F L 90 14 156/76 96 01/09/22 09:00 97.5 F L 83 16 144/63 96 Intake and Output 01/08/22 01/09/22 01/09/22 22:59 06:59 14:59 Intake Total 951 Output Total 50 Balance 901 Intake: IV 951 Output: Estimated Blood Loss 50 Other: Weight 118.8 kg Results Labs: Abnormal Lab Results - Last 24 Hours (Table) 01/09/22 01/09/22 Range/Units 09:28 14:02 POC Glucose (mg/dL) 141 H 220 H (75-99) mg/dL
[2022-01-09] MEDS: INSULIN ASPART (NovoLOG) 100 UNIT/ML VIAL SQ SCH ×2 (16:59→21:31)
[2022-01-09] MEDS: carvediloL 12.5 MG TAB PO SCH (16:59)
[2022-01-09 19:37] LABS: Glucose,Whole Blood 304 mg/dL (75-99)
[2022-01-09] MEDS ORDERED: GABAPENTIN 300 MG CAP PO SCH (21:00)
[2022-01-09] MEDS ORDERED: traZODone HCL 50 MG TAB PO SCH (21:00)
[2022-01-09] MEDS ORDERED: SENNOSIDES-DOCUSATE SODIUM 1 EACH TAB PO SCH (21:00)
[2022-01-09] MEDS ORDERED: ATORVASTATIN 80 MG TAB PO SCH (21:00)
[2022-01-09] MEDS: DULoxetine HCL 60 MG CAPSULE.DR PO SCH (21:29)
[2022-01-09] MEDS: FAMOTIDINE 20 MG TAB PO SCH (21:29)
[2022-01-09] MEDS: SACUBITRIL/VALSARTAN 49 MG-51 MG TABLET PO SCH (21:31)
[2022-01-10] MEDS: HYDROcodone/APAP 7.5-325MG 1 EACH TAB PO PRN ×2 (01:10→08:19)
[2022-01-10 06:50] LABS: Glucose,Whole Blood 159 mg/dL (75-99)
--- NOTE | 2022-01-10 06:59 | P.PN ---
Progress Note - Text Progress Note Date: 01/10/22 Postoperative day # 1 status post total knee arthroplasty, and adductor canal catheter placed for postoperative analgesia, currently at ropivacaine 0.2% 8 mL per hour and continuous infusion, visual analogue scale is 3/10, patient using oral pain medication for breakthrough pain. Assessment and plan= Acute postoperative pain, adductor canal catheter for pain control, pain is well controlled we'll continue the same management.
[2022-01-10] MEDS: SACUBITRIL/VALSARTAN 49 MG-51 MG TABLET PO SCH (07:05)
[2022-01-10] MEDS: FAMOTIDINE 20 MG TAB PO SCH (07:05)
[2022-01-10] MEDS: carvediloL 12.5 MG TAB PO SCH (07:05)
[2022-01-10] MEDS: INSULIN ASPART (NovoLOG) 100 UNIT/ML VIAL SQ SCH ×2 (07:06→11:29)
[2022-01-10] MEDS: DULoxetine HCL 60 MG CAPSULE.DR PO SCH (07:06)
[2022-01-10] MEDS: LACTATED RINGERS 1,000 ML IV SCH (08:17)
--- NOTE | 2022-01-10 08:39 | P.PN ---
Subjective Progress Note Date: 01/10/22 Hospital course: Patient is a pleasant 61-year-old female with a past medical history of CAD with previous inferior [place] resulting in stent placement of RCA, hypertension, hyperlipidemia, type II vog-hnjilbo-xwgzxyctq diabetes mellitus, neuropathy, fibromyalgia, rheumatoid arthritis, depression, anxiety and osteoarthrosis. She is currently admitted under orthopedic surgery team status post right total knee arthroplasty completed by Dr. Cox secondary to severe tricompartmental o steoarthrosis. We have been consulted for continued medical management throughout hospitalization. Physical exam: Patient was seen and fully evaluated at bedside this morning. Patient is postop erative day one and doing very well. Patient has been ambulatory in room with walker to and from restroom and displaying no difficulties at this time. Patient reports postoperative pain is controlled and she denies having any complaints or concerns at this time. Morning labs reviewed and stable. Postoperative hemoglobin 10.7, expected finding and stable. Surgery team plans to discharge patient home today with home care. Patient is medically stable for discharge at this time. Vital signs reviewed and stable. General: Nontoxic, no distress and appears stated age. Obese. Derm: Skin warm and dry, normal coloration for ethnicity. Head: Atraumatic, normocephalic and symmetric. Eyes: EOMs intact, no lid lag, and anicteric sclera Mouth: no lip lesions, mucus membranes moist Cardiovascular: regular rate and rhythm with normal S1S2, no murmur, positive posterior tibial pulses bilaterally, and cap refill < 2 seconds. Lungs: Respirations even, regular, and unlabored on room air. Lungs CTA bilaterally, no rhonchi, no rales, no wheezing, and no accessory muscle usage. Abdominal: soft, nontender to palpation, no guarding, no appreciable organomegaly Ext: ROM intact. No gross muscle atrophy, no edema, no contractures. Postoperative Dressing and ice pack in place to right lower extremity. Neuro: Speech clear, face symmetrical and CN II-XII grossly intact with no noted focal neuro deficits Psych: Alert and oriented to person, place, time, and situation. Appropriate and pleasant affect. Assessment and Plan of Care: Postoperative blood loss anemia, expected finding hemoglobin stable at 10.7. Severe tricompartmental osteoarthrosis Status post right total knee arthroplasty, postop day 1 -Surgical procedure completed by Dr. Cox 01/09/22. -DVT prophylaxis, pain management, weightbearing, and PT/OT per primary admitting orthopedic surgery team. -Currently DVT prophylaxis with DEYSI hernandez and MARÍAs in orthopedic surgery team has resumed patient's aspirin and Plavix. -Encourage use of incentive spirometry 10-15 times hourly while awake. Type II fvu-ikxnjlp-icyustmfq diabetes mellitus with hyperglycemia -Hold oral hypoglycemic agent, glimeperide and place patient on glycemic protocol with NovoLog sliding scale to maintain tight glycemic control throughout hospitalization. Hypertension -Monitor vital signs and continue daily medication regimen with carvedilol 25 mg twice daily. Hyperlipidemia -Continue daily medication regimen with atorvastatin 80 mg nightly. History of CAD with previous [place] and stent placement -Continue cardiac medication regimen, patient has been cleared to resume Plavix and aspirin by general surgery team. Neuropathy Fibromyalgia Rheumatoid arthritis -Symptomatic care and pain management. -Continue Neurontin 300 mg each morning and 600 mg nightly. Depression and anxiety -Continue daily medication regimen with Cymbalta. Thank you for allowing us to participate in the care of this pleasant patient. Do not hesitate to contact us with questions. Someone can be reached from the [facility] hospitalist group all hours of the day at [phone] or via [employer]. Presley Kelly NP rendered care for this patient independently, reviewed the findings and plan as documented in the note above. I did not physically speak with or examine the patient on this date. Objective - Vital Signs Vital signs: Vital Signs Temp 97.4 F L 01/10/22 01:26 Pulse 84 01/10/22 01:26 Resp 17 01/10/22 01:26 BP 109/69 01/10/22 01:26 Pulse Ox 94 L 01/10/22 01:26 FiO2 Intake & Output 01/09/22 01/10/22 01/10/22 18:59 06:59 18:59 Intake Total 1211 Output Total 50 Balance 1161 Weight 118.8 kg Intake: IV 951 Intake, IV Titration 60 Amount Lactated Ringers 1,000 ml 60 @ 20 mls/hr IV .Q24H [facility] Rx#:[id number] Oral 200 Output: Estimated Blood Loss 50 Other: Voiding Method Toilet Toilet # Voids 1 - Labs CBC & Chem 7: 01/10/22 03:55 01/10/22 03:55 Labs: Abnormal Lab Results - Last 24 Hours (Table) 01/09/22 01/09/22 01/09/22 Range/Units 09:28 14:02 16:21 POC Glucose (mg/dL) 141 H 220 H 200 H (75-99) mg/dL 01/09/22 01/10/22 Range/Units 19:36 06:48 POC Glucose (mg/dL) 304 H 159 H (75-99) mg/dL
[2022-01-10 08:53] VITALS: BP 107/70; PULSE 85; RESP 16; TEMP 97.5
[2022-01-10] MEDS ORDERED: CLOPIDOGREL 75 MG TAB PO SCH (09:00)
[2022-01-10] MEDS ORDERED: GABAPENTIN 300 MG CAP PO SCH (09:00)
[2022-01-10] MEDS ORDERED: ASPIRIN 81 MG PO SCH (09:00)
[2022-01-10 09:11] LABS: Basophils # (A) 0.01 X 10*3/uL (0.00-0.10); Basophils % (A) 0.1 %; Eosinophils # (A) 0 X 10*3/uL (0.04-0.35); Eosinophils % (A) 0 %; HCT 34.4 % (37.2-46.3); HGB 10.7 g/dL (12.0-15.0); Immature Grans, Automated 0.5 %; Lymphocytes # (A) 0.76 X 10*3/uL (0.90-5.00); Lymphocytes % (A) 7.2 %; MCH 28.2 pg (27.0-32.0); MCHC 31.1 g/dL (32.0-37.0); MCV 90.8 fL (80.0-97.0); Monocytes # (A) 0.59 X 10*3/uL (0.20-1.00); Monocytes % (A) 5.6 %; NRBC Per 100 WBC 0 /100 WBCS (0.0-0.0); Neutrophils % (A) 86.6 %; Platelet Count 238 X 10*3/uL (140-440); RBC 3.79 X 10*6/uL (4.10-5.20); RDW 14.4 % (11.5-14.5); WBC 10.61 X 10*3/uL (4.50-10.00)
[2022-01-10 09:13] LABS: ALT 24 U/L (4-34); AST 25 U/L (14-36); African American GFR (CKD) 78 (>60 ml/min/1.73 sqM); Albumin 3.5 g/dL (3.5-5.0); Albumin/Globulin Ratio 1.6; Alkaline Phosphatase 98 U/L (38-126); Anion Gap 9 mmol/L; Blood Urea Nitrogen 27 mg/dL (7-17); Calcium 8.8 mg/dL (8.4-10.2); Carbon Dioxide 25 mmol/L (22-30); Chloride 104 mmol/L (98-107); Globulin 2.2 g/dL; Glucose 159 mg/dL (74-99); Magnesium 1.8 mg/dL (1.6-2.3); Non-African American GFR(CKD) 68 (>60 ml/min/1.73 sqM); Potassium 4.6 mmol/L (3.5-5.1); Sodium 138 mmol/L (137-145); Total Bilirubin 0.3 mg/dL (0.2-1.3); Total Protein 5.7 g/dL (6.3-8.2)
--- NOTE | 2022-01-10 09:22 | P.PN ---
Subjective Progress Note Date: 01/10/22 Principal diagnosis: Right knee osteoarthritis Patient was seen at bedside this morning resting comfortably lying in semirecumbent position. Patient says most of the pain is around her knee and she says [place] has been helping control the pain somewhat. Patient says she has gotten out of bed under her own power and used walker to walk to the bathroom several times since yesterday. Patient says she does want to go home. Patient says she has a walker at home already. Patient says she has been using incentive spirometer. Patient denies chest pain, fever, shortness breath, nausea, vomiting, change in vision, loss of bowel/bladder control. Objective - Vital Signs Vital signs: Vital Signs Temp 97.5 F L 01/10/22 08:00 Pulse 85 01/10/22 08:00 Resp 16 01/10/22 08:00 BP 107/70 01/10/22 08:00 Pulse Ox 91 L 01/10/22 08:00 FiO2 Intake & Output 01/09/22 01/10/22 01/10/22 18:59 06:59 18:59 Intake Total 1211 Output Total 50 Balance 1161 Weight 118.8 kg Intake: IV 951 Intake, IV Titration 60 Amount Lactated Ringers 1,000 ml 60 @ 20 mls/hr IV .Q24H [facility] Rx#:[id number] Oral 200 Output: Estimated Blood Loss 50 Other: Voiding Method Toilet Toilet # Voids 1 1 - Exam Right knee: Incision is clean, dry, and intact. The mesh tape is in good condition. There is minimal soft tissue swelling and ecchymosis surrounding the medial and latera l aspects of the incision. Calf is soft, no tenderness with palpation. Plantar flexion, dorsiflexion, EHL, FHL are intact. Sensory exam to light touch throughout the extremity is intact, dorsal pedis pulses 2+. - Labs CBC & Chem 7: 01/10/22 03:55 01/10/22 03:55 Labs: Abnormal Lab Results - Last 24 Hours (Table) 01/09/22 01/09/22 01/09/22 Range/Units 09:28 14:02 16:21 WBC (4.50-10.00) X 10*3/uL RBC (4.10-5.20) X 10*6/uL Hgb (12.0-15.0) g/dL Hct (37.2-46.3) % MCHC (32.0-37.0) g/dL Immature Gran # (0.00-0.04) X 10*3/uL Neutrophils # (1.80-7.70) X 10*3/uL Lymphocytes # (0.90-5.00) X 10*3/uL Eosinophils # (0.04-0.35) X 10*3/uL BUN (7-17) mg/dL Glucose (74-99) mg/dL POC Glucose (mg/dL) 141 H 220 H 200 H (75-99) mg/dL Total Protein (6.3-8.2) g/dL 01/09/22 01/10/22 01/10/22 Range/Units 19:36 03:55 03:55 WBC 10.61 H (4.50-10.00) X 10*3/uL RBC 3.79 L (4.10-5.20) X 10*6/uL Hgb 10.7 L (12.0-15.0) g/dL Hct 34.4 L (37.2-46.3) % MCHC 31.1 L (32.0-37.0) g/dL Immature Gran # 0.05 H (0.00-0.04) X 10*3/uL Neutrophils # 9.20 H (1.80-7.70) X 10*3/uL Lymphocytes # 0.76 L (0.90-5.00) X 10*3/uL Eosinophils # 0 L (0.04-0.35) X 10*3/uL BUN 27 H (7-17) mg/dL Glucose 159 H (74-99) mg/dL POC Glucose (mg/dL) 304 H (75-99) mg/dL Total Protein 5.7 L (6.3-8.2) g/dL 01/10/22 Range/Units 06:48 WBC (4.50-10.00) X 10*3/uL RBC (4.10-5.20) X 10*6/uL Hgb (12.0-15.0) g/dL Hct (37.2-46.3) % MCHC (32.0-37.0) g/dL Immature Gran # (0.00-0.04) X 10*3/uL Neutrophils # (1.80-7.70) X 10*3/uL Lymphocytes # (0.90-5.00) X 10*3/uL Eosinophils # (0.04-0.35) X 10*3/uL BUN (7-17) mg/dL Glucose (74-99) mg/dL POC Glucose (mg/dL) 159 H (75-99) mg/dL Total Protein (6.3-8.2) g/dL Assessment and Plan Assessment: Right knee osteoarthritis Postoperative day 1 Status post right total knee arthroplasty Plan: 1. Right knee osteoarthritis - right total knee arthroplasty performed yesterday, 01/09/2022. Patient stable at bedside this morning. Plan discharge home today with health services. Patient already has walker at home 2. Appreciate medical management 3. Pain management - gabapentin; [place] 4. DVT prophylaxis - Plavix; aspirin 5. GI prophylaxis - senna; Colace 6. PT/OT - weightbearing as tolerated with walker as needed 7. Encourage incentive spirometer use 8. Discharge planning - discharge home today with health services Time with Patient: Less than 30
--- NOTE | 2022-01-10 09:37 | P.DS ---
Providers Date of admission: 01/09/2022 Expected date of discharge: 01/10/22 Attending physician: Gerard Cox Consults: 01/09/22 11:18 Consult Physician Routine Consulting Provider: Anna Phillips Consult Reason/Comments: medical management Do you want consulting provider notified?: Yes Primary care physician: [facility] Course: Date of admission: 01/09/2022 Date of discharge: 01/10/2022 Admission diagnosis: Right knee osteoarthritis Discharge diagnosis: Same Attending physician: Dr. Cox Surgical procedures: Right total knee arthroplasty Brief history: Patient is a 61-year-old female with a history of progressive primary right knee osteoarthritis. At this point patient has failed conservative treatment measures and has opted to proceed with a elective right total knee arthroplasty. Hospital course: Details of patient's surgery can be found in operative report. Patient tolerated the procedure well and was subsequently transported to orthopedic floor. Patient's orthopeidc and medical care was provided daily. Patient had daily laboratory tests performed for evaluation of overall blood counts. Patient had daily physical therapy to include strengthening range of motion as well as education with walker ambulation. Patient was treated with Plavix and aspirin for their postoperative DVT prophylaxis during their inpatient stay. Patient was noted to have a relatively uneventful postoperative course. Patient reported satisfactory pain control with oral pain medications by postoperative day one. Patient showed satisfactory progress with physical therapy. Patient moved steadily through the program and had no difficulty meeting the goals by postoperative day 1. Given patient's otherwise satisfactory course and having met physical therapy goals, plan is to discharge patient home with health services on postoperative day 1. Discharge condition/disposition: Patient will be discharged home with health services in stable condition. Discharge medications: Instructions are given on resumption of patient's normal daily medications per primary care recommendation, in addition patient will be prescribed [place] 7.5 mg/325 mg; Colace; resume Plavix 75 mg daily and resume aspirin 81 mg daily for DVT prophylaxis. Orthopedic Discharge Instructions: 1. Wound care and infection precautions, keep incision dry and covered while showering, no lotions, creams, moisturizers. No soaking, pools, hot tubs. Do not scrub over incision. 2. Weight-bear as tolerated with walker / cane until follow-up. 3. Ice and elevate when necessary. Do not exceed 20 minutes per hour with ice pack. 4. Utilize compression sleeve until seen at first follow up appointment. 5. Pain meds and anticoagulants per prescription. 6. Pain medication has potential to cause constipation. Increase oral fluid and fiber intake. Contact primary care provider if you have not had a bowel movement within 48 hours after discharge. 7. No anti-inflammatory medication until discussed at first post operative visit, this including Motrin, Aleve, Mobic, Diclofenac. 8. Follow up in office at 2 weeks postop with Alejandro Rausch PA-C / Triston Foote PA-C 9. Follow up with your primary care doctor 7-10 days after discharge. 10. Contact [facility] with any questions, . Keep incision clean, dry, intact. Keep mesh tape on until follow-up appointment in office in 2 weeks. While showering, cover mesh tape was Saran wrap. Medications: [place] 7.5 mg/325mg; Colace; Aspirin 81 mg daily; Plavix 75 mg daily Assessment: Right knee osteoarthritis Procedures: Right total knee arthroplasty Patient Condition at Discharge: Good Plan - Discharge Summary Discharge Rx Participant: Yes New Discharge Prescriptions: New HYDROcodone/APAP 7.5-325MG [[place] 7.5] 1 each PO Q6HR PRN #36 tab PRN Reason: Pain Docusate [Colace] 100 mg PO DAILY #30 capsule No Action Clopidogrel Bisulfate [Plavix] 75 mg PO DAILY Glimepiride [Amaryl] 4 mg PO BID Atorvastatin [Lipitor] 80 mg PO HS Nitroglycerin Sl Tabs [Nitrostat] 0.4 mg SUBLINGUAL Q5M PRN PRN Reason: Chest Pain rOPINIRole HCL [Requip] 0.5 mg PO HS Aspirin 81 mg PO DAILY Gabapentin [Neurontin] 300 mg PO QAM Gabapentin [Neurontin] 600 mg PO HS Cetirizine HCl [Zyrtec] 10 mg PO DAILY traZODone HCL 150 mg PO HS Sacubitril/Valsartan [Entresto 49 mg-51 mg Tablet] 1 each PO BID Famotidine [Pepcid] 20 mg PO BID tiZANidine [Zanaflex] 4 mg PO Q12H PRN PRN Reason: Muscle Spasm Multivitamin [Multivitamins Adult Gummies] 1 each PO DAILY DULoxetine HCL [Cymbalta] 60 mg PO BID carvediloL [Coreg] 25 mg PO BID Discharge Medication List Clopidogrel Bisulfate [Plavix] 75 mg PO DAILY 03/17/17 [History] Glimepiride [Amaryl] 4 mg PO BID 03/17/17 [History] Atorvastatin [Lipitor] 80 mg PO HS 06/21/17 [History] Nitroglycerin Sl Tabs [Nitrostat] 0.4 mg SUBLINGUAL Q5M PRN 03/31/19 [History] rOPINIRole HCL [Requip] 0.5 mg PO HS 03/31/19 [History] Aspirin 81 mg PO DAILY 01/05/22 [History] Cetirizine HCl [Zyrtec] 10 mg PO DAILY 01/08/22 [History] DULoxetine HCL [Cymbalta] 60 mg PO BID 01/08/22 [History] Famotidine [Pepcid] 20 mg PO BID 01/08/22 [History] Gabapentin [Neurontin] 300 mg PO QAM 01/08/22 [History] Gabapentin [Neurontin] 600 mg PO HS 01/08/22 [History] Multivitamin [Multivitamins Adult Gummies] 1 each PO DAILY 01/08/22 [History] Sacubitril/Valsartan [Entresto 49 mg-51 mg Tablet] 1 each PO BID 01/08/22 [History] carvediloL [Coreg] 25 mg PO BID 01/08/22 [History] tiZANidine [Zanaflex] 4 mg PO Q12H PRN 01/08/22 [History] traZODone HCL 150 mg PO HS 01/08/22 [History] Docusate [Colace] 100 mg PO DAILY #30 capsule 01/10/22 [Rx] HYDROcodone/APAP 7.5-325MG [[place] 7.5] 1 each PO Q6HR PRN #36 tab 01/10/22 [Rx] Follow up Appointment(s)/Referral(s): Triston Foote PAC [PHYSICIAN [employer]] - 01/25/22 Patient Instructions/Handouts: Knee Replacement (DC) Activity/Diet/Wound Care/Special Instructions: Orthopedic Discharge Instructions: 1. Wound care and infection precautions, keep incision dry and covered while showering, no lotions, creams, moisturizers. No soaking, pools, hot tubs. Do not scrub over incision. 2. Weight-bear as tolerated with walker / cane until follow-up. 3. Ice and elevate when necessary. Do not exceed 20 minutes per hour with ice pack. 4. Utilize compression sleeve until seen at first follow up appointment. 5. Pain meds and anticoagulants per prescription. 6. Pain medication has potential to cause constipation. Increase oral fluid and fiber intake. Contact primary care provider if you have not had a bowel movement within 48 hours after discharge. 7. No anti-inflammatory medication until discussed at first post operative visit, this including Motrin, Aleve, Mobic, Diclofenac. 8. Follow up in office at 2 weeks postop with Alejandro Rausch PA-C / Triston Foote PA-C 9. Follow up with your primary care doctor 7-10 days after discharge. 10. Contact [facility] with any questions, . Keep incision clean, dry, intact. Keep mesh tape on until follow-up appointment in office in 2 weeks. While showering, cover mesh tape was Saran wrap. Medications: [place] 7.5 mg/325mg; Colace; Aspirin 81 mg daily; Plavix 75 mg daily Discharge Disposition: HOME WITH HOME HEALTH SERVICES
[2022-01-10 11:13] LABS: Glucose,Whole Blood 249 mg/dL (75-99)
== END 2022-01-10 13:06 | disposition home health service (06) ==
LOC: OR 08:36 → 4SSUR 11:49 → OR 01-10 13:06
PROVIDERS: ATTEND Orthopaedic Surgery
DX: M17.11 Unilateral primary osteoarthritis, right knee (principal); E11.65 Type 2 diabetes mellitus with hyperglycemia; E66.01 Morbid (severe) obesity due to excess calories; E78.5 Hyperlipidemia, unspecified; F32.A Depression, unspecified; F41.9 Anxiety disorder, unspecified; G25.81 Restless legs syndrome; G89.18 Other acute postprocedural pain; I10 Essential (primary) hypertension; I25.10 Atherosclerotic heart disease of native coronary artery without angina pectoris; I25.2 Old myocardial infarction; J45.909 Unspecified asthma, uncomplicated; M06.9 Rheumatoid arthritis, unspecified; M41.9 Scoliosis, unspecified; M79.7 Fibromyalgia; M81.0 Age-related osteoporosis without current pathological fracture; Z79.02 Long term (current) use of antithrombotics/antiplatelets; Z79.82 Long term (current) use of aspirin; Z79.84 Long term (current) use of oral hypoglycemic drugs; Z79.899 Other long term (current) drug therapy; Z80.3 Family history of malignant neoplasm of breast; Z82.49 Family history of ischemic heart disease and other diseases of the circulatory system; Z87.891 Personal history of nicotine dependence; Z88.1 Allergy status to other antibiotic agents; Z90.49 Acquired absence of other specified parts of digestive tract; Z95.5 Presence of coronary angioplasty implant and graft; D62 Acute posthemorrhagic anemia
CPT/HCPCS: 27447; 94760; 97161; 64448; 76942; 80053; 83735; 85025; 88300; 73560; C1713 ×2; C1776; J2250; J0330; J1100; J2710; J0690 ×3; J2405; J3010; J1170 ×2; J2795 ×2; J2370; J2704; J2001

== ENCOUNTER 2022-04-03 08:18 | Emergency (ER) | payer OTHER ==
[2022-04-03 08:23] VITALS: RESP 18; TEMP 98.4
[2022-04-03] MEDS ORDERED: KETOROLAC 15 MG/ML 1 ML VIAL IM STA (08:33)
--- NOTE | 2022-04-03 08:39 | ED ---
Fall HPI - General Chief Complaint: Fall Stated Complaint: fall Time Seen by Provider: 04/03/22 08:27 Source: patient, EMS Mode of arrival: EMS - History of Present Illness Initial Comments: Well-appearing 62-year-old female presents to the emergency room after missing the last step while going down stairs with her walker at home today. She states that she missed the last step falling forward with her walker. She is complaining of right knee and right ankle pain. She does have some right buttock pain. She did not hit her head, did not lose consciousness. States that she does take Plavix. She had right knee surgery 3 months ago with no complications. Her blood pressure is low upon arrival but she states it is always low in the morning when she takes her medications. She denies any dizziness, shortness of breath or chest pain. MD Complaint: fall -: hour(s) Fall From: standing, down stairs (#) (1) When Fall Occurred: [address] Fall Occurred: home Loss of Consciousness: none Prolonged Down Time?: no Symptoms Prior to Fall: none Location - Extremities: Right: Knee, Ankle Severity scale (1-10): 8 Quality: aching Context: tripped/slipped Associated Symptoms: denies - Related Data Home Medications Medication Instructions Recorded Confirmed Clopidogrel Bisulfate [Plavix] 75 mg PO DAILY 03/17/17 04/03/22 Glimepiride [Amaryl] 4 mg PO BID 03/17/17 04/03/22 Atorvastatin [Lipitor] 80 mg PO HS 06/21/17 04/03/22 Nitroglycerin Sl Tabs [Nitrostat] 0.4 mg SUBLINGUAL Q5M PRN 03/31/19 04/03/22 rOPINIRole HCL [Requip] 0.5 mg PO HS 03/31/19 04/03/22 Aspirin 81 mg PO DAILY 01/05/22 04/03/22 Cetirizine HCl [Zyrtec] 10 mg PO DAILY 01/08/22 04/03/22 DULoxetine HCL [Cymbalta] 60 mg PO BID 01/08/22 04/03/22 Famotidine [Pepcid] 20 mg PO BID 01/08/22 04/03/22 Gabapentin [Neurontin] 300 mg PO TID 01/08/22 04/03/22 Sacubitril/Valsartan [Entresto 49 1 tab PO BID 01/08/22 04/03/22 mg-51 mg Tablet] carvediloL [Coreg] 25 mg PO BID 01/08/22 04/03/22 tiZANidine [Zanaflex] 4 mg PO Q12H PRN 01/08/22 04/03/22 traZODone HCL 150 mg PO HS 01/08/22 04/03/22 Acetaminophen Tab [Tylenol Tab] 1,000 mg PO Q8H PRN 04/03/22 04/03/22 Previous Rx's Medication Instructions Recorded Ibuprofen [Motrin] 800 mg PO Q6HR #30 tab 04/03/22 Allergies Allergy/AdvReac Type Severity Reaction Status Date / Time COLLIN Inhibitors Allergy Unknown Verified 04/03/22 10:27 ciprofloxacin [From Cipro] Allergy Rash/Hives Verified 04/03/22 10:27 Quinolones Allergy rash over Verified 04/03/22 10:27 entire body metformin AdvReac Diarrhea Verified 04/03/22 10:27 Review of Systems ROS Statement: Those systems with pertinent positive or pertinent negative responses have been documented in the HPI. ROS Other: All systems not noted in ROS Statement are negative. Past Medical History Past Medical History: Asthma, Coronary Artery Disease (CAD), Chest Pain / Angina, Diabetes Mellitus, Fibromyalgia, GERD/Reflux, Hyperlipidemia, Hypertension, Myocardial Infarction ([place]), Rheumatoid Arthritis (RA) Additional Past Medical History / Comment(s): morbid obesity, chronic migraines, SCOLIOSIS, CHRONIC BACK PAIN, CARPAL TUNNEL bilaterally. bed sore to coccyx. Last Myocardial Infarction Date:: 05/24/15 History of Any Multi-Drug Resistant Organisms: None Reported Past Surgical History: Breast Surgery, Cholecystectomy, Heart Catheterization, Heart Catheterization With Stent, Tonsillectomy Additional Past Surgical History / Comment(s): 05/2015 PCI with stent at [facility]. Other surgeries: BIBI KNEE ARTHROSCOPIES, L BREAST- LUMPECTOMY(BENIGN) Past Anesthesia/Blood Transfusion Reactions: Motion Sickness Additional Past Anesthesia/Blood Transfusion Reaction / Comment(s): Pt states she has clausterphobia. Date of Last Stent Placement:: 05/24/15 per pt Additional Past Alcohol Use History / Comment(s): SMOKED X les than 1 YEAR,QUIT 1979 - Past Family History Father Family Medical History: Dementia Mother History Unknown: Yes Family Medical History: Cancer, Chest Pain / Angina Additional Family Medical History / Comment(s): Breast cancer with recent surgery. General Exam Limitations: no limitations General appearance: alert, in no apparent distress Head exam: Present: atraumatic, normocephalic, normal inspection ENT exam: Present: mucous membranes moist Neck exam: Present: normal inspection, full ROM. Absent: tenderness, meningismus, lymphadenopathy Respiratory exam: Present: normal lung sounds bilaterally. Absent: respiratory distress, accessory muscle use Cardiovascular Exam: Present: regular rate GI/Abdominal exam: Present: soft. Absent: distended, tenderness, rigid Extremities exam: Present: normal capillary refill. Absent: pedal edema Right Knee exam: Present: tenderness, swelling, full knee extension. Absent: full ROM, erythema Lower Leg exam: Absent: tenderness, ecchymosis, erythema, palpable cord, Homans' sign Ankle exam: Present: full ROM, tenderness, swelling (Lateral malleolus). Absent : ecchymosis, erythema Neurovascular tendon exam: Present: no vascular compromise. Absent: abnormal cap refill, pallor, foot drop Back exam: Present: normal inspection. Absent: tenderness, CVA tenderness (R), CVA tenderness (L), rash noted Neurological exam: Present: alert, oriented X3 Psychiatric exam: Present: normal affect, normal mood Skin exam: Present: warm, dry, normal color. Absent: cyanosis, diaphoretic, petechiae, pallor Course Vital Signs 04/03/22 04/03/22 04/03/22 08:19 08:30 10:29 Temperature 98.4 F Pulse Rate 72 71 Respiratory 18 18 Rate Blood Pressure 90/46 111/56 O2 Sat by Pulse 96 97 Oximetry Medical Decision Making - Medical Decision Making X-ray of the right ankle, right knee and pelvis negative for fractures. The pressure is up and she has no further symptoms. She was directed to take Tylenol as needed for pain. Wear the Collin wrap around the right ankle for compression. Rest ice and elevate at home. Follow up with her primary care doctor this week. Case was discussed with Dr. Montes De Oca. Patient is agreeable to this plan of care. Disposition Clinical Impression: Fall, Right ankle sprain, Knee pain, right Disposition: HOME SELF-CARE Condition: Good Instructions (If sedation given, give patient instructions): Fall Prevention for Older Adults (ED), Fall Prevention (ED) Additional Instructions: Rest, ice, and elevate ankle. Wear the Collin wrap for the next 48 hours. Take Tylenol and/or Motrin as needed for pain. Follow-up with the primary care doctor this week. Prescriptions: Ibuprofen [Motrin] 800 mg PO Q6HR #30 tab Is patient prescribed a controlled substance at d/c from ED?: No Referrals: Sofya Lott MD [Primary Care Provider] - 1-2 days Time of Disposition: 10:14
--- NOTE | 2022-04-03 09:30 | XR ---
EXAMINATION TYPE: XR knee complete RT DATE OF EXAM: 04/03/2022 COMPARISON: NONE HISTORY: Pain TECHNIQUE: Three views are submitted. FINDINGS: Postsurgical change. Soft tissue and edema and fluid within the suprapatellar bursa.. Osseous struct ures are intact. No acute fracture seen. IMPRESSION: 1. No acute fracture or dislocation. Soft tissue edema and fluid within the suprapatellar bursa.
--- NOTE | 2022-04-03 09:30 | XR ---
EXAMINATION TYPE: XR ankle complete RT DATE OF EXAM: 04/03/2022 COMPARISON: NONE HISTORY: Pain TECHNIQUE: Frontal, lateral and oblique images of the right ankle are obtained. COMPARISON: None. FINDINGS: There is no acute fracture/dislocation evident. The joint spaces appear within normal max its. Mild soft tissue swelling noted laterally. IMPRESSION: There is no acute fracture or dislocation seen.
--- NOTE | 2022-04-03 09:31 | XR ---
EXAMINATION TYPE: XR pelvis AP view DATE OF EXAM: 04/03/2022 COMPARISON: NONE HISTORY: Pain The osseous structures are intact and the joint spaces are preserved. No acute fracture is seen. Vi sualized bowel gas pattern is nonspecific. Mild to moderate concentric narrowing of joint spaces. We ll-circumscribed lucencies overlying the lower margin of the femur are symmetric bilaterally and appe ar benign. Hypertrophic and degenerative change of the spine. SI joints symmetric. Punctate calcifica tions too small to characterize in the pelvis. Likely vascular. IMPRESSION: 1. No acute fracture.
[2022-04-03 10:29] VITALS: BP 111/56; PULSE 71
== END 2022-04-03 10:30 | disposition home or self-care (01) ==
LOC: EC 08:18
DX: S93.401A Sprain of unspecified ligament of right ankle, initial encounter (principal); M25.561 Pain in right knee; J45.909 Unspecified asthma, uncomplicated; I25.10 Atherosclerotic heart disease of native coronary artery without angina pectoris; E11.9 Type 2 diabetes mellitus without complications; K21.9 Gastro-esophageal reflux disease without esophagitis; E78.5 Hyperlipidemia, unspecified; I10 Essential (primary) hypertension; I25.2 Old myocardial infarction; M06.9 Rheumatoid arthritis, unspecified; Z88.8 Allergy status to other drugs, medicaments and biological substances; Z88.1 Allergy status to other antibiotic agents; Z79.82 Long term (current) use of aspirin; Z79.899 Other long term (current) drug therapy; W10.8XXA Fall (on) (from) other stairs and steps, initial encounter
CPT/HCPCS: 72170; 73562; 73610; 99283; 96372; J1885

== ENCOUNTER → 2022-05-16 | Outpatient (CLI) | payer OTHER ==
--- NOTE | 2022-05-17 05:39 | MR ---
EXAMINATION TYPE: MR ankle RT wo con DATE OF EXAM: 05/16/2022 COMPARISON: None HISTORY: Right ankle and foot pain, S/P fall 3 weeks ago. Multiplanar multiecho imaging of the right ankle with no contrast. There is subcutaneous edema around the foot and ankle. There is ankle joint effusion and subtalar alice nt effusion. Achilles tendon is intact. Plantar fascia is intact. On the T2 images there is some patchy increased signal in the inferior talus. There is mild increased signal in the posterior malleolus of the distal tibia. No fracture line seen. The collateral ligamen ts appear intact. Ankle mortise is anatomic. The medial and lateral flexor tendons appear intact. IMPRESSION: Ankle joint effusion and subtalar effusion. There is evidence of bone bruise of the talus and also th e posterior malleolus of the ankle. No fracture seen. Subcutaneous edema around the hindfoot and ankl e. No evidence of ligamentous tear.
--- NOTE | 2022-05-17 05:49 | MR ---
EXAMINATION TYPE: MR foot RT wo con DATE OF EXAM: 05/16/2022 COMPARISON: None HISTORY: Right ankle and foot pain, S/P fall 3 weeks ago. Multiplanar multi echo imaging of the right foot performed with no contrast. FINDINGS: There is subcutaneous edema of the midfoot and forefoot. The metatarsals are intact. The toes appear intact. No fracture seen. Bones of the midfoot appear intact. No fracture seen. The plantar fascia ap pears intact. Medial and lateral flexor tendons appear intact. There is some mild edema in the talus. IMPRESSION: No fracture seen. Mild edema in the talus suggestive of a bone bruise. Subcutaneous edema. No fractur e line seen. Ankle joint effusion and subtalar joint effusion.
== END | disposition home or self-care (01) ==
LOC: RADMRIMAIN 14:28
PROVIDERS: ATTEND Family Medicine
DX: M25.471 Effusion, right ankle (principal)

== ENCOUNTER 2022-12-18 09:25 | Emergency (ER) | payer OTHER ==
[2022-12-18] MEDS ORDERED: SODIUM CHLORIDE 0.9% 1,000 ML IV STA ×2 (09:48→12:10)
[2022-12-18] MEDS ORDERED: ONDANSETRON 4 MG/2 ML VIAL IVP STA (09:48)
[2022-12-18] MEDS ORDERED: PANTOPRAZOLE 40 MG/10 ML VIAL IVP STA (09:48)
[2022-12-18 10:21] LABS: Basophils % (A) 0 %; Eosinophils # (A) 0.2 k/uL (0-0.7); Eosinophils % (A) 1 %; HCT 40.3 % (34.0-46.0); HGB 12.7 gm/dL (11.4-16.0); Hypochromasia Slight; Lymphocytes # (A) 1.1 k/uL (1.0-4.8); Lymphocytes % (A) 8 %; MCH 26.1 pg (25.0-35.0); MCHC 31.5 g/dL (31.0-37.0); MCV 82.8 fL (80.0-100.0); Mean Platelet Volume 8.1; Monocytes # (A) 0.6 k/uL (0-1.0); Monocytes % (A) 4 %; Neutrophils # (A) 11.8 k/uL (1.3-7.7); Neutrophils % (A) 85 %; Platelet Count 400 k/uL (150-450); RBC 4.87 m/uL (3.80-5.40); RDW 15.1 % (11.5-15.5); WBC 13.9 k/uL (3.8-10.6)
--- NOTE | 2022-12-18 10:27 | ED ---
General Adult HPI - General Chief complaint: Nausea/Vomiting/Diarrhea Stated complaint: diarrhea Time Seen by Provider: 12/18/22 09:34 Source: patient, RN notes reviewed, old records reviewed Mode of arrival: EMS Limitations: no limitations - History of Present Illness Initial comments: Patient is a 62-year-old female with past history remarkable for asthma, diabetes, CAD with stents, fibromyalgia, hypertension who presents emergency Department with 2 weeks of worsening diarrhea. Denies any nausea or vomiting. Nurse's may be some mild abdominal cramping. No history of abdominal surgeries. Denies shortness breath and endorses mild cough and rhinorrhea. Denies chest pain. Denies any dysuria or hematuria. Denies vaginal discharge or bleeding. Has no other acute complaints at this time. Is uncertain what is causing her diarrhea. Was found to have bedbugs when EMS arrived and she was immediately decontaminated prior arrival to the emergency department. His no other acute complaints at this time. No recent antibiotic use. Presents for further evaluation. No known sick contacts. - Related Data Home Medications Medication Instructions Recorded Confirmed RX: Glimepiride [Amaryl] 4 mg PO BID 03/17/17 12/18/22 RX: Atorvastatin [Lipitor] 80 mg PO HS 06/21/17 12/18/22 RX: rOPINIRole HCL [Requip] 0.5 mg PO HS 03/31/19 12/18/22 RX: Cetirizine HCl [Zyrtec] 10 mg PO DAILY 01/08/22 12/18/22 RX: DULoxetine HCL [Cymbalta] 60 mg PO BID 01/08/22 12/18/22 RX: Famotidine [Pepcid] 20 mg PO BID 01/08/22 12/18/22 RX: Gabapentin [Neurontin] 300 mg PO TID 01/08/22 12/18/22 RX: Sacubitril/Valsartan [Entresto 1 tab PO BID 01/08/22 12/18/22 49 mg-51 mg Tablet] RX: tiZANidine [Zanaflex] 4 mg PO Q12H PRN 01/08/22 12/18/22 RX: carvediloL [Coreg] 25 mg PO BID 06/15/22 12/18/22 RX: traZODone HCL [Desyrel] 150 mg PO HS 06/15/22 12/18/22 Acetaminophen Tab [Tylenol Tab] 500 - 1,000 mg PO Q6H 12/18/22 12/18/22 Nitroglycerin Sl Tabs [Nitrostat] 0.4 mg SUBLINGUAL Q5M PRN 12/18/22 12/18/22 sitaGLIPtin PHOS/metFORMIN HCL 1 tab PO BID 12/18/22 12/18/22 [Janumet 50-500 mg Tablet] Previous Rx's Medication Instructions Recorded Dicyclomine [Bentyl] 10 mg PO TID PRN 7 Days #21 capsule 12/18/22 Ondansetron Odt [Zofran Odt] 4 mg PO Q8HR PRN 2 Days #6 tab 12/18/22 Allergies Allergy/AdvReac Type Severity Reaction Status Date / Time WARNER Inhibitors Allergy Unknown Verified 12/18/22 11:23 ciprofloxacin [From Cipro] Allergy Rash/Hives Verified 12/18/22 11:23 Quinolones Allergy rash over Verified 12/18/22 11:23 entire body metformin AdvReac Diarrhea Verified 12/18/22 11:23 Review of Systems ROS Statement: Those systems with pertinent positive or pertinent negative responses have been documented in the HPI. Review of Systems: CONST: Denies fever EYES: Denies blurry vision ENT: Denies nasal congestion C/V: Denies Chest pain RESP: Denies shortness of breath GI: Endorses diarrhea : Denies dysuria SKIN: Denies rash. MSK: Denies joint pain. NEURO: Denies headache ROS Other: All systems not noted in ROS Statement are negative. Past Medical History Past Medical History: Asthma, Coronary Artery Disease (CAD), Chest Pain / Angina, Diabetes Mellitus, Fibromyalgia, GERD/Reflux, Hyperlipidemia, Hypertension, Myocardial Infarction ([place]), Rheumatoid Arthritis ([place]) Additional Past Medical History / Comment(s): morbid obesity, chronic migraines, SCOLIOSIS, CHRONIC BACK PAIN, CARPAL TUNNEL bilaterally. bed sore to coccyx. Last Myocardial Infarction Date:: 05/24/15 History of Any Multi-Drug Resistant Organisms: None Reported Past Surgical History: Breast Surgery, Cholecystectomy, Heart Catheterization, Heart Catheterization With Stent, Tonsillectomy Additional Past Surgical History / Comment(s): 05/2015 PCI with stent at [facility]. Other surgeries: BIBI KNEE ARTHROSCOPIES, L BREAST- LUMPECTOMY(BENIGN) Past Anesthesia/Blood Transfusion Reactions: Motion Sickness Additional Past Anesthesia/Blood Transfusion Reaction / Comment(s): Pt states she has clausterphobia. Date of Last Stent Placement:: 05/24/15 per pt Past Psychological History: Anxiety, Depression Smoking Status: Former smoker Past Alcohol Use History: None Reported Past Drug Use History: None Reported - Past Family History Father Family Medical History: Dementia Mother History Unknown: Yes Family Medical History: Cancer, Chest Pain / Angina Additional Family Medical History / Comment(s): Breast cancer with recent surgery. General Exam - General Exam Comments Initial Comments: General: Appears in no acute distress. HEAD: Normal with no signs of head trauma. EYES: PERRLA, EOMI, conjunctiva normal, no discharge. ENT: Hearing grossly intact, normal oropharynx. Dry mucous membranes. RESPIRATORY: Clear breath sounds bilaterally. No wheezes, rales, or rhonchi. Mild hypoxia initially at rest. On ambulation, she maintained oxygen saturations 94%. Secondary to body habitus. C/V: Tachycardic with regular rhythm. S1 and S2 auscultated. Peripheral pulses 2+ and intact throughout. ABD: Abd is soft, nontender, nondistended EXT: Normal range of motion, no obvious deformity SKIN: Excoriations over skin likely secondary to bedbug bites. NEURO: Alert and oriented 4. No focal deficits. Limitations: no limitations Course Vital Signs 12/18/22 12/18/22 12/18/22 09:42 10:07 11:13 Temperature 97.2 F L Pulse Rate 119 H 126 H 104 H Respiratory 18 18 18 Rate Blood Pressure 112/70 123/56 129/73 O2 Sat by Pulse 91 L 94 L 94 L Oximetry 12/18/22 12/18/22 12/18/22 12:13 13:00 13:54 Temperature 98 F 98 F Pulse Rate 118 H 68 86 Respiratory 20 16 16 Rate Blood Pressure 129/70 136/68 136/60 O2 Sat by Pulse 93 L 98 98 Oximetry Medical Decision Making - Medical Decision Making Was pt. sent in by a medical professional or institution (, PA, WARRANTY ADMINISTRATOR, urgent care, hospital, or group home...) When possible be specific @ -No Did you speak to anyone other than the patient for history (EMS, parent, family, police, friend...)? What history was obtained from this source @ -No Did you review nursing and triage notes (agree or disagree)? Why? @ -I reviewed and agree with nursing and triage notes Were old charts reviewed (outside hosp., previous admission, EMS record, old EKG, old radiological studies, urgent care reports/EKG's, group home records)? Report findings @ -Old EKG reviewed from May 2022 Differential Diagnosis (chest pain, altered mental status, abdominal pain women, abdominal pain men, vaginal bleeding, weakness, fever, dyspnea, syncope, headache, dizziness, GI bleed, back pain, seizure, CVA, palpatations, mental health, musculoskeletal)? @ -Differential Abdominal Pain Women: Appendicitis, Cholecystitis, diverticulosis, ischemic bowel, pancreatitis, hepatitis, UTI, gastroenteritis, AAA, incarcerated hernia, bowel obstruction, constipation, inflammatory bowel, hepatitis, peptic ulcer disease, splenic infarction, perforated viscus, vulvitis, ovarian torsion, PID, kidney stone, placenta abruption, PE, dehydration this is not meant to be an all-inclusive lis t EKG interpreted by me (3pts min.). @ -As above X-rays interpreted by me (1pt min.). @ -Chest x-ray shows no obvious acute cardiopulmonary process. CT interpreted by me (1pt min.). @ -CT PE as well as CT abdomen and pelvis revealed no evidence of pulmonary embolism. Patient does have some enteritis. Concerned for possible mild cystitis, however patient is asymptomatic. U/S interpreted by me (1pt. min.). @ -None done What testing was considered but not performed or refused? (CT, X-rays, U/S, labs)? Why? @ -None What meds were considered but not given or refused? Why? @ -None Did you discuss the management of the patient with other professionals (professionals i.e. , PA, WARRANTY ADMINISTRATOR, lab, RT, psych nurse, social welfare research worker, director labor standards, teacher, senior compliance officer, pillowcase sewer)? Give summary @ -No Was smoking cessation discussed for >3mins.? @ -No Was critical care preformed (if so, how long)? @ -No Were there social determinants of health that impacted care today? How? (Homelessness, low income, unemployed, alcoholism, drug addiction, brasher sportation, low edu. Level, literacy, decrease access to med. care, detention, rehab)? @ -No Was there de-escalation of care discussed even if they declined (Discuss DNR or withdrawal of care, Hospice)? DNR status @ -No What co-morbidities impacted this encounter? (DM, HTN, Smoking, COPD, CAD, Cancer, CVA, ARF, Chemo, Hep., AIDS, mental health diagnosis, sleep apnea, morbid obesity)? @ -Obesity Was patient admitted / discharged? Hospital course, mention meds given and route, prescriptions, significant lab abnormalities, going to OR and other pertinent info. @ -Based on the patient's presentation and physical exam, I'm concerned for this likely an infectious cause for diarrhea. Chest appears dehydrated. Patient has intermittent hypoxia with tachycardia upon arrival which could be secondary to body habitus as well as dehydration but we will send a screening d- dimer in addition to abdominal labs. Patient was in agreement with this plan. She'll be symptomatically treated with IV fluids, Protonix, Zofran. Screening EKG will also be obtained. EKG showed no signs of acute ischemia.EKG shows no signs of acute ischemia. Imaging remarkable for showing signs of enteritis. Patient's labs are remarkable for 13.9 which is likely reactive. D-dimer was elevated at 1.17 which is why we obtained a CT PE which was negative. Patient has an AK I with an elevated BUN/creatinine above his baseline. Lactic acid slightly elevated to 2.2 likely secondary to dehydration from the persistent diarrhea. Urinalysis is a contaminated catch with patient is asymptomatic in terms of dysuria, hematuria. Viral swabs are negative. On reevaluation, patient is feeling improved. She is received a total of 2 L fluid bolus. Is currently eating a sandwich, drinking pop and water. Has no acute complaints at this time. We discussed her workup. I do believe it is safe for her to be discharged home. Strict return precautions discussed. She was in agreement this plan. I will provide the patient with a prescription for Bentyl, ODT Zofran. I instructed the patient to follow up with their PCP in the next 1-3 days. I explained that the patient should return to the emergency department if they experience any worsening symptoms. Strict return precautions were discussed with the patient. The patient expressed understanding of these instructions. I answered all questions that the patient had. The patient was discharged home in good condition with their prescriptions and follow up information. Undiagnosed new problem with uncertain prognosis? @ -No Drug Therapy requiring intensive monitoring for toxicity (Heparin, Nitro, Insulin, Cardizem)? @ -No Were any procedures done? @ -No Diagnosis/symptom? @ -Diarrhea, enteritis, dehydration, AK I Acute, or Chronic, or Acute on Chronic? @ -Acute Uncomplicated (without systemic symptoms) or Complicated (systemic symptoms)? @ -Complicated Side effects of treatment? @ -none Exacerbation, Progression, or Severe Exacerbation] @ -no Poses a threat to life or bodily function? @ -no - Lab Data Result diagrams: 12/18/22 09:59 12/18/22 09:59 Lab Results 12/18/22 12/18/22 12/18/22 Range/Units 05:59 09:59 09:59 WBC 13.9 H (3.8-10.6) k/uL RBC 4.87 (3.80-5.40) m/uL Hgb 12.7 (11.4-16.0) gm/dL Hct 40.3 (34.0-46.0) % MCV 82.8 (80.0-100.0) fL MCH 26.1 (25.0-35.0) pg MCHC 31.5 (31.0-37.0) g/dL RDW 15.1 (11.5-15.5) % Plt Count 400 (150-450) k/uL MPV 8.1 Neutrophils % 85 % Lymphocytes % 8 % Monocytes % 4 % Eosinophils % 1 % Basophils % 0 % Neutrophils # 11.8 H (1.3-7.7) k/uL Lymphocytes # 1.1 (1.0-4.8) k/uL Monocytes # 0.6 (0-1.0) k/uL Eosinophils # 0.2 (0-0.7) k/uL Basophils # 0.0 (0-0.2) k/uL Hypochromasia Slight PT 10.2 (9.0-12.0) sec INR 1.0 (<1.2) APTT 23.0 (22.0-30.0) sec D-Dimer 1.17 H (<0.60) mg/L FEU Sodium (137-145) mmol/L Potassium (3.5-5.1) mmol/L Chloride (98-107) mmol/L Carbon Dioxide (22-30) mmol/L Anion Gap mmol/L BUN (7-17) mg/dL Creatinine (0.52-1.04) mg/dL Est GFR (CKD-EPI)AfAm (>60 ml/min/1.73 sqM) Est GFR (CKD-EPI)NonAf (>60 ml/min/1.73 sqM) Glucose (74-99) mg/dL Lactic Ac Sepsis Rflx Plasma Lactic Acid Ramiro (0.7-2.0) mmol/L Calcium (8.4-10.2) mg/dL Total Bilirubin (0.2-1.3) mg/dL AST (14-36) U/L ALT (4-34) U/L Alkaline Phosphatase (38-126) U/L Total Protein (6.3-8.2) g/dL Albumin (3.5-5.0) g/dL Amylase (30-110) U/L Lipase (23-300) U/L Urine Color Urine Appearance (Clear) Urine pH (5.0-8.0) Ur Specific [place] (1.001-1.035) Urine Protein (Negative) Urine Glucose (UA) (Negative) Urine Ketones (Negative) Urine Blood (Negative) Urine Nitrite (Negative) Urine Bilirubin (Negative) Urine Urobilinogen (<2.0) mg/dL Ur Leukocyte Esterase (Negative) Urine RBC (0-5) /hpf Urine WBC (0-5) /hpf Urine WBC Clumps (None) /hpf Ur Squamous Epith Cells (0-4) /hpf Urine Bacteria (None) /hpf Hyaline Casts (0-2) /lpf Urine Mucus (None) /hpf Influenza Type A (PCR) (Not Detectd) Influenza Type B (PCR) (Not Detectd) RSV (PCR) (Not Detectd) SARS-CoV-2 (PCR) (Not Detectd) 12/18/22 12/18/22 12/18/22 Range/Units 09:59 09:59 09:59 WBC (3.8-10.6) k/uL RBC (3.80-5.40) m/uL Hgb (11.4-16.0) gm/dL Hct (34.0-46.0) % MCV (80.0-100.0) fL MCH (25.0-35.0) pg MCHC (31.0-37.0) g/dL RDW (11.5-15.5) % Plt Count (150-450) k/uL MPV Neutrophils % % Lymphocytes % % Monocytes % % Eosinophils % % Basophils % % Neutrophils # (1.3-7.7) k/uL Lymphocytes # (1.0-4.8) k/uL Monocytes # (0-1.0) k/uL Eosinophils # (0-0.7) k/uL Basophils # (0-0.2) k/uL Hypochromasia PT (9.0-12.0) sec INR (<1.2) APTT (22.0-30.0) sec D-Dimer (<0.60) mg/L FEU Sodium 137 (137-145) mmol/L Potassium 5.0 (3.5-5.1) mmol/L Chloride 103 (98-107) mmol/L Carbon Dioxide 18 L (22-30) mmol/L Anion Gap 16 mmol/L BUN 33 H (7-17) mg/dL Creatinine 1.40 H (0.52-1.04) mg/dL Est GFR (CKD-EPI)AfAm 46 (>60 ml/min/1.73 sqM) Est GFR (CKD-EPI)NonAf 40 (>60 ml/min/1.73 sqM) Glucose 291 H (74-99) mg/dL Lactic Ac Sepsis Rflx Plasma Lactic Acid Ramiro 2.2 H* (0.7-2.0) mmol/L Calcium 9.4 (8.4-10.2) mg/dL Total Bilirubin 0.8 (0.2-1.3) mg/dL AST 43 H (14-36) U/L ALT 29 (4-34) U/L Alkaline Phosphatase 124 (38-126) U/L Total Protein 6.9 (6.3-8.2) g/dL Albumin 4.2 (3.5-5.0) g/dL Amylase 46 (30-110) U/L Lipase 131 (23-300) U/L Urine Color Urine Appearance (Clear) Urine pH (5.0-8.0) Ur Specific [place] (1.001-1.035) Urine Protein (Negative) Urine Glucose (UA) (Negative) Urine Ketones (Negative) Urine Blood (Negative) Urine Nitrite (Negative) Urine Bilirubin (Negative) Urine Urobilinogen (<2.0) mg/dL Ur Leukocyte Esterase (Negative) Urine RBC (0-5) /hpf Urine WBC (0-5) /hpf Urine WBC Clumps (None) /hpf Ur Squamous Epith Cells (0-4) /hpf Urine Bacteria (None) /hpf Hyaline Casts (0-2) /lpf Urine Mucus (None) /hpf Influenza Type A (PCR) Not Detected (Not Detectd) Influenza Type B (PCR) Not Detected (Not Detectd) RSV (PCR) Not Detected (Not Detectd) SARS-CoV-2 (PCR) Not Detected (Not Detectd) 12/18/22 12/18/22 Range/Units 10:41 11:23 WBC (3.8-10.6) k/uL RBC (3.80-5.40) m/uL Hgb (11.4-16.0) gm/dL Hct (34.0-46.0) % MCV (80.0-100.0) fL MCH (25.0-35.0) pg MCHC (31.0-37.0) g/dL RDW (11.5-15.5) % Plt Count (150-450) k/uL MPV Neutrophils % % Lymphocytes % % Monocytes % % Eosinophils % % Basophils % % Neutrophils # (1.3-7.7) k/uL Lymphocytes # (1.0-4.8) k/uL Monocytes # (0-1.0) k/uL Eosinophils # (0-0.7) k/uL Basophils # (0-0.2) k/uL Hypochromasia PT (9.0-12.0) sec INR (<1.2) APTT (22.0-30.0) sec D-Dimer (<0.60) mg/L FEU Sodium (137-145) mmol/L Potassium (3.5-5.1) mmol/L Chloride (98-107) mmol/L Carbon Dioxide (22-30) mmol/L Anion Gap mmol/L BUN (7-17) mg/dL Creatinine (0.52-1.04) mg/dL Est GFR (CKD-EPI)AfAm (>60 ml/min/1.73 sqM) Est GFR (CKD-EPI)NonAf (>60 ml/min/1.73 sqM) Glucose (74-99) mg/dL Lactic Ac Sepsis Rflx Y Plasma Lactic Acid Ramiro (0.7-2.0) mmol/L Calcium (8.4-10.2) mg/dL Total Bilirubin (0.2-1.3) mg/dL AST (14-36) U/L ALT (4-34) U/L Alkaline Phosphatase (38-126) U/L Total Protein (6.3-8.2) g/dL Albumin (3.5-5.0) g/dL Amylase (30-110) U/L Lipase (23-300) U/L Urine Color Yellow Urine Appearance Cloudy H (Clear) Urine pH 5.5 (5.0-8.0) Ur Specific [place] 1.016 (1.001-1.035) Urine Protein Trace H (Negative) Urine Glucose (UA) 3+ H (Negative) Urine Ketones 2+ H (Negative) Urine Blood Trace H (Negative) Urine Nitrite Negative (Negative) Urine Bilirubin Negative (Negative) Urine Urobilinogen <2.0 (<2.0) mg/dL Ur Leukocyte Esterase Large H (Negative) Urine RBC 8 H (0-5) /hpf Urine WBC >182 H (0-5) /hpf Urine WBC Clumps Few H (None) /hpf Ur Squamous Epith Cells 12 H (0-4) /hpf Urine Bacteria Moderate H (None) /hpf Hyaline Casts 11 H (0-2) /lpf Urine Mucus Rare H (None) /hpf Influenza Type A (PCR) (Not Detectd) Influenza Type B (PCR) (Not Detectd) RSV (PCR) (Not Detectd) SARS-CoV-2 (PCR) (Not Detectd) - EKG Data -: EKG Interpreted by Me EKG Comments: 12-lead Electrocardiogram Interpretation Note EKG was reviewed and interpreted by myself. 12-lead ECG performed at 1013 is interpreted by me as revealing and is tachycardia at a rate of 108 beats per minute. [place] is normal. NV interval is 135 ms, QRS duration is 104 ms, QTc is 396 ms.. There were no ST or T wave abnormalities to suggest myocardial ischemia or injury. R wave progression across the precordium was satisfactory. By my interpretation this EKG is non-diagnostic for acute ischemia. When compared with EKG from May 2022, no significant change. Disposition Clinical Impression: Diarrhea, Dehydration, WILLIAM (acute kidney injury), Enteritis Disposition: HOME SELF-CARE Condition: Good Instructions (If sedation given, give patient instructions): Acute Diarrhea (ED) Prescriptions: Dicyclomine [Bentyl] 10 mg PO TID PRN 7 Days #21 capsule PRN Reason: Pain Ondansetron Odt [Zofran Odt] 4 mg PO Q8HR PRN 2 Days #6 tab PRN Reason: Nausea Is patient prescribed a controlled substance at d/c from ED?: No Referrals: Sofya Lott MD [Primary Care Provider] - 1-2 days Time of Disposition: 13:29
[2022-12-18 10:29] LABS: Prothrombin Time 10.2 sec (9.0-12.0)
[2022-12-18 10:34] LABS: Albumin 4.2 g/dL (3.5-5.0); Calcium 9.4 mg/dL (8.4-10.2); Total Bilirubin 0.8 mg/dL (0.2-1.3); Total Protein 6.9 g/dL (6.3-8.2)
--- NOTE | 2022-12-18 10:41 | XR ---
EXAMINATION TYPE: XR chest 2V DATE OF EXAM: 12/18/2022 10:29 AM COMPARISON: Chest radiographs from 06/15/2022 TECHNIQUE: XR chest 2V Frontal and lateral views of the chest. CLINICAL INDICATION:Female, 62 years old with history of abdominal pain; FINDINGS: Lungs/Pleura: There is no evidence of pleural effusion, focal consolidation, or pneumothorax. Pulmonary vascularity: Unremarkable. Heart/mediastinum: Cardiomediastinal silhouette is unremarkable. Musculoskeletal: No acute osseous pathology. IMPRESSION: No acute cardiopulmonary disease/process.
[2022-12-18 12:35] LABS: Appearance,Urine Cloudy (Clear); Bacteria,Urine Moderate /hpf; Bilirubin,Urine Negative (Negative); Blood,Urine Trace (Negative); Color,Urine Yellow; Glucose,Urine (UA) 3+ (Negative); Hyaline Casts,Urine 11 /lpf (0-2); Leukocyte Esterase,Urine Large (Negative); Mucus,Urine Rare /hpf; Nitrite,Urine Negative (Negative); PH, Urine 5.5 (5.0-8.0); Protein,Urine Trace (Negative); RBC,Urine 8 /hpf (0-5); Specific Gravity,Urine 1.016 (1.001-1.035); Squamous Epithelial Cell,Urine 12 /hpf (0-4); Urobilinogen,Urine <2.0 mg/dL (<2.0); WBC,Urine >182 /hpf (0-5)
[2022-12-18 13:02] LABS: Ketones,Urine 2+ (Negative)
--- NOTE | 2022-12-18 13:03 | CT ---
EXAMINATION TYPE: CT chest angio for PE DATE OF EXAM: 12/18/2022 COMPARISON: 12/18/2022 HISTORY: 62-year-old female shortness of breath, Elevated d-dimer TECHNIQUE: Contiguous axial scanning of the chest performed with IV Contrast, patient injected with 8 0 mL of Isovue 370. Coronal/sagittal MIP reconstructions performed. CT DLP: 797.2 mGycm Automated exposure control for dose reduction was used. FINDINGS: The heart is upper limits of normal in size without pericardial effusion. No flattening of the interv entricular septum reflux of contrast into the hepatic veins. Moderate proximal LAD coronary artery ca lcifications are present. Aorta normal caliber with a charge vessel branching anatomy. No thoracic lymphadenopathy by CT size criteria. Satisfactory opacification of the pulmonary arterial system. Assessment for pulmonary is limited due to patient breathing during the scan. No large central or lobar branch pulmonary embolus is seen. Man y of the segmental and more distal arterial branches are limited and nondiagnostic. No definite pulmo nary embolus is identified. Areas of mosaic attenuation/groundglass density in the lower lungs. No christel consolidation or pleural effusion. Tiny hiatal hernia. Suspect hepatic steatosis. Moderate degenerative disc disease mid to lower thorac ic spine. Degenerative change sternoclavicular joints. IMPRESSION: 1. PATIENT IS BREATHING THROUGH THE SCAN LIMITING ASSESSMENT FOR PULMONARY BOLUS. NO DEFINITE PULMONA RY EMBOLUS IS SEEN. NOTE THAT MANY OF THE SEGMENTAL AND MORE DISTAL BRANCHES ARE NONDIAGNOSTIC. 2. GROUNDGLASS DENSITY VERSUS MOSAIC ATTENUATION IN THE LOWER LUNGS. FINDINGS MAY BE DUE TO SMALL AIR WAYS DISEASE OR AN INTERSTITIAL PNEUMONITIS SUCH NSIP OR DIP. CLINICALLY CORRELATE.
[2022-12-18 13:04] VITALS: RESP 16; TEMP 98
--- NOTE | 2022-12-18 13:05 | CT ---
EXAMINATION TYPE: CT abdomen pelvis w con DATE OF EXAM: 12/18/2022 COMPARISON: None HISTORY: Diarrhea CT DLP: 2342.3 mGycm Automated exposure control for dose reduction was used. CONTRAST: CT scan of the abdomen pelvis is performed with IV Contrast, patient injected with 80 mL of Isovue 37 0. FINDINGS- LUNG BASES-heart is enlarged. LIVER/GB- postcholecystectomy changes seen. Low-attenuation liver sug gestive of fatty infiltration. Mild intrahepatic biliary ductal dilation likely secondary to postchol ecystectomy changes. PANCREAS- No gross abnormality is seen. SPLEEN- No gross abnormality is seen. ADRENALS- No gross abnormality is seen. KIDNEYS/BLADDER- no hydronephrosis nephrolithiasis or renal mass. BOWEL- diverticulosis of the sigmoid colon. LYMPH NODES- No greater than 1cm abdominal or pelvic lymph nodes are appreciated. OSSEOUS STRUCTURES- there is severe hypertrophic and degenerative changes of the spine. OTHER- mild bladder wall thickening with hazy attenuation can be associated with cystitis. Aorta of normal caliber. Mild haziness of the mesentery anteriorly on image 72 and 73 IMPRESSION- 1. Correlate for mild cystitis. 2. There is mild induration of the mesentery anterior to a couple small bowel loops on axial image 73 could be in the basis of a mesentery radius or mild enteritis correlate clinically.
[2022-12-18 13:56] VITALS: BP 136/60; PULSE 86
== END 2022-12-18 14:03 | disposition home or self-care (01) ==
LOC: EC 09:25
DX: K52.9 Noninfective gastroenteritis and colitis, unspecified (principal); E86.0 Dehydration; N17.9 Acute kidney failure, unspecified; E11.9 Type 2 diabetes mellitus without complications; I10 Essential (primary) hypertension; I25.10 Atherosclerotic heart disease of native coronary artery without angina pectoris; I25.2 Old myocardial infarction; J45.909 Unspecified asthma, uncomplicated; E78.5 Hyperlipidemia, unspecified; M79.7 Fibromyalgia; E66.01 Morbid (severe) obesity due to excess calories; Z20.822 Contact with and (suspected) exposure to COVID-19; Z68.34 Body mass index [BMI] 34.0-34.9, adult; Z79.84 Long term (current) use of oral hypoglycemic drugs; Z79.899 Other long term (current) drug therapy; Z88.1 Allergy status to other antibiotic agents; Z88.8 Allergy status to other drugs, medicaments and biological substances; Z90.49 Acquired absence of other specified parts of digestive tract; Z95.5 Presence of coronary angioplasty implant and graft; Z87.891 Personal history of nicotine dependence
CPT/HCPCS: 36415; 93005; 85379; 80053; 82150; 83605; 83690; 85025; 85610; 85730; 81001; 87086; 87636; 71046; 71275; 74177; 99285; 96374; 96375; 96361 ×4; J2405; C9113; Q9967

== ENCOUNTER 2022-12-20 13:38 | Emergency (ER) | payer OTHER ==
[2022-12-20] MEDS ORDERED: DEXTROSE 50% SYRINGE 50 ML IVP STA (13:40)
[2022-12-20 13:46] LABS: Glucose,Whole Blood 31 mg/dL (70-110)
--- NOTE | 2022-12-20 14:09 | ED ---
Weakness HPI - General Stated complaint: hypoglycemia Time Seen by Provider: 12/20/22 13:52 Source: RN notes reviewed, old records reviewed, Caregiver Mode of arrival: EMS Limitations: no limitations - History of Present Illness Initial comments: This is a 62-year-old female to the emergency department for evaluation of decreased mental status altered mental status and decreased responsiveness sent in for evaluation. Blood sugar initially 40, and is improved here in the ER patient is awake and alert and responding. Patient herself here in the ER has no complaints MD Complaint: generalized weakness (Low blood sugar) -: unknown Location: generalized Severity: severe Consistency: constant, now resolved Improves with: none Worsens with: none Context: history of similar Associated Symptoms: denies other symptoms - Related Data Home Medications Medication Instructions Recorded Confirmed Glimepiride [Amaryl] 4 mg PO BID 03/17/17 12/20/22 Atorvastatin [Lipitor] 80 mg PO HS 06/21/17 12/20/22 rOPINIRole HCL [Requip] 0.5 mg PO HS 03/31/19 12/20/22 Cetirizine HCl [Zyrtec] 10 mg PO DAILY 01/08/22 12/20/22 DULoxetine HCL [Cymbalta] 60 mg PO BID 01/08/22 12/20/22 Famotidine [Pepcid] 20 mg PO BID 01/08/22 12/20/22 Gabapentin [Neurontin] 300 mg PO TID 01/08/22 12/20/22 Sacubitril/Valsartan [Entresto 49 1 tab PO BID 01/08/22 12/20/22 mg-51 mg Tablet] tiZANidine [Zanaflex] 4 mg PO Q12H PRN 01/08/22 12/20/22 carvediloL [Coreg] 25 mg PO BID 06/15/22 12/20/22 traZODone HCL [Desyrel] 150 mg PO HS 06/15/22 12/20/22 Acetaminophen Tab [Tylenol Tab] 500 - 1,000 mg PO Q6H 12/18/22 12/20/22 Nitroglycerin Sl Tabs [Nitrostat] 0.4 mg SL Q5M PRN 12/18/22 12/20/22 sitaGLIPtin PHOS/metFORMIN HCL 1 tab PO BID 12/18/22 12/20/22 [Janumet 50-500 mg Tablet] Previous Rx's Medication Instructions Recorded Dicyclomine [Bentyl] 10 mg PO TID PRN 7 Days #21 capsule 12/18/22 Ondansetron Odt [Zofran Odt] 4 mg PO Q8HR PRN 2 Days #6 tab 12/18/22 Allergies Allergy/AdvReac Type Severity Reaction Status Date / Time WARNER Inhibitors Allergy Unknown Verified 12/20/22 15:41 ciprofloxacin [From Cipro] Allergy Rash/Hives Verified 12/20/22 15:41 Quinolones Allergy rash over Verified 12/20/22 15:41 entire body metformin AdvReac Diarrhea Verified 12/20/22 15:41 Review of Systems ROS Statement: Those systems with pertinent positive or pertinent negative responses have been documented in the HPI. ROS Other: All systems not noted in ROS Statement are negative. Past Medical History Past Medical History: Asthma, Coronary Artery Disease (CAD), Chest Pain / Angina, Diabetes Mellitus, Fibromyalgia, GERD/Reflux, Hyperlipidemia, Hypertension, Myocardial Infarction ([place]), Rheumatoid Arthritis ([place]) Additional Past Medical History / Comment(s): morbid obesity, chronic migraines, SCOLIOSIS, CHRONIC BACK PAIN, CARPAL TUNNEL bilaterally. bed sore to coccyx. Last Myocardial Infarction Date:: 05/24/15 History of Any Multi-Drug Resistant Organisms: None Reported Past Surgical History: Breast Surgery, Cholecystectomy, Heart Catheterization, Heart Catheterization With Stent, Tonsillectomy Additional Past Surgical History / Comment(s): 05/2015 PCI with stent at [facility]. Other surgeries: BIBI KNEE ARTHROSCOPIES, L BREAST- LUMPECTOMY(BENIGN) Past Anesthesia/Blood Transfusion Reactions: Motion Sickness Additional Past Anesthesia/Blood Transfusion Reaction / Comment(s): Pt states she has clausterphobia. Date of Last Stent Placement:: 05/24/15 per pt Past Psychological History: Anxiety, Depression Smoking Status: Former smoker Past Alcohol Use History: None Reported Past Drug Use History: None Reported - Past Family History Father Family Medical History: Dementia Mother History Unknown: Yes Family Medical History: Cancer, Chest Pain / Angina Additional Family Medical History / Comment(s): Breast cancer with recent surgery. General Exam General appearance: alert, in no apparent distress Head exam: Present: atraumatic, normocephalic, normal inspection Eye exam: Present: normal appearance, PERRL, EOMI. Absent: scleral icterus, conjunctival injection, periorbital swelling ENT exam: Present: normal exam, mucous membranes moist Neck exam: Present: normal inspection. Absent: tenderness, meningismus, lymphadenopathy Respiratory exam: Present: normal lung sounds bilaterally. Absent: respiratory distress, wheezes, rales, rhonchi, stridor Cardiovascular Exam: Present: regular rate, normal rhythm, normal heart sounds. Absent: systolic murmur, diastolic murmur, rubs, gallop, clicks GI/Abdominal exam: Present: soft, normal bowel sounds. Absent: distended, tenderness, guarding, rebound, rigid Extremities exam: Present: normal inspection, full ROM, normal capillary refill. Absent: tenderness, pedal edema, joint swelling, calf tenderness Back exam: Present: normal inspection Neurological exam: Present: alert, oriented X3, CN II-XII intact Psychiatric exam: Present: normal affect, normal mood Skin exam: Present: warm, dry, intact, normal color. Absent: rash Course Vital Signs 12/20/22 12/20/22 14:20 17:14 Temperature 98 F Pulse Rate 84 82 Respiratory 18 18 Rate Blood Pressure 96/65 104/54 O2 Sat by Pulse 96 96 Oximetry - Reevaluation(s) Reevaluation #1: 12/20/22 21:47 Medical record is reviewed Reevaluation #2: 12/20/22 21:47 Patient has no significant complaints, blood sugar normal Reevaluation #3: 12/20/22 21:47 Patient informed results and questions answered Reevaluation #4: 12/20/22 21:47 Was pt. sent in by a medical professional or institution? @ -no Did you speak to anyone other than the patient for history? @ -no Did you review nursing and triage notes? @ -agree Were old charts reviewed? @ -no Differential Diagnosis? @ -prior, weakness EKG interpreted by me (3pts min.)? @ -no X-rays interpreted by me (1pt min.)? @ -no CT interpreted by me (1pt min.)? @ -no U/S interpreted by me (1pt. min.)? @ -no What testing was considered but not performed? (CT, X-rays, U/S, labs)? Why? @ -no What meds were considered but not given? Why? @ -no Did you discuss the management of the patient with other professionals? @ -no Did you reconcile home meds? @ -no Was smoking cessation discussed for >3mins.? @ -no Was critical care preformed (if so, how long)? @ -no Were there social determinants of health that impacted care today? How? (Homelessness, low income, unemployed, alcoholism, drug addiction, transportation, low edu. Level, literacy, decrease access to med. care, longterm, rehab)? @ -no Was there de-escalation of care discussed even if they declined? (Discuss DNR or withdrawal of care, Hospice)? @ -no What co-morbidities impacted this encounter? (DM, HTN, Smoking, COPD, CAD, Cancer, CVA, Hep., AIDS, mental health diagnosis, sleep apnea, morbid obesity)? @ -no Was patient admitted / discharged? @ -dc Undiagnosed new problem with uncertain prognosis? @ -no Drug Therapy requiring intensive monitoring for toxicity (Heparin, Nitro, Insulin, Cardizem)? @ -no Were any procedures done? @ -no Diagnosis/symptom? @ -hyppoglycemia Acute, or Chronic, or Acute on Chronic? @ -acute Uncomplicated (without systemic symptoms) or Complicated (systemic symptoms)? @ -uncomplicated Side effects of treatment? @ -none Exacerbation, Progression, or Severe Exacerbation] @ - Poses a threat to life or bodily function? @ -no Medical Decision Making - Medical Decision Making 62 female to the emergency department for evaluation patient presents today for evaluation of low blood sugar, patient's blood sugar remains normal here in the emergency department patient is eating here in the emergency department without significant complaints or distress patient can be discharged home - Lab Data Lab Results 12/20/22 12/20/22 12/20/22 Range/Units 13:40 14:29 15:57 POC Glucose (mg/dL) 31 L 102 180 H (70-110) mg/dL POC Glu Assistant To The President ID Gucci Becerra John Chandler, Andrew 12/20/22 Range/Units 17:07 POC Glucose (mg/dL) 214 H (70-110) mg/dL POC Glu Assistant To The President ID Armando Fernandez Disposition Clinical Impression: Weakness, Hypoglycemia Disposition: HOME SELF-CARE Instructions (If sedation given, give patient instructions): Hypoglycemia in a Person with Diabetes (ED) Is patient prescribed a controlled substance at d/c from ED?: No Referrals: Sofya Lott MD [Primary Care Provider] - 1-2 days Time of Disposition: 17:00
[2022-12-20 14:28] VITALS: RESP 18; TEMP 98
[2022-12-20 14:31] LABS: Glucose,Whole Blood 102 mg/dL (70-110)
[2022-12-20 15:58] LABS: Glucose,Whole Blood 180 mg/dL (70-110)
[2022-12-20 17:09] LABS: Glucose,Whole Blood 214 mg/dL (70-110)
[2022-12-20 17:16] VITALS: BP 104/54; PULSE 82
== END 2022-12-20 17:15 | disposition home or self-care (01) ==
LOC: EC 13:38
DX: R53.1 Weakness (principal); E11.649 Type 2 diabetes mellitus with hypoglycemia without coma; J45.909 Unspecified asthma, uncomplicated; I25.10 Atherosclerotic heart disease of native coronary artery without angina pectoris; M06.9 Rheumatoid arthritis, unspecified; E78.5 Hyperlipidemia, unspecified; I10 Essential (primary) hypertension; I25.2 Old myocardial infarction; E66.01 Morbid (severe) obesity due to excess calories; F32.A Depression, unspecified; F41.9 Anxiety disorder, unspecified; Z68.34 Body mass index [BMI] 34.0-34.9, adult; Z87.891 Personal history of nicotine dependence; Z88.8 Allergy status to other drugs, medicaments and biological substances; Z88.1 Allergy status to other antibiotic agents; Z79.84 Long term (current) use of oral hypoglycemic drugs; Z79.899 Other long term (current) drug therapy
CPT/HCPCS: 36415; 96374; 99285

== ENCOUNTER 2023-01-03 01:45 | Emergency (ER) | payer OTHER ==
[2023-01-03 01:52] VITALS: RESP 18
[2023-01-03 03:15] LABS: Glucose,Whole Blood 56 mg/dL (70-110)
[2023-01-03 04:26] LABS: Glucose,Whole Blood 73 mg/dL (70-110)
[2023-01-03 04:52] LABS: Basophils % (A) 0 %; Eosinophils # (A) 0.1 k/uL (0-0.7); Eosinophils % (A) 1 %; HCT 37.5 % (34.0-46.0); Lymphocytes # (A) 0.9 k/uL (1.0-4.8); Lymphocytes % (A) 7 %; MCH 26.7 pg (25.0-35.0); MCHC 31.9 g/dL (31.0-37.0); MCV 83.6 fL (80.0-100.0); Mean Platelet Volume 7.7; Monocytes # (A) 0.6 k/uL (0-1.0); Monocytes % (A) 5 %; Neutrophils # (A) 11.4 k/uL (1.3-7.7); Neutrophils % (A) 87 %; Platelet Count 277 k/uL (150-450); RBC 4.48 m/uL (3.80-5.40); RDW 15.4 % (11.5-15.5); WBC 13.1 k/uL (3.8-10.6)
[2023-01-03 05:05] LABS: Calcium 8.9 mg/dL (8.4-10.2); Magnesium 1.7 mg/dL (1.6-2.3); Potassium 3.9 mmol/L (3.5-5.1); Total Bilirubin 0.5 mg/dL (0.2-1.3); Total Protein 6.5 g/dL (6.3-8.2)
--- NOTE | 2023-01-03 05:16 | ED ---
General Adult HPI - General Chief complaint: Nausea/Vomiting/Diarrhea Stated complaint: Diarrhea Time Seen by Provider: 01/03/23 03:01 Source: EMS Mode of arrival: EMS Limitations: no limitations - History of Present Illness Initial comments: This is a 62-year-old female with a past medical history including diabetes and hypertension presented to the emergency department for hypoglycemia via EMS. The patient had been seen 2 other times this past week and a half for the same complaint. The patient stated that she is a poor diet and has not been taking her blood sugar. The patient on arrival did not complain of any acute pain or distress. The patient was initially placed in the room however stated that she has a terrible bedbug problem in her apartment and that bugs were found in her room. The patient needed to be decontaminated and the patient was seen approximately one and half hours after this. On evaluation, the patient was resting in bed comfortably without any acute distress. Initial blood glucose was low and the patient was given juice and food to eat. The patient denied any other acute pain or complaints at this time. - Related Data Home Medications Medication Instructions Recorded Confirmed Glimepiride [Amaryl] 4 mg PO BID 03/17/17 12/20/22 Atorvastatin [Lipitor] 80 mg PO HS 06/21/17 12/20/22 rOPINIRole HCL [Requip] 0.5 mg PO HS 03/31/19 12/20/22 Cetirizine HCl [Zyrtec] 10 mg PO DAILY 01/08/22 12/20/22 DULoxetine HCL [Cymbalta] 60 mg PO BID 01/08/22 12/20/22 Famotidine [Pepcid] 20 mg PO BID 01/08/22 12/20/22 Gabapentin [Neurontin] 300 mg PO TID 01/08/22 12/20/22 Sacubitril/Valsartan [Entresto 49 1 tab PO BID 01/08/22 12/20/22 mg-51 mg Tablet] tiZANidine [Zanaflex] 4 mg PO Q12H PRN 01/08/22 12/20/22 carvediloL [Coreg] 25 mg PO BID 06/15/22 12/20/22 traZODone HCL [Desyrel] 150 mg PO HS 06/15/22 12/20/22 Acetaminophen Tab [Tylenol Tab] 500 - 1,000 mg PO Q6H 12/18/22 12/20/22 Nitroglycerin Sl Tabs [Nitrostat] 0.4 mg SL Q5M PRN 12/18/22 12/20/22 sitaGLIPtin PHOS/metFORMIN HCL 1 tab PO BID 12/18/22 12/20/22 [Janumet 50-500 mg Tablet] Previous Rx's Medication Instructions Recorded Dicyclomine [Bentyl] 10 mg PO TID PRN 7 Days #21 capsule 12/18/22 Ondansetron Odt [Zofran Odt] 4 mg PO Q8HR PRN 2 Days #6 tab 12/18/22 Cephalexin [Keflex] 500 mg PO Q6HR 1 Days #20 cap 01/03/23 Allergies Allergy/AdvReac Type Severity Reaction Status Date / Time WARNER Inhibitors Allergy Unknown Verified 12/20/22 15:41 ciprofloxacin [From Cipro] Allergy Rash/Hives Verified 12/20/22 15:41 Quinolones Allergy rash over Verified 12/20/22 15:41 entire body metformin AdvReac Diarrhea Verified 12/20/22 15:41 Review of Systems ROS Statement: Those systems with pertinent positive or pertinent negative responses have been documented in the HPI. ROS Other: All systems not noted in ROS Statement are negative. Past Medical History Past Medical History: Asthma, Coronary Artery Disease (CAD), Chest Pain / Angina, Diabetes Mellitus, Fibromyalgia, GERD/Reflux, Hyperlipidemia, Hypertension, Myocardial Infarction ([place]), Rheumatoid Arthritis (RA) Additional Past Medical History / Comment(s): morbid obesity, chronic migraines, SCOLIOSIS, CHRONIC BACK PAIN, CARPAL TUNNEL bilaterally. bed sore to coccyx. Last Myocardial Infarction Date:: 05/24/15 History of Any Multi-Drug Resistant Organisms: None Reported Past Surgical History: Breast Surgery, Cholecystectomy, Heart Catheterization, Heart Catheterization With Stent, Tonsillectomy Additional Past Surgical History / Comment(s): 05/2015 PCI with stent at [facility]. Other surgeries: BIBI KNEE ARTHROSCOPIES, L BREAST- LUMPECTOMY(BENIGN) Past Anesthesia/Blood Transfusion Reactions: Motion Sickness Additional Past Anesthesia/Blood Transfusion Reaction / Comment(s): Pt states she has clausterphobia. Date of Last Stent Placement:: 05/24/15 per pt Past Psychological History: Anxiety, Depression Smoking Status: Former smoker Past Alcohol Use History: None Reported Past Drug Use History: None Reported - Past Family History Father Family Medical History: Dementia Mother History Unknown: Yes Family Medical History: Cancer, Chest Pain / Angina Additional Family Medical History / Comment(s): Breast cancer with recent surgery. General Exam Limitations: no limitations General appearance: alert, in no apparent distress, obese Head exam: Present: atraumatic, normocephalic, normal inspection Eye exam: Present: normal appearance, PERRL Pupils: Present: normal accommodation ENT exam: Present: normal exam, normal oropharynx, mucous membranes moist Neck exam: Present: normal inspection, full ROM Respiratory exam: Present: normal lung sounds bilaterally Cardiovascular Exam: Present: regular rate, normal rhythm, normal heart sounds GI/Abdominal exam: Present: soft, normal bowel sounds Extremities exam: Present: normal inspection, full ROM Back exam: Present: normal inspection, full ROM Neurological exam: Present: alert, oriented X3, CN II-XII intact Psychiatric exam: Present: normal affect, normal mood Skin exam: Present: warm, dry Course Vital Signs 01/03/23 01:46 Pulse Rate 86 Respiratory 18 Rate Blood Pressure 151/101 O2 Sat by Pulse 96 Oximetry Medical Decision Making - Medical Decision Making Was pt. sent in by a medical professional or institution (, PA, CAN SORTER, urgent care, hospital, or prison...) When possible be specific @ -No Did you speak to anyone other than the patient for history (EMS, parent, family, police, friend...)? What history was obtained from this source @ -No Did you review nursing and triage notes (agree or disagree)? Why? @ -I reviewed and agree with nursing and triage notes Were old charts reviewed (outside hosp., previous admission, EMS record, old EKG, old radiological studies, urgent care reports/EKG's, prison records)? Report findings @ -No old charts were reviewed Differential Diagnosis (chest pain, altered mental status, abdominal pain women, abdominal pain men, vaginal bleeding, weakness, fever, dyspnea, syncope, headache, dizziness, GI bleed, back pain, seizure, CVA, palpatations, mental health)? @ -Hypoglycemia, UTI, pneumonia EKG interpreted by me (3pts min.). @ -None X-rays interpreted by me (1pt min.). @ -None done CT interpreted by me (1pt min.). @ -None done U/S interpreted by me (1pt. min.). @ -None done What testing was considered but not performed or refused? (CT, X-rays, U/S, labs)? Why? @ -None What meds were considered but not given or refused? Why? @ -None Did you discuss the management of the patient with other professionals (professionals i.e. Dr., PA, CAN SORTER, lab, RT, psych nurse, social services analyst, supervisor word processing, teacher, credit control officer, nurse case manager)? Give summary @ -No Was smoking cessation discussed for >3mins.? @ -No Was critical care preformed (if so, how long)? @ -No Were there social determinants of health that impacted care today? How? (Homelessness, low income, unemployed, alcoholism, drug addiction, transportation, low edu. Level, literacy, decrease access to med. care, correction, rehab)? @ -No Was there de-escalation of care discussed even if they declined (Discuss DNR or withdrawal of care, Hospice)? DNR status @ -No What co-morbidities impacted this encounter? (DM, HTN, Smoking, COPD, CAD, Cancer, CVA, ARF, Chemo, Hep., AIDS, mental health diagnosis, sleep apnea, morbid obesity)? @ -Hypertension, diabetes Was patient admitted / discharged? Hospital course, mention meds given and route, prescriptions, significant lab abnormalities, going to OR and other pertinent info. @ -The patient was seen and evaluated emergency department. Physical exam, the patient was resting in bed without any acute distress. The patient was decontaminated as she had bed bugs found on her and in the room. The patient was seen and evaluated one and half hours after this. The patient's initial blood glucose was low but was given food in the emergency department. All laboratory workup was obtained and was within normal limits. UTI was obtained and did show a large leuk esterase and due to the patient's urinary symptoms was treated with a dose of Keflex in the emergency department and a prescription for Keflex to be taken at home. The patient did continue to remain stable and was advised to continue to check her blood sugar at home and to continue to try and eat better similar to her previous instructions over the last 2 other ER visits. The patient was also advised to follow-up with her primary care physician for further workup and evaluation. The patient was agreeable to this and all her questions were answered appropriate. The patient was discharged home in stable condition. Undiagnosed new problem with uncertain prognosis? @ -No Drug Therapy requiring intensive monitoring for toxicity (Heparin, Nitro, Insulin, Cardizem)? @ -No Were any procedures done? @ -No Diagnosis/symptom? @ -Hypoglycemic, resolved, UTI Acute, or Chronic, or Acute on Chronic? @ -Acute on chronic Uncomplicated (without systemic symptoms) or Complicated (systemic symptoms)? @ -Uncomplicated Side effects of treatment? @ -No Exacerbation, Progression, or Severe Exacerbation? @ -No Poses a threat to life or bodily function? How? (Chest pain, [place], [place], pneumonia, PE, COPD, DKA, ARF, appy, cholecystitis, CVA, Diverticulitis, Homicidal, Suicidal, threat to staff... and all critical care pts) @ -No - Lab Data Result diagrams: 01/03/23 04:40 01/03/23 04:40 Lab Results 01/03/23 01/03/23 01/03/23 Range/Units 03:14 04:24 04:40 WBC 13.1 H (3.8-10.6) k/uL RBC 4.48 (3.80-5.40) m/uL Hgb 12.0 (11.4-16.0) gm/dL Hct 37.5 (34.0-46.0) % MCV 83.6 (80.0-100.0) fL MCH 26.7 (25.0-35.0) pg MCHC 31.9 (31.0-37.0) g/dL RDW 15.4 (11.5-15.5) % Plt Count 277 (150-450) k/uL MPV 7.7 Neutrophils % 87 % Lymphocytes % 7 % Monocytes % 5 % Eosinophils % 1 % Basophils % 0 % Neutrophils # 11.4 H (1.3-7.7) k/uL Lymphocytes # 0.9 L (1.0-4.8) k/uL Monocytes # 0.6 (0-1.0) k/uL Eosinophils # 0.1 (0-0.7) k/uL Basophils # 0.0 (0-0.2) k/uL Sodium (137-145) mmol/L Potassium (3.5-5.1) mmol/L Chloride (98-107) mmol/L Carbon Dioxide (22-30) mmol/L Anion Gap mmol/L BUN (7-17) mg/dL Creatinine (0.52-1.04) mg/dL Est GFR (CKD-EPI)AfAm (>60 ml/min/1.73 sqM) Est GFR (CKD-EPI)NonAf (>60 ml/min/1.73 sqM) Glucose (74-99) mg/dL POC Glucose (mg/dL) 56 L 73 (70-110) mg/dL POC Glu Office Bookkeeper ID Stopover, Shiloh Austin, Shiloh Calcium (8.4-10.2) mg/dL Magnesium (1.6-2.3) mg/dL Total Bilirubin (0.2-1.3) mg/dL AST (14-36) U/L ALT (4-34) U/L Alkaline Phosphatase (38-126) U/L Total Protein (6.3-8.2) g/dL Albumin (3.5-5.0) g/dL Lipase (23-300) U/L Urine Color Urine Appearance (Clear) Urine pH (5.0-8.0) Ur Specific [place] (1.001-1.035) Urine Protein (Negative) Urine Glucose (UA) (Negative) Urine Ketones (Negative) Urine Blood (Negative) Urine Nitrite (Negative) Urine Bilirubin (Negative) Urine Urobilinogen (<2.0) mg/dL Ur Leukocyte Esterase (Negative) Amorphous Sediment (None) /hpf 01/03/23 01/03/23 01/03/23 Range/Units 04:40 04:40 06:02 WBC (3.8-10.6) k/uL RBC (3.80-5.40) m/uL Hgb (11.4-16.0) gm/dL Hct (34.0-46.0) % MCV (80.0-100.0) fL MCH (25.0-35.0) pg MCHC (31.0-37.0) g/dL RDW (11.5-15.5) % Plt Count (150-450) k/uL MPV Neutrophils % % Lymphocytes % % Monocytes % % Eosinophils % % Basophils % % Neutrophils # (1.3-7.7) k/uL Lymphocytes # (1.0-4.8) k/uL Monocytes # (0-1.0) k/uL Eosinophils # (0-0.7) k/uL Basophils # (0-0.2) k/uL Sodium 138 (137-145) mmol/L Potassium 3.9 (3.5-5.1) mmol/L Chloride 101 (98-107) mmol/L Carbon Dioxide 25 (22-30) mmol/L Anion Gap 12 mmol/L BUN 20 H (7-17) mg/dL Creatinine 0.93 (0.52-1.04) mg/dL Est GFR (CKD-EPI)AfAm 76 (>60 ml/min/1.73 sqM) Est GFR (CKD-EPI)NonAf 66 (>60 ml/min/1.73 sqM) Glucose 180 H (74-99) mg/dL POC Glucose (mg/dL) 143 H (70-110) mg/dL POC Glu Office Bookkeeper ID Shiloh Avila Calcium 8.9 (8.4-10.2) mg/dL Magnesium 1.7 (1.6-2.3) mg/dL Total Bilirubin 0.5 (0.2-1.3) mg/dL AST 25 (14-36) U/L ALT 22 (4-34) U/L Alkaline Phosphatase 81 (38-126) U/L Total Protein 6.5 (6.3-8.2) g/dL Albumin 4.0 (3.5-5.0) g/dL Lipase 121 (23-300) U/L Urine Color Light Yellow Urine Appearance Clear (Clear) Urine pH 6.0 (5.0-8.0) Ur Specific [place] 1.006 (1.001-1.035) Urine Protein Negative (Negative) Urine Glucose (UA) Negative (Negative) Urine Ketones Negative (Negative) Urine Blood Trace H (Negative) Urine Nitrite Negative (Negative) Urine Bilirubin Negative (Negative) Urine Urobilinogen <2.0 (<2.0) mg/dL Ur Leukocyte Esterase Large H (Negative) Amorphous Sediment Occasional H (None) /hpf Disposition Clinical Impression: Hypoglycemia, UTI (urinary tract infection) Disposition: HOME SELF-CARE Condition: Stable Instructions (If sedation given, give patient instructions): Hypoglycemia in a Person with Diabetes (DC) Prescriptions: Cephalexin [Keflex] 500 mg PO Q6HR 1 Days #20 cap Is patient prescribed a controlled substance at d/c from ED?: No Referrals: Sofya Lott MD [Primary Care Provider] - 1-2 days Time of Disposition: 06:00
[2023-01-03 05:53] LABS: Amorphous Sediment,Urine Occasional /hpf; Appearance,Urine Clear (Clear); Bilirubin,Urine Negative (Negative); Blood,Urine Trace (Negative); Color,Urine Light Yellow; Glucose,Urine (UA) Negative (Negative); Ketones,Urine Negative (Negative); Leukocyte Esterase,Urine Large (Negative); Nitrite,Urine Negative (Negative); Protein,Urine Negative (Negative); Specific Gravity,Urine 1.006 (1.001-1.035); Urobilinogen,Urine <2.0 mg/dL (<2.0)
[2023-01-03 06:05] LABS: Glucose,Whole Blood 143 mg/dL (70-110)
[2023-01-03] MEDS ORDERED: CEPHALEXIN 500 MG CAP PO STA (06:46)
[2023-01-03 06:47] LABS: Bacteria,Urine Occasional /hpf; RBC,Urine 1 /hpf (0-5); Squamous Epithelial Cell,Urine <1 /hpf (0-4); WBC,Urine 74 /hpf (0-5)
[2023-01-03 06:57] VITALS: BP 147/95; PULSE 78; TEMP 98.7
== END 2023-01-03 07:13 | disposition home or self-care (01) ==
LOC: EC 01:45
DX: E11.649 Type 2 diabetes mellitus with hypoglycemia without coma (principal); N39.0 Urinary tract infection, site not specified; I10 Essential (primary) hypertension; I25.10 Atherosclerotic heart disease of native coronary artery without angina pectoris; I25.2 Old myocardial infarction; J45.909 Unspecified asthma, uncomplicated; E78.5 Hyperlipidemia, unspecified; F32.A Depression, unspecified; F41.9 Anxiety disorder, unspecified; K21.9 Gastro-esophageal reflux disease without esophagitis; E66.01 Morbid (severe) obesity due to excess calories; Z79.84 Long term (current) use of oral hypoglycemic drugs; Z79.899 Other long term (current) drug therapy; Z88.1 Allergy status to other antibiotic agents; Z88.8 Allergy status to other drugs, medicaments and biological substances; Z87.891 Personal history of nicotine dependence; Z90.49 Acquired absence of other specified parts of digestive tract
CPT/HCPCS: 36415; 80053; 81001; 83690; 83735; 85025; 99284

== ENCOUNTER 2023-02-12 14:30 | Emergency (ER) | payer OTHER, SELFPAY ==
[2023-02-12 14:41] LABS: Glucose,Whole Blood 107 mg/dL (70-110)
--- NOTE | 2023-02-12 15:00 | ED ---
General Adult HPI - General Chief complaint: Recheck/Abnormal Lab/Rx Stated complaint: Fall Time Seen by Provider: 02/12/23 14:50 Source: patient, EMS, RN notes reviewed, old records reviewed Mode of arrival: EMS Limitations: no limitations - History of Present Illness Initial comments: This is a 62-year-old female who presents emergency Department with a past medical history significant for diabetes. Patient states she fell backwards states she got lightheaded and felt weak and now she has some right-sided neck pain. Patient denies hitting her head even though there appears to be a slight abrasion to the right aspect of her forehead. Patient states she has no numbness or weakness in her hands per patient denies any headache. Patient denies any lightheadedness currently. According to EMS her sugar was 40 to gave her D50 and her sugar came up on her and she came back to her baseline. Patient denies any chest pain difficulty breathing shortest breath per patient denies any recent fever chills or cough per patient denies any abdominal pain patient denies any nausea vomiting diarrhea. Patient denies any dysuria hematuria urinary frequency. Patient states she has not been eating when she supposed to and that may be why her sugar is low. Patient states that she has knee and hip pain but all of which is chronic and nothing is new. She does not take insulin - Related Data Home Medications Medication Instructions Recorded Confirmed Glimepiride [Amaryl] 4 mg PO BID 03/17/17 02/12/23 Atorvastatin [Lipitor] 80 mg PO HS 06/21/17 02/12/23 rOPINIRole HCL [Requip] 0.5 mg PO HS 03/31/19 02/12/23 Cetirizine HCl [Zyrtec] 10 mg PO DAILY 01/08/22 02/12/23 DULoxetine HCL [Cymbalta] 60 mg PO BID 01/08/22 02/12/23 Famotidine [Pepcid] 20 mg PO BID PRN 01/08/22 02/12/23 Gabapentin [Neurontin] 300 mg PO TID 01/08/22 02/12/23 Sacubitril/Valsartan [Entresto 49 1 tab PO BID 01/08/22 02/12/23 mg-51 mg Tablet] carvediloL [Coreg] 25 mg PO BID 06/15/22 02/12/23 traZODone HCL [Desyrel] 150 mg PO HS 06/15/22 02/12/23 Acetaminophen Tab [Tylenol Tab] 100 mg PO Q8H PRN 12/18/22 02/12/23 Nitroglycerin Sl Tabs [Nitrostat] 0.4 mg SL Q5M PRN 12/18/22 02/12/23 sitaGLIPtin PHOS/metFORMIN HCL 1 tab PO BID 12/18/22 02/12/23 [Janumet 50-500 mg Tablet] Previous Rx's Medication Instructions Recorded Nitrofurantoin Monohyd/M-Cryst 100 mg PO Q12HR #14 cap 02/12/23 [Macrobid] Allergies Allergy/AdvReac Type Severity Reaction Status Date / Time WARNER Inhibitors Allergy Unknown Verified 02/12/23 15:48 ciprofloxacin [From Cipro] Allergy Rash/Hives Verified 02/12/23 15:48 Quinolones Allergy rash over Verified 02/12/23 15:48 entire body metformin AdvReac Diarrhea Verified 02/12/23 15:48 Review of Systems ROS Statement: Those systems with pertinent positive or pertinent negative responses have been documented in the HPI. ROS Other: All systems not noted in ROS Statement are negative. Past Medical History Past Medical History: Asthma, Coronary Artery Disease (CAD), Chest Pain / Angina, Diabetes Mellitus, Fibromyalgia, GERD/Reflux, Hyperlipidemia, Hypertension, Myocardial Infarction (NE), Rheumatoid Arthritis (RA) Additional Past Medical History / Comment(s): morbid obesity, chronic migraines, SCOLIOSIS, CHRONIC BACK PAIN, CARPAL TUNNEL bilaterally. bed sore to coccyx. Last Myocardial Infarction Date:: 05/24/15 History of Any Multi-Drug Resistant Organisms: None Reported Past Surgical History: Breast Surgery, Cholecystectomy, Heart Catheterization, Heart Catheterization With Stent, Tonsillectomy Additional Past Surgical History / Comment(s): 05/2015 PCI with stent at [facility]. Other surgeries: BIBI KNEE ARTHROSCOPIES, L BREAST-LUMPEC MJ(BENIGN) Past Anesthesia/Blood Transfusion Reactions: Motion Sickness Additional Past Anesthesia/Blood Transfusion Reaction / Comment(s): Pt states she has clausterphobia. Date of Last Stent Placement:: 05/24/15 per pt Past Psychological History: Anxiety, Depression Smoking Status: Former smoker Past Alcohol Use History: None Reported Past Drug Use History: None Reported - Past Family History Father Family Medical History: Dementia Mother History Unknown: Yes Family Medical History: Cancer, Chest Pain / Angina Additional Family Medical History / Comment(s): Breast cancer with recent surgery. General Exam - General Exam Comments Initial Comments: GENERAL: Patient is well-developed and well-nourished. Patient is nontoxic and well- hydrated and is in no acute distress. ENT: Neck is soft and supple. No significant lymphadenopathy is noted. Oropharynx is clear. Moist mucous membranes. Neck has full range of motion without eliciting any pain. Patient has some tenderness to the right trapezius muscle. EYES: The sclera were anicteric and conjunctiva were pink and moist. Extraocular movements were intact and pupils were equal round and reactive to light. Eyelids were unremarkable. PULMONARY: Unlabored respirations. Good breath sounds bilaterally. No audible rales rhonchi or wheezing was noted. CARDIOVASCULAR: There is a regular rate and rhythm without any murmurs gallops or rubs. ABDOMEN: Soft and nontender with normal bowel sounds. SKIN: Patient has a very superficial abrasion to the right forehead NEUROLOGIC: Patient is alert and oriented x3. Cranial nerves II through XII are grossly intact. Motor and sensory are also intact. Normal speech, volume and content. Symmetrical smile. MUSCULOSKELETAL: Normal extremities with adequate strength and full range of motion. No lower extremity swelling or edema. No calf tenderness. LYMPHATICS: No significant lymphadenopathy is noted PSYCHIATRIC: Normal psychiatric evaluation. Limitations: no limitations Course Vital Signs 02/12/23 14:47 Temperature 98.6 F Pulse Rate 81 Respiratory 18 Rate Blood Pressure 92/58 O2 Sat by Pulse 95 Oximetry Medical Decision Making - Medical Decision Making EKG as interpreted by myself EKG shows a sinus rhythm at 71 bpm OK interval 254 QRS is 103 QT interval 352 QTC is 47. Patient's EKG shows no ST segment elevation or depression. Was pt. sent in by a medical professional or institution (, PA, COMPUTER EDUCATION PROFESSOR, urgent care, hospital, or penitentiary...) When possible be specific @ -No Did you speak to anyone other than the patient for history (EMS, parent, family, police, friend...)? What history was obtained from this source @ -EMS gave us the history when they arrived the patient was hypoglycemic in the give the patient sugar and her sugar riley and then she was much more alert and oriented Did you review nursing and triage notes (agree or disagree)? Why? @ -I reviewed and agree with nursing and triage notes Were old charts reviewed (outside hosp., previous admission, EMS record, old EKG, old radiological studies, urgent care reports/EKG's, penitentiary records)? Report findings @ -I reviewed prior lab work and prior radiological studies on this patient Differential Diagnosis (chest pain, altered mental status, abdominal pain women, abdominal pain men, vaginal bleeding, weakness, fever, dyspnea, syncope, headache, dizziness, GI bleed, back pain, seizure, CVA, palpatations, mental health, musculoskeletal)? @ -Differential Altered Mental Status: Hypoglycemia, DKA, hypercapnia, ETOH, overdose, CO poisoning, trauma, myxedema coma, HTN encephalopathy, infection, encephalitis, psychosis, intercranial hemorrhage, hepatic encephalopathy, meningitis, CVA, this is not meant to be an all-inclusive list EKG interpreted by me (3pts min.). @ -As above X-rays interpreted by me (1pt min.). @ -Chest x-ray showed no acute abnormality CT interpreted by me (1pt min.). @ -CT of the brain and C-spine showed no acute abnormality U/S interpreted by me (1pt. min.). @ -None done What testing was considered but not performed or refused? (CT, X-rays, U/S, labs)? Why? @ -None What meds were considered but not given or refused? Why? @ -None Did you discuss the management of the patient with other professionals (professionals i.e. , PA, COMPUTER EDUCATION PROFESSOR, lab, RT, psych nurse, social sciences chair, er manager, teacher, examining officer, case supervisor)? Give summary @ -No Was smoking cessation discussed for >3mins.? @ -No Was critical care preformed (if so, how long)? @ -No Were there social determinants of health that impacted care today? How? (Homelessness, low income, unemployed, alcoholism, drug addiction, transportation, low edu. Level, literacy, decrease access to med. care, senior living, rehab)? @ -No Was there de-escalation of care discussed even if they declined (Discuss DNR or withdrawal of care, Hospice)? DNR status @ -No What co-morbidities impacted this encounter? (DM, HTN, Smoking, COPD, CAD, Cancer, CVA, ARF, Chemo, Hep., AIDS, mental health diagnosis, sleep apnea, morbid obesity)? @ -None Was patient admitted / discharged? Hospital course, mention meds given and route, prescriptions, significant lab abnormalities, going to OR and other pertinent info. @ -I went back in the room after the CT of the C-spine and brain were done I took off the collar she had full range of motion with no pain I also palpated her neck and she no longer in any pain in the neck at all that was palpable. Patient's urine showed infection she was given antibiotics and she'll be discharged home on antibiotics. Patient has been instructed not to be skipping her meals like she did today. Undiagnosed new problem with uncertain prognosis? @ -No Drug Therapy requiring intensive monitoring for toxicity (Heparin, Nitro, Insulin, Cardizem)? @ -No Were any procedures done? @ -No Diagnosis/symptom? @ -Hypoglycemia Acute, or Chronic, or Acute on Chronic? @ -Acute Uncomplicated (without systemic symptoms) or Complicated (systemic symptoms)? @ -Complicated Side effects of treatment? @ -No Exacerbation, Progression, or Severe Exacerbation? @ -No Poses a threat to life or bodily function? How? (Chest pain, [place], NE, pneumonia, PE, COPD, DKA, ARF, appy, cholecystitis, CVA, Diverticulitis, Homicidal, Suicidal, threat to staff... and all critical care pts) @ -No Diagnosis/symptom? @ -Fall Acute, or Chronic, or Acute on Chronic? @ -Acute Uncomplicated (without systemic symptoms) or Complicated (systemic symptoms)? @ -Uncomplicated Side effects of treatment? @ -none Exacerbation, Progression, or Severe Exacerbation] @ -no Poses a threat to life or bodily function? @ -no Diagnosis/symptom? @ -Urinary tract infection Acute, or Chronic, or Acute on Chronic? @ -Acute Uncomplicated (without systemic symptoms) or Complicated (systemic symptoms)? @ -Uncomplicated Side effects of treatment? @ -none Exacerbation, Progression, or Severe Exacerbation] @ -no Poses a threat to life or bodily function? @ -no - Lab Data Result diagrams: 02/12/23 15:15 02/12/23 15:15 Lab Results 02/12/23 02/12/23 02/12/23 Range/Units 14:39 15:15 15:15 WBC 7.7 (3.8-10.6) k/uL RBC 4.09 (3.80-5.40) m/uL Hgb 10.7 L (11.4-16.0) gm/dL Hct 34.0 (34.0-46.0) % MCV 83.1 (80.0-100.0) fL MCH 26.3 (25.0-35.0) pg MCHC 31.6 (31.0-37.0) g/dL RDW 16.3 H (11.5-15.5) % Plt Count 238 (150-450) k/uL MPV 8.2 Neutrophils % 86 % Lymphocytes % 8 % Monocytes % 4 % Eosinophils % 1 % Basophils % 0 % Neutrophils # 6.6 (1.3-7.7) k/uL Lymphocytes # 0.6 L (1.0-4.8) k/uL Monocytes # 0.3 (0-1.0) k/uL Eosinophils # 0.1 (0-0.7) k/uL Basophils # 0.0 (0-0.2) k/uL Anisocytosis Slight Sodium (137-145) mmol/L Potassium (3.5-5.1) mmol/L Chloride (98-107) mmol/L Carbon Dioxide (22-30) mmol/L Anion Gap mmol/L BUN (7-17) mg/dL Creatinine (0.52-1.04) mg/dL Est GFR (CKD-EPI)AfAm (>60 ml/min/1.73 sqM) Est GFR (CKD-EPI)NonAf (>60 ml/min/1.73 sqM) Glucose (74-99) mg/dL POC Glucose (mg/dL) 107 (70-110) mg/dL POC Glu Asthma Educator ID Becerra, Gucci Calcium (8.4-10.2) mg/dL Total Bilirubin (0.2-1.3) mg/dL AST (14-36) U/L ALT (4-34) U/L Alkaline Phosphatase (38-126) U/L Total Protein (6.3-8.2) g/dL Albumin (3.5-5.0) g/dL Urine Color Yellow Urine Appearance Clear (Clear) Urine pH 5.5 (5.0-8.0) Ur Specific [place] 1.015 (1.001-1.035) Urine Protein Trace H (Negative) Urine Glucose (UA) Negative (Negative) Urine Ketones 1+ H (Negative) Urine Blood Negative (Negative) Urine Nitrite Positive H (Negative) Urine Bilirubin Negative (Negative) Urine Urobilinogen <2.0 (<2.0) mg/dL Ur Leukocyte Esterase Large H (Negative) Urine WBC 12 H (0-5) /hpf Urine WBC Clumps Few H (None) /hpf Ur Squamous Epith Cells <1 (0-4) /hpf Urine Bacteria Rare H (None) /hpf Hyaline Casts 1 (0-2) /lpf Urine Mucus Rare H (None) /hpf 02/12/23 Range/Units 15:15 WBC (3.8-10.6) k/uL RBC (3.80-5.40) m/uL Hgb (11.4-16.0) gm/dL Hct (34.0-46.0) % MCV (80.0-100.0) fL MCH (25.0-35.0) pg MCHC (31.0-37.0) g/dL RDW (11.5-15.5) % Plt Count (150-450) k/uL MPV Neutrophils % % Lymphocytes % % Monocytes % % Eosinophils % % Basophils % % Neutrophils # (1.3-7.7) k/uL Lymphocytes # (1.0-4.8) k/uL Monocytes # (0-1.0) k/uL Eosinophils # (0-0.7) k/uL Basophils # (0-0.2) k/uL Anisocytosis Sodium 137 (137-145) mmol/L Potassium 4.3 (3.5-5.1) mmol/L Chloride 107 (98-107) mmol/L Carbon Dioxide 19 L (22-30) mmol/L Anion Gap 11 mmol/L BUN 63 H (7-17) mg/dL Creatinine 1.79 H (0.52-1.04) mg/dL Est GFR (CKD-EPI)AfAm 34 (>60 ml/min/1.73 sqM) Est GFR (CKD-EPI)NonAf 30 (>60 ml/min/1.73 sqM) Glucose 92 (74-99) mg/dL POC Glucose (mg/dL) (70-110) mg/dL POC Glu Asthma Educator ID Calcium 8.8 (8.4-10.2) mg/dL Total Bilirubin 0.5 (0.2-1.3) mg/dL AST 23 (14-36) U/L ALT 17 (4-34) U/L Alkaline Phosphatase 81 (38-126) U/L Total Protein 6.3 (6.3-8.2) g/dL Albumin 3.7 (3.5-5.0) g/dL Urine Color Urine Appearance (Clear) Urine pH (5.0-8.0) Ur Specific [place] (1.001-1.035) Urine Protein (Negative) Urine Glucose (UA) (Negative) Urine Ketones (Negative) Urine Blood (Negative) Urine Nitrite (Negative) Urine Bilirubin (Negative) Urine Urobilinogen (<2.0) mg/dL Ur Leukocyte Esterase (Negative) Urine WBC (0-5) /hpf Urine WBC Clumps (None) /hpf Ur Squamous Epith Cells (0-4) /hpf Urine Bacteria (None) /hpf Hyaline Casts (0-2) /lpf Urine Mucus (None) /hpf Disposition Clinical Impression: Hypoglycemia, Fall, Urinary tract infection Disposition: HOME SELF-CARE Condition: Good Instructions (If sedation given, give patient instructions): Hypoglycemia in a Person with Diabetes (ED) Prescriptions: Nitrofurantoin Monohyd/M-Cryst [Macrobid] 100 mg PO Q12HR #14 cap Is patient prescribed a controlled substance at d/c from ED?: No Referrals: Sofya Lott MD [Primary Care Provider] - 1-2 days Time of Disposition: 17:39
[2023-02-12 15:23] LABS: Anisocytosis Slight; Basophils % (A) 0 %; Eosinophils # (A) 0.1 k/uL (0-0.7); Eosinophils % (A) 1 %; HGB 10.7 gm/dL (11.4-16.0); Lymphocytes # (A) 0.6 k/uL (1.0-4.8); Lymphocytes % (A) 8 %; MCH 26.3 pg (25.0-35.0); MCHC 31.6 g/dL (31.0-37.0); MCV 83.1 fL (80.0-100.0); Mean Platelet Volume 8.2; Monocytes # (A) 0.3 k/uL (0-1.0); Monocytes % (A) 4 %; Neutrophils # (A) 6.6 k/uL (1.3-7.7); Neutrophils % (A) 86 %; Platelet Count 238 k/uL (150-450); RBC 4.09 m/uL (3.80-5.40); RDW 16.3 % (11.5-15.5); WBC 7.7 k/uL (3.8-10.6)
--- NOTE | 2023-02-12 15:51 | CT ---
EXAMINATION TYPE: CT brain cspine wo con DATE OF EXAM: 02/12/2023 COMPARISON: CT brain and cervical spine November 19, 2018. HISTORY: Fall, pain CT DLP: 1887.9 mGycm. Automated Exposure Control for Dose Reduction was Utilized. TECHNIQUE: CT scan of the head and cervical spine are performed without contrast. FINDINGS: There is no acute intracranial hemorrhage or midline shift identified. The ventricles an d sulci are within normal limits in size for patient's age. Boyce-white matter differentiation is fair ly well maintained. The calvarium is intact. The globes are intact and the visualized sinuses are cl ear. Cervical spine is visualized in its entirety from C1 through upper thoracic levels and redemonstrates slight scoliotic curvature on coronal images without evidence of acute fracture or dislocation. Pre vertebral soft tissue appears within normal limits. The C1-C2 articulation is within normal limits o n the coronal images. Vertebral body heights and disc space heights are preserved. Spinal canal is m aintained. Review of axial images show some left-sided uncovertebral facet degenerative change. Michelle l appearing thyroid gland is redemonstrated. Lung apices show no pneumothorax. IMPRESSION: 1. There is no acute fracture or dislocation evident in the cervical spine. 2. No acute intracranial hemorrhage or midline shift is seen. No significant change from most recent prior CTs.
[2023-02-12 16:07] LABS: ALT 17 U/L (4-34); AST 23 U/L (14-36); African American GFR (CKD) 34 (>60 ml/min/1.73 sqM); Albumin 3.7 g/dL (3.5-5.0); Alkaline Phosphatase 81 U/L (38-126); Anion Gap 11 mmol/L; Blood Urea Nitrogen 63 mg/dL (7-17); Calcium 8.8 mg/dL (8.4-10.2); Carbon Dioxide 19 mmol/L (22-30); Chloride 107 mmol/L (98-107); Glucose 92 mg/dL (74-99); Non-African American GFR(CKD) 30 (>60 ml/min/1.73 sqM); Potassium 4.3 mmol/L (3.5-5.1); Sodium 137 mmol/L (137-145); Total Bilirubin 0.5 mg/dL (0.2-1.3); Total Protein 6.3 g/dL (6.3-8.2)
[2023-02-12 16:43] LABS: Appearance,Urine Clear (Clear); Bacteria,Urine Rare /hpf; Bilirubin,Urine Negative (Negative); Blood,Urine Negative (Negative); Color,Urine Yellow; Glucose,Urine (UA) Negative (Negative); Hyaline Casts,Urine 1 /lpf (0-2); Ketones,Urine 1+ (Negative); Leukocyte Esterase,Urine Large (Negative); Mucus,Urine Rare /hpf; Nitrite,Urine Positive (Negative); PH, Urine 5.5 (5.0-8.0); Protein,Urine Trace (Negative); Specific Gravity,Urine 1.015 (1.001-1.035); Squamous Epithelial Cell,Urine <1 /hpf (0-4); Urobilinogen,Urine <2.0 mg/dL (<2.0); WBC,Urine 12 /hpf (0-5)
--- NOTE | 2023-02-12 16:57 | XR ---
EXAMINATION TYPE: XR chest 2V DATE OF EXAM: 02/12/2023 COMPARISON: 12/18/2022 HISTORY: Shortness of breath TECHNIQUE: Frontal and lateral views of the chest are obtained. FINDINGS: Scattered senescent parenchymal changes noted. No evidence for infiltrate. No evidence for atelectasis. Heart size is stable. Mediastinal structures are stable and grossly unremarkable. No evidence for hilar prominence. Degenerative changes dorsal spine. IMPRESSION: 1. No evidence for acute pulmonary disease.
[2023-02-12] MEDS ORDERED: cefTRIAXone IN SWFI 1,000 MG/10 ML SYRINGE IVP STA (17:00)
[2023-02-12 17:58] VITALS: BP 103/55; PULSE 88; RESP 19; TEMP 98
== END 2023-02-12 18:18 | disposition home or self-care (01) ==
LOC: EC 14:30
DX: S00.81XA Abrasion of other part of head, initial encounter (principal); N39.0 Urinary tract infection, site not specified; E11.649 Type 2 diabetes mellitus with hypoglycemia without coma; M25.511 Pain in right shoulder; I10 Essential (primary) hypertension; I25.10 Atherosclerotic heart disease of native coronary artery without angina pectoris; I25.2 Old myocardial infarction; J45.909 Unspecified asthma, uncomplicated; E78.5 Hyperlipidemia, unspecified; K21.9 Gastro-esophageal reflux disease without esophagitis; F32.A Depression, unspecified; F41.9 Anxiety disorder, unspecified; E66.01 Morbid (severe) obesity due to excess calories; Z79.84 Long term (current) use of oral hypoglycemic drugs; Z79.899 Other long term (current) drug therapy; Z87.891 Personal history of nicotine dependence; Z88.1 Allergy status to other antibiotic agents; Z88.8 Allergy status to other drugs, medicaments and biological substances; Z95.5 Presence of coronary angioplasty implant and graft; Z68.34 Body mass index [BMI] 34.0-34.9, adult; W18.30XA Fall on same level, unspecified, initial encounter; Y92.002 Bathroom of unspecified non-institutional (private) residence as the place of occurrence of the external cause
CPT/HCPCS: 36415; 93005; 80053; 85025; 81001; 71046; 72125; 70450; 99285; 96374; J0696

== ENCOUNTER 2023-02-15 12:46 | Observation (INO) | payer OTHER ==
--- NOTE | 2023-02-15 13:09 | ED ---
General Adult HPI - General Stated complaint: Fall Time Seen by Provider: 02/15/23 13:00 Source: patient, RN notes reviewed, old records reviewed - History of Present Illness Initial comments: This is a 62-year-old female presents emergency department stating that she tripped while moving backwards at home she landed on a box last used where none of which broke. Patient does complain of little pain in the right buttocks. Patient states this is the second time she's fallen a few days and both times she tripped. Patient denies any chest pain difficult breathing shortness of breath per patient denies any head or neck injury. Patient denies any abdominal pain patient denies nausea vomiting. Patient denies any recent fever chills or cough. Patient states she is not lightheaded or dizzy she just loses her balance and falls. Patient states she has fallen 5 times over the last 2 weeks. - Related Data Home Medications Medication Instructions Recorded Confirmed Glimepiride [Amaryl] 4 mg PO BID 03/17/17 02/12/23 Atorvastatin [Lipitor] 80 mg PO HS 06/21/17 02/12/23 rOPINIRole HCL [Requip] 0.5 mg PO HS 03/31/19 02/12/23 Cetirizine HCl [Zyrtec] 10 mg PO DAILY 01/08/22 02/12/23 DULoxetine HCL [Cymbalta] 60 mg PO BID 01/08/22 02/12/23 Famotidine [Pepcid] 20 mg PO BID PRN 01/08/22 02/12/23 Gabapentin [Neurontin] 300 mg PO TID 01/08/22 02/12/23 Sacubitril/Valsartan [Entresto 49 1 tab PO BID 01/08/22 02/12/23 mg-51 mg Tablet] carvediloL [Coreg] 25 mg PO BID 06/15/22 02/12/23 traZODone HCL [Desyrel] 150 mg PO HS 06/15/22 02/12/23 Acetaminophen Tab [Tylenol Tab] 100 mg PO Q8H PRN 12/18/22 02/12/23 Nitroglycerin Sl Tabs [Nitrostat] 0.4 mg SL Q5M PRN 12/18/22 02/12/23 sitaGLIPtin PHOS/metFORMIN HCL 1 tab PO BID 12/18/22 02/12/23 [Janumet 50-500 mg Tablet] Previous Rx's Medication Instructions Recorded Nitrofurantoin Monohyd/M-Cryst 100 mg PO Q12HR #14 cap 02/12/23 [Macrobid] Allergies Allergy/AdvReac Type Severity Reaction Status Date / Time WARNER Inhibitors Allergy Unknown Verified 02/12/23 15:48 ciprofloxacin [From Cipro] Allergy Rash/Hives Verified 02/12/23 15:48 Quinolones Allergy rash over Verified 02/12/23 15:48 entire body metformin AdvReac Diarrhea Verified 02/12/23 15:48 Review of Systems ROS Statement: Those systems with pertinent positive or pertinent negative responses have been documented in the HPI. ROS Other: All systems not noted in ROS Statement are negative. Past Medical History Past Medical History: Asthma, Coronary Artery Disease (CAD), Chest Pain / Angina, Diabetes Mellitus, Fibromyalgia, GERD/Reflux, Hyperlipidemia, Hypertension, Myocardial Infarction (OK), Rheumatoid Arthritis (RA) Additional Past Medical History / Comment(s): morbid obesity, chronic migraines, SCOLIOSIS, CHRONIC BACK PAIN, CARPAL TUNNEL bilaterally. bed sore to coccyx. Last Myocardial Infarction Date:: 05/24/15 History of Any Multi-Drug Resistant Organisms: None Reported Past Surgical History: Breast Surgery, Cholecystectomy, Heart Catheterization, Heart Catheterization With Stent, Tonsillectomy Additional Past Surgical History / Comment(s): 05/2015 PCI with stent at [facility]. Other surgeries: BIBI KNEE ARTHROSCOPIES, L BREAST- LUMPECTOMY(BENIGN) Past Anesthesia/Blood Transfusion Reactions: Motion Sickness Additional Past Anesthesia/Blood Transfusion Reaction / Comment(s): Pt states she has clausterphobia. Date of Last Stent Placement:: 05/24/15 per pt Past Psychological History: Anxiety, Depression Smoking Status: Former smoker Past Alcohol Use History: None Reported Past Drug Use History: None Reported - Past Family History Father Family Medical History: Dementia Mother History Unknown: Yes Family Medical History: Cancer, Chest Pain / Angina Additional Family Medical History / Comment(s): Breast cancer with recent surgery. General Exam - General Exam Comments Initial Comments: GENERAL: Patient is well-developed and well-nourished. Patient is nontoxic and well- hydrated and is in mild distress. ENT: Neck is soft and supple. No significant lymphadenopathy is noted. Oropharynx is clear. Moist mucous membranes. Neck has full range of motion without eliciting any pain. EYES: The sclera were anicteric and conjunctiva were pink and moist. Extraocular movements were intact and pupils were equal round and reactive to light. Eyelids were unremarkable. PULMONARY: Unlabored respirations. Good breath sounds bilaterally. No audible rales rhonchi or wheezing was noted. CARDIOVASCULAR: There is a regular rate and rhythm without any murmurs gallops or rubs. ABDOMEN: Soft and nontender with normal bowel sounds. SKIN: Skin is clear with no lesions or rashes and otherwise unremarkable. NEUROLOGIC: Patient is alert and oriented x3. Cranial nerves II through XII are grossly intact. Motor and sensory are also intact. Normal speech, volume and content. Symmetrical smile. MUSCULOSKELETAL: Normal extremities with adequate strength and full range of motion. Patient has some right buttocks pain. No bruising she has full range of motion of the hip LYMPHATICS: No significant lymphadenopathy is noted PSYCHIATRIC: Normal psychiatric evaluation. Course Vital Signs 02/15/23 13:22 Pulse Rate 111 H Respiratory 18 Rate Blood Pressure 112/63 O2 Sat by Pulse 95 Oximetry Medical Decision Making - Medical Decision Making EKG: Interpreted by myself shows a sinus tachycardia at 108 bpm NV interval 130 QRS is under 4 QT interval 04 QTC is 367. Patient's EKG shows no ST segment elevation or depression or T wave abnormalities. Was pt. sent in by a medical professional or institution ([facility], SYSTEM ADMINISTRATOR, urgent care, hospital, or fpc...) When possible be specific @ -No Did you speak to anyone other than the patient for history (EMS, parent, family, police, friend...)? What history was obtained from this source @ -No Did you review nursing and triage notes (agree or disagree)? Why? @ -I reviewed and agree with nursing and triage notes Were old charts reviewed (outside hosp., previous admission, EMS record, old EKG , old radiological studies, urgent care reports/EKG's, fpc records)? Report findings @ -Prior lab work and her radiological studies on this patient Differential Diagnosis (chest pain, altered mental status, abdominal pain women, abdominal pain men, vaginal bleeding, weakness, fever, dyspnea, syncope, headache, dizziness, GI bleed, back pain, seizure, CVA, palpatations, mental health, musculoskeletal)? @ -Differential Weakness: Hypoglycemia, shock, sepsis, hyponatremia, anemia, infection, OK, ETOH, adverse medicine reaction, overdose, stroke, this is not meant to be an all-inclusive list. EKG interpreted by me (3pts min.). @ -As above X-rays interpreted by me (1pt min.). @ -X-ray of the right hip and pelvis are negative CT interpreted by me (1pt min.). @ -None done U/S interpreted by me (1pt. min.). @ -None done What testing was considered but not performed or refused? (CT, X-rays, U/S, labs)? Why? @ -None What meds were considered but not given or refused? Why? @ -None Did you discuss the management of the patient with other professionals (professionals i.e. , PA, SYSTEM ADMINISTRATOR, lab, RT, psych nurse, high school social studies tutor, tutor coordinator, teacher, driver license reviewing officer, correctional casework specialist)? Give summary @ -With Dr. Holguin he agreed to admit the patient Was smoking cessation discussed for >3mins.? @ -No Was critical care preformed (if so, how long)? @ -No Were there social determinants of health that impacted care today? How? (Homelessness, low income, unemployed, alcoholism, drug addiction, transportation, low edu. Level, literacy, decrease access to med. care, long term, rehab)? @ -No Was there de-escalation of care discussed even if they declined (Discuss DNR or withdrawal of care, Hospice)? DNR status @ -No What co-morbidities impacted this encounter? (DM, HTN, Smoking, COPD, CAD, Cancer, CVA, ARF, Chemo, Hep., AIDS, mental health diagnosis, sleep apnea, morbid obesity)? @ -None Was patient admitted / discharged? Hospital course, mention meds given and route, prescriptions, significant lab abnormalities, going to OR and other pertinent info. @ -Patient was in the hospital and had a blood sugar of 60 on lab work and then a repeat was done and it was 52. Patient was then fed at this time. Patient states she's not been able take her antibiotics for her urinary tract infection like she should so patient will be started on antibiotics here. Patient's creatinine also is mildly elevated she should be appropriately hydrated. Patient states she's not able to go home at this time because she will fall again she's phone 5 times in the last 2 weeks. Undiagnosed new problem with uncertain prognosis? @ -No Drug Therapy requiring intensive monitoring for toxicity (Heparin, Nitro, I nsulin, Cardizem)? @ -No Were any procedures done? @ -No Diagnosis/symptom? @ -Renal insufficiency Acute, or Chronic, or Acute on Chronic? @ -Acute Uncomplicated (without systemic symptoms) or Complicated (systemic symptoms)? @ -Complicated Side effects of treatment? @ -No Exacerbation, Progression, or Severe Exacerbation? @ -No Poses a threat to life or bodily function? How? (Chest pain, USA, OK, pneumonia, PE, COPD, DKA, ARF, appy, cholecystitis, CVA, Diverticulitis, Homicidal, Suicidal, threat to staff... and all critical care pts) @ -No Diagnosis/symptom? @ -Urinary tract infection Acute, or Chronic, or Acute on Chronic? @ -Acute Uncomplicated (without systemic symptoms) or Complicated (systemic symptoms)? @ -Complicated Side effects of treatment? @ -none Exacerbation, Progression, or Severe Exacerbation] @ -no Poses a threat to life or bodily function? @ -Yes This could lead to sepsis and end organ dysfunction Diagnosis/symptom? @ -Multiple falls Acute, or Chronic, or Acute on Chronic? @ -Acute Uncomplicated (without systemic symptoms) or Complicated (systemic symptoms)? @ -Uncomplicated Side effects of treatment? @ -none Exacerbation, Progression, or Severe Exacerbation] @ -no Poses a threat to life or bodily function? @ -no Diagnosis/symptom? @ -Hypoglycemia Acute, or Chronic, or Acute on Chronic? @ -Acute Uncomplicated (without systemic symptoms) or Complicated (systemic symptoms)? @ -Complicated Side effects of treatment? @ -none Exacerbation, Progression, or Severe Exacerbation] @ -no Poses a threat to life or bodily function? @ -Yes this could lead to more falls and extensive injury. - Lab Data Result diagrams: 02/15/23 13:38 02/15/23 13:38 Lab Results 02/15/23 02/15/23 02/15/23 Range/Units 13:38 13:38 13:38 WBC 10.9 H (3.8-10.6) k/uL RBC 4.50 (3.80-5.40) m/uL Hgb 11.7 (11.4-16.0) gm/dL Hct 36.8 (34.0-46.0) % MCV 81.8 (80.0-100.0) fL MCH 26.0 (25.0-35.0) pg MCHC 31.8 (31.0-37.0) g/dL RDW 16.4 H (11.5-15.5) % Plt Count 304 (150-450) k/uL MPV 8.5 Neutrophils % 86 % Lymphocytes % 7 % Monocytes % 5 % Eosinophils % 1 % Basophils % 0 % Neutrophils # 9.4 H (1.3-7.7) k/uL Lymphocytes # 0.8 L (1.0-4.8) k/uL Monocytes # 0.5 (0-1.0) k/uL Eosinophils # 0.1 (0-0.7) k/uL Basophils # 0.0 (0-0.2) k/uL Hypochromasia Slight Anisocytosis Slight PT 10.1 (9.0-12.0) sec INR 1.0 (<1.2) APTT 20.0 L (22.0-30.0) sec Sodium (137-145) mmol/L Potassium (3.5-5.1) mmol/L Chloride (98-107) mmol/L Carbon Dioxide (22-30) mmol/L Anion Gap mmol/L BUN (7-17) mg/dL Creatinine (0.52-1.04) mg/dL Est GFR (CKD-EPI)AfAm (>60 ml/min/1.73 sqM) Est GFR (CKD-EPI)NonAf (>60 ml/min/1.73 sqM) Glucose (74-99) mg/dL Plasma Lactic Acid Ramiro (0.7-2.0) mmol/L Calcium (8.4-10.2) mg/dL Magnesium (1.6-2.3) mg/dL Total Bilirubin (0.2-1.3) mg/dL AST (14-36) U/L ALT (4-34) U/L Alkaline Phosphatase (38-126) U/L Troponin I (0.000-0.034) ng/mL Total Protein (6.3-8.2) g/dL Albumin (3.5-5.0) g/dL Urine Color Yellow Urine Appearance Clear (Clear) Urine pH 5.5 (5.0-8.0) Ur Specific [place] 1.021 (1.001-1.035) Urine Protein 1+ H (Negative) Urine Glucose (UA) Negative (Negative) Urine Ketones 2+ H (Negative) Urine Blood Small H (Negative) Urine Nitrite Negative (Negative) Urine Bilirubin Negative (Negative) Urine Urobilinogen <2.0 (<2.0) mg/dL Ur Leukocyte Esterase Small H (Negative) Urine RBC 1 (0-5) /hpf Urine WBC 5 (0-5) /hpf Ur Squamous Epith Cells 3 (0-4) /hpf Urine Mucus Rare H (None) /hpf 02/15/23 02/15/23 02/15/23 Range/Units 13:38 13:38 13:38 WBC (3.8-10.6) k/uL RBC (3.80-5.40) m/uL Hgb (11.4-16.0) gm/dL Hct (34.0-46.0) % MCV (80.0-100.0) fL MCH (25.0-35.0) pg MCHC (31.0-37.0) g/dL RDW (11.5-15.5) % Plt Count (150-450) k/uL MPV Neutrophils % % Lymphocytes % % Monocytes % % Eosinophils % % Basophils % % Neutrophils # (1.3-7.7) k/uL Lymphocytes # (1.0-4.8) k/uL Monocytes # (0-1.0) k/uL Eosinophils # (0-0.7) k/uL Basophils # (0-0.2) k/uL Hypochromasia Anisocytosis PT (9.0-12.0) sec INR (<1.2) APTT (22.0-30.0) sec Sodium 141 (137-145) mmol/L Potassium 4.9 (3.5-5.1) mmol/L Chloride 108 H (98-107) mmol/L Carbon Dioxide 21 L (22-30) mmol/L Anion Gap 12 mmol/L BUN 59 H (7-17) mg/dL Creatinine 1.89 H (0.52-1.04) mg/dL Est GFR (CKD-EPI)AfAm 32 (>60 ml/min/1.73 sqM) Est GFR (CKD-EPI)NonAf 28 (>60 ml/min/1.73 sqM) Glucose 60 L (74-99) mg/dL Plasma Lactic Acid Ramiro 2.1 H* (0.7-2.0) mmol/L Calcium 9.3 (8.4-10.2) mg/dL Magnesium 1.8 (1.6-2.3) mg/dL Total Bilirubin 0.6 (0.2-1.3) mg/dL AST 227 H (14-36) U/L ALT 55 H (4-34) U/L Alkaline Phosphatase 93 (38-126) U/L Troponin I <0.012 (0.000-0.034) ng/mL Total Protein 6.6 (6.3-8.2) g/dL Albumin 4.0 (3.5-5.0) g/dL Urine Color Urine Appearance (Clear) Urine pH (5.0-8.0) Ur Specific [place] (1.001-1.035) Urine Protein (Negative) Urine Glucose (UA) (Negative) Urine Ketones (Negative) Urine Blood (Negative) Urine Nitrite (Negative) Urine Bilirubin (Negative) Urine Urobilinogen (<2.0) mg/dL Ur Leukocyte Esterase (Negative) Urine RBC (0-5) /hpf Urine WBC (0-5) /hpf Ur Squamous Epith Cells (0-4) /hpf Urine Mucus (None) /hpf Disposition Clinical Impression: Renal insufficiency, Urinary tract infection, Hypoglycemia, Multiple falls Disposition: ADMITTED IP TO THIS HOSP Referrals: Sofya Lott MD [Primary Care Provider] - 1-2 days Time of Disposition: 15:14
[2023-02-15 13:54] LABS: Anisocytosis Slight; Basophils % (A) 0 %; Eosinophils # (A) 0.1 k/uL (0-0.7); Eosinophils % (A) 1 %; HCT 36.8 % (34.0-46.0); HGB 11.7 gm/dL (11.4-16.0); Hypochromasia Slight; Lymphocytes # (A) 0.8 k/uL (1.0-4.8); Lymphocytes % (A) 7 %; MCHC 31.8 g/dL (31.0-37.0); MCV 81.8 fL (80.0-100.0); Mean Platelet Volume 8.5; Monocytes # (A) 0.5 k/uL (0-1.0); Monocytes % (A) 5 %; Neutrophils # (A) 9.4 k/uL (1.3-7.7); Neutrophils % (A) 86 %; Platelet Count 304 k/uL (150-450); RDW 16.4 % (11.5-15.5); WBC 10.9 k/uL (3.8-10.6)
[2023-02-15 14:06] LABS: ALT 55 U/L (4-34); AST 227 U/L (14-36); African American GFR (CKD) 32 (>60 ml/min/1.73 sqM); Alkaline Phosphatase 93 U/L (38-126); Anion Gap 12 mmol/L; Blood Urea Nitrogen 59 mg/dL (7-17); Calcium 9.3 mg/dL (8.4-10.2); Carbon Dioxide 21 mmol/L (22-30); Chloride 108 mmol/L (98-107); Glucose 60 mg/dL (74-99); Magnesium 1.8 mg/dL (1.6-2.3); Non-African American GFR(CKD) 28 (>60 ml/min/1.73 sqM); Potassium 4.9 mmol/L (3.5-5.1); Sodium 141 mmol/L (137-145); Total Bilirubin 0.6 mg/dL (0.2-1.3); Total Protein 6.6 g/dL (6.3-8.2)
--- NOTE | 2023-02-15 14:08 | XR ---
EXAMINATION TYPE: XR Hip RT and AP Pelvis DATE OF EXAM: 02/15/2023 COMPARISON: CT abdomen and pelvis December 18, 2022 HISTORY: Fall injury with pain TECHNIQUE: A single AP view of the pelvis is obtained. Two views of the right hip are obtained. FINDINGS: There is no acute fracture/dislocation evident in the pelvis. The sacroiliac joints appea r symmetric and within normal limits. Pubic symphysis is intact. [id number] axial joint space loss and mild acetabular spurring in both hips is seen. The overlying soft tissue appears unremarkabl e. Two views of right hip show no acute fracture or dislocation. No focal lytic or sclerotic lesion see n in the proximal right femur. The overlying soft tissue is unremarkable. IMPRESSION: There is no acute fracture or dislocation in the pelvis or right hip.
[2023-02-15 14:17] LABS: Prothrombin Time 10.1 sec (9.0-12.0)
[2023-02-15 14:57] LABS: Appearance,Urine Clear (Clear); Bilirubin,Urine Negative (Negative); Blood,Urine Small (Negative); Color,Urine Yellow; Glucose,Urine (UA) Negative (Negative); Ketones,Urine 2+ (Negative); Leukocyte Esterase,Urine Small (Negative); Mucus,Urine Rare /hpf; Nitrite,Urine Negative (Negative); PH, Urine 5.5 (5.0-8.0); Protein,Urine 1+ (Negative); RBC,Urine 1 /hpf (0-5); Specific Gravity,Urine 1.021 (1.001-1.035); Squamous Epithelial Cell,Urine 3 /hpf (0-4); Urobilinogen,Urine <2.0 mg/dL (<2.0); WBC,Urine 5 /hpf (0-5)
[2023-02-15 15:07] LABS: Glucose,Whole Blood 52 mg/dL (70-110)
[2023-02-15] MEDS ORDERED: SODIUM CHLORIDE 0.9% 1,000 ML IV ONE (15:14)
[2023-02-15 15:50] LABS: Glucose,Whole Blood 92 mg/dL (70-110)
--- NOTE | 2023-02-15 16:05 | P.HPIM ---
History of Present Illness This is a pleasant 62 years old female with past medical history of asthma, coronary artery disease status post stent, fibromyalgia, hypertension, hyperlipidemia, GERD, rheumatoid arthritis, diabetes mellitus, anxiety depression and claustrophobia She came because she fell at home. Patient says that she has been falling for the last 3 weeks. Last time she felt was last Saturday and today, this morning she was going to her bathroom where she felt weak and slipped onto the floor before she has a chance to get into the bathroom, she denies had a trauma, she she crawled up into her bed and starts screaming before her friend here her up for 3 hours and call 911 and brought her to the emergency room Also she fell on the glans and she was afraid she cut herself but she did not. Patient denies dizziness or loss of consciousness however she has been feeling weak and slow gradually. Patient's lives alone and she has some financial difficulty, because she doesn't have money she is not taking the bus to do shopping, that's affected her ability to eat and drink as she explains. Also there is some evidence of mid [place] her feet(this has been seen by a shower she took on admission the emergency room, confirmed with the bedside nurse) Patient states she's been taking insulin pills Janumet every day as well as the rest of her medication However she denies any chest pain dyspnea coughing, no abdominal pain vomiting diarrhea, no urinary complaints like urgency or going a lot, no headache dizziness weakness or numbness. She is complaining from pain in her right knee She denies smoking alcohol or illicit drugs. In the emergency room patient received fluids and started on antibiotic Patient lives with her To give her emotional support but she has been tried several wounds on both of her breast, she explains that were made by her cat however these wounds look dry with no signs or symptoms of inflammation or cellulitis in the surrounding skin. She is mildly tachycardic She has marked leukocytosis 10.9, rest of CBC, INR is unremarkable. Creatinine is elevated to 1.89, baseline is 0.8-1.0. Glucose low at 52 Elevated liver enzymes with AST 227 and ALT 55 Urine analysis looks like concentrated sample Hip and pelvis x-ray: No acute fracture or dislocation in the right hip or pelvis EKG: Sinus tachycardia at [address]-T changes. In the emergency room patient was started on normal saline 75 mL per oral and ceftriaxone Review of Systems Review of systems CONSTITUTIONAL: No fever, no malaise, no fatigue. HEENT: No recent visual problems or hearing problems. Denied any sore throat. CARDIOVASCULAR: No orthopnea, PND, no palpitations, no syncope. PULMONARY: No shortness of breath, no cough, no hemoptysis. GASTROINTESTINAL: No diarrhea, no nausea, no vomiting, no abdominal pain. Normoactive bowel sounds. NEUROLOGICAL: N as above HEMATOLOGICAL: Denies any bleeding or petechiae. GENITOURINARY: Denies any burning micturition, frequency, or urgency. MUSCULOSKELETAL/RHEUMATOLOGICAL: Denies any joint pain, swelling, or any muscle pain. ENDOCRINE: Denies any polyuria or polydipsia. Past Medical History Past Medical History: Asthma, Coronary Artery Disease (CAD), Chest Pain / Angina, Diabetes Mellitus, Fibromyalgia, GERD/Reflux, Hyperlipidemia, Hypertension, Myocardial Infarction (PA), Rheumatoid Arthritis (RA) Additional Past Medical History / Comment(s): morbid obesity, chronic migraines, SCOLIOSIS, CHRONIC BACK PAIN, CARPAL TUNNEL bilaterally. bed sore to coccyx. Last Myocardial Infarction Date:: 05/24/15 History of Any Multi-Drug Resistant Organisms: None Reported Past Surgical History: Breast Surgery, Cholecystectomy, Heart Catheterization, Heart Catheterization With Stent, Tonsillectomy Additional Past Surgical History / Comment(s): 05/2015 PCI with stent at [facility]. Other surgeries: BIBI KNEE ARTHROSCOPIES, L BREAST-LUMPECTOMY(BENIGN) Past Anesthesia/Blood Transfusion Reactions: Motion Sickness Additional Past Anesthesia/Blood Transfusion Reaction / Comment(s): Pt states she has clausterphobia. Date of Last Stent Placement:: 05/24/15 per pt Past Psychological History: Anxiety, Depression Smoking Status: Former smoker Past Alcohol Use History: None Reported Past Drug Use History: None Reported - Past Family History Father Family Medical History: Dementia Mother History Unknown: Yes Family Medical History: Cancer, Chest Pain / Angina Additional Family Medical History / Comment(s): Breast cancer with recent surge ry. Medications and Allergies Home Medications Medication Instructions Recorded Confirmed Type Glimepiride [Amaryl] 4 mg PO BID 03/17/17 02/15/23 History Atorvastatin [Lipitor] 80 mg PO HS 06/21/17 02/15/23 History rOPINIRole HCL [Requip] 0.5 mg PO HS 03/31/19 02/15/23 History Cetirizine HCl [Zyrtec] 10 mg PO DAILY 01/08/22 02/15/23 History DULoxetine HCL [Cymbalta] 60 mg PO BID 01/08/22 02/15/23 History Famotidine [Pepcid] 20 mg PO BID PRN 01/08/22 02/15/23 History Gabapentin [Neurontin] 300 mg PO TID 01/08/22 02/15/23 History Sacubitril/Valsartan [Entresto 49 1 tab PO BID 01/08/22 02/15/23 History mg-51 mg Tablet] carvediloL [Coreg] 25 mg PO BID 06/15/22 02/15/23 History traZODone HCL [Desyrel] 150 mg PO HS 06/15/22 02/15/23 History Acetaminophen Tab [Tylenol Tab] 1,000 mg PO Q8H PRN 12/18/22 02/15/23 History Nitroglycerin Sl Tabs [Nitrostat] 0.4 mg SL Q5M PRN 12/18/22 02/15/23 History sitaGLIPtin PHOS/metFORMIN HCL 1 tab PO BID 12/18/22 02/15/23 History [Janumet 50-500 mg Tablet] Nitrofurantoin Monohyd/M-Cryst 100 mg PO Q12HR #14 cap 02/12/23 02/15/23 Rx [Macrobid] Allergies Allergy/AdvReac Type Severity Reaction Status Date / Time WARNER Inhibitors Allergy Unknown Verified 02/15/23 15:29 ciprofloxacin [From Cipro] Allergy Rash/Hives Verified 02/15/23 15:29 Quinolones Allergy rash over Verified 02/15/23 15:29 entire body metformin AdvReac Diarrhea Verified 02/15/23 15:29 Physical Exam Vitals: Vital Signs Pulse Resp BP Pulse Ox 02/15/23 13:22 111 H 18 112/63 95 Intake and Output 02/15/23 02/15/23 02/15/23 06:59 14:59 22:59 Other: Weight 74.843 kg -GENERAL: The patient is alert and oriented x3, not in any acute distress. Well developed, well nourished. Generally weak HEENT: Pupils are round and equally reacting to light. EOMI. No scleral icterus. No conjunctival pallor. Normocephalic, atraumatic. No pharyngeal erythema. No thyromegaly. -CARDIOVASCULAR: S1 and S2 present. No murmurs, rubs, or gallops. Multiple dried the wounds on both breasts with no cellulitis PULMONARY: Chest is clear to auscultation, no wheezing , no crackles. ABDOMEN: Soft, nontender, nondistended, normoactive bowel sounds. No palpable organomegaly. MUSCULOSKELETAL: No joint swelling or deformity. EXTREMITIES: No cyanosis, clubbing, or pedal edema. NEUROLOGICAL: Cranial nerves are grossly intact SKIN: No rashes. no petechiae. Results CBC & Chem 7: 02/15/23 13:38 02/15/23 13:38 Labs: Abnormal Lab Results - Last 24 Hours (Table) 02/15/23 02/15/23 02/15/23 Range/Units 13:38 13:38 13:38 WBC 10.9 H (3.8-10.6) k/uL RDW 16.4 H (11.5-15.5) % Neutrophils # 9.4 H (1.3-7.7) k/uL Lymphocytes # 0.8 L (1.0-4.8) k/uL APTT 20.0 L (22.0-30.0) sec Chloride (98-107) mmol/L Carbon Dioxide (22-30) mmol/L BUN (7-17) mg/dL Creatinine (0.52-1.04) mg/dL Glucose (74-99) mg/dL POC Glucose (mg/dL) (70-110) mg/dL Plasma Lactic Acid Ramiro (0.7-2.0) mmol/L AST (14-36) U/L ALT (4-34) U/L Urine Protein 1+ H (Negative) Urine Ketones 2+ H (Negative) Urine Blood Small H (Negative) Ur Leukocyte Esterase Small H (Negative) Urine Mucus Rare H (None) /hpf 02/15/23 02/15/23 02/15/23 Range/Units 13:38 13:38 15:05 WBC (3.8-10.6) k/uL RDW (11.5-15.5) % Neutrophils # (1.3-7.7) k/uL Lymphocytes # (1.0-4.8) k/uL APTT (22.0-30.0) sec Chloride 108 H (98-107) mmol/L Carbon Dioxide 21 L (22-30) mmol/L BUN 59 H (7-17) mg/dL Creatinine 1.89 H (0.52-1.04) mg/dL Glucose 60 L (74-99) mg/dL POC Glucose (mg/dL) 52 L (70-110) mg/dL Plasma Lactic Acid Ramiro 2.1 H* (0.7-2.0) mmol/L AST 227 H (14-36) U/L ALT 55 H (4-34) U/L Urine Protein (Negative) Urine Ketones (Negative) Urine Blood (Negative) Ur Leukocyte Esterase (Negative) Urine Mucus (None) /hpf Assessment and Plan Assessment: Patient presents because she fell at home, recurrent and multiple acute kidney injury Diabetes mellitus, hypoglycemia transaminitis Multiple drug wounds on both breast made by her cat with no evidence of cellulitis Social difficulties and financial difficulties Hypertension Hyperlipidemia History of osteoarthritis History of rheumatoid arthritis History of coronary artery disease status post stent History of anxiety and depression, not an active issue History of fibromyalgia Plan: Hold diabetes medications including metformin and Januvia and continue with insulin sliding scale Monitor kidney function,(if no improvement in kidney function then we'll consider nephrology consult), liver enzymes and check a bladder scan. Continue with IV hydration group social worker consult Labs and medication were reviewed.. Continue same treatment. Continue with symptomatic treatment. Resume home medication. Monitor lytes and vitals. DVT and GI prophylaxis. Further recommendations depends on the clinical course of the patient DVT prophylaxis: Subcutaneous heparin GI Prophylaxis: Pepcid PT/OT: Pending Prognosis is guarded
--- NOTE | 2023-02-15 16:34 | XR ---
EXAMINATION TYPE: XR chest 2V DATE OF EXAM: 02/15/2023 COMPARISON: 02/12/2023 INDICATION: Fall, pain TECHNIQUE: Frontal and lateral views of the chest are obtained. FINDINGS: The heart size is normal. The pulmonary vasculature is normal. The lungs are clear. No pneumothorax is evident. No displaced rib fractures are identified. Spondylo sis within the thoracic spine. Vertebral body heights appear preserved IMPRESSION: 1. No acute pulmonary process.
--- NOTE | 2023-02-15 16:51 | XR ---
EXAMINATION TYPE: XR knee limited RT DATE OF EXAM: 02/15/2023 COMPARISON: None HISTORY: Right knee pain following fall TECHNIQUE: 3 view right knee FINDINGS: Tibial femoral components are present. No acute fracture or dislocation is evident. There m ay be some mild soft tissue swelling superficial to the patella. No joint effusion is evident. Follow up exams can be performed 7-10 days. Acute trauma for continued pain. IMPRESSION: 1. No acute osseous abnormality right knee. 2. Suggestion of mild superficial soft tissue swelling
[2023-02-15 17:39] LABS: Glucose,Whole Blood 210 mg/dL (70-110)
[2023-02-15] MEDS: SODIUM CHLORIDE 0.9% 1,000 ML IV SCH ×2 (17:44→21:08)
[2023-02-15 19:05] LABS: Glucose,Whole Blood 219 mg/dL (70-110)
[2023-02-15] MEDS ORDERED: DEXTROSE 50% SYRINGE 50 ML IVP PRN ×2 (20:10)
[2023-02-15] MEDS ORDERED: NITROGLYCERIN SL TABS 0.4 MG TAB SUBLINGUAL PRN (20:11)
[2023-02-15] MEDS ORDERED: FAMOTIDINE 20 MG TAB PO PRN (20:11)
[2023-02-15 20:58] LABS: Glucose,Whole Blood 274 mg/dL (70-110)
[2023-02-15] MEDS ORDERED: ATORVASTATIN 80 MG TAB PO SCH (21:00)
[2023-02-15] MEDS: traZODone HCL 50 MG TAB PO SCH (21:05)
[2023-02-15] MEDS: INSULIN ASPART (NovoLOG) 100 UNIT/ML VIAL SQ SCH (21:05)
[2023-02-15] MEDS: HEPARIN SODIUM,PORCINE/PF 5,000 UNIT/0.5 ML SYRINGE SQ SCH (21:05)
[2023-02-15] MEDS: DULoxetine HCL 60 MG CAPSULE.DR PO SCH (21:05)
[2023-02-15] MEDS: GABAPENTIN 100 MG CAP PO SCH (21:05)
[2023-02-16 06:13] LABS: Glucose,Whole Blood 218 mg/dL (70-110)
[2023-02-16] MEDS: INSULIN ASPART (NovoLOG) 100 UNIT/ML VIAL SQ SCH ×4 (06:28→20:42)
[2023-02-16] MEDS: HEPARIN SODIUM,PORCINE/PF 5,000 UNIT/0.5 ML SYRINGE SQ SCH ×2 (08:31→20:42)
[2023-02-16] MEDS: DULoxetine HCL 60 MG CAPSULE.DR PO SCH ×2 (08:32→21:19)
[2023-02-16] MEDS: GABAPENTIN 100 MG CAP PO SCH ×3 (08:32→21:19)
[2023-02-16 09:22] LABS: Basophils # (A) 0.03 X 10*3/uL (0.00-0.10); Basophils % (A) 0.4 %; Eosinophils # (A) 0.16 X 10*3/uL (0.04-0.35); Eosinophils % (A) 2.1 %; HCT 32.2 % (37.2-46.3); HGB 9.8 d/dL (12.0-15.0); Lymphocytes # (A) 0.89 X 10*3/uL (0.90-5.00); Lymphocytes % (A) 11.7 %; MCH 25.9 pg (27.0-32.0); MCHC 30.4 d/dL (32.0-37.0); MCV 85.2 FL (80.0-97.0); Mean Platelet Volume 11.7 FL (9.5-12.2); Monocytes # (A) 0.58 X 10*3/uL (0.20-1.00); Monocytes % (A) 7.6 %; NRBC Per 100 WBC 0 X 10*3/uL (0.00-0.01); Neutrophils # (A) 5.93 X 10*3/uL (1.80-7.70); Neutrophils % (A) 77.8 %; Platelet Count 298 X 10*3/uL (140-440); RBC 3.78 X 10*6/uL (4.10-5.20); RDW 17.1 % (11.5-14.5); WBC 7.62 X 10*3/uL (4.50-10.00)
[2023-02-16 11:48] LABS: Glucose,Whole Blood 393 mg/dL (70-110)
[2023-02-16 12:06] LABS: ALT 43 U/L (8-44); AST 118 U/L (13-35); Albumin 3.5 d/dL (3.8-4.9); Albumin/Globulin Ratio 1.84 Ratio (1.60-3.17); Alkaline Phosphatase 79 U/L (41-126); Bilirubin, Conjugated <0.20 mg/dL (0.20-0.40); Bilirubin,Unconjugated >0 mg/dL (0.20-1.00); Blood Urea Nitrogen 45.5 mg/dL (9.0-27.0); Calcium 8.7 mg/dL (8.7-10.3); Carbon Dioxide 18.4 mmol/L (21.6-31.8); Chloride 110 mmol/L (96-109); Globulin 1.9 d/dL (1.6-3.3); Glucose 222 mg/dL (70-110); Potassium 4.7 mmol/L (3.5-5.5); Sodium 141 mmol/L (135-145); Total Bilirubin 0.2 mg/dL (0.3-1.2); Total Protein 5.4 d/dL (6.2-8.2)
[2023-02-16 12:25] LABS: Creatine Kinase 1905 U/L (26-186)
[2023-02-16] MEDS: INSULIN DETEMIR (LEVEMIR) 100 UNIT/ML SYR SQ SCH (13:28)
[2023-02-16] MEDS: SODIUM CHLORIDE 0.9% 1,000 ML IV SCH ×2 (13:32→23:18)
[2023-02-16 17:48] LABS: Glucose,Whole Blood 272 mg/dL (70-110)
[2023-02-16 20:17] LABS: Glucose,Whole Blood 247 mg/dL (70-110)
--- NOTE | 2023-02-16 20:47 | P.PN ---
Subjective This is a pleasant 62 years old female with past medical history of asthma, coronary artery disease status post stent, fibromyalgia, hypertension, h yperlipidemia, GERD, rheumatoid arthritis, diabetes mellitus, anxiety depression and claustrophobia She came because she fell at home. Patient says that she has been falling for the last 3 weeks. Last time she felt was last Saturday and today, this morning she was going to her bathroom where she felt weak and slipped onto the floor before she has a chance to get into the bathroom, she denies had a trauma, she she crawled up into her bed and starts screaming before her friend here her up for 3 hours and call 911 and brought her to the emergency room Also she fell on the glans and she was afraid she cut herself but she did not. Patient denies dizziness or loss of consciousness however she has been feeling weak and slow gradually. Patient's lives alone and she has some financial difficulty, because she doesn't have money she is not taking the bus to do shopping, that's affected her ability to eat and drink as she explains. Also there is some evidence of mid [place] her feet(this has been seen by a shower she took on admission the emergency room, confirmed with the bedside nurse) Patient states she's been taking insulin pills Janumet every day as well as the rest of her medication However she denies any chest pain dyspnea coughing, no abdominal pain vomiting diarrhea, no urinary complaints like urgency or going a lot, no headache dizziness weakness or numbness. She is complaining from pain in her right knee She denies smoking alcohol or illicit drugs. In the emergency room patient received fluids and started on antibiotic Patient lives with her To give her emotional support but she has been tried several wounds on both of her breast, she explains that were made by her cat ho wever these wounds look dry with no signs or symptoms of inflammation or cellulitis in the surrounding skin. She is mildly tachycardic She has marked leukocytosis 10.9, rest of CBC, INR is unremarkable. Creatinine is elevated to 1.89, baseline is 0.8-1.0. Glucose low at 52 Elevated liver enzymes with AST 227 and ALT 55 Urine analysis looks like concentrated sample Hip and pelvis x-ray: No acute fracture or dislocation in the right hip or pelvis EKG: Sinus tachycardia at [address]-T changes. In the emergency room patient was started on normal saline 75 mL per oral and ceftriaxone 02/16/2023 Patient today feels better and she is up in bed and she denies any specific complaints. also shown improvement especially creatinine coming down to 1.4, liver enzymes also better, hemoglobin is 9.8 and WBC back to normal at 7.6. Pro-calcitonin negative so. Ceftriaxone also patient with no fever and no evidence of infection. However. His is elevated 1905 which is a critical most likely patient has rhabdomyolysis. Patient on Lipitor 80 mg, bedtime are going to hold metformin now as it might contribute to clinical presentation. We will keep normal saline at 100 mL per hour Hold her metformin and other diabetes medication and put her currently on Levemir 8 units. No evidence of urinary retention Diabetes panel 02/16/23 02/16/23 Range/Units 06:41 06:41 Sodium 141 (135-145) mmol/L Potassium 4.7 (3.5-5.5) mmol/L Chloride 110 H (96-109) mmol/L Carbon Dioxide 18.4 L (21.6-31.8) mmol/L BUN 45.5 H (9.0-27.0) mg/dL Creatinine 1.4 (0.6-1.5) mg/dL Glucose 222 H (70-110) mg/dL Hemoglobin A1c 6.1 H (<=6.0) % Calcium 8.7 (8.7-10.3) mg/dL AST 118 H (13-35) U/L ALT 43 (8-44) U/L Alkaline Phosphatase 79 (41-126) U/L Total Protein 5.4 L (6.2-8.2) d/dL Albumin 3.5 L (3.8-4.9) d/dL Calcium panel 02/16/23 Range/Units 06:41 Calcium 8.7 (8.7-10.3) mg/dL Albumin 3.5 L (3.8-4.9) d/dL Pituitary panel 02/16/23 Range/Units 06:41 Sodium 141 (135-145) mmol/L Potassium 4.7 (3.5-5.5) mmol/L Chloride 110 H (96-109) mmol/L Carbon Dioxide 18.4 L (21.6-31.8) mmol/L BUN 45.5 H (9.0-27.0) mg/dL Creatinine 1.4 (0.6-1.5) mg/dL Glucose 222 H (70-110) mg/dL Calcium 8.7 (8.7-10.3) mg/dL Adrenal panel 02/16/23 Range/Units 06:41 Sodium 141 (135-145) mmol/L Potassium 4.7 (3.5-5.5) mmol/L Chloride 110 H (96-109) mmol/L Carbon Dioxide 18.4 L (21.6-31.8) mmol/L BUN 45.5 H (9.0-27.0) mg/dL Creatinine 1.4 (0.6-1.5) mg/dL Glucose 222 H (70-110) mg/dL Calcium 8.7 (8.7-10.3) mg/dL Total Bilirubin 0.2 L (0.3-1.2) mg/dL AST 118 H (13-35) U/L ALT 43 (8-44) U/L Alkaline Phosphatase 79 (41-126) U/L Total Protein 5.4 L (6.2-8.2) d/dL Albumin 3.5 L (3.8-4.9) d/dL Objective - Vital Signs Vital signs: Vital Signs Temp 98.2 F 02/16/23 14:37 Pulse 90 02/16/23 14:37 Resp 16 02/16/23 14:37 BP 108/58 02/16/23 14:37 Pulse Ox 95 02/16/23 14:37 FiO2 Intake & Output 02/16/23 02/16/23 02/17/23 06:59 18:59 06:59 Intake Total 472 Balance 472 Intake: Oral 472 Other: Voiding Method Toilet Toilet # Voids 3 5 - Exam GENERAL: The patient is alert and oriented x3, not in any acute distress. Well developed, well nourished. HEENT: Pupils are round and equally reacting to light. EOMI. No scleral icterus. No conjunctival pallor. Normocephalic, atraumatic. No pharyngeal erythema. No thyromegaly. CARDIOVASCULAR: S1 and S2 present. No murmurs, rubs, or gallops. PULMONARY: Chest is clear to auscultation, no wheezing . no crackles. ABDOMEN: Soft, nontender, nondistended, normoactive bowel sounds. No palpable organomegaly. MUSCULOSKELETAL: No joint swelling or deformity. EXTREMITIES: No cyanosis, clubbing, . No leg edema. NEUROLOGICAL: Gross neurological examination did not reveal any focal deficits. SKIN: No rashes. no petechiae. - Labs CBC & Chem 7: 02/16/23 06:41 02/16/23 06:41 Labs: Abnormal Lab Results - Last 24 Hours (Table) 02/15/23 02/16/23 02/16/23 Range/Units 20:56 06:12 06:41 RBC (4.10-5.20) X 10*6/uL Hgb (12.0-15.0) d/dL Hct (37.2-46.3) % MCH (27.0-32.0) pg MCHC (32.0-37.0) d/dL RDW (11.5-14.5) % Lymphocytes # (0.90-5.00) X 10*3/uL Chloride (96-109) mmol/L Carbon Dioxide (21.6-31.8) mmol/L Anion Gap (4.00-12.00) mmol/L BUN (9.0-27.0) mg/dL Est GFR (CKD-EPI) (>=60) BUN/Creatinine Ratio (12.00-20.00) Ratio Glucose (70-110) mg/dL POC Glucose (mg/dL) 274 H 218 H (70-110) mg/dL Hemoglobin A1c 6.1 H (<=6.0) % Total Bilirubin (0.3-1.2) mg/dL Unconjugated Bilirubin (0.20-1.00) mg/dL AST (13-35) U/L Creatine Kinase (26-186) U/L Total Protein (6.2-8.2) d/dL Albumin (3.8-4.9) d/dL 02/16/23 02/16/23 02/16/23 Range/Units 06:41 06:41 11:46 RBC 3.78 L (4.10-5.20) X 10*6/uL Hgb 9.8 L (12.0-15.0) d/dL Hct 32.2 L (37.2-46.3) % MCH 25.9 L (27.0-32.0) pg MCHC 30.4 L (32.0-37.0) d/dL RDW 17.1 H (11.5-14.5) % Lymphocytes # 0.89 L (0.90-5.00) X 10*3/uL Chloride 110 H (96-109) mmol/L Carbon Dioxide 18.4 L (21.6-31.8) mmol/L Anion Gap 12.60 H (4.00-12.00) mmol/L BUN 45.5 H (9.0-27.0) mg/dL Est GFR (CKD-EPI) 42 L (>=60) BUN/Creatinine Ratio 32.50 H (12.00-20.00) Ratio Glucose 222 H (70-110) mg/dL POC Glucose (mg/dL) 393 H (70-110) mg/dL Hemoglobin A1c (<=6.0) % Total Bilirubin 0.2 L (0.3-1.2) mg/dL Unconjugated Bilirubin >0 L (0.20-1.00) mg/dL AST 118 H (13-35) U/L Creatine Kinase 1905 H* (26-186) U/L Total Protein 5.4 L (6.2-8.2) d/dL Albumin 3.5 L (3.8-4.9) d/dL 02/16/23 Range/Units 17:46 RBC (4.10-5.20) X 10*6/uL Hgb (12.0-15.0) d/dL Hct (37.2-46.3) % MCH (27.0-32.0) pg MCHC (32.0-37.0) d/dL RDW (11.5-14.5) % Lymphocytes # (0.90-5.00) X 10*3/uL Chloride (96-109) mmol/L Carbon Dioxide (21.6-31.8) mmol/L Anion Gap (4.00-12.00) mmol/L BUN (9.0-27.0) mg/dL Est GFR (CKD-EPI) (>=60) BUN/Creatinine Ratio (12.00-20.00) Ratio Glucose (70-110) mg/dL POC Glucose (mg/dL) 272 H (70-110) mg/dL Hemoglobin A1c (<=6.0) % Total Bilirubin (0.3-1.2) mg/dL Unconjugated Bilirubin (0.20-1.00) mg/dL AST (13-35) U/L Creatine Kinase (26-186) U/L Total Protein (6.2-8.2) d/dL Albumin (3.8-4.9) d/dL Assessment and Plan Assessment: Rhabdomyolysis, could be medication induced Patient presents because she fell at home, recurrent and multiple acute kidney injury, improving Diabetes mellitus, hypoglycemia transaminitis, improving Multiple superficial wounds on both breast made by her cat with no evidence of cellulitis Social difficulties and financial difficulties Hypertension Hyperlipidemia History of osteoarthritis History of rheumatoid arthritis History of coronary artery disease status post stent History of anxiety and depression, not an active issue History of fibromyalgia Plan: Hold diabetes medications including metformin and Januvia and continue with insulin sliding scale, and Levemir 8 units Monitor kidney function,(if no improvement in kidney function then we'll consider nephrology consult), liver enzymes Continue with IV hydration at 100 mL per hour. Hold statin floorworker consult Labs and medication were reviewed.. Continue same treatment. Continue with symptomatic treatment. Resume home medication. Monitor lytes and vitals. DVT and GI prophylaxis. Further recommendations depends on the clinical course of the patient DVT prophylaxis: Subcutaneous heparin GI Prophylaxis: Pepcid PT/OT: Pending Prognosis is guarded
[2023-02-16] MEDS: traZODone HCL 50 MG TAB PO SCH (21:19)
[2023-02-16] MEDS: ACETAMINOPHEN TAB 500 MG TAB PO PRN ×2 (23:19→23:20)
[2023-02-17 06:12] LABS: Glucose,Whole Blood 111 mg/dL (70-110)
[2023-02-17] MEDS: INSULIN ASPART (NovoLOG) 100 UNIT/ML VIAL SQ SCH ×4 (06:18→21:20)
[2023-02-17] MEDS: INSULIN DETEMIR (LEVEMIR) 100 UNIT/ML SYR SQ SCH (06:41)
[2023-02-17] MEDS: SODIUM CHLORIDE 0.9% 1,000 ML IV SCH (08:45)
[2023-02-17] MEDS: HEPARIN SODIUM,PORCINE/PF 5,000 UNIT/0.5 ML SYRINGE SQ SCH ×2 (08:45→21:20)
[2023-02-17] MEDS: DULoxetine HCL 60 MG CAPSULE.DR PO SCH ×2 (08:45→21:20)
[2023-02-17] MEDS: GABAPENTIN 100 MG CAP PO SCH ×3 (08:45→21:20)
[2023-02-17 09:28] LABS: Basophils # (A) 0.03 X 10*3/uL (0.00-0.10); Basophils % (A) 0.5 %; Eosinophils # (A) 0.29 X 10*3/uL (0.04-0.35); Eosinophils % (A) 4.4 %; HCT 29.9 % (37.2-46.3); HGB 8.9 d/dL (12.0-15.0); Lymphocytes # (A) 1.33 X 10*3/uL (0.90-5.00); Lymphocytes % (A) 20.3 %; MCH 25.5 pg (27.0-32.0); MCHC 29.8 d/dL (32.0-37.0); MCV 85.7 FL (80.0-97.0); Mean Platelet Volume 11.7 FL (9.5-12.2); Monocytes # (A) 0.55 X 10*3/uL (0.20-1.00); Monocytes % (A) 8.4 %; NRBC Per 100 WBC 0 X 10*3/uL (0.00-0.01); Neutrophils # (A) 4.34 X 10*3/uL (1.80-7.70); Neutrophils % (A) 66.1 %; Platelet Count 267 X 10*3/uL (140-440); RBC 3.49 X 10*6/uL (4.10-5.20); RDW 17.3 % (11.5-14.5); WBC 6.56 X 10*3/uL (4.50-10.00)
[2023-02-17 11:37] LABS: BUN/Creat Ratio 25.83 Ratio (12.00-20.00); Calcium 8.4 mg/dL (8.7-10.3); Carbon Dioxide 19.2 mmol/L (21.6-31.8); Chloride 114 mmol/L (96-109); Creatine Kinase 957 U/L (26-186); Glucose 123 mg/dL (70-110); Potassium 4.1 mmol/L (3.5-5.5); Sodium 143 mmol/L (135-145)
[2023-02-17 12:13] LABS: Glucose,Whole Blood 180 mg/dL (70-110)
--- NOTE | 2023-02-17 14:05 | P.PN ---
Subjective This is a pleasant 62 years old female with past medical history of asthma, coronary artery disease status post stent, fibromyalgia, hypertension, h yperlipidemia, GERD, rheumatoid arthritis, diabetes mellitus, anxiety depression and claustrophobia She came because she fell at home. Patient says that she has been falling for the last 3 weeks. Last time she felt was last Saturday and today, this morning she was going to her bathroom where she felt weak and slipped onto the floor before she has a chance to get into the bathroom, she denies had a trauma, she she crawled up into her bed and starts screaming before her friend here her up for 3 hours and call 911 and brought her to the emergency room Also she fell on the glans and she was afraid she cut herself but she did not. Patient denies dizziness or loss of consciousness however she has been feeling weak and slow gradually. Patient's lives alone and she has some financial difficulty, because she doesn't have money she is not taking the bus to do shopping, that's affected her ability to eat and drink as she explains. Also there is some evidence of mid [place] her feet(this has been seen by a shower she took on admission the emergency room, confirmed with the bedside nurse) Patient states she's been taking insulin pills Janumet every day as well as the rest of her medication However she denies any chest pain dyspnea coughing, no abdominal pain vomiting diarrhea, no urinary complaints like urgency or going a lot, no headache dizziness weakness or numbness. She is complaining from pain in her right knee She denies smoking alcohol or illicit drugs. In the emergency room patient received fluids and started on antibiotic Patient lives with her To give her emotional support but she has been tried several wounds on both of her breast, she explains that were made by her cat ho wever these wounds look dry with no signs or symptoms of inflammation or cellulitis in the surrounding skin. She is mildly tachycardic She has marked leukocytosis 10.9, rest of CBC, INR is unremarkable. Creatinine is elevated to 1.89, baseline is 0.8-1.0. Glucose low at 52 Elevated liver enzymes with AST 227 and ALT 55 Urine analysis looks like concentrated sample Hip and pelvis x-ray: No acute fracture or dislocation in the right hip or pelvis EKG: Sinus tachycardia at [address]-T changes. In the emergency room patient was started on normal saline 75 mL per oral and ceftriaxone 02/16/2023 Patient today feels better and she is up in bed and she denies any specific complaints. also shown improvement especially creatinine coming down to 1.4, liver enzymes also better, hemoglobin is 9.8 and WBC back to normal at 7.6. Pro-calcitonin negative so. Ceftriaxone also patient with no fever and no evidence of infection. However. His is elevated 1905 which is a critical most likely patient has rhabdomyolysis. Patient on Lipitor 80 mg, bedtime are going to hold metformin now as it might contribute to clinical presentation. We will keep normal saline at 100 mL per hour Hold her metformin and other diabetes medication and put her currently on Levemir 8 units. No evidence of urinary retention 02/17/2023 Patient improving slowly and gradually, she feels better, she denies muscle pain or a case or any other complaints. She feels little stronger. When I asked the patient she's been taking Lipitor 80 mg for a while, but she admits take an antibiotic about 2 weeks ago for possible UTI, she wasn't sure which antibiotic she took both possibly there was an interaction with this antibiotic and Lipitor causing toxicity and rhabdomyolysis. Typically antibiotics that slow Cytochrome P450 isoenzyme then to interact with Lipitor and causing toxicity. Therefore we held her Lipitor and to give the patient a fluid 100 mL per hour. Labs showing improvement with WBC 6.5, hemoglobin 8.9 which is at baseline. Creatinine trending down 1.2 which close to baseline. Creatinine kinase also done at 957. Possible discharge in 24-48 hours Objective - Vital Signs Vital signs: Vital Signs Temp 98.2 F 02/17/23 07:00 Pulse 83 02/17/23 08:00 Resp 16 02/17/23 08:00 BP 98/54 02/17/23 07:00 Pulse Ox 96 02/17/23 07:15 FiO2 Intake & Output 02/16/23 02/17/23 02/17/23 18:59 06:59 18:59 Intake Total 472 354 Balance 472 354 Intake: Oral 472 354 Other: Voiding Method Toilet Toilet Toilet # Voids 5 3 1 # Bowel Movements 1 - Exam GENERAL: The patient is alert and oriented x3, not in any acute distress. Well developed, well nourished. HEENT: Pupils are round and equally reacting to light. EOMI. No scleral icterus. No conjunctival pallor. Normocephalic, atraumatic. No pharyngeal erythema. No t hyromegaly. CARDIOVASCULAR: S1 and S2 present. No murmurs, rubs, or gallops. PULMONARY: Chest is clear to auscultation, no wheezing . no crackles. ABDOMEN: Soft, nontender, nondistended, normoactive bowel sounds. No palpable organomegaly. MUSCULOSKELETAL: No joint swelling or deformity. EXTREMITIES: No cyanosis, clubbing, . No leg edema. NEUROLOGICAL: Gross neurological examination did not reveal any focal deficits. SKIN: No rashes. no petechiae. - Labs CBC & Chem 7: 02/17/23 05:07 02/17/23 05:07 Labs: Abnormal Lab Results - Last 24 Hours (Table) 02/16/23 02/16/23 02/17/23 Range/Units 17:46 20:16 05:07 RBC (4.10-5.20) X 10*6/uL Hgb (12.0-15.0) d/dL Hct (37.2-46.3) % MCH (27.0-32.0) pg MCHC (32.0-37.0) d/dL RDW (11.5-14.5) % Chloride 114 H (96-109) mmol/L Carbon Dioxide 19.2 L (21.6-31.8) mmol/L BUN 31.0 H (9.0-27.0) mg/dL Est GFR (CKD-EPI) 51 L (>=60) BUN/Creatinine Ratio 25.83 H (12.00-20.00) Ratio Glucose 123 H (70-110) mg/dL POC Glucose (mg/dL) 272 H 247 H (70-110) mg/dL Calcium 8.4 L (8.7-10.3) mg/dL Creatine Kinase 957 H (26-186) U/L 02/17/23 02/17/23 02/17/23 Range/Units 05:07 06:10 12:12 RBC 3.49 L (4.10-5.20) X 10*6/uL Hgb 8.9 L (12.0-15.0) d/dL Hct 29.9 L (37.2-46.3) % MCH 25.5 L (27.0-32.0) pg MCHC 29.8 L (32.0-37.0) d/dL RDW 17.3 H (11.5-14.5) % Chloride (96-109) mmol/L Carbon Dioxide (21.6-31.8) mmol/L BUN (9.0-27.0) mg/dL Est GFR (CKD-EPI) (>=60) BUN/Creatinine Ratio (12.00-20.00) Ratio Glucose (70-110) mg/dL POC Glucose (mg/dL) 111 H 180 H (70-110) mg/dL Calcium (8.7-10.3) mg/dL Creatine Kinase (26-186) U/L Assessment and Plan Assessment: Rhabdomyolysis, could be medication induced from interaction of antibiotic and Lipitor Patient presents because she fell at home, recurrent and multiple acute kidney injury, improving Diabetes mellitus, hypoglycemia transaminitis, improving Multiple superficial wounds on both breast made by her cat with no evidence of cellulitis Social difficulties and financial difficulties Hypertension Hyperlipidemia History of osteoarthritis History of rheumatoid arthritis History of coronary artery disease status post stent History of anxiety and depression, not an active issue History of fibromyalgia Plan: Hold diabetes medications including metformin and Januvia and continue with insulin sliding scale, and Levemir 8 units Hold Lipitor. Patient advised about check interaction with her physician prior taking medication and she verbalized understanding and acceptance Continue with IV hydration at 50 mL per hour. Hold statin protective services case worker consult Labs and medication were reviewed.. Continue same treatment. Continue with symptomatic treatment. Resume home medication. Monitor lytes and vitals. DVT and GI prophylaxis. Further recommendations depends on the clinical course of the patient DVT prophylaxis: Subcutaneous heparin GI Prophylaxis: Pepcid PT/OT: Pending Prognosis is guarded
[2023-02-17 17:04] LABS: Glucose,Whole Blood 168 mg/dL (70-110)
[2023-02-17 20:34] LABS: Glucose,Whole Blood 173 mg/dL (70-110)
[2023-02-17] MEDS: traZODone HCL 50 MG TAB PO SCH (21:20)
[2023-02-18] MEDS: SODIUM CHLORIDE 0.9% 1,000 ML IV SCH (01:11)
[2023-02-18 02:53] VITALS: TEMP 98.1
[2023-02-18 06:25] LABS: Glucose,Whole Blood 142 mg/dL (70-110)
[2023-02-18] MEDS: INSULIN ASPART (NovoLOG) 100 UNIT/ML VIAL SQ SCH ×2 (06:26→12:48)
[2023-02-18] MEDS: INSULIN DETEMIR (LEVEMIR) 100 UNIT/ML SYR SQ SCH (06:29)
[2023-02-18 07:27] VITALS: BP 135/84; PULSE 86; RESP 14
[2023-02-18] MEDS: GABAPENTIN 100 MG CAP PO SCH (08:38)
[2023-02-18] MEDS: HEPARIN SODIUM,PORCINE/PF 5,000 UNIT/0.5 ML SYRINGE SQ SCH (08:38)
[2023-02-18] MEDS: DULoxetine HCL 60 MG CAPSULE.DR PO SCH (08:38)
[2023-02-18 08:52] LABS: Basophils # (A) 0.04 X 10*3/uL (0.00-0.10); Basophils % (A) 0.5 %; Eosinophils # (A) 0.26 X 10*3/uL (0.04-0.35); Eosinophils % (A) 3.5 %; HCT 29.3 % (37.2-46.3); HGB 8.9 d/dL (12.0-15.0); Lymphocytes # (A) 1.39 X 10*3/uL (0.90-5.00); Lymphocytes % (A) 18.7 %; MCH 26.2 pg (27.0-32.0); MCHC 30.4 d/dL (32.0-37.0); MCV 86.2 FL (80.0-97.0); Mean Platelet Volume 12.3 FL (9.5-12.2); Monocytes # (A) 0.44 X 10*3/uL (0.20-1.00); Monocytes % (A) 5.9 %; NRBC Per 100 WBC 0 X 10*3/uL (0.00-0.01); Neutrophils # (A) 5.26 X 10*3/uL (1.80-7.70); Neutrophils % (A) 70.9 %; Platelet Count 266 X 10*3/uL (140-440); RDW 17.2 % (11.5-14.5); WBC 7.43 X 10*3/uL (4.50-10.00)
[2023-02-18 09:21] LABS: ALT 40 U/L (8-44); AST 61 U/L (13-35); Albumin 3.4 d/dL (3.8-4.9); Albumin/Globulin Ratio 1.89 Ratio (1.60-3.17); Alkaline Phosphatase 76 U/L (41-126); Bilirubin, Conjugated <0.20 mg/dL (0.20-0.40); Bilirubin,Unconjugated >0 mg/dL (0.20-1.00); Blood Urea Nitrogen 21.2 mg/dL (9.0-27.0); Chloride 114 mmol/L (96-109); Creatine Kinase 854 U/L (26-186); Globulin 1.8 d/dL (1.6-3.3); Glucose 158 mg/dL (70-110); Potassium 4.4 mmol/L (3.5-5.5); Sodium 144 mmol/L (135-145); Total Bilirubin 0.2 mg/dL (0.3-1.2); Total Protein 5.2 d/dL (6.2-8.2)
[2023-02-18 11:37] LABS: Glucose,Whole Blood 234 mg/dL (70-110)
--- NOTE | 2023-02-19 00:18 | P.DS ---
Providers Date of admission: 02/16/23 12:38 Attending physician: Laci Davis Primary care physician: Sofya Lott [facility] Hospital Course: Diagnoses: Rhabdomyolysis, could be medication induced from interaction of antibiotic and Lipitor Patient presents because she fell at home, recurrent and multiple acute kidney injury, improving Diabetes mellitus, hypoglycemia transaminitis, improving Multiple superficial wounds on both breast made by her cat with no evidence of cellulitis Social difficulties and financial difficulties Hypertension Hyperlipidemia History of osteoarthritis History of rheumatoid arthritis History of coronary artery disease status post stent History of anxiety and depression, not an active issue History of fibromyalgia Hospital course: This is a pleasant 62 years old female with past medical history of asthma, coronary artery disease status post stent, fibromyalgia, hypertension, hyperlipidemia, GERD, rheumatoid arthritis, diabetes mellitus, anxiety depression and claustrophobia She came because she fell at home. Patient says that she has been falling for the last 3 weeks. Last time she felt was last Saturday and today, this morning she was going to her bathroom where she felt weak and slipped onto the floor before she has a chance to get into the bathroom, she denies had a trauma, she she crawled up into her bed and starts screaming before her friend here her up for 3 hours and call 911 and brought her to the emergency room Patient found to have rhabdomyolysis secondary medication effect, Lipitor effect is exacerbated to antibiotic given to the patient about 2 weeks ago and this possibly related to rhabdomyolysis and multiple colon. Patient also presentation was dehydrated. She was treated with IV fluids. Patient also instructed for her trazodone 50 mg recent of home dose of 150 and she agrees. Patient should return to the hospital patient was instructed to resume her home medications for diabetes with close monitoring of sugar 4 times a she verbalized understanding and acceptance. Patient denies any other new complaint. Patient is eager to go home today and meet her cat. Her neighbors are taking care of her cat. Labs show significant improvement WBC is normal. Hemoglobin is stable at 0.9. Creatinine back to normal at 1.0. Liver enzymes back to normal. Ferritin kinase came down to 854. Vitals are stable and patient afebrile. Problems and management plan were discussed with the patient and he verbalized understanding and acceptance Patient was found stable and can be discharged home in guarded prognosis however he needs follow-up as an outpatient. Patient was instructed to follow up with PCP Dr. montiel within one week and patient agrees Physical exam Gen: patient is a AAOx3, no distress CVS: S1-S2, RRR, no murmur Lungs: B/L CTA, no wheezing Abdomen: soft, no distention, no tenderness, positive bowel sounds Extremity: no leg edema or induration Time spent more than 35 minutes Plan - Discharge Summary Discharge Rx Participant: No New Discharge Prescriptions: New traZODone HCL [Desyrel] 50 mg PO HS #30 tab Continue Glimepiride [Amaryl] 4 mg PO BID rOPINIRole HCL [Requip] 0.5 mg PO HS Gabapentin [Neurontin] 300 mg PO TID Sacubitril/Valsartan [Entresto 49 mg-51 mg Tablet] 1 tab PO BID sitaGLIPtin PHOS/metFORMIN HCL [Janumet 50-500 mg Tablet] 1 tab PO BID Nitroglycerin Sl Tabs [Nitrostat] 0.4 mg SL Q5M PRN PRN Reason: Chest Pain Famotidine [Pepcid] 20 mg PO BID PRN PRN Reason: GERD DULoxetine HCL [Cymbalta] 60 mg PO BID Acetaminophen Tab [Tylenol] 1,000 mg PO Q8H PRN PRN Reason: Pain Or Fever > 100.5 Discontinued Atorvastatin [Lipitor] 80 mg PO HS Cetirizine HCl [Zyrtec] 10 mg PO DAILY traZODone HCL [Desyrel] 150 mg PO HS carvediloL [Coreg] 25 mg PO BID Nitrofurantoin Monohyd/M-Cryst [Macrobid] 100 mg PO Q12HR #14 cap Discharge Medication List Glimepiride [Amaryl] 4 mg PO BID 03/17/17 [History] rOPINIRole HCL [Requip] 0.5 mg PO HS 03/31/19 [History] DULoxetine HCL [Cymbalta] 60 mg PO BID 01/08/22 [History] Famotidine [Pepcid] 20 mg PO BID PRN 01/08/22 [History] Gabapentin [Neurontin] 300 mg PO TID 01/08/22 [History] Sacubitril/Valsartan [Entresto 49 mg-51 mg Tablet] 1 tab PO BID 01/08/22 [History] Acetaminophen Tab [Tylenol] 1,000 mg PO Q8H PRN 12/18/22 [History] Nitroglycerin Sl Tabs [Nitrostat] 0.4 mg SL Q5M PRN 12/18/22 [History] sitaGLIPtin PHOS/metFORMIN HCL [Janumet 50-500 mg Tablet] 1 tab PO BID 12/18/22 [History] traZODone HCL [Desyrel] 50 mg PO HS #30 tab 02/18/23 [Rx] Follow up Appointment(s)/Referral(s): Sofya Lott MD [Primary Care Provider] - 1-2 days [facility] Vis[facility] Nurse, [NON-STAFF] - 02/25/23 (Can start Service next week on 02/25/23) Patient Instructions/Handouts: Urinary Tract Infection in Women (GEN) Activity/Diet/Wound Care/Special Instructions: heart healthy diet, low carbohydrate diet activity is restricted till you see your doctor we recommend you check your glucose 4 times per day, before each meal and at bed time, keep the results in a log book and bring it to your doctor on your appointment date if your glucose is less than 70 or more than 400 then call 911 and come to emergency room keep holding your lipitor till you see your dr. montiel in one week , may consider restarting lipitor at a lower dose like 40 mg daily. monitor your blood pressure with and adjust your blood pressure medication with your doctor Discharge Disposition: HOME WITH HOME HEALTH SERVICES
== END 2023-02-18 14:13 | disposition home health service (06) ==
LOC: EC 12:46 → 6NMEDSUR 15:21 → EEVIPCON 15:21 → 6NMEDSUR 15:59 → INTOOBSV 02-16 12:38 → OBSVTOIN 02-16 12:38 → UNDODISIN 02-18 14:13
PROVIDERS: ADMIT Internal Medicine; ATTEND Internal Medicine
DX: M62.82 Rhabdomyolysis (principal); N17.9 Acute kidney failure, unspecified; E11.649 Type 2 diabetes mellitus with hypoglycemia without coma; E86.0 Dehydration; N39.0 Urinary tract infection, site not specified; M25.561 Pain in right knee; W01.0XXA Fall on same level from slipping, tripping and stumbling without subsequent striking against object, initial encounter; I25.10 Atherosclerotic heart disease of native coronary artery without angina pectoris; M06.9 Rheumatoid arthritis, unspecified; I10 Essential (primary) hypertension; E78.5 Hyperlipidemia, unspecified; M19.90 Unspecified osteoarthritis, unspecified site; M79.7 Fibromyalgia; K21.9 Gastro-esophageal reflux disease without esophagitis; R74.01 Elevation of levels of liver transaminase levels; G43.909 Migraine, unspecified, not intractable, without status migrainosus; I25.2 Old myocardial infarction; G56.03 Carpal tunnel syndrome, bilateral upper limbs; M41.9 Scoliosis, unspecified; G89.29 Other chronic pain; M54.9 Dorsalgia, unspecified; J45.909 Unspecified asthma, uncomplicated; S21.012A Laceration without foreign body of left breast, initial encounter; S21.011A Laceration without foreign body of right breast, initial encounter; W55.03XA Scratched by cat, initial encounter; F32.A Depression, unspecified; F41.9 Anxiety disorder, unspecified; F40.240 Claustrophobia; Z79.84 Long term (current) use of oral hypoglycemic drugs; Z79.899 Other long term (current) drug therapy; Z88.1 Allergy status to other antibiotic agents; Z88.8 Allergy status to other drugs, medicaments and biological substances; Z87.891 Personal history of nicotine dependence; R29.6 Repeated falls; Z91.81 History of falling; Z60.2 Problems related to living alone; Z95.5 Presence of coronary angioplasty implant and graft; Z90.49 Acquired absence of other specified parts of digestive tract; Z98.890 Other specified postprocedural states; Z82.0 Family history of epilepsy and other diseases of the nervous system; Z80.3 Family history of malignant neoplasm of breast
CPT/HCPCS: 96361 ×2; 96366; 96372 ×4; 96365; 99285; 36415; 94760 ×3; 93005; 97162; 97166; 80053; 80048 ×3; 80076 ×2; 82550 ×3; 83605; 83735; 84484; 85025 ×4; 85610; 85730; 81001; 83036; 84145; 73502; 73560; 71046; G0378 ×4; J0696 ×2; J1644 ×4

== ENCOUNTER 2023-02-23 07:04 | Inpatient (IN) | payer OTHER ==
[2023-02-23] MEDS ORDERED: DIPHENOX-ATROP 2.5-0.025 MG 1 EACH TAB PO STA ×2 (07:46→08:21)
[2023-02-23] MEDS ORDERED: SODIUM CHLORIDE 0.9% 500 ML 500 ML IV ONE (07:47)
--- NOTE | 2023-02-23 07:49 | ED ---
General Adult HPI - General Chief complaint: Nausea/Vomiting/Diarrhea Stated complaint: diarrhea Time Seen by Provider: 02/23/23 07:05 Source: patient, RN notes reviewed, old records reviewed Mode of arrival: ambulatory Limitations: no limitations - History of Present Illness Initial comments: This is a 62-year-old female who presents emergency Department stating she's not feeling well. Patient states she's had diarrhea all night. Patient states he also has bedbugs in her house. Patient states she's also been nauseous but hasn't vomited. Patient states she just feels tired and she wants some help of her house clean so she doesn't have bedbugs. Patient denies chest pain difficulty breathing or shortness of breath. Patient denies any fever or cough. Patient denies headache patient has numbness weakness. Patient denies any lightheadedness or dizziness. - Related Data Home Medications Medication Instructions Recorded Confirmed Glimepiride [Amaryl] 4 mg PO BID 03/17/17 02/15/23 rOPINIRole HCL [Requip] 0.5 mg PO HS 03/31/19 02/15/23 DULoxetine HCL [Cymbalta] 60 mg PO BID 01/08/22 02/15/23 Famotidine [Pepcid] 20 mg PO BID PRN 01/08/22 02/15/23 Gabapentin [Neurontin] 300 mg PO TID 01/08/22 02/15/23 Sacubitril/Valsartan [Entresto 49 1 tab PO BID 01/08/22 02/15/23 mg-51 mg Tablet] Acetaminophen Tab [Tylenol] 1,000 mg PO Q8H PRN 12/18/22 02/15/23 Nitroglycerin Sl Tabs [Nitrostat] 0.4 mg SL Q5M PRN 12/18/22 02/15/23 sitaGLIPtin PHOS/metFORMIN HCL 1 tab PO BID 12/18/22 02/15/23 [Janumet 50-500 mg Tablet] Previous Rx's Medication Instructions Recorded traZODone HCL [Desyrel] 50 mg PO HS #30 tab 02/18/23 Allergies Allergy/AdvReac Type Severity Reaction Status Date / Time WARNER Inhibitors Allergy Unknown Verified 02/23/23 07:37 ciprofloxacin [From Cipro] Allergy Rash/Hives Verified 02/23/23 07:37 Quinolones Allergy rash over Verified 02/23/23 07:37 entire body metformin AdvReac Diarrhea Verified 02/23/23 07:37 Review of Systems ROS Statement: Those systems with pertinent positive or pertinent negative responses have been documented in the HPI. ROS Other: All systems not noted in ROS Statement are negative. Past Medical History Past Medical History: Asthma, Coronary Artery Disease (CAD), Chest Pain / Angina, Diabetes Mellitus, Fibromyalgia, GERD/Reflux, Hyperlipidemia, Hypertension, Myocardial Infarction (NM), Rheumatoid Arthritis (RA) Additional Past Medical History / Comment(s): morbid obesity, chronic migraines, SCOLIOSIS, CHRONIC BACK PAIN, CARPAL TUNNEL bilaterally. bed sore to coccyx. Last Myocardial Infarction Date:: 05/24/15 History of Any Multi-Drug Resistant Organisms: None Reported Past Surgical History: Breast Surgery, Cholecystectomy, Heart Catheterization, Heart Catheterization With Stent, Tonsillectomy Additional Past Surgical History / Comment(s): 05/2015 PCI with stent at [facility]. Other surgeries: BIBI KNEE ARTHROSCOPIES, L BREAST- LUMPECTOMY(BENIGN) Past Anesthesia/Blood Transfusion Reactions: Motion Sickness Additional Past Anesthesia/Blood Transfusion Reaction / Comment(s): Pt states she has clausterphobia. Date of Last Stent Placement:: 05/24/15 per pt Past Psychological History: Anxiety, Depression Smoking Status: Former smoker Past Alcohol Use History: None Reported Past Drug Use History: None Reported - Past Family History Father Family Medical History: Dementia Mother History Unknown: Yes Family Medical History: Cancer, Chest Pain / Angina Additional Family Medical History / Comment(s): Breast cancer with recent surgery. General Exam - General Exam Comments Initial Comments: GENERAL: Patient is well-developed and well-nourished. Patient is nontoxic and well- hydrated and is in mild distress. ENT: Neck is soft and supple. No significant lymphadenopathy is noted. Oropharynx is clear. Moist mucous membranes. Neck has full range of motion without eliciting any pain. EYES: The sclera were anicteric and conjunctiva were pink and moist. Extraocular movements were intact and pupils were equal round and reactive to light. Eyelids were unremarkable. PULMONARY: Unlabored respirations. Good breath sounds bilaterally. No audible rales rhonchi or wheezing was noted. CARDIOVASCULAR: There is a regular rate and rhythm without any murmurs gallops or rubs. ABDOMEN: Soft and nontender with normal bowel sounds. SKIN: Skin is clear with no lesions or rashes and otherwise unremarkable. NEUROLOGIC: Patient is alert and oriented x3. Cranial nerves II through XII are grossly intact. Motor and sensory are also intact. Normal speech, volume and content. Symmetrical smile. MUSCULOSKELETAL: Normal extremities with adequate strength and full range of motion. No lower extremity swelling or edema. No calf tenderness. LYMPHATICS: No significant lymphadenopathy is noted PSYCHIATRIC: Normal psychiatric evaluation. Limitations: no limitations Course Vital Signs 02/23/23 02/23/23 02/23/23 07:31 09:31 11:54 Temperature 98.6 F Pulse Rate 105 H 93 93 Respiratory 18 18 18 Rate Blood Pressure 115/70 118/76 127/61 O2 Sat by Pulse 96 98 97 Oximetry Medical Decision Making - Medical Decision Making EKG was interpreted by myself. EKG shows sinus rhythm at 97 bpm GA interval is on a 34 QRSs 104 QT interval 336 QTC is 390. Patient's EKG shows no ST segment elevation or depression. Was pt. sent in by a medical professional or institution (, PA, LAUNDRY ROOM ATTENDANT, urgent care, hospital, or skilled nursing...) When possible be specific @ -No Did you speak to anyone other than the patient for history (EMS, parent, family, police, friend...)? What history was obtained from this source @ -EMS is quite a bit of history and certainly gives a history of the patient's living conditions Did you review nursing and triage notes (agree or disagree)? Why? @ -I reviewed and agree with nursing and triage notes Were old charts reviewed (outside hosp., previous admission, EMS record, old EKG, old radiological studies, urgent care reports/EKG's, skilled nursing records)? Report findings @ -I reviewed prior charts prior lab work and prior radiological studies in this patient Differential Diagnosis (chest pain, altered mental status, abdominal pain women, abdominal pain men, vaginal bleeding, weakness, fever, dyspnea, syncope, headache, dizziness, GI bleed, back pain, seizure, CVA, palpatations, mental health, musculoskeletal)? @ -Differential Abdominal Pain Women: Appendicitis, Cholecystitis, diverticulosis, ischemic bowel, pancreatitis, hepatitis, UTI, gastroenteritis, AAA, incarcerated hernia, bowel obstruction, constipation, inflammatory bowel, hepatitis, peptic ulcer disease, splenic infarction, perforated viscus, vulvitis, ovarian torsion, PID, kidney stone, placenta abruption, this is not meant to be an all-inclusive list EKG interpreted by me (3pts min.). @ -As above X-rays interpreted by me (1pt min.). @ -Chest x-ray shows no acute abnormality CT interpreted by me (1pt min.). @ -None done U/S interpreted by me (1pt. min.). @ -None done What testing was considered but not performed or refused? (CT, X-rays, U/S, labs)? Why? @ -None What meds were considered but not given or refused? Why? @ -None Did you discuss the management of the patient with other professionals (professionals i.e. , PA, LAUNDRY ROOM ATTENDANT, lab, RT, psych nurse, school social worker, financial services consultant, teacher, event security officer, case checker)? Give summary @ -Old with [facility] hospitalist agreed to admit the patient admitted the patient wrote admitting orders Was smoking cessation discussed for >3mins.? @ -No Was critical care preformed (if so, how long)? @ -No Were there social determinants of health that impacted care today? How? (Homelessness, low income, unemployed, alcoholism, drug addiction, transportation, low edu. Level, literacy, decrease access to med. care, custodial, rehab)? @ -No Was there de-escalation of care discussed even if they declined (Discuss DNR or withdrawal of care, Hospice)? DNR status @ -No What co-morbidities impacted this encounter? (DM, HTN, Smoking, COPD, CAD, Cancer, CVA, ARF, Chemo, Hep., AIDS, mental health diagnosis, sleep apnea, morbid obesity)? @ -None Was patient admitted / discharged? Hospital course, mention meds given and route, prescriptions, significant lab abnormalities, going to OR and other pertinent info. @ -According to EMS the patient is unable to do her ADLs and the house is filled with bedbugs and there is stool everywhere. We spoke to the patient's guardian and they are making arrangements to try and get another place to the patient lives in the meantime guardian states the patient is unable to live on her own because she cannot take care of herself Undiagnosed new problem with uncertain prognosis? @ -No Drug Therapy requiring intensive monitoring for toxicity (Heparin, Nitro, Insulin, Cardizem)? @ -No Were any procedures done? @ -No Diagnosis/symptom? @ -Diarrhea Acute, or Chronic, or Acute on Chronic? @ -Acute Uncomplicated (without systemic symptoms) or Complicated (systemic symptoms)? @ -Uncomplicated Side effects of treatment? @ -No Exacerbation, Progression, or Severe Exacerbation? @ -No Poses a threat to life or bodily function? How? (Chest pain, USA, NM, pneumonia, PE, COPD, DKA, ARF, appy, cholecystitis, CVA, Diverticulitis, Homicidal, Suicidal, threat to staff... and all critical care pts) @ -No Diagnosis/symptom? @ -Unable to take care of activities of daily living Acute, or Chronic, or Acute on Chronic? @ -Acute on chronic Uncomplicated (without systemic symptoms) or Complicated (systemic symptoms)? @ -Complicated Side effects of treatment? @ -none Exacerbation, Progression, or Severe Exacerbation] @ -no Poses a threat to life or bodily function? @ -no - Lab Data Result diagrams: 02/23/23 08:30 02/23/23 08:30 Lab Results 02/23/23 02/23/23 02/23/23 Range/Units 07:47 08:30 08:30 WBC 9.4 (3.8-10.6) k/uL RBC 3.90 (3.80-5.40) m/uL Hgb 10.4 L (11.4-16.0) gm/dL Hct 33.2 L (34.0-46.0) % MCV 85.2 (80.0-100.0) fL MCH 26.6 (25.0-35.0) pg MCHC 31.3 (31.0-37.0) g/dL RDW 17.7 H (11.5-15.5) % Plt Count 272 (150-450) k/uL MPV 8.2 Neutrophils % 85 % Lymphocytes % 7 % Monocytes % 6 % Eosinophils % 1 % Basophils % 0 % Neutrophils # 8.0 H (1.3-7.7) k/uL Lymphocytes # 0.6 L (1.0-4.8) k/uL Monocytes # 0.5 (0-1.0) k/uL Eosinophils # 0.1 (0-0.7) k/uL Basophils # 0.0 (0-0.2) k/uL Hypochromasia Slight Anisocytosis Slight Sodium 142 (137-145) mmol/L Potassium 4.3 (3.5-5.1) mmol/L Chloride 112 H (98-107) mmol/L Carbon Dioxide 22 (22-30) mmol/L Anion Gap 8 mmol/L BUN 16 (7-17) mg/dL Creatinine 0.87 (0.52-1.04) mg/dL Est GFR (CKD-EPI)AfAm 82 (>60 ml/min/1.73 sqM) Est GFR (CKD-EPI)NonAf 71 (>60 ml/min/1.73 sqM) Glucose 110 H (74-99) mg/dL POC Glucose (mg/dL) 134 H (70-110) mg/dL POC Glu Alcoholic Counselor ID Olivia Sinha Calcium 8.7 (8.4-10.2) mg/dL Magnesium 1.5 L (1.6-2.3) mg/dL Total Bilirubin 0.7 (0.2-1.3) mg/dL AST 41 H (14-36) U/L ALT 39 H (4-34) U/L Alkaline Phosphatase 73 (38-126) U/L Total Protein 5.7 L (6.3-8.2) g/dL Albumin 3.4 L (3.5-5.0) g/dL Urine Color Urine Appearance (Clear) Urine pH (5.0-8.0) Ur Specific [place] (1.001-1.035) Urine Protein (Negative) Urine Glucose (UA) (Negative) Urine Ketones (Negative) Urine Blood (Negative) Urine Nitrite (Negative) Urine Bilirubin (Negative) Urine Urobilinogen (<2.0) mg/dL Ur Leukocyte Esterase (Negative) Urine RBC (0-5) /hpf Urine WBC (0-5) /hpf Ur Squamous Epith Cells (0-4) /hpf Urine Mucus (None) /hpf 02/23/23 Range/Units 09:14 WBC (3.8-10.6) k/uL RBC (3.80-5.40) m/uL Hgb (11.4-16.0) gm/dL Hct (34.0-46.0) % MCV (80.0-100.0) fL MCH (25.0-35.0) pg MCHC (31.0-37.0) g/dL RDW (11.5-15.5) % Plt Count (150-450) k/uL MPV Neutrophils % % Lymphocytes % % Monocytes % % Eosinophils % % Basophils % % Neutrophils # (1.3-7.7) k/uL Lymphocytes # (1.0-4.8) k/uL Monocytes # (0-1.0) k/uL Eosinophils # (0-0.7) k/uL Basophils # (0-0.2) k/uL Hypochromasia Anisocytosis Sodium (137-145) mmol/L Potassium (3.5-5.1) mmol/L Chloride (98-107) mmol/L Carbon Dioxide (22-30) mmol/L Anion Gap mmol/L BUN (7-17) mg/dL Creatinine (0.52-1.04) mg/dL Est GFR (CKD-EPI)AfAm (>60 ml/min/1.73 sqM) Est GFR (CKD-EPI)NonAf (>60 ml/min/1.73 sqM) Glucose (74-99) mg/dL POC Glucose (mg/dL) (70-110) mg/dL POC Glu Alcoholic Counselor ID Calcium (8.4-10.2) mg/dL Magnesium (1.6-2.3) mg/dL Total Bilirubin (0.2-1.3) mg/dL AST (14-36) U/L ALT (4-34) U/L Alkaline Phosphatase (38-126) U/L Total Protein (6.3-8.2) g/dL Albumin (3.5-5.0) g/dL Urine Color Yellow Urine Appearance Clear (Clear) Urine pH 6.0 (5.0-8.0) Ur Specific [place] 1.018 (1.001-1.035) Urine Protein 1+ H (Negative) Urine Glucose (UA) Negative (Negative) Urine Ketones 3+ H (Negative) Urine Blood Negative (Negative) Urine Nitrite Negative (Negative) Urine Bilirubin Negative (Negative) Urine Urobilinogen 2.0 (<2.0) mg/dL Ur Leukocyte Esterase Trace H (Negative) Urine RBC 1 (0-5) /hpf Urine WBC 3 (0-5) /hpf Ur Squamous Epith Cells 1 (0-4) /hpf Urine Mucus Many H (None) /hpf Disposition Clinical Impression: Diarrhea, Decreased activities of daily living (ADL) Disposition: ADMITTED IP TO THIS HOSP Referrals: None,Stated [REFERRING] - 1-2 days Time of Disposition: 12:45
[2023-02-23 08:00] LABS: Glucose,Whole Blood 134 mg/dL (70-110)
[2023-02-23 09:03] LABS: Anisocytosis Slight; Basophils % (A) 0 %; Eosinophils # (A) 0.1 k/uL (0-0.7); Eosinophils % (A) 1 %; HCT 33.2 % (34.0-46.0); HGB 10.4 gm/dL (11.4-16.0); Hypochromasia Slight; Lymphocytes # (A) 0.6 k/uL (1.0-4.8); Lymphocytes % (A) 7 %; MCH 26.6 pg (25.0-35.0); MCHC 31.3 g/dL (31.0-37.0); MCV 85.2 fL (80.0-100.0); Mean Platelet Volume 8.2; Monocytes # (A) 0.5 k/uL (0-1.0); Monocytes % (A) 6 %; Neutrophils % (A) 85 %; Platelet Count 272 k/uL (150-450); RDW 17.7 % (11.5-15.5); WBC 9.4 k/uL (3.8-10.6)
--- NOTE | 2023-02-23 09:08 | XR ---
EXAMINATION TYPE: XR chest 2V DATE OF EXAM: 02/23/2023 9:01 AM COMPARISON: Chest radiographs from 02/15/2023 TECHNIQUE: XR chest 2V Frontal and lateral views of the chest. CLINICAL INDICATION:Female, 62 years old with history of Difficulty breathing ; FINDINGS: Lungs/Pleura: There is no evidence of pleural effusion, focal consolidation, or pneumothorax. Pulmonary vascularity: Unremarkable. Heart/mediastinum: Cardiomediastinal silhouette is unremarkable. Musculoskeletal: No acute osseous pathology. Mild spondylolysis the thoracic spine. IMPRESSION: No acute cardiopulmonary disease/process.
[2023-02-23 09:18] LABS: ALT 39 U/L (4-34); AST 41 U/L (14-36); African American GFR (CKD) 82 (>60 ml/min/1.73 sqM); Albumin 3.4 g/dL (3.5-5.0); Alkaline Phosphatase 73 U/L (38-126); Anion Gap 8 mmol/L; Blood Urea Nitrogen 16 mg/dL (7-17); Calcium 8.7 mg/dL (8.4-10.2); Carbon Dioxide 22 mmol/L (22-30); Chloride 112 mmol/L (98-107); Glucose 110 mg/dL (74-99); Magnesium 1.5 mg/dL (1.6-2.3); Non-African American GFR(CKD) 71 (>60 ml/min/1.73 sqM); Sodium 142 mmol/L (137-145); Total Bilirubin 0.7 mg/dL (0.2-1.3); Total Protein 5.7 g/dL (6.3-8.2)
[2023-02-23 09:21] LABS: Potassium 4.3 mmol/L (3.5-5.1)
[2023-02-23 09:32] LABS: Appearance,Urine Clear (Clear); Bilirubin,Urine Negative (Negative); Blood,Urine Negative (Negative); Color,Urine Yellow; Glucose,Urine (UA) Negative (Negative); Ketones,Urine 3+ (Negative); Leukocyte Esterase,Urine Trace (Negative); Mucus,Urine Many /hpf; Nitrite,Urine Negative (Negative); Protein,Urine 1+ (Negative); RBC,Urine 1 /hpf (0-5); Specific Gravity,Urine 1.018 (1.001-1.035); Squamous Epithelial Cell,Urine 1 /hpf (0-4); WBC,Urine 3 /hpf (0-5)
[2023-02-23] MEDS ORDERED: MAGNESIUM SULFATE-D5W PMX 1 GM in DEXTROSE/WATER 1 100ML.BAG IVPB ONE (09:40)
[2023-02-23] MEDS ORDERED: SODIUM CHLORIDE 0.9% 1,000 ML IV ONE (12:45)
[2023-02-23] MEDS ORDERED: DIPHENOX-ATROP 2.5-0.025 MG 1 EACH TAB PO PRN (12:46)
[2023-02-23] MEDS ORDERED: NITROGLYCERIN SL TABS 0.4 MG TAB SUBLINGUAL PRN (14:40)
[2023-02-23] MEDS: GABAPENTIN 300 MG CAP PO SCH ×2 (16:15→20:49)
[2023-02-23] MEDS: traZODone HCL 50 MG TAB PO SCH (20:49)
[2023-02-23] MEDS: SACUBITRIL/VALSARTAN 49 MG-51 MG TABLET PO SCH (20:49)
[2023-02-23] MEDS: DULoxetine HCL 60 MG CAPSULE.DR PO SCH (20:49)
[2023-02-23] MEDS: GLIMEPIRIDE 4 MG TAB PO SCH (20:49)
[2023-02-23] MEDS: metFORMIN 500 MG TAB PO SCH (20:49)
[2023-02-23] MEDS ORDERED: NON FORMULARY DRUG (Sitagliptin Phos/Metformin Hcl [Janumet 50-500 Mg Tablet] 1 EACH Table PO SCH (21:00)
[2023-02-24 08:00] LABS: Glucose,Whole Blood 114 mg/dL (70-110)
[2023-02-24] MEDS: DULoxetine HCL 60 MG CAPSULE.DR PO SCH ×2 (09:23→21:21)
[2023-02-24] MEDS: GABAPENTIN 300 MG CAP PO SCH ×3 (09:23→21:21)
[2023-02-24] MEDS: LINAGLIPTIN 5 MG TABLET PO SCH (09:23)
[2023-02-24] MEDS: metFORMIN 500 MG TAB PO SCH ×2 (09:23→21:22)
[2023-02-24] MEDS: GLIMEPIRIDE 4 MG TAB PO SCH ×2 (09:24→21:21)
[2023-02-24] MEDS: SACUBITRIL/VALSARTAN 49 MG-51 MG TABLET PO SCH ×2 (09:24→21:21)
--- NOTE | 2023-02-24 09:31 | P.HPIM ---
History of Present Illness H&P Date: 02/23/23 Chief Complaint: Nausea/vomiting/diarrhea 62-year-old female history of hypertension, hyperlipidemia, diabetes mellitus, CAD, asthma, who presents emergency Department stating she's not feeling well. Patient states she's had diarrhea all night. Patient states he also has bedbugs in her house. Patient states she's also been nauseous but hasn't vomited. Patient states she just feels tired and she wants some help of her house clean so she doesn't have bedbugs. Patient denies chest pain difficulty breathing or shortness of breath. Patient denies any fever or cough. Patient denies headache patient has numbness weakness. Patient denies any lightheadedness or dizziness. According to EMS the patient is unable to do her ADLs and the house is filled with bedbugs and there is stool everywhere. ED physician spoke to the patient's guardian and they are making arrangements to try and get another place for the patient to live; in the meantime guardian states the patient is unable to live on her own because she cannot take care of herself Patient was worked up in ED including blood work at 2 L sodium 142, potassium 4.3, BUN/. No 16/0.87, magnesium low at 1.5, AST/ALT elevated at 41/59 Chest x-ray is unremarkable for any acute pulmonary process Review of Systems REVIEW OF SYSTEMS: CONSTITUTIONAL: No fever, no malaise, no fatigue. HEENT: No recent visual problems or hearing problems. Denied any sore throat. CARDIOVASCULAR: No chest pain, orthopnea, PND, no palpitations, no syncope. PULMONARY: No shortness of breath, no cough, no hemoptysis. GASTROINTESTINAL: No diarrhea, no nausea, no vomiting, no abdominal pain. NEUROLOGICAL: No headaches, no weakness, no numbness. HEMATOLOGICAL: Denies any bleeding or petechiae. GENITOURINARY: Denies any burning micturition, frequency, or urgency. MUSCULOSKELETAL/RHEUMATOLOGICAL: Denies any joint pain, swelling, or any muscle pain. ENDOCRINE: Denies any polyuria or polydipsia. The rest of the 14-point review of systems is negative. Past Medical History Past Medical History: Asthma, Coronary Artery Disease (CAD), Chest Pain / Angina, Diabetes Mellitus, Fibromyalgia, GERD/Reflux, Hyperlipidemia, H ypertension, Myocardial Infarction (SD), Rheumatoid Arthritis (RA) Additional Past Medical History / Comment(s): morbid obesity, chronic migraines, SCOLIOSIS, CHRONIC BACK PAIN, CARPAL TUNNEL bilaterally. bed sore to coccyx. Last Myocardial Infarction Date:: 05/24/15 History of Any Multi-Drug Resistant Organisms: None Reported Past Surgical History: Breast Surgery, Cholecystectomy, Heart Catheterization, Heart Catheterization With Stent, Tonsillectomy Additional Past Surgical History / Comment(s): 05/2015 PCI with stent at [facility]. Other surgeries: BIBI KNEE ARTHROSCOPIES, L BREAST- LUMPECTOMY(BENIGN) Past Anesthesia/Blood Transfusion Reactions: Motion Sickness Additional Past Anesthesia/Blood Transfusion Reaction / Comment(s): Pt states she has clausterphobia. Date of Last Stent Placement:: 05/24/15 per pt Past Psychological History: Anxiety, Depression Smoking Status: Former smoker Past Alcohol Use History: None Reported Past Drug Use History: None Reported - Past Family History Father Family Medical History: Dementia Mother History Unknown: Yes Family Medical History: Cancer, Chest Pain / Angina Additional Family Medical History / Comment(s): Breast cancer with recent surgery. Medications and Allergies Home Medications Medication Instructions Recorded Confirmed Type Glimepiride [Amaryl] 4 mg PO BID 03/17/17 02/23/23 History rOPINIRole HCL [Requip] 0.5 mg PO HS 03/31/19 02/23/23 History DULoxetine HCL [Cymbalta] 60 mg PO BID 01/08/22 02/23/23 History Famotidine [Pepcid] 20 mg PO BID PRN 01/08/22 02/23/23 History Gabapentin [Neurontin] 300 mg PO TID 01/08/22 02/23/23 History Sacubitril/Valsartan [Entresto 49 1 tab PO BID 01/08/22 02/23/23 History mg-51 mg Tablet] Acetaminophen Tab [Tylenol] 500 - 1,000 mg PO Q8H PRN 12/18/22 02/23/23 History Nitroglycerin Sl Tabs [Nitrostat] 0.4 mg SL Q5M PRN 12/18/22 02/23/23 History sitaGLIPtin PHOS/metFORMIN HCL 1 tab PO BID 12/18/22 02/23/23 History [Janumet 50-500 mg Tablet] traZODone HCL [Desyrel] 50 mg PO HS #30 tab 02/18/23 02/23/23 Rx Allergies Allergy/AdvReac Type Severity Reaction Status Date / Time WARNER Inhibitors Allergy Unknown Verified 02/23/23 12:56 ciprofloxacin [From Cipro] Allergy Rash/Hives Verified 02/23/23 12:56 Quinolones Allergy rash over Verified 02/23/23 12:56 entire body metformin AdvReac Diarrhea Verified 02/23/23 12:56 Physical Exam Vitals: Vital Signs Temp Pulse Resp BP Pulse Ox 02/23/23 14:13 100 18 151/73 97 02/23/23 11:54 93 18 127/61 97 02/23/23 09:31 93 18 118/76 98 02/23/23 07:31 98.6 F 105 H 18 115/70 96 Intake and Output 02/22/23 02/23/23 02/23/23 22:59 06:59 14:59 Other: Weight 99.79 kg PHYSICAL EXAMINATION: GENERAL: The patient is alert and oriented x3, not in any acute distress. Well developed, well nourished. HEENT: Pupils are round and equally reacting to light. EOMI. No scleral icterus. No conjunctival pallor. Normocephalic, atraumatic. No pharyngeal erythema. No thyromegaly. CARDIOVASCULAR: S1 and S2 present. No murmurs, rubs, or gallops. PULMONARY: Chest is clear to auscultation, no wheezing or crackles. ABDOMEN: Soft, nontender, nondistended, normoactive bowel sounds. No palpable organomegaly. MUSCULOSKELETAL: No joint swelling or deformity. EXTREMITIES: No cyanosis, clubbing, or pedal edema. NEUROLOGICAL: Gross neurological examination did not reveal any focal deficits. SKIN: No rashes. Results CBC & Chem 7: 02/23/23 08:30 02/23/23 08:30 Labs: Abnormal Lab Results - Last 24 Hours (Table) 02/23/23 02/23/23 02/23/23 Range/Units 07:47 08:30 08:30 Hgb 10.4 L (11.4-16.0) gm/dL Hct 33.2 L (34.0-46.0) % RDW 17.7 H (11.5-15.5) % Neutrophils # 8.0 H (1.3-7.7) k/uL Lymphocytes # 0.6 L (1.0-4.8) k/uL Chloride 112 H (98-107) mmol/L Glucose 110 H (74-99) mg/dL POC Glucose (mg/dL) 134 H (70-110) mg/dL Magnesium 1.5 L (1.6-2.3) mg/dL AST 41 H (14-36) U/L ALT 39 H (4-34) U/L Total Protein 5.7 L (6.3-8.2) g/dL Albumin 3.4 L (3.5-5.0) g/dL Urine Protein (Negative) Urine Ketones (Negative) Ur Leukocyte Esterase (Negative) Urine Mucus (None) /hpf 02/23/23 Range/Units 09:14 Hgb (11.4-16.0) gm/dL Hct (34.0-46.0) % RDW (11.5-15.5) % Neutrophils # (1.3-7.7) k/uL Lymphocytes # (1.0-4.8) k/uL Chloride (98-107) mmol/L Glucose (74-99) mg/dL POC Glucose (mg/dL) (70-110) mg/dL Magnesium (1.6-2.3) mg/dL AST (14-36) U/L ALT (4-34) U/L Total Protein (6.3-8.2) g/dL Albumin (3.5-5.0) g/dL Urine Protein 1+ H (Negative) Urine Ketones 3+ H (Negative) Ur Leukocyte Esterase Trace H (Negative) Urine Mucus Many H (None) /hpf Assessment and Plan Assessment: 1. Electrolyte imbalance/hypomagnesemia/dehydration; supplemented in ED; we will monitor electrolytes and make further supplementations as needed 2. Intractable diarrhea; possible gastroenteritis; patient will be placed on PPI; IV fluid hydration with normal saline; we will monitor LEIGHTON's and renal function with electrolytes 3. Adult failure to thrive/decreased ADL/Bed bugs; patient's guardian to look into patient's living situation and try to find alternative placement for the patient; consult case management/PEDIATRIC PHYSICIAN ASSISTANT 4. Hypertension; Entresto 4951 one tablet twice a day 5. Hyperlipidemia; currently not on any statin therapy 6. Diabetes mellitus 2/neuropathy; patient is currently on Amaryl 4 mg twice a day along with Janumet 52305 one tablet twice a day - We will monitor Accu-Cheks before meals and at bedtime with insulin sliding scale - Continue home dose of Neurontin 300 mg by mouth 3 times a day 7. Restless leg syndrome; Requip 0.5 mg by mouth daily at bedtime 8. Depression/insomnia; Cymbalta 60 mg twice a day; trazodone 50 mg by mouth daily at bedtime DVT prophylaxis; SCDs CODE STATUS; full code
[2023-02-24 12:10] LABS: Glucose,Whole Blood 123 mg/dL (70-110)
[2023-02-24 13:46] LABS: Blood Urea Nitrogen 13.2 mg/dL (9.0-27.0); Calcium 8.5 mg/dL (8.7-10.3); Carbon Dioxide 18.1 mmol/L (21.6-31.8); Chloride 109 mmol/L (96-109); Glucose 106 mg/dL (70-110); Potassium 3.7 mmol/L (3.5-5.5); Sodium 144 mmol/L (135-145)
[2023-02-24 14:01] LABS: Basophils # (A) 0.03 X 10*3/uL (0.00-0.10); Basophils % (A) 0.4 %; Eosinophils # (A) 0.21 X 10*3/uL (0.04-0.35); Eosinophils % (A) 2.5 %; HGB 9.5 d/dL (12.0-15.0); Lymphocytes # (A) 0.87 X 10*3/uL (0.90-5.00); Lymphocytes % (A) 10.3 %; MCH 25.8 pg (27.0-32.0); MCHC 29.7 d/dL (32.0-37.0); Mean Platelet Volume 12.2 FL (9.5-12.2); Monocytes # (A) 0.45 X 10*3/uL (0.20-1.00); Monocytes % (A) 5.3 %; NRBC Per 100 WBC 0 X 10*3/uL (0.00-0.01); Neutrophils # (A) 6.87 X 10*3/uL (1.80-7.70); Neutrophils % (A) 81.3 %; Platelet Count 238 X 10*3/uL (140-440); RBC 3.68 X 10*6/uL (4.10-5.20); RDW 18.8 % (11.5-14.5); WBC 8.45 X 10*3/uL (4.50-10.00)
[2023-02-24 17:14] LABS: Glucose,Whole Blood 117 mg/dL (70-110)
--- NOTE | 2023-02-24 18:47 | P.PN ---
Subjective Progress Note Date: 02/24/23 62-year-old female history of hypertension, hyperlipidemia, diabetes mellitus, CAD, asthma, who presents emergency Department stating she's not feeling well. Patient states she's had diarrhea all night. Patient states he also has bedbugs in her house. Patient states she's also been nauseous but hasn't vomited. Patient states she just feels tired and she wants some help of her house clean so she doesn't have bedbugs. Patient denies chest pain difficulty breathing or shortness of breath. Patient denies any fever or cough. Patient denies headache patient has numbness weakness. Patient denies any lightheadedness or dizziness. According to EMS the patient is unable to do her ADLs and the house is filled with bedbugs and there is stool everywhere. ED physician spoke to the patient's guardian and they are making arrangements to try and get another place for the patient to live; in the meantime guardian states the patient is unable to live on her own because she cannot take care of herself Patient was worked up in ED including blood work at 2 L sodium 142, potassium 4.3, BUN/. No 16/0.87, magnesium low at 1.5, AST/ALT elevated at 41/59 Chest x-ray is unremarkable for any acute pulmonary process -- Patient is seen and evaluated sitting up in bed; requesting consultation with social work for alternate living arrangements Vital signs are stable temperature of 98.7, pulse 95, respirations 16 and blood pressure 128/77 with O2 saturation of 97% Lab review shows sodium 144, potassium 3.7, with B UN of 13.2 and creatinine 0.8, WBC 8.45, hemoglobin of 9.5; UA reveals trace leukocyte esterase and mucous cells; magnesium 1.5 yesterday; repeat magnesium levels are pending post supplement -- Patient was discussed with guardian and they are going to work with social work to make different living arrangements -- PTOT is consulted; patient might need placement Objective - Vital Signs Vital signs: Vital Signs Temp 98.5 F 02/24/23 02:59 Pulse 75 02/24/23 02:59 Resp 18 02/24/23 02:59 BP 115/70 02/24/23 02:59 Pulse Ox 95 02/24/23 02:59 FiO2 Intake & Output 0702/24/23 02/24/23 18:59 06:59 18:59 Intake Total 900 Balance 900 Weight 99.79 kg Intake: Intake, IV Titration 900 Amount Sodium Chloride 0.9% 1, 900 000 ml @ 75 mls/hr IV . [id number] Rx#:[id number] Other: # Voids 3 - Exam GENERAL: The patient is alert and oriented x3, not in any acute distress. Well developed, well nourished. HEENT: Pupils are round and equally reacting to light. EOMI. No scleral icterus. No conjunctival pallor. Normocephalic, atraumatic. No pharyngeal erythema. No thyromegaly. CARDIOVASCULAR: S1 and S2 present. No murmurs, rubs, or gallops. PULMONARY: Chest is clear to auscultation, no wheezing or crackles. ABDOMEN: Soft, nontender, nondistended, normoactive bowel sounds. No palpable organomegaly. MUSCULOSKELETAL: No joint swelling or deformity. EXTREMITIES: No cyanosis, clubbing, or pedal edema. NEUROLOGICAL: Gross neurological examination did not reveal any focal deficits. SKIN: No rashes. - Labs CBC & Chem 7: 02/24/23 07:56 02/24/23 07:56 Labs: Abnormal Lab Results - Last 24 Hours (Table) 02/23/23 02/24/23 Range/Units 09:14 07:59 POC Glucose (mg/dL) 114 H (70-110) mg/dL Urine Protein 1+ H (Negative) Urine Ketones 3+ H (Negative) Ur Leukocyte Esterase Trace H (Negative) Urine Mucus Many H (None) /hpf Assessment and Plan Assessment: 1. Electrolyte imbalance/hypomagnesemia/dehydration; supplemented in ED; we will monitor electrolytes and make further supplementations as needed 2. Intractable diarrhea; possible gastroenteritis; patient will be placed on PPI; IV fluid hydration with normal saline; we will monitor LEIGHTON's and renal function with electrolytes 3. Adult failure to thrive/decreased ADL/Bed bugs; patient's guardian to look into patient's living situation and try to find alternative placement for the patient; consult case management/[employer] 4. Hypertension; Entresto 4951 one tablet twice a day 5. Hyperlipidemia; currently not on any statin therapy 6. Diabetes mellitus 2/neuropathy; patient is currently on Amaryl 4 mg twice a day along with Augumet 35204 one tablet twice a day - We will monitor Accu-Cheks before meals and at bedtime with insulin sliding scale - Continue home dose of Neurontin 300 mg by mouth 3 times a day 7. Restless leg syndrome; Requip 0.5 mg by mouth daily at bedtime 8. Depression/insomnia; Cymbalta 60 mg twice a day; trazodone 50 mg by mouth daily at bedtime DVT prophylaxis; SCDs CODE STATUS; full code
[2023-02-24 20:16] LABS: Glucose,Whole Blood 87 mg/dL (70-110)
[2023-02-24] MEDS: traZODone HCL 50 MG TAB PO SCH (21:21)
[2023-02-25 07:08] LABS: Glucose,Whole Blood 128 mg/dL (70-110)
[2023-02-25] MEDS: metFORMIN 500 MG TAB PO SCH ×2 (07:34→20:40)
[2023-02-25] MEDS: DULoxetine HCL 60 MG CAPSULE.DR PO SCH ×2 (09:07→20:40)
[2023-02-25] MEDS: GABAPENTIN 300 MG CAP PO SCH ×3 (09:07→20:39)
[2023-02-25] MEDS: SACUBITRIL/VALSARTAN 49 MG-51 MG TABLET PO SCH ×2 (09:07→20:40)
[2023-02-25] MEDS: GLIMEPIRIDE 4 MG TAB PO SCH ×2 (09:07→20:40)
[2023-02-25] MEDS: LINAGLIPTIN 5 MG TABLET PO SCH (09:08)
[2023-02-25 11:49] LABS: Glucose,Whole Blood 280 mg/dL (70-110)
[2023-02-25 17:17] LABS: Glucose,Whole Blood 161 mg/dL (70-110)
--- NOTE | 2023-02-25 19:57 | PN ---
PROGRESS NOTE DATE OF SERVICE: 02/25/2023 SUBJECTIVE: This is a 62-year-old woman, who was admitted with weakness and diarrhea, is being closely monitored. No chest pain. No palpitations. No fever. OBJECTIVE: VITAL SIGNS: Pulse is 91, blood pressure 110/83, respirations 18. CHEST: Clear to auscultation. CARDIOVASCULAR: S1 and S2 muffled. ABDOMEN: Soft and nontender. LABORATORY DATA: Reviewed. ASSESSMENT: 1. Diarrhea, possible acute gastroenteritis with dehydration and electrolyte imbalance. 2. Intractable diarrhea. 3. Adult failure to thrive, decreased activities of daily living, bedbugs. 4. Hypertension. 5. Hyperlipidemia. 6. Multiple medical issues. RECOMMENDATIONS AND DISCUSSION: Recommend to continue current medications. Continue symptomatic treatment. PT and OT evaluation. Possible ECF rehab. Otherwise, repeat labs in the morning. Prognosis is guarded. Monitor blood sugars closely. Further recommendations to follow. MMODL / IJN: [id number] /
[2023-02-25 20:15] LABS: Glucose,Whole Blood 159 mg/dL (70-110)
[2023-02-25] MEDS: traZODone HCL 50 MG TAB PO SCH (20:39)
[2023-02-26 07:29] LABS: Glucose,Whole Blood 139 mg/dL (70-110)
[2023-02-26 08:00] VITALS: BP 138/89; PULSE 96; RESP 18; TEMP 97.7
[2023-02-26] MEDS: DULoxetine HCL 60 MG CAPSULE.DR PO SCH (09:05)
[2023-02-26] MEDS: GABAPENTIN 300 MG CAP PO SCH (09:05)
[2023-02-26] MEDS: LINAGLIPTIN 5 MG TABLET PO SCH (09:06)
[2023-02-26] MEDS: GLIMEPIRIDE 4 MG TAB PO SCH (09:06)
[2023-02-26] MEDS: SACUBITRIL/VALSARTAN 49 MG-51 MG TABLET PO SCH (09:07)
[2023-02-26] MEDS: metFORMIN 500 MG TAB PO SCH (09:18)
[2023-02-26 11:31] LABS: Basophils # (A) 0.03 X 10*3/uL (0.00-0.10); Basophils % (A) 0.4 %; Eosinophils % (A) 2.8 %; HCT 32.5 % (37.2-46.3); HGB 9.5 d/dL (12.0-15.0); Lymphocytes # (A) 0.79 X 10*3/uL (0.90-5.00); Lymphocytes % (A) 11.3 %; MCH 25.1 pg (27.0-32.0); MCHC 29.2 d/dL (32.0-37.0); MCV 85.8 FL (80.0-97.0); Mean Platelet Volume 11.5 FL (9.5-12.2); Monocytes % (A) 5.7 %; NRBC Per 100 WBC 0 X 10*3/uL (0.00-0.01); Neutrophils # (A) 5.58 X 10*3/uL (1.80-7.70); Neutrophils % (A) 79.5 %; Platelet Count 279 X 10*3/uL (140-440); RBC 3.79 X 10*6/uL (4.10-5.20); WBC 7.02 X 10*3/uL (4.50-10.00)
[2023-02-26 11:51] LABS: BUN/Creat Ratio 18.78 Ratio (12.00-20.00); Blood Urea Nitrogen 16.9 mg/dL (9.0-27.0); Calcium 8.6 mg/dL (8.7-10.3); Carbon Dioxide 22.8 mmol/L (21.6-31.8); Chloride 110 mmol/L (96-109); Glucose 147 mg/dL (70-110); Potassium 3.7 mmol/L (3.5-5.5); Sodium 145 mmol/L (135-145)
--- NOTE | 2023-02-27 12:43 | P.DS ---
Providers Date of admission: 02/23/23 12:45 Expected date of discharge: 02/26/23 Attending physician: Jose Raul Love Primary care physician: Sofya Duvallcrystal [facility] Course: Final diagnosis Diarrhea, possible acute gastroenteritis with dehydration and electrolyte imbalance, improving Intractable diarrhea Adult failure to thrive with decreased activities of daily living capabilities Bedbugs in the home Hypertension Hyperlipidemia Obesity with a BMI of 34.5 GI prophylaxis DVT perplexes Full code Discharge disposition Patient is being discharged in a stable condition with guarded prognosis to home. Patient will follow-up with Dr. Jadiel Love in the outpatient setting upon discharge. Total time taken is greater than 35 minutes. Hospital course This is a 62-year-old female who was recently admitted with increasing weakness and diarrhea being closely monitored. Patient diarrhea and improved and evaluated by physical therapy recommending home. Patient does have a legal public guardian and has been having issues in her apartment regarding bedbugs as she reports the neighbor downstairs had bedbugs and they traveled up to her apartment. [facility] along with legal guardian with an appointment this afternoon to discuss these issues as patient reports is also being affected. Patient instructed to follow-up with primary care provider on discharge. Currently no reports of chest pain, shortness of breath, or palpitations. Patient is afebrile. No reports of nausea or vomiting and patient is tolerating diet. Patient will be discharged home today. Guarded prognosis and high risk for readmissions Physical exam: Gen: This is a 62-year-old female who is awake, alert and oriented 3, will developed, well-nourished, obese HEENT: Head is atraumatic, normocephalic. Pupils equal, round. Sclerae is anicteric. NECK: Supple. No JVD. No lymphadenopathy. No thyromegaly. LUNGS: Clear to auscultation. No wheezes or rhonchi. No intercostal retractions. HEART: Regular rate and rhythm. No murmur. ABDOMEN: Soft. Bowel sounds are present. No masses. No tenderness. EXTREMITIES: No pedal edema. No calf tenderness. NEUROLOGICAL: Patient is awake, alert and oriented x3. Cranial nerves 2 through 12 are grossly intact. Please refer to medication reconciliation sheet for a list of medications. The impression and plan of care has been dictated by Amita Almeida, Nurse Practitioner as directed. Dr. Ivan MD I have performed a history and examination and MDM of this patient, discussed the same with the dictator, and agree with the dictator's assessment and plan as written ,documented as a scribe. Based on total visit time, I have performed more than 50% of the visit. Patient Condition at Discharge: Stable Plan - Discharge Summary Discharge Rx Participant: No New Discharge Prescriptions: Continue Glimepiride [Amaryl] 4 mg PO BID rOPINIRole HCL [Requip] 0.5 mg PO HS Gabapentin [Neurontin] 300 mg PO TID Sacubitril/Valsartan [Entresto 49 mg-51 mg Tablet] 1 tab PO BID sitaGLIPtin PHOS/metFORMIN HCL [Janumet 50-500 mg Tablet] 1 tab PO BID Nitroglycerin Sl Tabs [Nitrostat] 0.4 mg SL Q5M PRN PRN Reason: Chest Pain Famotidine [Pepcid] 20 mg PO BID PRN PRN Reason: GERD DULoxetine HCL [Cymbalta] 60 mg PO BID Acetaminophen Tab [Tylenol] 500 - 1,000 mg PO Q8H PRN PRN Reason: Pain Or Fever > 100.5 traZODone HCL [Desyrel] 50 mg PO HS #30 tab Discharge Medication List Glimepiride [Amaryl] 4 mg PO BID 03/17/17 [History] rOPINIRole HCL [Requip] 0.5 mg PO HS 03/31/19 [History] DULoxetine HCL [Cymbalta] 60 mg PO BID 01/08/22 [History] Famotidine [Pepcid] 20 mg PO BID PRN 01/08/22 [History] Gabapentin [Neurontin] 300 mg PO TID 01/08/22 [History] Sacubitril/Valsartan [Entresto 49 mg-51 mg Tablet] 1 tab PO BID 01/08/22 [History] Acetaminophen Tab [Tylenol] 500 - 1,000 mg PO Q8H PRN 12/18/22 [History] Nitroglycerin Sl Tabs [Nitrostat] 0.4 mg SL Q5M PRN 12/18/22 [History] sitaGLIPtin PHOS/metFORMIN HCL [Janumet 50-500 mg Tablet] 1 tab PO BID 12/18/22 [History] traZODone HCL [Desyrel] 50 mg PO HS #30 tab 02/18/23 [Rx] Follow up Appointment(s)/Referral(s): Sofya Lott MD [Primary Care Provider] - 1 Week (Guardian to make follow up appointment.) None,Stated [REFERRING] - 1-2 days [facility] Visiting Nurse, [NON-STAFF] - 1 Week Patient Instructions/Handouts: Acute Diarrhea (GEN), Weakness (DC) Discharge Disposition: HOME SELF-CARE
== END 2023-02-26 13:06 | disposition home or self-care (01) | DRG 249 ==
LOC: EC 07:04 → 5NMEDONC 12:45
PROVIDERS: ADMIT Hospitalist; ATTEND Hospitalist
DX: K52.9 Noninfective gastroenteritis and colitis, unspecified (principal); R62.7 Adult failure to thrive; I10 Essential (primary) hypertension; F32.A Depression, unspecified; G47.00 Insomnia, unspecified; G25.81 Restless legs syndrome; E11.9 Type 2 diabetes mellitus without complications; E78.5 Hyperlipidemia, unspecified; Z68.34 Body mass index [BMI] 34.0-34.9, adult; F41.9 Anxiety disorder, unspecified; I25.10 Atherosclerotic heart disease of native coronary artery without angina pectoris; I25.2 Old myocardial infarction; G89.29 Other chronic pain; M41.9 Scoliosis, unspecified; E66.01 Morbid (severe) obesity due to excess calories; E86.0 Dehydration; E83.42 Hypomagnesemia; Z79.899 Other long term (current) drug therapy; Z79.84 Long term (current) use of oral hypoglycemic drugs; M06.9 Rheumatoid arthritis, unspecified; K21.9 Gastro-esophageal reflux disease without esophagitis; M54.9 Dorsalgia, unspecified; M79.7 Fibromyalgia; Z87.891 Personal history of nicotine dependence; Z95.5 Presence of coronary angioplasty implant and graft; Z90.49 Acquired absence of other specified parts of digestive tract; Z96.653 Presence of artificial knee joint, bilateral; Z88.1 Allergy status to other antibiotic agents; Z88.8 Allergy status to other drugs, medicaments and biological substances
CPT/HCPCS: 36415; 71046; 80048; 80053; 81001; 83735; 85025; 93005; 96361; 96365; 99285

== ENCOUNTER 2023-03-02 05:34 | Emergency (ER) | payer OTHER ==
[2023-03-02] MEDS ORDERED: SODIUM CHLORIDE 0.9% 1,000 ML IV STA (06:10)
[2023-03-02] MEDS ORDERED: KETOROLAC 15 MG/ML 1 ML VIAL IVP STA (06:10)
[2023-03-02] MEDS ORDERED: DIPHENOX-ATROP 2.5-0.025 MG 1 EACH TAB PO STA (06:46)
[2023-03-02 07:22] VITALS: RESP 16
[2023-03-02 07:33] LABS: Anisocytosis Slight; Basophils % (A) 0 %; Eosinophils # (A) 0.1 k/uL (0-0.7); Eosinophils % (A) 1 %; HCT 34.5 % (34.0-46.0); HGB 10.3 gm/dL (11.4-16.0); Hypochromasia Moderate; Lymphocytes # (A) 0.4 k/uL (1.0-4.8); Lymphocytes % (A) 6 %; MCH 25.7 pg (25.0-35.0); MCV 85.6 fL (80.0-100.0); Mean Platelet Volume 8.9; Monocytes # (A) 0.4 k/uL (0-1.0); Monocytes % (A) 6 %; Neutrophils # (A) 6.1 k/uL (1.3-7.7); Neutrophils % (A) 87 %; RBC 4.03 m/uL (3.80-5.40); RDW 17.6 % (11.5-15.5)
[2023-03-02 07:42] LABS: ALT 25 U/L (4-34); African American GFR (CKD) >90 (>60 ml/min/1.73 sqM); Albumin 3.7 g/dL (3.5-5.0); Anion Gap 12 mmol/L; Blood Urea Nitrogen 14 mg/dL (7-17); Calcium 8.8 mg/dL (8.4-10.2); Carbon Dioxide 20 mmol/L (22-30); Chloride 109 mmol/L (98-107); Glucose 84 mg/dL (74-99); Lipase 83 U/L (23-300); Non-African American GFR(CKD) 78 (>60 ml/min/1.73 sqM); Sodium 141 mmol/L (137-145); Total Bilirubin 0.7 mg/dL (0.2-1.3); Total Protein 6.2 g/dL (6.3-8.2)
[2023-03-02 07:52] LABS: AST 33 U/L (14-36); Alkaline Phosphatase 71 U/L (38-126); Magnesium 1.8 mg/dL (1.6-2.3); Potassium 4.5 mmol/L (3.5-5.1)
[2023-03-02 08:00] LABS: Platelet Count 130 k/uL (150-450)
[2023-03-02 08:14] LABS: Amorphous Sediment,Urine Rare /hpf; Appearance,Urine Cloudy (Clear); Bilirubin,Urine Negative (Negative); Blood,Urine Negative (Negative); Color,Urine Yellow; Glucose,Urine (UA) Negative (Negative); Ketones,Urine 2+ (Negative); Leukocyte Esterase,Urine Negative (Negative); Nitrite,Urine Negative (Negative); Protein,Urine Trace (Negative); Specific Gravity,Urine 1.013 (1.001-1.035); Urobilinogen,Urine <2.0 mg/dL (<2.0)
--- NOTE | 2023-03-02 08:38 | ED ---
General Adult HPI - General Chief complaint: Nausea/Vomiting/Diarrhea Stated complaint: diarrhea Time Seen by Provider: 03/02/23 06:09 Source: patient Limitations: no limitations - History of Present Illness Initial comments: Patient is a 62-year-old female presents to emergency department for diarrhea. Patient reports 3-4 episodes of diarrhea today, nonbloody. She was discharged on 02/26 for the same complaint it was thought to be gastroenteritis. She states is not improving. She denies abdominal pain, blood in stool, nausea, vomiting. States she feels well otherwise. No history of c. diff. No recent antibiotic use. - Related Data Home Medications Medication Instructions Recorded Confirmed Glimepiride [Amaryl] 4 mg PO BID 03/17/17 02/23/23 rOPINIRole HCL [Requip] 0.5 mg PO HS 03/31/19 02/23/23 DULoxetine HCL [Cymbalta] 60 mg PO BID 01/08/22 02/23/23 Famotidine [Pepcid] 20 mg PO BID PRN 01/08/22 02/23/23 Gabapentin [Neurontin] 300 mg PO TID 01/08/22 02/23/23 Sacubitril/Valsartan [Entresto 49 1 tab PO BID 01/08/22 02/23/23 mg-51 mg Tablet] Acetaminophen Tab [Tylenol] 500 - 1,000 mg PO Q8H PRN 12/18/22 02/23/23 Nitroglycerin Sl Tabs [Nitrostat] 0.4 mg SL Q5M PRN 12/18/22 02/23/23 sitaGLIPtin PHOS/metFORMIN HCL 1 tab PO BID 12/18/22 02/23/23 [Janumet 50-500 mg Tablet] Previous Rx's Medication Instructions Recorded traZODone HCL [Desyrel] 50 mg PO HS #30 tab 02/18/23 Diphenoxylate HCl/Atropine 1 - 2 tab PO QID PRN 3 Days #24 tab 03/02/23 [Lomotil 2.5-0.025 mg Tablet] Allergies Allergy/AdvReac Type Severity Reaction Status Date / Time WARNER Inhibitors Allergy Unknown Verified 03/02/23 07:09 ciprofloxacin [From Cipro] Allergy Rash/Hives Verified 03/02/23 07:09 Quinolones Allergy rash over Verified 03/02/23 07:09 entire body metformin AdvReac Diarrhea Verified 03/02/23 07:09 Review of Systems ROS Statement: Those systems with pertinent positive or pertinent negative responses have been documented in the HPI. ROS Other: All systems not noted in ROS Statement are negative. Past Medical History Past Medical History: Asthma, Coronary Artery Disease (CAD), Chest Pain / Angina, Diabetes Mellitus, Fibromyalgia, GERD/Reflux, Hyperlipidemia, Hypertension, Myocardial Infarction (OK), Rheumatoid Arthritis (RA) Additional Past Medical History / Comment(s): morbid obesity, chronic migraines, SCOLIOSIS, CHRONIC BACK PAIN, CARPAL TUNNEL bilaterally. bed sore to coccyx. Last Myocardial Infarction Date:: 05/24/15 History of Any Multi-Drug Resistant Organisms: None Reported Past Surgical History: Breast Surgery, Cholecystectomy, Heart Catheterization, Heart Catheterization With Stent, Tonsillectomy Additional Past Surgical History / Comment(s): 05/2015 PCI with stent at [facility]. Other surgeries: BIBI KNEE ARTHROSCOPIES, L BREAST- LUMPECTOMY(BENIGN) Past Anesthesia/Blood Transfusion Reactions: Motion Sickness Additional Past Anesthesia/Blood Transfusion Reaction / Comment(s): Pt states she has clausterphobia. Date of Last Stent Placement:: 05/24/15 per pt Past Psychological History: Anxiety, Depression Smoking Status: Former smoker Past Alcohol Use History: None Reported Past Drug Use History: None Reported - Past Family History Father Family Medical History: Dementia Mother History Unknown: Yes Family Medical History: Cancer, Chest Pain / Angina Additional Family Medical History / Comment(s): Breast cancer with recent surgery. General Exam Limitations: no limitations General appearance: alert, in no apparent distress Respiratory exam: Present: normal lung sounds bilaterally. Absent: respiratory distress, wheezes, rales, rhonchi, stridor Cardiovascular Exam: Present: regular rate, normal rhythm, normal heart sounds. Absent: systolic murmur, diastolic murmur, rubs, gallop, clicks GI/Abdominal exam: Present: soft, normal bowel sounds. Absent: distended, tenderness, guarding, rebound, rigid Neurological exam: Present: alert, oriented X3 Psychiatric exam: Present: normal affect, normal mood Skin exam: Present: warm, dry, intact, normal color. Absent: rash Course Vital Signs 03/02/23 03/02/23 07:00 09:05 Temperature 97.7 F 98.1 F Pulse Rate 97 79 Respiratory 16 16 Rate Blood Pressure 143/77 161/95 O2 Sat by Pulse 97 96 Oximetry Medical Decision Making - Medical Decision Making Was pt. sent in by a medical professional or institution ([facility], [facility], urgent care, hospital, or usp...) When possible be specific @ -No Did you speak to anyone other than the patient for history (EMS, parent, family, police, friend...)? What history was obtained from this source @ -No Did you review nursing and triage notes (agree or disagree)? Why? @ -[I reviewed and mostly agree. Patient denies abdominal pain Were old charts reviewed (outside hosp., previous admission, EMS record, old EKG, old radiological studies, urgent care reports/EKG's, usp records)? Report findings @ -No old charts were reviewed Differential Diagnosis (chest pain, altered mental status, abdominal pain women, abdominal pain men, vaginal bleeding, weakness, fever, dyspnea, syncope, headache, dizziness, GI bleed, back pain, seizure, CVA, palpatations, mental health)? @ -Colitis, gastroenteritis, diverticulitis. This list is not meant to be all- inclusive EKG interpreted by me (3pts min.). @ -As above X-rays interpreted by me (1pt min.). @ -None done CT interpreted by me (1pt min.). @ -None done U/S interpreted by me (1pt. min.). @ -None done What testing was considered but not performed or refused? (CT, X-rays, U/S, labs)? Why? @ -Considered abdominal imaging but no pain or tenderness What meds were considered but not given or refused? Why? @ -None Did you discuss the management of the patient with other professionals (professionals i.e. [facility], [facility], lab, RT, psych nurse, social media marketing analyst, [employer] equipment operator, teacher, payroll officer, clinical case manager)? Give summary @ -No Was smoking cessation discussed for >3mins.? @ -No Was critical care preformed (if so, how long)? @ -No Were there social determinants of health that impacted care today? How? (Homelessness, low income, unemployed, alcoholism, drug addiction, transportation, low edu. Level, literacy, decrease access to med. care, senior care, rehab)? @ -No Was there de-escalation of care discussed even if they declined (Discuss DNR or withdrawal of care, Hospice)? DNR status @ -No What co-morbidities impacted this encounter? (DM, HTN, Smoking, COPD, CAD, Cancer, CVA, ARF, Chemo, Hep., AIDS, mental health diagnosis, sleep apnea, morbid obesity)? @ -None Was patient admitted / discharged? Hospital course, mention meds given and route, prescriptions, significant lab abnormalities, going to OR and other pertinent info. @ -Discharged patient nontoxic-appearing no fever or abdominal pain. Labs unremarkable. Patient was hydrated. She is in stable medical condition for discharge. She was unable to give a stool sample but was given paper prescription with instructions. Undiagnosed new problem with uncertain prognosis? @ -No Drug Therapy requiring intensive monitoring for toxicity (Heparin, Nitro, Insulin, Cardizem)? @ -No Were any procedures done? @ -No Diagnosis/symptom? @ -diarrhea Acute, or Chronic, or Acute on Chronic? @ -acute Uncomplicated (without systemic symptoms) or Complicated (systemic symptoms)? @ uncomplicated Side effects of treatment? @ -No Exacerbation, Progression, or Severe Exacerbation? @ -No Poses a threat to life or bodily function? How? (Chest pain, [place], [place], pneumonia, PE, COPD, DKA, ARF, appy, cholecystitis, CVA, Diverticulitis, Homicidal, Suicidal, threat to staff... and all critical care pts) @ -No Dr. Gamble is my attending - Lab Data Result diagrams: 03/02/23 07:05 03/02/23 07:05 Lab Results 03/02/23 03/02/23 03/02/23 Range/Units 07:05 07:05 07:05 WBC 7.0 (3.8-10.6) k/uL RBC 4.03 (3.80-5.40) m/uL Hgb 10.3 L (11.4-16.0) gm/dL Hct 34.5 (34.0-46.0) % MCV 85.6 (80.0-100.0) fL MCH 25.7 (25.0-35.0) pg MCHC 30.0 L (31.0-37.0) g/dL RDW 17.6 H (11.5-15.5) % Plt Count 130 L D (150-450) k/uL MPV 8.9 Neutrophils % 87 % Lymphocytes % 6 % Monocytes % 6 % Eosinophils % 1 % Basophils % 0 % Neutrophils # 6.1 (1.3-7.7) k/uL Lymphocytes # 0.4 L (1.0-4.8) k/uL Monocytes # 0.4 (0-1.0) k/uL Eosinophils # 0.1 (0-0.7) k/uL Basophils # 0.0 (0-0.2) k/uL Hypochromasia Moderate Anisocytosis Slight Sodium 141 (137-145) mmol/L Potassium 4.5 (3.5-5.1) mmol/L Chloride 109 H (98-107) mmol/L Carbon Dioxide 20 L (22-30) mmol/L Anion Gap 12 mmol/L BUN 14 (7-17) mg/dL Creatinine 0.81 (0.52-1.04) mg/dL Est GFR (CKD-EPI)AfAm >90 (>60 ml/min/1.73 sqM) Est GFR (CKD-EPI)NonAf 78 (>60 ml/min/1.73 sqM) Glucose 84 (74-99) mg/dL Lactic Ac Sepsis Rflx Plasma Lactic Acid Ramiro 2.4 H* (0.7-2.0) mmol/L Calcium 8.8 (8.4-10.2) mg/dL Magnesium 1.8 (1.6-2.3) mg/dL Total Bilirubin 0.7 (0.2-1.3) mg/dL AST 33 (14-36) U/L ALT 25 (4-34) U/L Alkaline Phosphatase 71 (38-126) U/L Total Protein 6.2 L (6.3-8.2) g/dL Albumin 3.7 (3.5-5.0) g/dL Lipase 83 (23-300) U/L Urine Color Urine Appearance (Clear) Urine pH (5.0-8.0) Ur Specific Asher (1.001-1.035) Urine Protein (Negative) Urine Glucose (UA) (Negative) Urine Ketones (Negative) Urine Blood (Negative) Urine Nitrite (Negative) Urine Bilirubin (Negative) Urine Urobilinogen (<2.0) mg/dL Ur Leukocyte Esterase (Negative) Amorphous Sediment (None) /hpf 03/02/23 03/02/23 Range/Units 07:44 07:54 WBC (3.8-10.6) k/uL RBC (3.80-5.40) m/uL Hgb (11.4-16.0) gm/dL Hct (34.0-46.0) % MCV (80.0-100.0) fL MCH (25.0-35.0) pg MCHC (31.0-37.0) g/dL RDW (11.5-15.5) % Plt Count (150-450) k/uL MPV Neutrophils % % Lymphocytes % % Monocytes % % Eosinophils % % Basophils % % Neutrophils # (1.3-7.7) k/uL Lymphocytes # (1.0-4.8) k/uL Monocytes # (0-1.0) k/uL Eosinophils # (0-0.7) k/uL Basophils # (0-0.2) k/uL Hypochromasia Anisocytosis Sodium (137-145) mmol/L Potassium (3.5-5.1) mmol/L Chloride (98-107) mmol/L Carbon Dioxide (22-30) mmol/L Anion Gap mmol/L BUN (7-17) mg/dL Creatinine (0.52-1.04) mg/dL Est GFR (CKD-EPI)AfAm (>60 ml/min/1.73 sqM) Est GFR (CKD-EPI)NonAf (>60 ml/min/1.73 sqM) Glucose (74-99) mg/dL Lactic Ac Sepsis Rflx Y Plasma Lactic Acid Ramiro (0.7-2.0) mmol/L Calcium (8.4-10.2) mg/dL Magnesium (1.6-2.3) mg/dL Total Bilirubin (0.2-1.3) mg/dL AST (14-36) U/L ALT (4-34) U/L Alkaline Phosphatase (38-126) U/L Total Protein (6.3-8.2) g/dL Albumin (3.5-5.0) g/dL Lipase (23-300) U/L Urine Color Yellow Urine Appearance Cloudy H (Clear) Urine pH 6.0 (5.0-8.0) Ur Specific Asher 1.013 (1.001-1.035) Urine Protein Trace H (Negative) Urine Glucose (UA) Negative (Negative) Urine Ketones 2+ H (Negative) Urine Blood Negative (Negative) Urine Nitrite Negative (Negative) Urine Bilirubin Negative (Negative) Urine Urobilinogen <2.0 (<2.0) mg/dL Ur Leukocyte Esterase Negative (Negative) Amorphous Sediment Rare H (None) /hpf Disposition Clinical Impression: Diarrhea Disposition: HOME SELF-CARE Condition: Good Instructions (If sedation given, give patient instructions): Acute Diarrhea (ED) Additional Instructions: Take medication as directed. Increase water intake. Bring stool sample in with prescription for further evaluation. Please follow-up with your primary care provider in 1-2 days. Return to the emergency department if you experience new, concerning, or worsening symptoms. Prescriptions: Diphenoxylate HCl/Atropine [Lomotil 2.5-0.025 mg Tablet] 1 - 2 tab PO QID PRN 3 Days #24 tab PRN Reason: Diarrhea Is patient prescribed a controlled substance at d/c from ED?: No Referrals: Sofya Lott MD [Primary Care Provider] - 1-2 days Time of Disposition: 08:35
[2023-03-02 09:07] VITALS: BP 161/95; PULSE 79; TEMP 98.1
== END 2023-03-02 09:05 | disposition home or self-care (01) ==
LOC: EC 05:34
DX: R19.7 Diarrhea, unspecified (principal); E66.01 Morbid (severe) obesity due to excess calories; E11.9 Type 2 diabetes mellitus without complications; I10 Essential (primary) hypertension; I25.2 Old myocardial infarction; F41.9 Anxiety disorder, unspecified; F32.A Depression, unspecified; J45.909 Unspecified asthma, uncomplicated; I25.10 Atherosclerotic heart disease of native coronary artery without angina pectoris; Z87.891 Personal history of nicotine dependence; Z79.84 Long term (current) use of oral hypoglycemic drugs; Z79.899 Other long term (current) drug therapy; Z88.1 Allergy status to other antibiotic agents; Z88.8 Allergy status to other drugs, medicaments and biological substances; Z68.34 Body mass index [BMI] 34.0-34.9, adult
CPT/HCPCS: 36415; 80053; 81001; 83605; 83690; 83735; 85025; 96360; 99284